=== PATIENT | female | born 1945 | race Caucasian/White ===

== ENCOUNTER → 2016-03-29 | Outpatient (CLI) | payer BC ==
[~2016-03-29] MED LIST: AMIO200T4 PO; APIX1TAB3 PO; ATOR-24 PO; CIPR-255 PO; CIPR1TAB11 PO; CLC/300 PO; FERR1TAB13 PO; FRS/40 PO; HYDR-4717 PO; ISOS60TA25 PO; LEVO-366 PO; LEVO1TAB34 PO; METO100T14 PO; MULT-506 PO; SITA25TA PO; TRAM-10 PO; VTMD1000 PO
== END | disposition home or self-care (01) ==
LOC: C.RDSM 11:25
PROVIDERS: ATTEND Physical Medicine & Rehabilitation Sports Medicine
DX: Z89.411 Acquired absence of right great toe (principal); M79.671 Pain in right foot

== ENCOUNTER → 2016-04-27 | Outpatient (CLI) | payer BC ==
[~2016-04-27] MED LIST changes: -LEVO-366 PO; -LEVO1TAB34 PO
== END | disposition home or self-care (01) ==
LOC: C.RDSM 12:15
PROVIDERS: ATTEND Physical Medicine & Rehabilitation Sports Medicine
DX: M79.671 Pain in right foot (principal); Z89.411 Acquired absence of right great toe

== ENCOUNTER 2016-10-28 10:53 | Emergency (ER) | payer BC ==
[~2016-10-28] VITALS: Ht 160 cm; Wt 86.0 kg
[~2016-10-28 10:53] MED LIST changes: -CIPR1TAB11 PO
[2016-10-28 10:57] VITALS: TEMP 36.5; Ht 160 cm; Wt 86.0 kg
[2016-10-28] MEDS ORDERED: SODIUM CHLORIDE 0.9% 1000ML 500 ML IV ONE (11:14)
[2016-10-28] MEDS ORDERED: CIPR1TAB11 PO (11:15)
--- NOTE | 2016-10-28 12:09 | EMERGENCY ROOM VISIT NOTE ---
History Report prepared by Emma: Graham Maddox Under the Supervision of: Dr. Masood Ceballos M.D. First contact with patient: 12:04 Chief Complaint: FLANK PAIN Stated Complaint: BACK PAIN History of Present Illness The patient is a 71 year old female with a history of kidney stones who presents to the Emergency Room with complaints of worsening right flank pain that started 3 days ago. She says that the pain does not radiate anywhere else. She notes that she was diagnosed with a UTI a couple weeks ago, and was put on Cipro. She had finished her round of Cipro, so she went back to her doctor's office for a follow-up a few days ago, which revealed a negative urine. The patient says that she told the doctor about her mild right flank pain, so she was started on a lower dose of Cipro, which she still has been taking. The patient adds that she has been getting nauseous the past few days in the morning. She denies any nausea currently. The patient says that the pain has been worsening the past few days, and feels like her prior kidney stones. She denies any fevers, chills, chest pain, shortness of breath, cough, congestion, diarrhea, or weakness in her legs. The patient adds that last night, she had trouble urinating. She has a pacemaker for atrial fibrillation, and is on Eliquis. She denies any recent falls or trauma. Source of History: patient Onset: 3 days ago Position: other (right flank) Quality: other (pain) Timing: worsening Associated Symptoms: + nausea, + urinary symptoms (hard time urinating last night), No fevers, No chills, No cough, No chest pain, No SOB, No diarrhea, No weakness (in legs) Note: Associated symptoms: Denies congestion. Review of Systems See HPI for pertinent positives and negatives. A total of ten systems were reviewed and were otherwise negative. 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, right Surgical Problems: (1) H/O brain surgery (2) Previous section Family History Cancer Diabetes mellitus FH: HTN (hypertension) FH: heart disease Social History Smoking Status: Former Smoker Alcohol Use: none Drug Use: none Marital Status: Housing Status: lives with family Occupation Status: retired, other Current/Historical Medications Scheduled Amiodarone Hcl (Cordarone), 200 MG PO DAILY Apixaban (Eliquis), 5 MG PO BID Atorvastatin (Lipitor), 40 MG PO QD@16 Cholecalciferol (Vitamin D3), 1,000 UNITS PO DAILY Ciprofloxacin Tab (Cipro), 250 MG PO BID Ferrous Sulfate (Kp Ferrous Sulfate), 1 TAB PO TID Furosemide (Lasix), 20 MG PO DAILY Hydralazine Hcl (Apresoline), 25 MG PO QID Isosorbide Mononitrate Ext Rel (Imdur Ext Rel), 60 MG PO QAM Metoprolol Tartrate (Lopressor) (Lopressor), 1 TAB PO BID Multivitamin (Multivitamin), 1 TAB PO DAILY Sitagliptin (Januvia), 25 MG PO DAILY Scheduled PRN Tramadol (Ultram), 50 MG PO Q8H PRN for Pain Allergies Coded Allergies: Heparin (Verified Allergy, Unknown, BLOOD DISORDER, 10/28/16) Mexiletine (Verified Allergy, Unknown, SEVERE TREMORS, 10/28/16) Sulfa Antibiotics (Verified Allergy, Unknown, UNKNOWN REACTION TO SULFA DRUGS, 10/28/16) Physical Exam Vital Signs Date Time Temp Pulse Resp B/P (MAP) Pulse Ox O2 Delivery O2 Flow Rate FiO2 10/28/16 17:04 63 193/72 98 10/28/16 15:46 86 20 153/81 100 Room Air 10/28/16 13:55 64 18 155/103 95 Room Air 10/28/16 10:57 36.5 99 20 156/81 96 Room Air Physical Exam GENERAL: Awake, alert, well-appearing, in no distress HENT: Normocephalic, atraumatic. Oropharynx unremarkable. Dry mucous membranes. EYES: Normal conjunctiva. Sclera non-icteric. NECK: Supple. No nuchal rigidity. FROM. No JVD. RESPIRATORY: Clear to auscultation. CARDIAC: Regular rate, normal rhythm. Extremities warm and well perfused. Pulses equal. ABDOMEN: Soft, non-distended. Mild right flank tenderness to palpation, otherwise mild suprapubic tenderness to palpation. No peritoneal signs. No rebound or guarding. No masses. RECTAL: Deferred. MUSCULOSKELETAL: Chest examination reveals no tenderness. The back is symmetrical on inspection without obvious abnormality. There is no CVA tenderness to palpation. No joint edema. LOWER EXTREMITIES: Calves are equal size bilaterally and non-tender. No edema. No discoloration. NEURO: Normal sensorium. No sensory or motor deficits noted. SKIN: No rash or jaundice noted. Medical Decision & Procedures ER Provider Diagnostic Interpretation: Radiology results as stated below per my review and radiologist interpretation: ABD/PELVIS NO IV OR ORAL CONT CT DOSE: 1041.83 mGy.cm HISTORY: Flank pain r/o renal stone TECHNIQUE: Multiaxial CT images of the abdomen and pelvis were performed without contrast. A dose lowering technique was utilized adhering to the principles of ALARA. COMPARISON STUDY: 07/31/2013 FINDINGS: Minimal dependent atelectasis. Mild chronic pleural reactive change at both lung bases. Liver appears uniform. Several gallstones in the region of the gallbladder neck. Kidneys demonstrate several nonobstructing renal calcifications. Kidneys also demonstrate several small cysts as well as cortical scarring bilaterally. The adrenal glands are unremarkable. The bowel pattern is nonobstructive. Bladder is midline. The appendix is normal. IMPRESSION: 1. Several nonobstructing renal calcifications. 2. Nonobstructive bowel pattern. 3. Several small gallstones in the region of the gallbladder neck. The above report was generated using voice recognition software. It may contain grammatical, syntax or spelling errors. Electronically signed by: Casimiro Delatorre M.D. 10/28/2016 1:49 PM Dictated Date/Time: 10/28/2016 1:43 PM GALLBLADDER-ABD LIMITED CLINICAL HISTORY: R flank / RUQ pain. Flank pain TECHNIQUE: Ultrasound COMPARISON STUDY: 01/17/2016 FINDINGS: Normal liver. Several small gallstones within the carotid gallbladder lumen. Normal caliber bile ducts. Common bile duct 4 mm. Right kidney measures 10 cm at maximum. 2.3 cm cyst interpolar region right kidney. No evidence for hydronephrosis. IMPRESSION: 1. Several small gallstones within the gallbladder neck region. 2. Normal caliber bile ducts. 3. Small right renal cyst. The above report was generated using voice recognition software. It may contain grammatical, syntax or spelling errors. Electronically signed by: Casimiro Delatorre M.D. 10/28/2016 3:38 PM Dictated Date/Time: 10/28/2016 3:36 PM Laboratory Results 10/28/16 11:56 10/28/16 11:56 Test 10/28/16 11:56 10/28/16 12:15 Red Blood Count 3.44 M/uL (4.2-5.4) Mean Corpuscular Volume 102.9 fL (80-100) Mean Corpuscular Hemoglobin 33.7 pg (25-34) Mean Corpuscular Hemoglobin Concent 32.8 g/dl (32-36) RDW Standard Deviation 46.4 fL (36.4-46.3) RDW Coefficient of Variation 12.4 % (11.5-14.5) Mean Platelet Volume 11.0 fL (7.4-10.4) Anion Gap 3.0 mmol/L (3-11) Est Creatinine Clear Calc Drug Dose 21.7 ml/min Estimated GFR () 22.5 Estimated GFR (Non- 19.4 BUN/Creatinine Ratio 11.9 (10-20) Calcium Level 8.7 mg/dl (8.5-10.1) Total Bilirubin 0.6 mg/dl (0.2-1) Direct Bilirubin 0.1 mg/dl (0-0.2) Aspartate Amino Transf (AST/SGOT) 21 U/L (15-37) Alanine Aminotransferase (ALT/SGPT) 25 U/L (12-78) Alkaline Phosphatase 82 U/L (45-117) Total Protein 6.8 gm/dl (6.4-8.2) Albumin 3.1 gm/dl (3.4-5.0) Lipase 356 U/L (73-393) Urine Color YELLOW Urine Appearance CLEAR (CLEAR) Urine pH 6.5 (4.5-7.5) Urine Specific [place] 1.012 (1.000-1.030) Urine Protein NEG (NEG) Urine Glucose (UA) NEG (NEG) Urine Ketones NEG (NEG) Urine Occult Blood NEG (NEG) Urine Nitrite NEG (NEG) Urine Bilirubin NEG (NEG) Urine Urobilinogen NEG (NEG) Urine Leukocyte Esterase MODERATE (NEG) Urine WBC (Auto) 1-5 /hpf (0-5) Urine RBC (Auto) 0-4 /hpf (0-4) Urine Hyaline Casts (Auto) 1-5 /lpf (0-5) Urine Epithelial Cells (Auto) 5-10 /lpf (0-5) Urine Bacteria (Auto) NEG (NEG) Laboratory results reviewed by me Medications Administered Medications (Trade) Dose Ordered Sig/Socrates Route Start Time Stop Time Status Last Admin Dose Admin Sodium Chloride 500 ml @ 999 mls/hr Q31M ONCE IV 10/28/16 11:14 10/28/16 11:44 DC 10/28/16 12:12 999 MLS/HR Sodium Chloride 1,000 ml @ 125 mls/hr Q8H STAT IV 10/28/16 12:41 10/28/16 19:28 DC 10/28/16 13:57 125 MLS/HR ED Course 1218: The patient was evaluated in room C8. A complete history and physical exam was performed. 1241: Ordered NSS 1000 ml @ 125 mls/hr IV. 1630: I reevaluated the patient and she is resting comfortably. Discussed results and discharge instructions: She verbalized understanding and agreement. The patient is ready for discharge. Medical Decision I reviewed the patient's past medical history, medications, and the nursing notes as described above. Differentials include but are not limited to: UTI, pyelonephritis, renal stone, less likely diverticulitis, biliary ideology, obstruction, pneumonia, musculoskeletal strain. Patient is a 71-year-old woman with a past medical history of CKD, renal stones , recent UTI, A. fib on Eloquis presents to the emergency department with right flank pain per history of present illness. On arrival the patient is in no acute distress, afebrile with stable vital signs. On exam the patient is clinically dry, with mild right flank tenderness to palpation. WBC within normal limits. Patient's creatinine 2.4 at recent baseline. LFTs otherwise unremarkable. CT scan showing nonobstructing renal calcifications bilaterally was small gallstones within the gallbladder. Otherwise no emergent findings to explain the patient's right flank pain. Right upper quadrant ultrasound done to further characterize the patient's gallstones which were negative for signs of cholecystitis. UA was negative infection. Considering negative findings on the patient's workup symptoms are most likely musculoskeletal. Her telemetry setting of the patient's CKD patient is unable to take ibuprofen. Moreover, considering likely muscular skeletal strain I do not believe narcotics are indicated in this setting and I discussed this with the patient. However the patient will try using a heating pad to help with muscle relaxation and follow up with her primary care doctor recommendations. The patient was agreeable with plan and was discharged per instructions. Medication Reconcilliation Current Medication List: was personally reviewed by me Blood Pressure Screening Patient's blood pressure: Elevated blood pressure Blood pressure disposition: Referred to PCP Impression Primary Impression: Right flank pain Additional Impression: Muscle ache Scribe Attestation The scribe's documentation has been prepared under my direction and personally reviewed by me in its entirety. I confirm that the note above accurately reflects all work, treatment, procedures, and medical decision making performed by me. Departure Information Dispostion Home / Self-Care Referrals Kwabena Pierson DO (PCP) Patient Instructions ED Muscle Aching, ED Strain Abdominal Muscle, My [facility] Additional Instructions Please follow up with your primary care physician in the next 1-3 days as well as with your kidney doctor. Kidney lab test was unchanged from recent. Your exam, lab results, CT scan, ultrasound of your gallbladder did not show signs of an emergent condition. Her symptoms were most likely due to muscular strain. Acetaminophen for pain as needed. Heating pad for 20 minute intervals throughout the day for additional muscle relaxation. Return to the emergency department for worsening symptoms as described in the accompanying instructions. Problem Qualifiers
[2016-10-28 12:26] LABS: HEMATOCRIT 35.4 % (37-47); MEAN CELL VOLUME 102.9 fL (80-100); MEAN CORPUSCULAR HEMOGLOBIN 33.7 pg (25-34); MEAN CORPUSCULAR HGB CONC 32.8 g/dl (32-36); PLATELET COUNT 184 K/uL (130-400); RED BLOOD COUNT 3.44 M/uL (4.2-5.4); WHITE BLOOD COUNT 7.85 K/uL (4.8-10.8)
[2016-10-28 12:39] LABS: URINE APPEARANCE CLEAR (CLEAR); URINE BILIRUBIN NEG (NEG); URINE COLOR YELLOW; URINE NITRITE NEG (NEG); URINE PH 6.5 (4.5-7.5); URINE SPECIFIC GRAVITY 1.012 (1.000-1.030); UROBILINOGEN NEG (NEG); ZZUR CULT IF INDIC CLEAN CATCH NO
[2016-10-28 12:41] LABS: MANUAL MICROSCOPIC REQUIRED? NO; REVIEW REQ? NO
[2016-10-28] MEDS ORDERED: SODIUM CHLORIDE 0.9% 1000ML 1,000 ML IV STA (12:41)
[2016-10-28 12:45] LABS: BUN/CREATININE RATIO 11.9 (10-20); CALCIUM 8.7 mg/dl (8.5-10.1); CREATININE 2.4 mg/dl (0.60-1.20); POTASSIUM 4.3 mmol/L (3.5-5.1)
--- NOTE | 2016-10-28 13:51 | DIAGNOSTIC IMAGING REPORT ---
ABD/PELVIS NO IV OR ORAL CONT CT DOSE: 1041.83 mGy.cm HISTORY: Flank pain r/o renal stone TECHNIQUE: Multiaxial CT images of the abdomen and pelvis were performed without contrast. A dose lowering technique was utilized adhering to the principles of ALARA. COMPARISON STUDY: 07/31/2013 FINDINGS: Minimal dependent atelectasis. Mild chronic pleural reactive change at both lung bases. Liver appears uniform. Several gallstones in the region of the gallbladder neck. Kidneys demonstrate several nonobstructing renal calcifications. Kidneys also demonstrate several small cysts as well as cortical scarring bilaterally. The adrenal glands are unremarkable. The bowel pattern is nonobstructive. Bladder is midline. The appendix is normal. IMPRESSION: 1. Several nonobstructing renal calcifications. 2. Nonobstructive bowel pattern. 3. Several small gallstones in the region of the gallbladder neck. The above report was generated using voice recognition software. It may contain grammatical, syntax or spelling errors. Electronically signed by: Casimiro Delatorre M.D. 10/28/2016 1:49 PM Dictated Date/Time: 10/28/2016 1:43 PM
--- NOTE | 2016-10-28 15:40 | DIAGNOSTIC IMAGING REPORT ---
GALLBLADDER-ABD LIMITED CLINICAL HISTORY: R flank / RUQ pain. Flank pain TECHNIQUE: Ultrasound COMPARISON STUDY: 01/17/2016 FINDINGS: Normal liver. Several small gallstones within the carotid gallbladder lumen. Normal caliber bile ducts. Common bile duct 4 mm. Right kidney measures 10 cm at maximum. 2.3 cm cyst interpolar region right kidney. No evidence for hydronephrosis. IMPRESSION: 1. Several small gallstones within the gallbladder neck region. 2. Normal caliber bile ducts. 3. Small right renal cyst. The above report was generated using voice recognition software. It may contain grammatical, syntax or spelling errors. Electronically signed by: Casimiro Delatorre M.D. 10/28/2016 3:38 PM Dictated Date/Time: 10/28/2016 3:36 PM
[2016-10-28 17:04] VITALS: BP 193/72; PULSE 63; O2SAT 98
== END 2016-10-28 17:15 | disposition home or self-care (01) ==
LOC: C.EDB 10:55 → C.EDC 17:15
DX: R10.30 Lower abdominal pain, unspecified (principal); M79.1 Myalgia; I12.9 Hypertensive chronic kidney disease with stage 1 through stage 4 chronic kidney disease, or unspecified chronic kidney disease; N18.9 Chronic kidney disease, unspecified; I48.91 Unspecified atrial fibrillation; E11.9 Type 2 diabetes mellitus without complications; I35.0 Nonrheumatic aortic (valve) stenosis; I50.9 Heart failure, unspecified; D64.9 Anemia, unspecified; M86.671 Other chronic osteomyelitis, right ankle and foot; Z87.442 Personal history of urinary calculi; Z95.0 Presence of cardiac pacemaker; Z98.890 Other specified postprocedural states; Z87.891 Personal history of nicotine dependence; Z79.899 Other long term (current) drug therapy; Z88.2 Allergy status to sulfonamides; Z88.8 Allergy status to other drugs, medicaments and biological substances; Z80.9 Family history of malignant neoplasm, unspecified; Z83.3 Family history of diabetes mellitus; Z82.49 Family history of ischemic heart disease and other diseases of the circulatory system

== ENCOUNTER → 2016-12-13 | Outpatient (CLI) | payer BC ==
[~2016-12-13] MED LIST changes: -CIPR-255 PO; +CIPR1TAB11 PO; -CLC/300 PO
[2016-12-13 12:15] LABS: HEMATOCRIT 39.4 % (37-47); MEAN CELL VOLUME 103.4 fL (80-100); MEAN CORPUSCULAR HEMOGLOBIN 32.8 pg (25-34); MEAN CORPUSCULAR HGB CONC 31.7 g/dl (32-36); MEAN PLATELET VOLUME 11.3 fL (7.4-10.4); PLATELET COUNT 207 K/uL (130-400); RED BLOOD COUNT 3.81 M/uL (4.2-5.4); WHITE BLOOD COUNT 8.46 K/uL (4.8-10.8)
[2016-12-13 12:40] LABS: URINE APPEARANCE CLEAR (CLEAR); URINE BILIRUBIN NEG (NEG); URINE COLOR YELLOW; URINE NITRITE NEG (NEG); URINE SPECIFIC GRAVITY 1.012 (1.000-1.030); UROBILINOGEN NEG (NEG)
[2016-12-13 12:45] LABS: MANUAL MICROSCOPIC REQUIRED? NO; REVIEW REQ? NO
[2016-12-13 12:58] LABS: URINE PROTIEN/CREAT RATIO 0.4 (0-0.2); URINE TOTAL PROTEIN 10.6 mg/dl (0-11.9)
[2016-12-13 13:02] LABS: ALT/SGPT 33 U/L (12-78); BLOOD UREA NITROGEN 33 mg/dl (7-18); BUN/CREATININE RATIO 17.4 (10-20); CALCIUM 9.4 mg/dl (8.5-10.1); CARBON DIOXIDE 31 mmol/L (21-32); CHLORIDE 106 mmol/L (98-107); GLUCOSE 106 mg/dl (70-99); POTASSIUM 4.3 mmol/L (3.5-5.1); SODIUM 143 mmol/L (136-145)
[2016-12-13 13:05] LABS: ALB/GLOB RATIO 0.9 (0.9-2); ALKALINE PHOSPHATASE 89 U/L (45-117); AST/SGOT 33 U/L (15-37)
== END | disposition home or self-care (01) ==
LOC: C.LAB1850 10:30
PROVIDERS: ATTEND Internal Medicine Nephrology
DX: I12.9 Hypertensive chronic kidney disease with stage 1 through stage 4 chronic kidney disease, or unspecified chronic kidney disease (principal); N18.3 Chronic kidney disease, stage 3 (moderate); R80.9 Proteinuria, unspecified; E55.9 Vitamin D deficiency, unspecified

== ENCOUNTER → 2017-03-14 | Outpatient (CLI) | payer BC ==
[2017-03-14 12:08] LABS: HEMATOCRIT 40.1 % (37-47); MEAN CELL VOLUME 102.8 fL (80-100); MEAN CORPUSCULAR HEMOGLOBIN 33.8 pg (25-34); MEAN CORPUSCULAR HGB CONC 32.9 g/dl (32-36); MEAN PLATELET VOLUME 11.6 fL (7.4-10.4); PLATELET COUNT 175 K/uL (130-400); WHITE BLOOD COUNT 7.68 K/uL (4.8-10.8)
[2017-03-14 12:16] LABS: URINE APPEARANCE CLEAR (CLEAR); URINE BILIRUBIN NEG (NEG); URINE COLOR YELLOW; URINE NITRITE NEG (NEG); URINE SPECIFIC GRAVITY 1.015 (1.000-1.030); UROBILINOGEN NEG (NEG)
[2017-03-14 12:21] LABS: MANUAL MICROSCOPIC REQUIRED? NO; REVIEW REQ? NO
[2017-03-14 12:21] LABS: BLOOD UREA NITROGEN 41 mg/dl (7-18); BUN/CREATININE RATIO 19.4 (10-20); CALCIUM 8.6 mg/dl (8.5-10.1); CARBON DIOXIDE 30 mmol/L (21-32); CHLORIDE 106 mmol/L (98-107); CREATININE 2.13 mg/dl (0.60-1.20); GLUCOSE 178 mg/dl (70-99); POTASSIUM 4.2 mmol/L (3.5-5.1); SODIUM 140 mmol/L (136-145)
[2017-03-14 12:22] LABS: PHOSPHORUS 3.6 mg/dl (2.5-4.9)
[2017-03-14 12:29] LABS: CREATININE, URINE 43.9 mg/dl; URINE PROTIEN/CREAT RATIO 0.2 (0-0.2); URINE TOTAL PROTEIN 8.6 mg/dl (0-11.9)
== END | disposition home or self-care (01) ==
LOC: C.LAB1850 10:17
PROVIDERS: ATTEND Internal Medicine Nephrology
DX: I10 Essential (primary) hypertension (principal); N18.3 Chronic kidney disease, stage 3 (moderate); D64.9 Anemia, unspecified; R80.9 Proteinuria, unspecified; E55.9 Vitamin D deficiency, unspecified

== ENCOUNTER 2019-01-14 08:27 | Observation (INO) ==
[2019-01-14] MEDS ORDERED: IBUPROFEN 600 MG TAB PO STA (08:42)
[2019-01-14] MEDS: HYDROmorphone INJ 0.5 MG/0.5 ML SYR IV PRN ×2 (09:07→10:27)
[2019-01-14 09:15] LABS: Basophils # (auto) 0.04 K/uL (0-0.2); Basophils % (auto) 0.5 %; Eosinophils # (auto) 0.19 K/uL (0-0.5); Eosinophils % (auto) 2.2 %; Hemoglobin 11.8 g/dL (12.0-16.0); Immature Granulocytes # (auto) 0.03 K/uL (0.00-0.02); Immature Granulocytes % (auto) 0.4 %; Lymphocytes # (auto) 1.01 K/uL (1.2-3.4); Lymphocytes % (auto) 11.8 %; Mean Corpuscular Hgb Conc 32.8 g/dL (32-36); Mean Corpuscular Volume 106.8 fL (80-100); Neutrophils # (auto) 6.68 K/uL (1.4-6.5); Neutrophils % (auto) 78.1 %; Platelet Count 214 K/uL (130-400); RDW Coefficient of Variation 14.8 % (11.5-14.5); Red Blood Count 3.37 M/uL (4.2-5.4); White Blood Count 8.55 K/uL (4.8-10.8)
--- NOTE | 2019-01-14 09:29 | CT Scan Report ---
CT lumbar spine wo con CT DOSE: 617.44 mGy.cm HISTORY: Pain. Neuropathy. radiating back pain TECHNIQUE: Multiaxial CT images of the lumbar spine were performed and reformatted in the sagittal an d coronal plane without the use of contrast. A dose lowering technique was utilized adhering to the principles of ALARA. COMPARISON: None. FINDINGS: Severe degenerative disc change throughout the entire lumbar as well as low thoracic region . Vacuum discs are identified at virtually all levels. No evidence for an acute compression deformity. Small bilateral pleural effusions. L1-L2: Mild to moderate multifactorial narrowing of the spinal canal. Broad-based posterior osteophyt e. Moderate narrowing of the neural foramina bilaterally. L2-L3 significant multifactorial narrowing of the spinal canal. Mild narrowing of the neural foramina bilaterally. L3-L4 considerable left central posterior osteophyte. Hypertrophic changes of posterior elements. Sig nificant narrowing of the left and to a lesser extent right neural foramina. Moderate multifactorial narrowing of the spinal canal. L4-L5 mild broad-based bulging disc. L5-S1 broad-based bulging disc. Mild impact anterior aspect of the thecal sac. Mild narrowing of the neural foramina bilaterally. IMPRESSION: 1. Severe degenerative disc changes throughout the entire lumbar region.. 2. No evidence for compression deformity. 3. Mild to significant multifactorial narrowing of the spinal canal at all levels 4. Findings are considered most significant at L2-L3 and L3-L4. The above report was generated using voice recognition software. It may contain grammatical, syntax or spelling errors. Electronically signed by: Casimiro Delatorre M.D. 01/14/2019 9:28 AM
[2019-01-14 09:31] LABS: Albumin Level 2.7 gm/dl (3.4-5.0); BUN Creatinine Ratio 13.6 (10-20); Calcium 8.3 mg/dl (8.5-10.1); Creatinine Clr Calc Pharmacy 27.9 ml/min; Est GFR (African American) 31.4; Est GFR (Non-African American) 27.1; Potassium 4.7 mmol/L (3.5-5.1)
[2019-01-14 09:35] LABS: Albumin Globulin Ratio 0.7 (0.9-2); Bilirubin,Total 0.6 mg/dl (0.2-1); Globulin 3.7 gm/dl (2.5-4.0); Total Protein 6.4 gm/dl (6.4-8.2)
[2019-01-14] MEDS ORDERED: LIDOCAINE 5% 1 PATCH TD STA (10:13)
[2019-01-14] MEDS ORDERED: ACETAMINOPHEN 1,000 MG/100 ML VIAL IV STA (10:13)
[2019-01-14] MEDS ORDERED: FERROUS SULFATE 15 MG/ML PO STA (11:53)
[2019-01-14] MEDS ORDERED: AMIODARONE 200 MG TAB PO ONE (11:53)
[2019-01-14] MEDS ORDERED: APIXABAN 2.5 MG TAB PO STA (11:53)
[2019-01-14] MEDS ORDERED: ATORVASTATIN 40 MG TAB PO STA (11:53)
[2019-01-14] MEDS ORDERED: SITAGLIPTIN PHOSPHATE 25 MG TAB PO STA (11:58)
[2019-01-14] MEDS ORDERED: METOPROLOL TARTRATE 100 MG TAB PO STA (11:58)
[2019-01-14] MEDS ORDERED: METOPROLOL TARTRATE 50 MG TAB ONE (12:25)
--- NOTE | 2019-01-14 13:14 | Emergency Department Note ---
Entered by Winston Townsend acting as a scribe for Lester Martin MD History of Present Illness General Chief complaint: Back Injury/Pain Stated complaint: back pain Time Seen by Provider: 01/14/19 08:30 Source: patient History of Present Illness Provider complaint: Back pain Onset (ago): hour(s) (This morning) Location: back Radiation: extremity Severity: similar to prior episodes Pain Consistency: + constant Maximum Pain Intensity: 8 Current Pain Intensity: 8 Quality: + sharp Associated symptoms: + denies other symptoms (Incontinence ); no weakness The patient is a 73 year old female who presents to the Emergency Room with comp laints of constant sharp lower back pain that started this morning upon waking up. The patient rates the pain as an 8/10 and notes it radiates to the right lower extremity. The patient has a history of lumbar spinal stenosis so she sees a chiropractor bi-weekly for adjustments. The patient adds that she normally has some pain at baseline, however today's pain is much more severe. The patient denies any weakness or incontinence. Home Medications Home Medications Medication Instructions Recorded Confirmed Type amiodarone 200 mg PO QAM 04/22/18 01/14/19 History apixaban [Eliquis] 2.5 mg PO BID 04/22/18 01/14/19 History atorvastatin 40 mg PO QAM 04/22/18 01/14/19 History cholecalciferol (vitamin D3) 1,000 units PO QAM 04/22/18 01/14/19 History [Vitamin D3] ferrous sulfate 325 mg PO TID 04/22/18 01/14/19 History fluticasone propionate 1 spray INTRANASAL DAILY PRN 04/22/18 01/14/19 History hydralazine 25 mg PO BID 04/22/18 01/14/19 History isosorbide mononitrate 60 mg PO QAM 04/22/18 01/14/19 History multivitamin 1 tab PO QAM 04/22/18 01/14/19 History sitagliptin [Januvia] 25 mg PO QAM 04/22/18 01/14/19 History vitamins A,C,A-romi-wdtahx 1 cap PO BID 04/22/18 01/14/19 History [PreserVision AREDS] metoprolol tartrate 100 mg tablet 100 mg PO BID tab 11/09/18 01/14/19 History acetaminophen 500 mg PO Q6H PRN 01/14/19 01/14/19 History docusate sodium [Colace] 100 mg PO BID #60 cap 01/14/19 Rx lidocaine [Lidoderm] 1 patch TOP DAILY #15 ea 01/14/19 Rx oxycodone 5 mg PO Q6H PRN #14 tab 01/14/19 Rx sennosides [Senokot] 8.6 mg PO HS #30 tab 01/14/19 Rx Allergies Allergy/AdvReac Type Severity Reaction Status Date / Time heparin Allergy Unknown BLOOD Verified 01/14/19 09:30 DISORDER mexiletine Allergy Unknown SEVERE Verified 01/14/19 09:30 TREMORS Sulfa (Sulfonamide Allergy Unknown UNKNOWN Verified 01/14/19 09:30 Antibiotics) REACTION TO SULFA DRUGS Past Med/Surg History Medical History Anemia (Chronic) DM (diabetes mellitus) (Chronic) Heart disease (Chronic) HTN (hypertension) (Chronic) SVT (supraventricular tachycardia) (Chronic) A-fib (Chronic) Pacemaker (Chronic) Surgical History Previous section (Resolved) H/O brain surgery (Resolved) Family History Father Myocardial infarction Stroke Other Family history non-contributory Social History Preferred Language: Macedonian Communication Ability: Effective 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 and A total of 10 systems reviewed and were otherwise negative Physical Exam Vital Signs Vital Signs - 24 hr 01/14/19 08:37 01/14/19 10:32 01/14/19 12:39 Temperature 37.1 C Temperature Source Oral Sepsis Recent Fever Within 48 Hours No Sepsis New/Unexplained Change in Mental Status No Sepsis Action Taken by Nursing No Action Required Pulse Rate 91 H Pulse Rate [Finger] 59 L 63 Pulse Rhythm Regular Pulse Rhythm [Finger] Regular Regular Pulse Strength [Finger] Normal Respiratory Rate 20 17 17 Respiratory Effort / Characteristics Non-Labored Spontaneous Non-Labored Spontaneous Non-Labored Spontaneous Respiratory Depth Normal Normal Normal Respiratory Pattern Regular Regular Blood Pressure 147/101 H Blood Pressure [Left Arm] 137/78 198/58 H Blood Pressure Mean 116 Blood Pressure Mean [Left Arm] 97 104 Pulse Oximetry 94 93 93 Oxygen Delivery Method Room Air Room Air Room Air Oxygen Flow Rate 01/14/19 13:00 Temperature Temperature Source Sepsis Recent Fever Within 48 Hours Sepsis New/Unexplained Change in Mental Status Sepsis Action Taken by Nursing Pulse Rate Pulse Rate [Finger] 73 Pulse Rhythm Pulse Rhythm [Finger] Regular Pulse Strength [Finger] Respiratory Rate 20 Respiratory Effort / Characteristics Non-Labored Spontaneous Respiratory Depth Normal Respiratory Pattern Regular Blood Pressure Blood Pressure [Left Arm] 138/72 Blood Pressure Mean Blood Pressure Mean [Left Arm] 94 Pulse Oximetry 94 Oxygen Delivery Method Nasal Cannula Oxygen Flow Rate 2 GENERAL: Awake, alert, well-appearing, in no distress HENT: Normocephalic, atraumatic. Oropharynx unremarkable. EYES: Normal conjunctiva. Sclera non-icteric. NECK: Supple. No nuchal rigidity. FROM. No masses. RESPIRATORY: Clear to auscultation. No wheezes. No rales. Normal respiratory effort. CARDIAC: Normal rate. Normal rhythm. No murmurs. No rubs. Extremities warm and well perfused. Pulses equal. No JVD. GI: Soft, non-distended. No tenderness to palpation. No rebound or guarding. No masses. RECTAL: Deferred. MUSCULOSKELETAL: Atraumatic. Chest examination reveals no tenderness. The back is symmetrical on inspection without obvious abnormality. Tender to the L5-S1 area. No saddle anesthesia. No loss of bowel or bladder control. There is no CVA tenderness to palpation. No joint edema. LOWER EXTREMITIES: Calves are equal size bilaterally and non-tender. No edema. No discoloration. NEURO: Normal sensorium. No sensory or motor deficits noted. Course 0831: Past medical records reviewed. The patient was evaluated in room B07 by the resident Dr. Watts, and a complete history and physical examination were performed. I then performed my own assessment of the patient. 1025: Case management spoke with the patient and her family to try to set up physical therapy. The patient did not like any of the facilities so case management will try to set up home physical therapy. Administered Medications Apixaban (Eliquis) 2.5 mg PO BID HARJIT Stop: 02/13/19 20:59 Last Admin: 01/14/19 20:16 Dose: 2.5 mg Documented by: [id number] Ferrous Sulfate (Feosol) 325 mg PO TID HARJIT Stop: 02/13/19 20:59 Last Admin: 01/14/19 20:17 Dose: 325 mg Documented by: [id number] Hydralazine HCl (Apresoline) 25 mg PO BID HARJIT Stop: 02/13/19 20:59 Last Admin: 01/14/19 20:17 Dose: 25 mg Documented by: [id number] Hydromorphone HCl (Dilaudid) 0.5 mg IV Q15M PRN PRN Reason: Pain Stop: 01/28/19 08:41 Last Admin: 01/15/19 06:08 Dose: 0.5 mg Documented by: [id number] Admin: 01/14/19 10:27 Dose: 0.5 mg Documented by: [id number] Admin: 01/14/19 09:07 Dose: 0.5 mg Documented by: [id number] Metoprolol Tartrate (Lopressor) 100 mg PO BID HARJIT Stop: 02/13/19 20:59 Last Admin: 01/14/19 20:16 Dose: 100 mg Documented by: [id number] Discontinued Medications Amiodarone HCl (Cordarone) 200 mg PO NOW ONE Stop: 01/14/19 11:54 Last Admin: 01/14/19 12:31 Dose: 200 mg Documented by: [id number] Apixaban (Eliquis) 2.5 mg PO NOW STA Stop: 01/14/19 11:54 Last Admin: 01/14/19 12:32 Dose: 2.5 mg Documented by: [id number] Atorvastatin Calcium (Lipitor) 40 mg PO NOW STA Stop: 01/14/19 11:54 Last Admin: 01/14/19 12:31 Dose: 40 mg Documented by: [id number] Ferrous Sulfate (Ferrous Sulfate) 325 mg PO NOW STA Stop: 01/14/19 11:54 Last Admin: 01/14/19 12:32 Dose: 325 mg Documented by: [id number] Hydralazine HCl (Apresoline) 25 mg PO NOW STA Stop: 01/14/19 11:59 Last Admin: 01/14/19 12:31 Dose: 25 mg Documented by: [id number] Acetaminophen (Ofirmev) 1,000 mg in 100 mls @ 400 mls/hr IV NOW STA Stop: 01/14/19 10:27 Last Infusion: 01/14/19 10:42 Dose: 0 mls/hr Documented by: [id number] Admin: 01/14/19 10:27 Dose: 400 mls/hr Documented by: [id number] Ibuprofen (Motrin) 600 mg PO NOW STA Stop: 01/14/19 08:43 Last Admin: 01/14/19 09:07 Dose: 600 mg Documented by: [id number] Lidocaine (Lidoderm 5%) 1 patch TD NOW STA Stop: 01/14/19 10:14 Last Admin: 01/14/19 10:27 Dose: 1 patch Documented by: [id number] Metoprolol Tartrate (Lopressor) 100 mg PO NOW STA Stop: 01/14/19 11:59 Last Admin: 01/14/19 12:31 Dose: 100 mg Documented by: [id number] Metoprolol Tartrate (Lopressor) Confirm Administered Dose 100 mg .ROUTE .STK-MED ONE Stop: 01/14/19 12:26 Last Admin: 01/14/19 12:32 Dose: Not Given Documented by: [id number] Miscellaneous (Remove Lidoderm Patch) 1 ea N/A DAILY@2100 HARJIT Stop: 01/14/19 21:01 Last Admin: 01/14/19 21:57 Dose: 1 ea Documented by: [id number] Ondansetron HCl (Zofran) 4 mg IV NOW STA Stop: 01/14/19 13:55 Last Admin: 01/14/19 13:57 Dose: 4 mg Documented by: [id number] Ondansetron HCl (Zofran) Confirm Administered Dose 4 mg .ROUTE .STK-MED ONE Stop: 01/14/19 13:56 Last Admin: 01/14/19 19:03 Dose: Not Given Documented by: [id number] Sitagliptin Phosphate (Januvia) 25 mg PO NOW STA Stop: 01/14/19 11:59 Last Admin: 01/14/19 12:32 Dose: 25 mg Documented by: [id number] Medical Decision Making Differential Diagnosis Differential: Musculoskeletal, Disc Herniation, Fracture, Cord Compression, Discitis, Infectious, Aortic Pathology, Renal Colic, UTI/Pyelonephritis, Acute Exacerbation of Chronic Pain, Sciatica, Cauda Equina, amongst other pathologies entertained. Medical Records Attestation: I reviewed the patient's medical records. Home Medications Current Medication List: was personally reviewed by me Laboratory Data Attestation: I reviewed the patient's lab results. Result diagrams: 01/14/19 09:05 01/14/19 09:05 Lab Results 01/14/19 01/14/19 01/14/19 Range/Units 09:05 09:05 10:37 WBC 8.55 (4.8-10.8) K/uL RBC 3.37 L (4.2-5.4) M/uL Hgb 11.8 L (12.0-16.0) g/dL Hct 36.0 L (37-47) % MCV 106.8 H (80-100) fL MCH 35.0 H (25-34) pg MCHC 32.8 (32-36) g/dL RDW Std Deviation 58.0 H (36.4-46.3) fL RDW Coeff of Desiree 14.8 H (11.5-14.5) % Plt Count 214 (130-400) K/uL MPV 10.0 (7.4-10.4) fL Immature Gran % (Auto) 0.4 % Neut % (Auto) 78.1 % Lymph % (Auto) 11.8 % Hardin % (Auto) 7.0 % Eos % (Auto) 2.2 % Baso % (Auto) 0.5 % Immature Gran # (Auto) 0.03 H (0.00-0.02) K/uL Neut # (Auto) 6.68 H (1.4-6.5) K/uL Lymph # (Auto) 1.01 L (1.2-3.4) K/uL Hardin # (Auto) 0.60 H (0.11-0.59) K/uL Eos # (Auto) 0.19 (0-0.5) K/uL Baso # (Auto) 0.04 (0-0.2) K/uL Sodium 141 (136-145) mmol/L Potassium 4.7 (3.5-5.1) mmol/L Chloride 107 (98-107) mmol/L Carbon Dioxide 28 (21-32) mmol/L Anion Gap 6.0 (3-11) BUN 25 H (7-18) mg/dl Creatinine 1.80 H (0.6-1.2) mg/dl Est Cr Clr Drug Dosing 27.9 ml/min Est GFR ( Amer) 31.4 Est GFR (Non-Af Amer) 27.1 BUN/Creatinine Ratio 13.6 (10-20) Glucose 104 H (70-99) mg/dl POC Glucose 88 (70-99) Calcium 8.3 L (8.5-10.1) mg/dl Total Bilirubin 0.6 (0.2-1) mg/dl AST 38 H (15-37) U/L ALT 26 (12-78) U/L Alkaline Phosphatase 98 (45-117) U/L Total Protein 6.4 (6.4-8.2) gm/dl Albumin 2.7 L (3.4-5.0) gm/dl Globulin 3.7 (2.5-4.0) gm/dl Albumin/Globulin Ratio 0.7 L (0.9-2) Imaging Data Radiologist's Impression: Radiology results as stated below per my review and the radiologist's interpretation: CT lumbar spine wo con CT DOSE: 617.44 mGy.cm HISTORY: Pain. Neuropathy. radiating back pain TECHNIQUE: Multiaxial CT images of the lumbar spine were performed and reformatt ed in the sagittal and coronal plane without the use of contrast. A dose lowering technique was utilized adhering to the principles of ALARA. COMPARISON: None. FINDINGS: Severe degenerative disc change throughout the entire lumbar as well as low thoracic region. Vacuum discs are identified at virtually all levels. No evidence for an acute compression deformity. Small bilateral pleural effusions. L1-L2: Mild to moderate multifactorial narrowing of the spinal canal. Broad- based posterior osteophyte. Moderate narrowing of the neural foramina bilaterally. L2-L3 significant multifactorial narrowing of the spinal canal. Mild narrowing of the neural foramina bilaterally. L3-L4 considerable left central posterior osteophyte. Hypertrophic changes of posterior elements. Significant narrowing of the left and to a lesser extent right neural foramina. Moderate multifactorial narrowing of the spinal canal. L4-L5 mild broad-based bulging disc. L5-S1 broad-based bulging disc. Mild impact anterior aspect of the thecal sac. Mild narrowing of the neural foramina bilaterally. IMPRESSION: 1. Severe degenerative disc changes throughout the entire lumbar region.. 2. No evidence for compression deformity. 3. Mild to significant multifactorial narrowing of the spinal canal at all levels 4. Findings are considered most significant at L2-L3 and L3-L4. The above report was generated using voice recognition software. It may contain grammatical, syntax or spelling errors. Electronically signed by: Casimiro Delatorre M.D. 01/14/2019 9:28 AM Blood Pressure Blood Pressure Findings: Elevated blood pressure Blood Pressure Disposition: Referred to patients primary care provider MDM Narrative This is a 74-year-old female who presents to the emergency department compl aining of back pain. Using shared medical decision-making with the patient patient was sent for a CAT scan of the lower spine. This is concerning for intervertebral disc slippage as well as severe stenosis. The patient is neurovascularly intact. She was given Dilaudid for repeat examination revealed improvement the patient's symptoms. Patient was also given Tylenol for her pain. Both family and myself are concerned about sending the patient home on pain medication so I strongly recommended a stay in a rehab facility. She had PT and OT eval is done here in the emergency department. We were unable to place the patient in a rehab facility therefore she was discussed with the hospitalist service who agreed to admit the patient. Patient was in agreement with the treatment plan. Impression & Plan Back pain Discharge Plan Visit Data *Final* Discharge Date/Time: 01/14/19 17:55 Chief Complaint: Back Injury/Pain Stated Complaint: back pain ED Provider: Lester Martin Discharge Problem: Back pain Patient Disposition: Home - Self-Care Condition: Good Discharge Instructions Interventions: ED Discharge Assessment Last Done: 01/14/19 17:55 Discharge Problem: Back pain Qualifiers: Back pain location: low back pain Chronicity: acute Back pain laterality: unspecified Sciatica presence: without sciatica Qualified Code(s): M54.5 - Low back pain The scribe's documentation has been prepared under my direction and personally reviewed by me in its entirety. I confirm that the note above accurately reflects all work, treatment, procedures, and medical decision making performed by me.
[2019-01-14] MEDS ORDERED: ONDANSETRON INJ 2 MG/ML 2 ML VIAL IV STA (13:54)
[2019-01-14] MEDS ORDERED: ONDANSETRON INJ 2 MG/ML 2 ML VIAL ONE (13:55)
--- NOTE | 2019-01-14 17:13 | History & Physical Report ---
Date of Service January 14, 2019 Assessment & Plan (1) Back pain: Spinal stenosis noted on CT Attempted placement from the ED as noted Unable to find SNF, too late in day for rehab insurance auth No signs of infection PT/OT (2) Chronic kidney disease: Baseline cr is 1.9-2.1 Cr on admission is 1.8 Monitor (3) DM (diabetes mellitus): continue home meds (4) HTN (hypertension): continue home meds (5) A-fib: continue home meds, eliquis (6) Pacemaker: Noted (7) DVT prophylaxis: Eliquis History of Present Illness Primary Care Provider: Kwabena Pierson 73 y/o F c/o intractable back pain. Pt states she was dx with spinal stenosis. She has been having worsening pain issues over the last few months. Her buttermaker helper recommended she be seen by Dr. Blankenship for his spinal stenosis program. She has been seeing him for the last 2 weeks at 2x/week and did feel that her pain was getting better. She has been using a walker and felt her walk ing was improving overall, however last night she had sudden gripping pain "where my legs attach to my body" and she could not ambulate. She was weak and could not use her walker. She does not generally need her walker inside her home. She stayed in bed and thought it would be better tomorrow, however it was not so her daughters brought her to the ED. ED physician was trying to move pt to a SNF, however there were some insurance issues with and [facility] does not have a bed. Pt refuses to go to [facility]. By the time this was determined, it was apparently too late to contact for [facility] placement. Pt had an episode of emesis in the ED. She lives alone and was not comfortable going home given she could not move at all yesterday or this AM. Pt denies prior GI issues. She states she has been eating less due to inability to stand to cook, but she tolerates what she does eat. Pt denies fever, SOB, chest pain, abd pain, n/c/d, LE swelling. Pt denies urinary or fecal incontine nce. Pt did try to eat in the ED "because I am diabetic and my blood sugar drops if I don't" but she did not have much appetite. She states her pain is overall better, but she is not comfortable going home. Allergies Allergy/AdvReac Type Severity Reaction Status Date / Time heparin Allergy Unknown BLOOD Verified 01/14/19 09:30 DISORDER mexiletine Allergy Unknown SEVERE Verified 01/14/19 09:30 TREMORS Sulfa (Sulfonamide Allergy Unknown UNKNOWN Verified 01/14/19 09:30 Antibiotics) REACTION TO SULFA DRUGS Home Medications Home Medications Medication Instructions Recorded Confirmed Type amiodarone 200 mg PO QAM 04/22/18 01/14/19 History apixaban [Eliquis] 2.5 mg PO BID 04/22/18 01/14/19 History atorvastatin 40 mg PO QAM 04/22/18 01/14/19 History cholecalciferol (vitamin D3) 1,000 units PO QAM 04/22/18 01/14/19 History [Vitamin D3] ferrous sulfate 325 mg PO TID 04/22/18 01/14/19 History fluticasone propionate 1 spray INTRANASAL DAILY PRN 04/22/18 01/14/19 History hydralazine 25 mg PO BID 04/22/18 01/14/19 History isosorbide mononitrate 60 mg PO QAM 04/22/18 01/14/19 History multivitamin 1 tab PO QAM 04/22/18 01/14/19 History sitagliptin [Januvia] 25 mg PO QAM 04/22/18 01/14/19 History vitamins A,C,A-gbyb-vgwfgo 1 cap PO BID 04/22/18 01/14/19 History [PreserVision AREDS] metoprolol tartrate 100 mg tablet 100 mg PO BID tab 11/09/18 01/14/19 History acetaminophen 500 mg PO Q6H PRN 01/14/19 01/14/19 History docusate sodium [Colace] 100 mg PO BID #60 cap 01/14/19 Rx lidocaine [Lidoderm] 1 patch TOP DAILY #15 ea 01/14/19 Rx oxycodone 5 mg PO Q6H PRN #14 tab 01/14/19 Rx sennosides [Senokot] 8.6 mg PO HS #30 tab 01/14/19 Rx Past Med/Surg History Medical History Anemia (Chronic) DM (diabetes mellitus) (Chronic) Heart disease (Chronic) HTN (hypertension) (Chronic) SVT (supraventricular tachycardia) (Chronic) A-fib (Chronic) Pacemaker (Chronic) Surgical History Previous section (Resolved) H/O brain surgery (Resolved) Family History Father Myocardial infarction Stroke Other Family history non-contributory Social History Feels Safe at Home: Yes Smoking Status: Never smoker Hx Substance Use: No Childhood Exposure to Second-Hand Smoke: No Review of Systems Review of Systems: Pertinent positives and negatives reviewed in HPI--all others negative Physical Exam Constitutional: WD/WN, vitals as above Eyes: normal visual isabel by confrontation and + anicteric sclerae Neck: normal visual inspection and trachea midline Respiratory: normal respiratory effort, lungs clear to auscultation Cardiovascular: Rate/Rhythm: regular rate and regular rhythm Gastrointestinal (Abdomen): Inspection/Auscultation: abdomen not distended Percussion/Palpation: abdomen soft; abdomen nontender Musculoskeletal: Head/Neck/Chest: normocephalic and head atraumatic negati ve for edema, peripheral pulses intact Skin: no rashes, warm and dry Neurologic: awake; not confused Speech / Cognition: normal speech Psychiatric: A+Ox3, euthymic affect Results & Data Vital Signs (Past 12 Hours) Vital Signs Temp Pulse Pulse Resp BP BP Pulse Ox 01/14/19 13:00 73 20 138/72 94 01/14/19 12:39 63 17 198/58 H 93 01/14/19 10:32 59 L 17 137/78 93 01/14/19 08:37 37.1 C 91 H 20 147/[address] L-spine: severe DJD with spinal stenosis along entire spine, worst at L2-3 and L3-4 Code Status & VTE Plan Code Status Full code VTE Prophylaxis Plan VTE Prophylaxis will be ordered: Yes PG Care Time/CCT Total # of Minutes Spent Total Time Spent with Patient: Total time spent is greater than 50% in coordination of care (as documented) at patient's floor/unit and/or counseling patient: (1) Back pain Back pain laterality: unspecified Back pain location: low back pain Chronicity: acute Sciatica presence: without sciatica Qualified Code(s): M54.5 - Low back pain
[2019-01-14] MEDS ORDERED: ONDANSETRON INJ 2 MG/ML 2 ML VIAL IV PRN (18:56)
[2019-01-14] MEDS ORDERED: IBUPROFEN 200 MG TAB PO PRN (18:56)
[2019-01-14] MEDS ORDERED: MAGNESIUM HYDROXIDE SUSP 30 ML UDC PO PRN (18:56)
[2019-01-14] MEDS ORDERED: FLUTICASONE PROPIONATE NA SPR 16 GM BTL PRN (18:56)
[2019-01-14] MEDS ORDERED: ACETAMINOPHEN 325 MG TAB PO PRN (18:56)
[2019-01-14] MEDS ORDERED: ACETAMINOPHEN 500 MG TAB PO PRN (18:56)
[2019-01-14] MEDS: APIXABAN 2.5 MG TAB PO SCH (20:16)
[2019-01-14] MEDS: METOPROLOL TARTRATE 100 MG TAB PO SCH (20:16)
[2019-01-14] MEDS: FERROUS SULFATE 325 MG TAB PO SCH (20:17)
[2019-01-14] MEDS ORDERED: NON-FORMULARY MEDICATION (Vitamins A,C,E-Zinc-Copper [Preservision Areds] 1 CAP) PO SCH (21:00)
[2019-01-15] MEDS: HYDROmorphone INJ 0.5 MG/0.5 ML SYR IV PRN (06:08)
[2019-01-15] MEDS: AMIODARONE 200 MG TAB PO SCH (08:30)
[2019-01-15] MEDS: FERROUS SULFATE 325 MG TAB PO SCH ×3 (08:31→20:06)
[2019-01-15] MEDS: APIXABAN 2.5 MG TAB PO SCH ×2 (08:31→20:06)
[2019-01-15] MEDS: ISOSORBIDE MONO EXTENDED REL 60 MG TABCR PO SCH (08:31)
[2019-01-15] MEDS: ATORVASTATIN 40 MG TAB PO SCH (08:32)
[2019-01-15] MEDS: CHOLECALCIFEROL 1,000 UNITS TAB PO SCH (08:33)
[2019-01-15] MEDS: METOPROLOL TARTRATE 100 MG TAB PO SCH ×2 (08:33→20:06)
[2019-01-15] MEDS: MULTIVITAMIN TAB PO SCH (08:33)
[2019-01-15] MEDS ORDERED: SITAGLIPTIN PHOSPHATE 25 MG TAB PO SCH (09:00)
[2019-01-15] MEDS: TRAMADOL HCL 50 MG TABLET PO PRN ×2 (13:18→21:27)
[2019-01-15] MEDS: FUROSEMIDE 20 MG TAB PO SCH (17:12)
--- NOTE | 2019-01-15 17:14 | Hospitalist Progress Note ---
Date of Service January 15, 2019 Assessment & Plan (1) Back pain: Spinal stenosis noted on CT. Discussed with Dr. Alonzo Contreras orthopedic, and he will evaluate patient in a.m. Unable to find SNF, too late in day for rehab insurance auth No signs of infection PT/OT (2) Chronic kidney disease: Baseline cr is 1.9-2.1 Cr on admission is 1.8 Monitor creatinine and GFR, avoid nephrotoxic agents (3) DM (diabetes mellitus): continue home meds (4) HTN (hypertension): continue home meds (5) A-fib: continue home meds, eliquis (6) Pacemaker: Noted (7) DVT prophylaxis: Eliquis Subjective Patient seen and examined at the bedside. No acute event overnight complains of right hip pain and lower back pain. Known to have mild spinal stenosis which was treated by Dr. garcia at his spinal stenosis program. On occasion patient required large amount of opioids to be able to wear her pain. Patient denies fever chills, chest pain, shortness of breath, frequency, urgency. Review of Systems Review of Systems: All systems reviewed & are unremarkable except as noted in HPI & below Physical Exam Constitutional: WD/WN, vitals as above well developed Eyes: PERRL, conjunctivae normal, anicteric sclerae ENMT: external ear and nose normal, oropharynx normal Neck: trachea midline, no thyromegaly Respiratory: normal respiratory effort, lungs clear to auscultation Cardiovascular: Rate/Rhythm: regular rate and + irregularly irregular Heart Sounds: normal S1 and normal S2 Palpation: + palpable S3 Vessels: dorsalis pedis pulses present Patient has a pacemaker Gastrointestinal (Abdomen): normal bowel sounds, soft, nontender, no hepatosplenomegaly Musculoskeletal: no cyanosis or clubbing, extremities motor strength 5/5 Limited range of motion and the right leg. Positive straight leg test. Patient is able to hold her bowel and denies incontinence for urine or stool Skin: no rashes, warm and dry Neurologic: patellar DTR's 2+ bilat, sensation intact Psychiatric: A+Ox3, euthymic affect Lymphatic: no cervical or axillary lymphadenopathy Results & Data Vital Signs (Past 12 Hours) Vital Signs Temp Pulse Resp BP BP Pulse Ox 01/15/19 15:19 36.8 C 61 16 141/63 H 95 01/15/19 07:21 36.8 C 62 16 178/71 H 94 PG Care Time/CCT Total # of Minutes Spent Total Time Spent with Patient: Total time spent is greater than 50% in coordination of care (as documented) at patient's floor/unit and/or counseling patient: (1) Back pain Back pain laterality: unspecified Back pain location: low back pain Chronicity: acute Sciatica presence: without sciatica Qualified Code(s): M54.5 - Low back pain
[2019-01-15] MEDS ORDERED: PHARMACY GLYCEMIC MGMT CONSULT PRN (17:22)
[2019-01-15] MEDS ORDERED: GLUCOSE 10 TABS/TUBE PO PRN (17:22)
[2019-01-15] MEDS ORDERED: DEXTROSE 50% 50 ML SYRINGE IV PRN (17:22)
[2019-01-15] MEDS ORDERED: CARBOHYDRATES FOR HYPOGLYCEMIA PO PRN (17:22)
[2019-01-15] MEDS ORDERED: GLUCAGON FOR INJ 1 MG VIAL SQ PRN (17:22)
[2019-01-15] MEDS ORDERED: GLUCOSE 40% GEL 15 GM TUBE PO PRN (17:22)
[2019-01-15] MEDS: INSULIN ASPART 100 UNITS/ML 3 ML PEN SC SCH (21:26)
--- NOTE | 2019-01-15 21:30 | Pharmacy Report ---
Glycemic Control Consultation - Date of Service January 15, 2019 - Scope Scope: Glycemic Pharmacist consulted by Dr Kuhn on 01/15/19 for glycemic control and to write orders per [facility] inpatient glycemic control protocol - Objective Weight: 83.9 kg Accuchecks BSG (last 24hrs): 01/15/19 01/15/19 01/15/19 08:19 17:37 20:45 POC Glucose 85 127 H 125 H - Recent Pertinent Medications Outpatient Anti-diabetic Regimen: * Sitagliptin 25 mg PO qAM * A1c ordered for 01/16/19 - Assessment & Plan Assessment & Plan: ASSESSMENT: * PM is a 74 year old female admitted to [facility] for intractable back pain * Significant stenosis noted on CT of lumbar spine (01/14/19) * Orthopedic surgery consulted and will evaluate patient tomorrow for possible intervention * Patient's PMH includes type 2 DM, CKD, hypertension, and atrial fibrillation * BSGs have been well-controlled, ranging 85-147 mg/dL * Received sitagliptin 25 mg PO this morning -> will discontinue PLAN FOR INPATIENT GLYCEMIC CONTROL: * Will hold sitagliptin due to potential surgical intervention while inpatient * Will hold off on basal insulin and utilize conservative bolus insulin with correctional insulin only for now * Bolus insulin * NovoLog per scale ACHS or Q6hrs while NPO * Goal Range: Low 110 mg/dL - High 140 mg/dL * Correction Factor: 45 mg/dL/unit * Please note that the plan above was derived based on current level of insulin resistance and hospital stress. These recommendations are appropriate for inpatient admission only. Plan of care upon discharge will need to be reassessed to avoid potential outpatient hypo/hyperglycemia. Thank you.
[2019-01-15 22:40] VITALS: PULSE 62
[2019-01-16 05:00] LABS: Basophils # (auto) 0.02 K/uL (0-0.2); Basophils % (auto) 0.3 %; Eosinophils # (auto) 0.27 K/uL (0-0.5); Eosinophils % (auto) 3.4 %; Hematocrit (blood only) 32.1 % (37-47); Hemoglobin 10.4 g/dL (12.0-16.0); Immature Granulocytes # (auto) 0.03 K/uL (0.00-0.02); Immature Granulocytes % (auto) 0.4 %; Lymphocytes # (auto) 1.35 K/uL (1.2-3.4); Lymphocytes % (auto) 17.2 %; Mean Corpuscular Hemoglobin 34.9 pg (25-34); Mean Corpuscular Hgb Conc 32.4 g/dL (32-36); Mean Corpuscular Volume 107.7 fL (80-100); Monocytes # (auto) 0.68 K/uL (0.11-0.59); Monocytes % (auto) 8.7 %; Neutrophils # (auto) 5.48 K/uL (1.4-6.5); Platelet Count 178 K/uL (130-400); RDW Coefficient of Variation 14.6 % (11.5-14.5); RDW Standard Deviation 57.3 fL (36.4-46.3); Red Blood Count 2.98 M/uL (4.2-5.4); White Blood Count 7.83 K/uL (4.8-10.8)
[2019-01-16 05:18] LABS: Albumin Level 2.3 gm/dl (3.4-5.0); BUN Creatinine Ratio 14.4 (10-20); Calcium 7.8 mg/dl (8.5-10.1); Est GFR (African American) 29.4; Est GFR (Non-African American) 25.3
[2019-01-16 05:21] LABS: Albumin Globulin Ratio 0.7 (0.9-2); Bilirubin,Total 0.5 mg/dl (0.2-1); Globulin 3.3 gm/dl (2.5-4.0); Total Protein 5.6 gm/dl (6.4-8.2)
[2019-01-16 05:36] LABS: Potassium 4.7 mmol/L (3.5-5.1)
[2019-01-16] MEDS: TRAMADOL HCL 50 MG TABLET PO PRN ×2 (06:32→14:28)
[2019-01-16 07:04] LABS: Estimated Average Glucose 126 mg/dl
--- NOTE | 2019-01-16 07:43 | Consultation Report ---
DATE OF CONSULTATION: 01/16/2019 SPINAL ORTHOPEDIC CONSULTATION CHIEF COMPLAINT: Right lower extremity difficulty. HISTORY OF PRESENT ILLNESS: Sarah is a delightful patient, met her for the first time this morning. She is 73 years of age. She was told she has spinal stenosis; that is an accurate statement, it is not profound, it is moderate but not severe. Her pain came out of nowhere. In the last few months, working on her lower extremity, particularly she saw Dr. Blankenship for her spinal stenosis program, was slightly getting better, was off to a walker but now she has worsened where her legs are really hurting her and she has difficulty with ambulation. She generally does not need a walker, now she does. She has been on bed rest until she was brought to the Emergency Room. PAST MEDICAL HISTORY: Listed. Positive for kidney disease, diabetes, obesity, hypertension, AFib, pacemaker, DVT. PAST SURGICAL HISTORY: , brain surgery. FAMILY HISTORY: Myocardial infarction, stroke. REVIEW OF SYSTEMS: No fevers, sweats, or chills. No chest pain or palpitations. Denies nausea, vomiting, bowel and bladder incontinence. OBJECTIVE: GENERAL: She is an alert, oriented, pleasant lady. VITAL SIGNS: Stable. CARDIAC: Normal S1, S2. LUNGS: Clear. ABDOMEN: Soft, nontender, obese. NEUROLOGIC: Intact, 5/5 strength, good sensation, motor ability. IMAGES: Reviewed. She has some degenerative changes and spinal stenosis at multiple levels, worse at L2-L3 and L3-L4, I concur. L4-L5, L5-S1 are not terribly involved. IMPRESSION: Moderate spinal stenosis, lumbar spine. Essentially a nonsurgical issue at least in the short run. PLAN: I would get her involved with pain management, get her involved with [facility]. Mild narcotics and injections. I would try to avoid surgical intervention. She is not a great candidate for surgery. I will continue to follow.
[2019-01-16 07:56] VITALS: TEMP 97.9; O2SAT 91
[2019-01-16] MEDS: ATORVASTATIN 40 MG TAB PO SCH (08:24)
[2019-01-16] MEDS: CHOLECALCIFEROL 1,000 UNITS TAB PO SCH (08:24)
[2019-01-16] MEDS: ISOSORBIDE MONO EXTENDED REL 60 MG TABCR PO SCH (08:24)
[2019-01-16] MEDS: MULTIVITAMIN TAB PO SCH (08:24)
[2019-01-16] MEDS: FERROUS SULFATE 325 MG TAB PO SCH ×2 (08:24→13:07)
[2019-01-16] MEDS: APIXABAN 2.5 MG TAB PO SCH (08:25)
[2019-01-16] MEDS: FUROSEMIDE 20 MG TAB PO SCH (08:25)
[2019-01-16] MEDS: METOPROLOL TARTRATE 100 MG TAB PO SCH (08:25)
[2019-01-16] MEDS: AMIODARONE 200 MG TAB PO SCH (08:25)
[2019-01-16] MEDS: INSULIN ASPART 100 UNITS/ML 3 ML PEN SC SCH ×2 (08:41→12:38)
[2019-01-16] MEDS ORDERED: SITAGLIPTIN PHOSPHATE 25 MG TAB PO SCH (09:00)
--- NOTE | 2019-01-16 11:36 | Discharge Summary ---
Date of Service January 16, 2019 Admission HPI Per Admitting Provider 73 y/o F c/o intractable back pain. Pt states she was dx with spinal stenosis. She has been having worsening pain issues over the last few months. Her public transit bus driver recommended she be seen by Dr. Blankenship for his spinal stenosis program. She has been seeing him for the last 2 weeks at 2x/week and did feel that her pain was getting better. She has been using a walker and felt her walking was improving overall, however last night she had sudden gripping pain "where my legs attach to my body" and she could not ambulate. She was weak and could not use her walker. She does not generally need her walker inside her home. She stayed in bed and thought it would be better tomorrow, however it was not so her daughters brought her to the ED. ED physician was trying to move pt to a SNF, however there were some insurance issues with and [facility] does not have a bed. Pt refuses to go to [facility]. By the time this was determined, it was apparently too late to contact for [facility] placement. Pt had an episode of emesis in the ED. She lives alone and was not comfortable going home given she could not move at all yesterday or this AM. Pt denies prior GI issues. She states she has been eating less due to inability to stand to cook, but she tolerates what she does eat. Pt denies fever, SOB, chest pain, abd pain, n/c/d, LE swelling. Pt denies urinary or fecal incontinence. Pt did try to eat in the ED "because I am diabetic and my blood sugar drops if I don't" but she did not have much appetite. She states her pain is overall better, but she is not comfortable going home. Admission Exam Per Admitting Provider Constitutional: WD/WN, vitals as above Eyes: normal visual isabel by confrontation and + anicteric sclerae Neck: normal visual inspection and trachea midline Respiratory: normal respiratory effort, lungs clear to auscultation Cardiovascular: Rate/Rhythm: regular rate and regular rhythm Gastrointestinal (Abdomen): Inspection/Auscultation: abdomen not distended Percussion/Palpation: abdomen soft; abdomen nontender Musculoskeletal: Head/Neck/Chest: normocephalic and head atraumatic negative for edema, peripheral pulses intact Skin: no rashes, warm and dry Neurologic: awake; not confused Speech / Cognition: normal speech Psychiatric: A+Ox3, euthymic affect Principal Diagnosis 1. intractable back pain, most likely due to lumbar stenosis 2. DM 3. HTN 4. rate controlled AF Discharge Exam GENERAL: Non-toxic in appearance. INTEGUMENTARY: Warm, dry, and [place]. HEAD: Normocephalic. EYES: without scleral icterus or trauma. ENT/OROPHARYNX: clear and moist. LYMPHADENOPATHY/NECK: Is supple without lymphadenopathy or meningismus. RESPIRATORY: Lungs clear and equal. CARDIOVASCULAR: Regular rate and rhythm. GI/ABDOMEN: Soft and nontender. No organomegaly or pulsatile mass. No rebound or guarding. Normal bowel sounds. EXTREMITIES: Warm and well perfused. BACK: No CVA tenderness. NEUROLOGICAL: Intact without focal deficits. PSYCHIATRIC: normal affect. MUSCULOSKELETAL: Normally developed with good muscle tone. Discharge Data Allergies Allergy/AdvReac Type Severity Reaction Status Date / Time heparin Allergy Unknown BLOOD Verified 01/14/19 09:30 DISORDER mexiletine Allergy Unknown SEVERE Verified 01/14/19 09:30 TREMORS Sulfa (Sulfonamide Allergy Unknown UNKNOWN Verified 01/14/19 09:30 Antibiotics) REACTION TO SULFA DRUGS Consultations 01/14/19 15:37 ED Decision to Admit Stat 01/14/19 18:56 Consult Case Management - Discharge Planning Routine 01/15/19 14:36 Consult Orthopedic Surgery Routine Ordered Studies 01/14/19 08:42 CT lumbar spine wo con Stat Hospital Course (1) Back pain: Patient was initially admitted secondary to back pain. Patient does have a known history of lumbar stenosis. She was admitted and given oxycodone along with Ultram and Tylenol. She was seen by spinal orthopedics and recommendations were for further rehab along with possible pain management consultation. I did see the patient on the day of discharge. She is feeling well and has no new complaints. We did discuss pain management consultation in the near future. She will be transferred to assisted facility. Total Time Total Time Spent Total Time Spent (In Minutes): total time in excess of 30 minutes Discharge Plan Discharge Items Patient Disposition: Transfer Inpatient Rehab Fac Reason For Visit: INTRACTABLE BACK PAIN Discharge Diagnosis: Severe spinal stenosis instability large herniation degenerative scoliosis Condition on Discharge: Good Activity: As commented below Activity Comment: See discharge summary Lifting: Gradually increase as tolerated Non-emergency contact: Primary Care Provider Call non-emergency contact if: you have any medication questions Follow-up/Referrals: Kwabena Pierson [Primary Care Provider] - Diet: Carb Consistent or DM2 Addtl Attending Provider Instructions: MEDICATIONS: Please take your prescriptions as instructed at your pre-op appointment. SPECIAL CARE: The following information is intended to answer some of the common questions and concerns regarding your surgery. Each patient is an individual and receives individual counselling throughout the course of treatment, from diagnosis to surgery all the way through recovery. What follows is not an exhaustive list, but should be a useful guide to some of the common questions and concerns patients have regarding their surgeries. These are not provided to keep you from calling us; rather, they give you something accurate and concrete to reference as you recover from your procedure. If you need us, we are available to you. As always, if you are not sure about something, call us at [phone]. MEDICAL EMERGENCIES: For these conditions, call 911 or go to your local hospital-based Emergency Department - not [facility] or equivalent. * Paralysis * Severe chest pain or difficulty breathing * Swelling or redness of either leg Spine procedures can be rather complex and though complications are rare, they do occur. In such cases, effective advice regarding emergency situations cannot always be addressed over the telephone. You may be referred to the emergency department for more effective management of your problem. Activity Limitations: It is important to give your body time to heal, so please limit your activities: * In general, don't do anything that moves your spine too much. You should avoid contact sports, twisting or heavy lifting while you recover. * 5-10 pounds is all you should attempt to lift. * You should not plan on driving for approximately 3 weeks and you should avoid traveling more than 30-45 minutes at a time. Longer trips should be broken down with walking breaks spaced appropriately. * Physical therapy is not usually required. * Walking and good posture practices will help you recover and regain your function. * Avoid straining or sudden changes in position. * In general, the goal is to take it easy and recover. Don't cause any new problems. Just relax. Showers: * Do not take a bath, use a Jacuzzi or hot tub or otherwise submerge your incision. * It is usually safe to take a shower 4-5 days after your surgery. * Your incision does not require any special creams or ointments. * Simply clean it with soap and water, dry and re-dress with a clean bandage afterwards. Incision: * Keep incision clean, dry and protected until your first follow-up appointment. * Some amount of drainage and redness is normal. Any drainage should be fairly clear and not have a foul odor. * If you feel anything is wrong or you have excessive drainage, please call us. * Your stitches and valarie will be removed 10-14 days after your surgery. At the time of your first post-op visit. * Neck surgeries are typically closed with a suture underneath the skin. The steri-strips over the incision should be maintained until we see you in the office. Bracing: * You may be provided with a back or neck brace to encourage good posture and prevent injury. It will remind you not to do too much as you heal and will alert others to the fact that you have had a surgery. * Back braces may be removed for showers and when you are resting at home. They must be worn when you are walking around for any period of time or for travel. * For neck surgery, you will likely be provided with two cervical collars. The soft collar ([place] or foam rubber) is worn most commonly throughout the day and while sleeping. The plastic collar (provided at the hospital) is for showering/bathing. * Except while eating, collars should remain in place. More specifically, bracing is provided for a purpose and should be worn. * Please obtain your brace or collars prior to your operation and bring them to the hospital with you on the day of surgery. * You should also bring your collars to your post-op appointment with Dr. Contreras. You should always take good care of your body and practice healthy habits, tay ecially following surgery. You should: * Follow your doctor's treatment plan * Sit and stand properly with good posture (ears over shoulders, shoulders over hips) Don't slouch * Learn to lift correctly * Exercise regularly (low-impact aerobic exercise is especially good, but check with your doctor first) * Generally, be up and walking for 5-10 minutes at a time at least 3-4 times per day from the day you get home * Increasing walking to tolerance until you can walk for 20-30 minutes at a time * Attain and maintain a healthy body weight * Eat healthy foods ( a well-balanced, low-fat diet rich in fruits and vegetables) and get enough calcium * Avoid excessive use of alcohol When to call our office - If you notice any of the following: * Increased pain not relieve by pain medicine * Fevers greater then 100 degrees F, chills or flu symptoms * Increased redness around incision * Drainage from the incision that is not clear * Any foul smelling drainage * Swelling or fluid collection beneath the skin Miscellaneous: * In the hospital, you may be given a walker or cane for support while walking. These are temporary needs and are intended to prevent injuries due to falls. You may discontinue them when you feel strong and steady enough on your feet. * Sleep in a comfortable position. We find that many patients find a lounge chair or recliner with several pillows to be beneficial in the early post-operative period. * The support stockings should be used for 7-10 days and may be discontinued when you are back to walking more and conducting usual household activities. No problem is insignificant. We are here to help you and get you well. Contact us at [phone]. Definitions: Foraminotomy: If part of the disc or a bone spur (osteophyte) is pressing on a nerve as it leaves the vertebra (through an exit called the foramen), a foraminotomy may be done. Otomy means "to make an opening." A foraminotomy is making the opening of the foramen larger, so the nerve can exit without being compressed. Laminotomy: Similar to the foraminotomy, a laminotomy makes a larger opening, this time in your bony plate protecting your spinal canal and spinal cord (the lamina). The lamina may be pressing on your nerve, so the surgeon may make more room for the nerves using a laminotomy. Laminectomy: Sometimes, a laminotomy is not sufficient. The surgeon may need to remove all or part of the lamina. This procedure is called a laminectomy. This can often be done at many levels without any harmful effects. Pending Studies at Discharge: No Stand-Alone Forms: My [facility] [place] Skilled Items Patient informed of condition?: Yes DNR: No Discharge Level of Care: Skilled Communicable Disease: No Discharge Prognosis: Improving Lines: None Urinary Catheter: No Medications and DC Order Prescriptions: New lidocaine [Lidoderm] 5 % adhesive patch,medicated 1 patch TOP DAILY Qty: 15 RF: 0 oxycodone 5 mg tablet 5 mg PO Q6H PRN (Reason: pain) Qty: 14 RF: 0 sennosides [Senokot] 8.6 mg tablet 8.6 mg PO HS Qty: 30 RF: 0 docusate sodium [Colace] 100 mg capsule 100 mg PO BID Qty: 60 RF: 0 acetaminophen [Mapap (acetaminophen)] 325 mg Tablet 650 mg PO Q4H PRN (Reason: pain) Qty: 30 RF: 0 tramadol 50 mg tablet 50 mg PO Q6H PRN (Reason: pain) 2 Days Qty: 15 RF: 0 Continued metoprolol tartrate 100 mg tablet 100 mg PO BID RF: 0 acetaminophen 500 mg Tablet 500 mg PO Q6H PRN (Reason: Pain) RF: 0 multivitamin Tablet 1 tab PO QAM RF: 0 atorvastatin 40 mg tablet 40 mg PO QAM RF: 0 amiodarone 200 mg tablet 200 mg PO QAM RF: 0 hydralazine 25 mg tablet 25 mg PO BID RF: 0 isosorbide mononitrate 60 mg tablet extended release 24 hr 60 mg PO QAM RF: 0 ferrous sulfate 325 mg (65 mg iron) Tablet 325 mg PO TID RF: 0 fluticasone propionate 50 mcg/actuation spray,suspension 1 spray Intranasal DAILY PRN (Reason: Allergy Symptoms) RF: 0 cholecalciferol (vitamin D3) [Vitamin D3] 1,000 unit Capsule 1,000 units PO QAM RF: 0 sitagliptin 25 mg tablet 25 mg PO QAM RF: 0 apixaban 2.5 mg tablet 2.5 mg PO BID RF: 0 PreserVision AREDS [id number] Capsule 1 cap PO BID RF: 0 Discharge Orders: Discharge Order (Routine); Ordered 01/16/19 Ordered By: Prieto Mitchell Admission Data Admit Date/Time: 01/14/19 17:03 Attending Provider: Prieto Mitchell Admit Provider: Latisha Nichols Primary Care Provider: Kwabena Pierson Other Providers: Latisha Nichols ; Alonzo Contreras
[2019-01-16 13:05] VITALS: BP 168/78
== END 2019-01-16 15:23 ==
LOC: ED 08:27 → 3E 08:27 → SUATTDRO 17:03 → 3E 17:55

== ENCOUNTER 2020-03-02 13:31 | Inpatient (IN) ==
--- NOTE | 2020-03-02 13:38 | Emergency Department Note ---
Impression & Plan Acute respiratory failure with hypoxemia, CHF (congestive heart failure), CKD (chronic kidney disease) stage 5, GFR less than 15 ml/min ED Provider Note NAME: CORRIE ALMANZA AGE: 75 SEX: F : 1945 ARRIVES VIA: Ambulance INFORMANT: Patient, ED PROVIDER(S): Scout Raya MD Chief Complaint: Shortness of breath and weakness HPI: Patient does present with concern for shortness of breath and weakness. The patient has had some exertional dyspnea for the last month but the patient has noticed increasing shortness of breath and orthopnea. The patient has been taking extra Bumex. The patient has noticed weight gain up to 170 and the patient is supposed to be taking her diuretic medication and if she is above 150 pounds. Patient does have a known history of CAD CHF aortic stenosis A. fib V. tach SVT and does have a pacemaker. The patient was seen in the outpatient setting by Dr. Rubio on February 27. Patient was taken off hydralazine and did have TSH AST and ALT ordered patient was encouraged to continue daily weights and her sliding scale diuretics. Patient is to have an echo during her following visit. Patient did have a VT ablation by Dr. Graham back in 2014. Reportedly since her last visit she had been stable. She had no exertional chest pain but has had exertional dyspnea related to recent weight gain. Patient is typically taping 2 mg of Bumex and an additional tablet of Bumex when needed for weight gain. Patient has had an increase of weight to 170 pounds. Patient did have a [employer] pacer interrogation on February 27 which only showed 2 brief episodes of nonsustained V. tach there were no changes made to the pacemaker. Patient is on apixaban 2.5 mg twice daily. Patient has had good urine output believes that it does not is quite as impressive as may be she had expected given the increase in her diuretic. Patient did require 2 L nasal cannula as the patient was hypoxic at 88% on room air upon arrival. ROS: See HPI for pertinent positives and negatives. A total of 10 systems were reviewed and otherwise negative. Past medical history: See below Surgical history: See below Social history: See below Physical Exam: GENERAL: Wearing a mask and nasal cannula in place. EYE EXAM: Normal conjunctiva. PERRL, no anisocoria and EOM's grossly intact w/o pain. NECK: Supple, no nuchal rigidity, no adenopathy, non-tender. No signs of meningismus. LUNGS: Clear to auscultation. Normal chest wall mechanics. HEART: NSR, no MRG. ABDOMEN: Abdomen soft, non-tender, normo-active bowel sounds, no masses, no rebound or guarding. BACK: No CVA TTP. SKIN: No rashes and no bruising. UPPER EXTREMITIES: Upper extremities are grossly normal. LOWER EXTREMITIES: Grossly normal, no edema. 3+ bilateral lower extremity edema that is symmetric without erythema. NEURO EXAM: A&O x3, cranial nerves II-XII grossly intact, normal speech, moves all 4 extremities on command w/o issue. Differential diagnoses: Reactive airway disease, pneumonia, pneumothorax, COPD, CHF, infections, cardiac ischemia, pulmonary embolism, musculoskeletal, gastrointestinal, as well as other pathologies. Course: Patient was seen and evaluated the bedside. Full history physical exam was performed. EKG: Indication: Weakness/shortness of breath Normal sinus rhythm, rate of 60, wide QRS, right bundle branch block pattern. Imaging Studies: Radiology results as stated below per my review in the radiologist's interpretation: XR chest 1V portable CLINICAL HISTORY: weakness COMPARISON STUDY: Chest radiograph May 14, 2019. FINDINGS: Dual lead left subclavian pacemaker is in place. There is cardiomegaly with extensive mitral annular calcification. Interstitial thickening suggests pulmonary edema. There are small to moderate bilateral pleural fusions with bibasilar opacities. There is no pneumothorax. IMPRESSION: 1. Small to moderate bilateral pleural effusions with associated bibasilar opacities that could reflect atelectasis or consolidation. Radiographic follow-u p is recommended. 2. Cardiomegaly with mild interstitial pulmonary edema. ACT 112: Negative or not required by law. Electronically signed by: Aftab Ramos M.D. 03/02/2020 4:40 PM Dictated: 03/02/20 1638 Transcribed: 03/02/201637 Cardiac monitoring: An order was placed for continuous cardiac monitoring. The monitor shows a rate of 63 with sinus rhythm. MDM: Patient was seen due to concern for shortness of breath. The patient was ordered additional Bumex IV, blood work, imaging. Patient denies any chest pains. EKG with chronic right bundle. The patient does have bilateral pleural effusions and associated interstitial pulmonary edema. The patient has a normal white count but with anemia 10.9. Platelet count is normal. The patient does have worsening kidney function last creatinine 3.6 today 4.1. Troponin is detectable with a BNP elevated 25,000. Believe this is related to volume overload. I did speak the on-call hospitalist the patient was admitted under Elen Edwards. The patient was tolerating 2 L nasal cannula and satting in the 90s and comfortable. Rapid Covid negative. Critical Care: I have personally spent 45 minutes of critical care time in direct management of this patient. This includes bedside care, interpretation of diagnostic studies, and testing, discussion with consultants, patient, and family members, and other require inpatient management activities. This 45 minutes is in excess of all separately billable procedures. Past Med/Surg History Medical History Anemia Chronic anticoagulation DM (diabetes mellitus) HTN (hypertension) Hyperthyroidism Lumbar radiculopathy Mitral stenosis NSAID long-term use Obesity Pacemaker PAD (peripheral artery disease) Paroxysmal atrial fibrillation RVOT ventricular tachycardia Skin cancer of arm Spinal stenosis Spinal stenosis of lumbar region Stage 3 chronic kidney disease Stenosis, cervical spine SVT (supraventricular tachycardia) Vitamin D deficiency Surgical History H/O brain surgery Previous section Family History Father Myocardial infarction Stroke Other Family history non-contributory Social History Smoking Status: Never smoker Tobacco Type: Cigarettes Second Hand Exposure: No; Hx Alcohol Use: No Hx Substance Use: No Preferred Language: Bengali Communication Ability: Effective Visual Impairment: Limited Hearing Ability: Normal 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 Beliefs That Will Affect Care: None marital status: Current Living Situation: Alone current occupational status: retired Feels Safe at Home: Yes Childhood Exposure to Second-Hand Smoke: No Assistive Devices: Walker Allergies Allergies Allergy/AdvReac Type Severity Reaction Status Date / Time heparin Allergy Unknown BLOOD Verified 03/02/20 15:50 DISORDER mexiletine Allergy Unknown SEVERE Verified 02/28/20 10:34 TREMORS Sulfa (Sulfonamide Allergy Unknown UNKNOWN Verified 03/02/20 15:50 Antibiotics) REACTION TO SULFA DRUGS Home Meds Home Medications Medication Instructions Recorded Confirmed PreserVision AREDS 1 cap PO BID 04/22/18 03/02/20 cholecalciferol (vitamin D3) 1,000 units PO QAM 04/22/18 03/02/20 [Vitamin D3] fluticasone propionate 1 spray INTRANASAL DAILY PRN 04/22/18 03/02/20 acetaminophen 500 mg PO Q6H PRN 01/14/19 03/02/20 ferrous sulfate 325 mg (65 mg 325 mg PO BID tab 11/08/19 03/02/20 iron) tablet atorvastatin 40 mg PO DAILY 03/02/20 03/02/20 bumetanide 2 mg PO .QAFTERNOON 03/02/20 03/02/20 bumetanide 2.5 mg PO QAM 03/02/20 03/02/20 metoprolol succinate 200 mg PO DAILY 03/02/20 03/02/20 gttwlkfstjxf-Is-miib-minerals 1 tab PO DAILY 03/02/20 03/02/20 [Multiple Vitamin, Womens] sitagliptin [Januvia] 25 mg PO DAILY 03/02/20 03/02/20 Previous Rx's Medication Instructions Recorded amiodarone 200 mg tablet 200 mg PO QAM #90 tab 07/12/19 isosorbide mononitrate 60 mg 60 mg PO QAM #30 tab 12/20/19 tablet,extended release 24 hr apixaban 2.5 mg tablet 2.5 mg PO BID #60 tab 12/26/19 Results & Data (ED) Vital Signs Vital Signs - 24 hr 03/02/20 13:19 03/02/20 14:00 03/02/20 14:07 Temperature 36.6 C Temperature Source Oral Pulse Rate 65 63 Pulse Rate from SpO2 Sensor 62 Respiratory Rate 22 23 Respiratory Effort / Characteristics Non-Labored Blood Pressure 132/62 140/56 L Blood Pressure Mean 85 73 Blood Pressure Position Sitting Pulse Oximetry 95 100 88 L Oxygen Delivery Method Nasal Cannula Room Air Nasal Cannula Oxygen Flow Rate 2 Sepsis Recent Fever Within 48 Hours No Sepsis New/Unexplained Change in Mental Status No Sepsis Action Taken by Nursing No Action Required Oxygen Flow Rate - Titration 2 Pulse Oximetry Post Tiitration 95 03/02/20 14:19 03/02/20 14:30 03/02/20 14:31 Temperature Temperature Source Pulse Rate 61 60 60 Pulse Rate from SpO2 Sensor 61 60 60 Respiratory Rate 24 17 20 Respiratory Effort / Characteristics Blood Pressure 134/60 Blood Pressure Mean 108 Blood Pressure Position Pulse Oximetry 100 100 100 Oxygen Delivery Method Oxygen Flow Rate Sepsis Recent Fever Within 48 Hours Sepsis New/Unexplained Change in Mental Status Sepsis Action Taken by Nursing Oxygen Flow Rate - Titration Pulse Oximetry Post Tiitration 03/02/20 14:54 03/02/20 15:00 03/02/20 15:01 Temperature Temperature Source Pulse Rate 60 61 Pulse Rate from SpO2 Sensor 60 60 Respiratory Rate 19 20 Respiratory Effort / Characteristics Blood Pressure 134/56 L Blood Pressure Mean 72 Blood Pressure Position Pulse Oximetry 99 100 100 Oxygen Delivery Method Nasal Cannula Oxygen Flow Rate 2 Sepsis Recent Fever Within 48 Hours Sepsis New/Unexplained Change in Mental Status Sepsis Action Taken by Nursing Oxygen Flow Rate - Titration Pulse Oximetry Post Tiitration 03/02/20 15:30 03/02/20 16:04 03/02/20 16:10 Temperature Temperature Source Pulse Rate 73 62 60 Pulse Rate from SpO2 Sensor 63 60 Respiratory Rate 22 20 20 Respiratory Effort / Characteristics Blood Pressure 140/52 L Blood Pressure Mean 80 Blood Pressure Position Pulse Oximetry 100 100 Oxygen Delivery Method Nasal Cannula Oxygen Flow Rate 2 Sepsis Recent Fever Within 48 Hours Sepsis New/Unexplained Change in Mental Status Sepsis Action Taken by Nursing Oxygen Flow Rate - Titration Pulse Oximetry Post Tiitration 03/02/20 16:20 03/02/20 16:30 03/02/20 16:40 Temperature Temperature Source Pulse Rate 62 50 L 62 Pulse Rate from SpO2 Sensor 62 60 62 Respiratory Rate 24 24 20 Respiratory Effort / Characteristics Blood Pressure 159/58 H Blood Pressure Mean 90 Blood Pressure Position Pulse Oximetry 100 100 100 Oxygen Delivery Method Oxygen Flow Rate Sepsis Recent Fever Within 48 Hours Sepsis New/Unexplained Change in Mental Status Sepsis Action Taken by Nursing Oxygen Flow Rate - Titration Pulse Oximetry Post Tiitration 03/02/20 16:50 03/02/20 17:00 03/02/20 17:10 Temperature Temperature Source Pulse Rate 61 66 56 L Pulse Rate from SpO2 Sensor 61 61 62 Respiratory Rate 23 20 20 Respiratory Effort / Characteristics Blood Pressure Blood Pressure Mean Blood Pressure Position Pulse Oximetry 100 99 98 Oxygen Delivery Method Oxygen Flow Rate Sepsis Recent Fever Within 48 Hours Sepsis New/Unexplained Change in Mental Status Sepsis Action Taken by Nursing Oxygen Flow Rate - Titration Pulse Oximetry Post Tiitration 03/02/20 17:20 03/02/20 17:30 03/02/20 17:40 Temperature Temperature Source Pulse Rate 62 67 63 Pulse Rate from SpO2 Sensor 61 60 57 L Respiratory Rate 21 26 H 25 H Respiratory Effort / Characteristics Blood Pressure Blood Pressure Mean Blood Pressure Position Pulse Oximetry 100 99 99 Oxygen Delivery Method Oxygen Flow Rate Sepsis Recent Fever Within 48 Hours Sepsis New/Unexplained Change in Mental Status Sepsis Action Taken by Nursing Oxygen Flow Rate - Titration Pulse Oximetry Post Tiitration 03/02/20 17:50 03/02/20 17:52 03/02/20 18:28 Temperature Temperature Source Pulse Rate 64 71 63 Pulse Rate from SpO2 Sensor 58 L 58 L Respiratory Rate 21 19 21 Respiratory Effort / Characteristics Blood Pressure 136/49 L 131/41 L Blood Pressure Mean 68 79 Blood Pressure Position Pulse Oximetry 99 99 100 Oxygen Delivery Method Nasal Cannula Oxygen Flow Rate 2 Sepsis Recent Fever Within 48 Hours Sepsis New/Unexplained Change in Mental Status Sepsis Action Taken by Nursing Oxygen Flow Rate - Titration Pulse Oximetry Post Tiitration 03/02/20 19:35 Temperature Temperature Source Pulse Rate 63 Pulse Rate from SpO2 Sensor 58 L Respiratory Rate 14 Respiratory Effort / Characteristics Blood Pressure 153/45 H Blood Pressure Mean 88 Blood Pressure Position Pulse Oximetry 100 Oxygen Delivery Method Nasal Cannula Oxygen Flow Rate 2 Sepsis Recent Fever Within 48 Hours Sepsis New/Unexplained Change in Mental Status Sepsis Action Taken by Nursing Oxygen Flow Rate - Titration Pulse Oximetry Post Tiitration Home Medications Current Medication List: was personally reviewed by me Laboratory Data Attestation: I reviewed the patient's lab results. Result diagrams: 03/02/20 15:35 03/02/20 15:35 Lab Results 03/02/20 03/02/20 03/02/20 Range/Units 15:35 15:35 15:35 WBC 8.15 (4.8-10.8) K/uL RBC 3.19 L (4.2-5.4) M/uL Hgb 10.9 L (12.0-16.0) g/dL Hct 35.1 L (37-47) % MCV 110.0 H (80-100) fL MCH 34.2 H (25-34) pg MCHC 31.1 L (32-36) g/dL RDW Std Deviation 57.6 H (36.4-46.3) fL RDW Coeff of Desiree 14.3 (11.5-14.5) % Plt Count 178 (130-400) K/uL MPV 10.4 (7.4-10.4) fL Immature Gran % (Auto) 0.4 % Neut % (Auto) 76.4 % Lymph % (Auto) 12.0 % Glenn % (Auto) 7.9 % Eos % (Auto) 2.9 % Baso % (Auto) 0.4 % Neut # (Auto) 6.23 (1.4-6.5) K/uL Lymph # (Auto) 0.98 L (1.2-3.4) K/uL Glenn # (Auto) 0.64 H (0.11-0.59) K/uL Eos # (Auto) 0.24 (0-0.5) K/uL Baso # (Auto) 0.03 (0-0.2) K/uL Immature Gran # (Auto) 0.03 H (0.00-0.02) K/uL Basophilic Stippling 1+ Macrocytosis Present PT 12.8 H (9.0-12.0) Seconds INR 1.2 H (0.9-1.1) Sodium 143 (136-145) mmol/L Potassium 5.0 (3.5-5.1) mmol/L Chloride 106 (98-107) mmol/L Carbon Dioxide 33 H (21-32) mmol/L Anion Gap 3.0 (3-11) BUN 67 H (7-18) mg/dl Creatinine 4.12 H (0.6-1.2) mg/dl Est Cr Clr Drug Dosing 11.7 ml/min Est GFR ( Amer) 11.4 Est GFR (Non-Af Amer) 9.8 BUN/Creatinine Ratio 16.2 (10-20) Glucose 113 H (70-99) mg/dl Calcium 8.4 L (8.5-10.1) mg/dl Magnesium 2.6 H (1.8-2.4) mg/dl Total Bilirubin 0.4 (0.2-1) mg/dl AST 34 (15-37) U/L ALT 26 (12-78) U/L Alkaline Phosphatase 107 (45-117) U/L Troponin I 0.057 H* (0-0.045) ng/ml NT-Pro-B Natriuret Pep 70119 H (0-1800) pg/ml Total Protein 6.3 L (6.4-8.2) gm/dl Albumin 2.5 L (3.4-5.0) gm/dl Globulin 3.8 (2.5-4.0) gm/dl Albumin/Globulin Ratio 0.7 L (0.9-2) TSH 3.710 (0.300-4.500) uIu/ml SARS-CoV-2 Ag (Rapid) (Negative) 03/02/20 Range/Units 17:48 WBC (4.8-10.8) K/uL RBC (4.2-5.4) M/uL Hgb (12.0-16.0) g/dL Hct (37-47) % MCV (80-100) fL MCH (25-34) pg MCHC (32-36) g/dL RDW Std Deviation (36.4-46.3) fL RDW Coeff of Desiree (11.5-14.5) % Plt Count (130-400) K/uL MPV (7.4-10.4) fL Immature Gran % (Auto) % Neut % (Auto) % Lymph % (Auto) % Glenn % (Auto) % Eos % (Auto) % Baso % (Auto) % Neut # (Auto) (1.4-6.5) K/uL Lymph # (Auto) (1.2-3.4) K/uL Glenn # (Auto) (0.11-0.59) K/uL Eos # (Auto) (0-0.5) K/uL Baso # (Auto) (0-0.2) K/uL Immature Gran # (Auto) (0.00-0.02) K/uL Basophilic Stippling Macrocytosis PT (9.0-12.0) Seconds INR (0.9-1.1) Sodium (136-145) mmol/L Potassium (3.5-5.1) mmol/L Chloride (98-107) mmol/L Carbon Dioxide (21-32) mmol/L Anion Gap (3-11) BUN (7-18) mg/dl Creatinine (0.6-1.2) mg/dl Est Cr Clr Drug Dosing ml/min Est GFR ( Amer) Est GFR (Non-Af Amer) BUN/Creatinine Ratio (10-20) Glucose (70-99) mg/dl Calcium (8.5-10.1) mg/dl Magnesium (1.8-2.4) mg/dl Total Bilirubin (0.2-1) mg/dl AST (15-37) U/L ALT (12-78) U/L Alkaline Phosphatase (45-117) U/L Troponin I (0-0.045) ng/ml NT-Pro-B Natriuret Pep (0-1800) pg/ml Total Protein (6.4-8.2) gm/dl Albumin (3.4-5.0) gm/dl Globulin (2.5-4.0) gm/dl Albumin/Globulin Ratio (0.9-2) TSH (0.300-4.500) uIu/ml SARS-CoV-2 Ag (Rapid) Negative (Negative) Administered Medications Discontinued Medications Bumetanide 1 mg/ Syringe 4 mls @ 4 mls/min IV NOW STA Stop: 03/02/20 14:55 Last Admin: 03/02/20 16:55 Dose: 4 mls/min Documented by: [id number] Bumetanide 0.5 mg/ Syringe 2 mls @ 4 mls/min IV ONE ONE Stop: 03/02/20 16:57 Last Admin: 03/02/20 18:08 Dose: Not Given Documented by: [id number] Discharge Plan Visit Data Chief Complaint: Shortness of Breath/Dyspnea ED Provider: Scout Raya Discharge Problem: Acute respiratory failure with hypoxemia, CHF (congestive heart failure), CKD (chronic kidney disease) stage 5, GFR less than 15 ml/min Forms Stand Alone Forms: [facility] [employer] Prescriptions Prescriptions: No Action amiodarone 200 mg tablet 200 mg PO QAM Qty: 90 RF: 3 isosorbide mononitrate 60 mg tablet extended release 24 hr 60 mg PO QAM Qty: 30 RF: 5 apixaban 2.5 mg tablet 2.5 mg PO BID Qty: 60 RF: 11 acetaminophen 500 mg Tablet 500 mg PO Q6H PRN (Reason: Pain) RF: 0 metoprolol succinate 200 mg tablet extended release 24 hr 200 mg PO DAILY RF: 0 Januvia 25 mg tablet 25 mg PO DAILY RF: 0 bumetanide 2 mg tablet 2 mg PO .QAFTERNOON RF: 0 bumetanide 2 mg tablet 2.5 mg PO QAM RF: 0 Multiple Vitamin, Womens Tablet 1 tab PO DAILY RF: 0 atorvastatin 40 mg tablet 40 mg PO DAILY RF: 0 fluticasone propionate 50 mcg/actuation spray,suspension 1 spray Intranasal DAILY PRN (Reason: Allergy Symptoms) RF: 0 cholecalciferol (vitamin D3) [Vitamin D3] 1,000 unit Capsule 1,000 units PO QAM RF: 0 PreserVision AREDS [id number] Capsule 1 cap PO BID RF: 0 ferrous sulfate 325 mg (65 mg iron) tablet 325 mg PO BID RF: 0 Discharge Problem: CHF (congestive heart failure) Qualifiers: Heart failure type: unspecified Heart failure chronicity: acute on chronic Qualified Code(s): I50.9 - Heart failure, unspecified
[2020-03-02] MEDS ORDERED: BUMETANIDE 1 MG in SYRINGE 0 ML IV STA (14:54)
[2020-03-02 15:47] LABS: Basophils # (auto) 0.03 K/uL (0-0.2); Basophils % (auto) 0.4 %; Eosinophils # (auto) 0.24 K/uL (0-0.5); Eosinophils % (auto) 2.9 %; Hematocrit (blood only) 35.1 % (37-47); Hemoglobin 10.9 g/dL (12.0-16.0); Immature Granulocytes # (auto) 0.03 K/uL (0.00-0.02); Immature Granulocytes % (auto) 0.4 %; Lymphocytes # (auto) 0.98 K/uL (1.2-3.4); Mean Corpuscular Hemoglobin 34.2 pg (25-34); Mean Corpuscular Hgb Conc 31.1 g/dL (32-36); Mean Platelet Volume 10.4 fL (7.4-10.4); Monocytes # (auto) 0.64 K/uL (0.11-0.59); Monocytes % (auto) 7.9 %; Neutrophils # (auto) 6.23 K/uL (1.4-6.5); Neutrophils % (auto) 76.4 %; Platelet Count 178 K/uL (130-400); RDW Coefficient of Variation 14.3 % (11.5-14.5); RDW Standard Deviation 57.6 fL (36.4-46.3); Red Blood Count 3.19 M/uL (4.2-5.4); White Blood Count 8.15 K/uL (4.8-10.8)
[2020-03-02 15:56] LABS: INR 1.2 (0.9-1.1); Prothrombin Time 12.8 Seconds (9.0-12.0)
[2020-03-02 16:02] LABS: Basophilic Stippling 1+; Macrocytosis Present
--- NOTE | 2020-03-02 16:03 | Electrocardiogram Report ---
Test Reason : Blood Pressure : / mmHG Vent. Rate : 060 BPM Atrial Rate : 060 BPM P-R Int : 200 ms QRS Dur : 144 ms QT Int : 508 ms P-R-T Axes : 000 264 051 degrees QTc Int : 508 ms Poor data quality, interpretation may be adversely affected Normal sinus rhythm Right bundle branch block Abnormal ECG When compared with ECG of 14-MAY-2019 11:32, Nonspecific T wave abnormality has replaced inverted T waves in Inferior leads Confirmed by Tashi Rubio [id number]) on 03/02/2020 4:03:32 PM Referred By: REFERRED SELF Confirmed By:Tashi Rubio
[2020-03-02 16:04] LABS: Albumin Level 2.5 gm/dl (3.4-5.0); BUN Creatinine Ratio 16.2 (10-20); Calcium 8.4 mg/dl (8.5-10.1); Creatinine Clr Calc Pharmacy 11.7 ml/min; Est GFR (African American) 11.4; Est GFR (Non-African American) 9.8; Magnesium 2.6 mg/dl (1.8-2.4)
[2020-03-02 16:20] LABS: Albumin Globulin Ratio 0.7 (0.9-2); Bilirubin,Total 0.4 mg/dl (0.2-1); Globulin 3.8 gm/dl (2.5-4.0); Thyroid Stimulating Hormone 3.71 uIu/ml (0.300-4.500); Total Protein 6.3 gm/dl (6.4-8.2); Troponin I 0.057 ng/ml (0-0.045)
--- NOTE | 2020-03-02 16:41 | XRay Report ---
XR chest 1V portable CLINICAL HISTORY: weakness COMPARISON STUDY: Chest radiograph May 14, 2019. FINDINGS: Dual lead left subclavian pacemaker is in place. There is cardiomegaly with extensive annabella l annular calcification. Interstitial thickening suggests pulmonary edema. There are small to moderat e bilateral pleural fusions with bibasilar opacities. There is no pneumothorax. IMPRESSION: 1. Small to moderate bilateral pleural effusions with associated bibasilar opacities that could refle ct atelectasis or consolidation. Radiographic follow-up is recommended. 2. Cardiomegaly with mild interstitial pulmonary edema. ACT 112: Negative or not required by law. Electronically signed by: Aftab Ramos M.D. 03/02/2020 4:40 PM
[2020-03-02] MEDS ORDERED: BUMETANIDE 0.5 MG in SYRINGE 0 ML IV ONE (16:56)
--- NOTE | 2020-03-02 18:45 | History & Physical Report ---
Date of Service March 02, 2020 Assessment & Plan (1) Acute on chronic heart failure with preserved ejection fraction: Suspect mainly her aortic stenosis and subsequently poor cardiac output to her kidney causing her LATRICE and hypervolemic state. Strict I&Os Daily weights Repeat TTE Bumex additional 2mg IV now then 2mg IV BID and monitor renal function. Consult cardiology (2) Aortic stenosis, severe: Repeat TTE. Consult cardiology as above. (3) Hypoxia: Secondary to above. Aim O2 sats > 94%. (4) Acute kidney injury: ?cardiorenal syndrome. Unclear acuity. Suspect due to poor cardiac output as above. Will repeat renal US and consult nephrology to rule out alternative causes. (5) Macrocytic anemia: B12, folate, SPEP, retic count in AM. (6) DM (diabetes mellitus): HbA1C 5.5 on labs in August. Hold sitagliptin - unclear if she needs this going forward. Will use Novolog for correction factor only. (7) Paroxysmal atrial fibrillation: Rhythm control with amiodarone 200mg PO QAM Anticoagulation with apixaban (8) DVT prophylaxis: Continue apixaban 2.5mg PO BID Admission and Anticipated Discharge Date Admission Date: 03/02/2020 History of Present Illness Chief Complaint: Shortness of breath Primary Care Provider: Kwabena Pierson Sarah Wyatt is a 75 year old female with severe aortic stenosis and CKD who presents to the ER with worsening shortness of breath, weight gain and leg swelling. She reports this has been slowly progressive for the last few months with associated leg swelling. She was recently seen by her chief ophthalmic technician Dr Rubio on February 27 and bumex was increased although she has not noticed any improvement with this. She denies any chest pain, palpitations, claudication. Shortness of breath is mainly on exertion however she also notes orthopnea. She denies any fevers, chills, cough, loss of taste or smell, diarrhea, abdominal pain, COVID-19 exposure. In the ER chest x-ray, history, BNP and exam was concerning for hypervolemic state since she was given a total of 1.5 mg Bumex IV. She was referred to medicine for CHF, CKD/LATRICE, hypoxia for admission and ongoing management. Allergies Allergy/AdvReac Type Severity Reaction Status Date / Time heparin Allergy Unknown BLOOD Verified 03/02/20 15:50 DISORDER mexiletine Allergy Unknown SEVERE Verified 02/28/20 10:34 TREMORS Sulfa (Sulfonamide Allergy Unknown UNKNOWN Verified 03/02/20 15:50 Antibiotics) REACTION TO SULFA DRUGS Home Medications Medication Instructions Recorded Confirmed Type PreserVision AREDS 1 cap PO BID 04/22/18 03/02/20 History cholecalciferol (vitamin D3) 1,000 units PO QAM 04/22/18 03/02/20 History [Vitamin D3] fluticasone propionate 1 spray INTRANASAL DAILY PRN 04/22/18 03/02/20 History acetaminophen 500 mg PO Q6H PRN 01/14/19 03/02/20 History amiodarone 200 mg tablet 200 mg PO QAM #90 tab 07/12/19 03/02/20 Rx ferrous sulfate 325 mg (65 mg 325 mg PO BID tab 11/08/19 03/02/20 History iron) tablet isosorbide mononitrate 60 mg 60 mg PO QAM #30 tab 12/20/19 03/02/20 Rx tablet,extended release 24 hr apixaban 2.5 mg tablet 2.5 mg PO BID #60 tab 12/26/19 03/02/20 Rx atorvastatin 40 mg PO DAILY 03/02/20 03/02/20 History bumetanide 2 mg PO .QAFTERNOON 03/02/20 03/02/20 History bumetanide 2.5 mg PO QAM 03/02/20 03/02/20 History metoprolol succinate 200 mg PO DAILY 03/02/20 03/02/20 History qdcreemvydxw-Cm-elsk-minerals 1 tab PO DAILY 03/02/20 03/02/20 History [Multiple Vitamin, Womens] sitagliptin [Januvia] 25 mg PO DAILY 03/02/20 03/02/20 History Past Med/Surg History Medical History Anemia Chronic anticoagulation DM (diabetes mellitus) HTN (hypertension) Hyperthyroidism Lumbar radiculopathy Mitral stenosis NSAID long-term use Obesity Pacemaker PAD (peripheral artery disease) Paroxysmal atrial fibrillation RVOT ventricular tachycardia Skin cancer of arm Spinal stenosis Spinal stenosis of lumbar region Stenosis, cervical spine SVT (supraventricular tachycardia) Vitamin D deficiency Surgical History H/O brain surgery Previous section Family History Father Myocardial infarction Stroke Other Family history non-contributory Social History Smoking Status: Former smoker Tobacco Type: Cigarettes Second Hand Exposure: No; Do You Dip or Chew Tobacco: No; Tobacco Cessation Education Requested by Patient: No Hx Alcohol Use: No Hx Substance Use: No Preferred Language: Iraqi Communication Ability: Effective Visual Impairment: Limited Hearing Ability: Normal 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 Beliefs That Will Affect Care: None marital status: Current Living Situation: Alone current occupational status: retired How many Children do You have: 2 Other Information That Helps Us Care for You: No Feels Safe at Home: Yes Safety Concerns: Feels Safe At This Time Childhood Exposure to Second-Hand Smoke: No Assistive Devices: BiPap Review of Systems Review of Systems: All systems reviewed & are unremarkable except as noted in HPI & below Physical Exam Constitutional: well developed; + not well nourished and no acute distress Eyes: + anicteric sclerae; normal pupil size ENMT: external ear and nose normal, oropharynx normal Mouth: oral mucous membranes not dry Neck: trachea midline Respiratory: normal respiratory effort and able to speak in complete sentences; no labored breathing, no retractions and does not use accessory muscles Auscultation: + diminished lung sounds (Bibasal); no crackles and no wheezes Cardiovascular: Rate/Rhythm: regular rate and regular rhythm Heart Sounds: normal S1, normal S2 and + murmur (Systolic) Vessels: + JVD Extremities: normal capillary refill, + calf tenderness (Bilateral) and + pedal edema (3+ taut skin up to abdomen bilaterally equal) Gastrointestinal (Abdomen): Inspection/Auscultation: normal bowel sounds Percussion/Palpation: abdomen soft; abdomen nontender, no guarding and abdomen not rigid Musculoskeletal: no cyanosis or clubbing, extremities motor strength 5/5 Skin: no rashes, warm and dry (Towards on bilateral lower extremities) Neurologic: moves all extremities and awake; no focal motor deficits and not confused Psychiatric: A+Ox3, euthymic affect Genitourinary: no CVA tenderness Results & Data Results & Data ([facility]) Vital Signs (Past 12 Hours) Vital Signs Temp Pulse Resp BP Pulse Ox 03/02/20 17:52 71 19 136/49 L 99 03/02/20 17:50 64 21 99 03/02/20 17:40 63 25 H 99 03/02/20 17:30 67 26 H 99 03/02/20 17:20 62 21 100 03/02/20 17:10 56 L 20 98 03/02/20 17:00 66 20 99 03/02/20 16:50 61 23 100 03/02/20 16:40 62 20 100 03/02/20 16:30 50 L 24 159/58 H 100 03/02/20 16:20 62 24 100 03/02/20 16:10 60 20 100 03/02/20 16:04 62 20 140/52 L 100 03/02/20 15:30 73 22 03/02/20 15:01 61 20 134/56 L 100 03/02/20 15:00 60 19 100 03/02/20 14:54 99 03/02/20 14:31 60 20 134/60 100 03/02/20 14:30 60 17 100 03/02/20 14:19 61 24 100 03/02/20 14:07 88 L 03/02/20 14:00 63 23 140/56 L 100 03/02/20 13:19 36.6 C 65 22 132/62 95 Diagnostic Findings XR chest 1V portable IMPRESSION: 1. Small to moderate bilateral pleural effusions with associated bibasilar opacities that could reflect atelectasis or consolidation. Radiographic follow- up is recommended. 2. Cardiomegaly with mild interstitial pulmonary edema. Medications Administered ER medications given: Bumex 1 mg IV Bumex 0.5 mg IV ECG Indication: SOB/dyspnea Rate (beats per minute): 60 Rhythm: normal sinus Findings: + RBBB; no acute ischemic change Comparison ECG Date: from (May 14, 2019) Change: no significant change Code Status & VTE Plan Code Status Full VTE Prophylaxis Plan VTE Prophylaxis will be ordered: Yes PG Care Time/CCT Total # of Minutes Spent Total Time Spent with Patient: Total time spent is greater than 50% in coordination of care (as documented) at patient's floor/unit and/or counseling patient: Coding Level of Care Code 10779 Initial Inpt Care Lvl 3 Diagnoses Acute on chronic heart failure with preserved ejection fraction I50.33 Aortic stenosis, severe I35.0 Hypoxia R09.02 Acute kidney injury N17.9 Macrocytic anemia D53.9 DM (diabetes mellitus) E11.9 Paroxysmal atrial fibrillation I48.0 DVT prophylaxis Z29.9
[2020-03-02] MEDS ORDERED: BUMETANIDE 2 MG in SYRINGE 0 ML IV ONE (18:58)
[2020-03-02] MEDS ORDERED: BUMETANIDE 1 MG in SYRINGE 0 ML IV SCH (19:00)
--- NOTE | 2020-03-02 20:36 | Ultrasound Report ---
RENAL ULTRASOUND HISTORY: Acute kidney injury. COMPARISON: Renal ultrasound 10/21/2019. FINDINGS: Right kidney: 9.3 cm. There are 2 cysts with the largest measuring 2.8 cm. There is a punctate stone within the lower pole. No hydronephrosis. Moderate cortical thinning is again noted. Left kidney: 9.8 cm. Suboptimally assessed due to overlying bowel. No hydronephrosis. Moderate cortic al thinning is again noted. Probable small stone within the lower pole. Bladder: No bladder wall thickening. The ureteral jets are not identified at this time. IMPRESSION: 1. No hydronephrosis. 2. Moderate bilateral cortical renal thinning/scarring, unchanged. 3. Bilateral nephrolithiasis. 4. Normal bladder. ACT 112: Negative or not required by law. Electronically signed by: Adams Burnham M.D. 03/02/2020 8:34 PM
[2020-03-02] MEDS ORDERED: GLUCOSE 10 TABS/TUBE PO PRN (21:19)
[2020-03-02] MEDS ORDERED: GLUCAGON FOR INJ 1 MG VIAL SQ PRN (21:19)
[2020-03-02] MEDS ORDERED: FLUTICASONE PROPIONATE NA SPR 16 GM BTL NAE PRN (21:19)
[2020-03-02] MEDS ORDERED: GLUCOSE 40% GEL 15 GM TUBE PO PRN (21:19)
[2020-03-02] MEDS: INSULIN ASPART 100 UNITS/ML 3 ML PEN SC SCH (21:57)
[2020-03-02] MEDS: APIXABAN 2.5 MG TAB PO SCH (21:59)
[2020-03-03 07:27] LABS: Basophils # (auto) 0.03 K/uL (0-0.2); Basophils % (auto) 0.3 %; Eosinophils # (auto) 0.12 K/uL (0-0.5); Eosinophils % (auto) 1.1 %; Hematocrit (blood only) 36.9 % (37-47); Hemoglobin 11.1 g/dL (12.0-16.0); Immature Granulocytes # (auto) 0.04 K/uL (0.00-0.02); Immature Granulocytes % (auto) 0.4 %; Lymphocytes # (auto) 1.09 K/uL (1.2-3.4); Lymphocytes % (auto) 10.1 %; Mean Corpuscular Hemoglobin 33.9 pg (25-34); Mean Corpuscular Hgb Conc 30.1 g/dL (32-36); Mean Corpuscular Volume 112.8 fL (80-100); Mean Platelet Volume 10.6 fL (7.4-10.4); Monocytes % (auto) 6.5 %; Neutrophils # (auto) 8.79 K/uL (1.4-6.5); Neutrophils % (auto) 81.6 %; Platelet Count 192 K/uL (130-400); RDW Coefficient of Variation 14.3 % (11.5-14.5); RDW Standard Deviation 58.8 fL (36.4-46.3); Red Blood Count 3.27 M/uL (4.2-5.4); Reticulocyte % 1.6 % (0.5-2.0); Reticulocytes # 0.05 10^6/uL (0.02-0.10); White Blood Count 10.77 K/uL (4.8-10.8)
[2020-03-03 07:31] LABS: Estimated Average Glucose 131 mg/dl; Hemoglobin A1C 6.2 % (4.5-5.6)
[2020-03-03] MEDS: INSULIN ASPART 100 UNITS/ML 3 ML PEN SC SCH ×4 (07:48→21:00)
[2020-03-03 07:49] LABS: Macrocytosis Present
[2020-03-03 07:55] LABS: BUN Creatinine Ratio 15.9 (10-20); Calcium 8.5 mg/dl (8.5-10.1); Creatinine Clr Calc Pharmacy 11.1 ml/min; Est GFR (African American) 11.1; Est GFR (Non-African American) 9.6; Potassium 4.9 mmol/L (3.5-5.1)
[2020-03-03 08:13] LABS: Folate (Folic Acid) > 20.00 ng/ml (>5.38); Vitamin B12 604 pg/ml (193-986)
--- NOTE | 2020-03-03 08:59 | XCELERA ---
[id number]
[2020-03-03] MEDS: AMIODARONE 200 MG TAB PO SCH (09:46)
[2020-03-03] MEDS: CEROVITE ADV FORMULA TAB PO SCH (09:46)
[2020-03-03] MEDS: METOPROLOL SUCC 50MG EXT REL TAB PO SCH (09:46)
[2020-03-03] MEDS: ISOSORBIDE MONO EXTENDED REL 60 MG TABCR PO SCH (09:46)
[2020-03-03] MEDS: APIXABAN 2.5 MG TAB PO SCH (09:46)
[2020-03-03] MEDS: ATORVASTATIN 40 MG TAB PO SCH (09:46)
[2020-03-03] MEDS: FERROUS SULFATE 325 MG TAB PO SCH ×2 (09:46→21:05)
[2020-03-03] MEDS: CHOLECALCIFEROL 1,000 UNITS 25 MCG TAB PO SCH (09:47)
--- NOTE | 2020-03-03 09:58 | Cardiology Consultation ---
Date of Consultation March 03, 2020 Assessment & Plan (1) Acute on chronic heart failure with preserved ejection fraction: -progressive decline clinically over the last several weeks. -oral diuretics have been unsuccessful as of late. -several doses of IV Bumex given, but no urine output. -she may need hemodialysis to handle her volume. -prognosis seems poor. (2) Aortic stenosis: -moderate to severe on current echocardiogram. -likely a factor in her recent decompensation. -uncertain if she needs valve replacement currently. -she demonstrates severe LVH. (3) CAD (coronary artery disease): -nonobstructive disease by cath, August 2013. -continue metoprolol succinate and ptosis or bite mononitrate. (4) Ventricular tachycardia: -bradycardia dependent, permanent pacemaker March 2014. -normal pacemaker interrogation on February 28, 2020. -successful VT ablation, April 2014. -continue amiodarone. (5) Paroxysmal atrial fibrillation: -continue amiodarone, metoprolol succinate, and apixaban. -no atrial fibrillation identified on pacer interrogation last week. (6) CKD (chronic kidney disease) stage 5, GFR less than 15 ml/min: -anuric renal failure at present. 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 -management per Nephrology. History of Present Illness Attending Physician: Rahul Cullen DO History of Present Illness Mrs. Wyatt is a 75-year-old female admitted yesterday in decompensated diastolic CHF. This consultation was ordered to assist in her cardiac management. Of note, the patient is well known to me from the outpatient setting. The patient was in her usual state of health until approximately 3-4 weeks prior to presentation. The patient noticed progressive exertional dyspnea, lower extremity edema, and weight gain which she complained of during our office visit on February 27. She was instructed to increase her diuretic for 3 days, however, she noted no improvement in any of her symptoms. She presented to the emergency room yesterday for further care. The patient has a longstanding history of chronic diastolic CHF. She does follow a salt and fluid restricted diet. She also performs daily weights and sliding-scale diuretics. Her typical dry weight is 155 lb. She also carries a history of refractory ventricular tachycardia. She presented in that rhythm back in August 2013 and was transferred to [facility]. Cardiac catheterization revealed nonobstructive coronary disease at that time. Numerous attempts were made at a VT ablation neck [facility]. Attempts were also made at our institution by Dr. Bass and also in [place]. In March 2014, a dual-chamber pacemaker was placed as it was felt her ventricular tachycardia was bradycardia dependent. She did have successful VT ablation performed in April [address] Bass. The patient also carries a history of moderate to severe aortic stenosis. Mild mitral stenosis has also been identified on her recent echocardiogram performed in August 2019. Currently, patient is resting comfortably in bed. She complains of jumpy legs and arms. Past medical and surgical history 1. Nonobstructive coronary artery disease-September 2013 2. Refractory ventricular ectopic beats and ventricular tachycardia-s/p ablation, April 2014 3. Bradycardia dependent ventricular tachycardia 4. Dual-chamber pacemaker-March 2014 5. Severe aortic stenosis-0.9 cm2, August 2019 6. Severe LVH 7. Chronic diastolic CHF-March 2014 8. Mild mitral stenosis 9. Paroxysmal atrial fibrillation 10. Hypertension 11. Hypercholesterolemia 12. Diabetes mellitus 13. Asthma 14. Peripheral vascular disease-occluded right proximal tibial artery-September 2015 15. Chronic renal failure 16. Nephrolithiasis 17. Cervical spinal stenosis 18. Status post cerebral artery aneurysm repair 19. Obesity 20. Right great toe partial amputation-November 2015 Social history , lives with her daughter No tobacco or alcohol Family history Noncontributory Review of systems A 10 point review systems was undertaken and negative except that described above. Allergies Allergy/AdvReac Type Severity Reaction Status Date / Time heparin Allergy Unknown BLOOD Verified 03/02/20 15:50 DISORDER mexiletine Allergy Unknown SEVERE Verified 02/28/20 10:34 TREMORS Sulfa (Sulfonamide Allergy Unknown UNKNOWN Verified 03/02/20 15:50 Antibiotics) REACTION TO SULFA DRUGS Home Medications Medication Instructions Recorded Confirmed Type PreserVision AREDS 1 cap PO BID 04/22/18 03/02/20 History cholecalciferol (vitamin D3) 1,000 units PO QAM 04/22/18 03/02/20 History [Vitamin D3] fluticasone propionate 1 spray INTRANASAL DAILY PRN 04/22/18 03/02/20 History acetaminophen 500 mg PO Q6H PRN 01/14/19 03/02/20 History amiodarone 200 mg tablet 200 mg PO QAM #90 tab 07/12/19 03/02/20 Rx ferrous sulfate 325 mg (65 mg 325 mg PO BID tab 11/08/19 03/02/20 History iron) tablet isosorbide mononitrate 60 mg 60 mg PO QAM #30 tab 12/20/19 03/02/20 Rx tablet,extended release 24 hr apixaban 2.5 mg tablet 2.5 mg PO BID #60 tab 12/26/19 03/02/20 Rx atorvastatin 40 mg PO DAILY 03/02/20 03/02/20 History bumetanide 2 mg PO .QAFTERNOON 03/02/20 03/02/20 History bumetanide 2.5 mg PO QAM 03/02/20 03/02/20 History metoprolol succinate 200 mg PO DAILY 03/02/20 03/02/20 History njzvadrmjtqw-Gv-xzbt-minerals 1 tab PO DAILY 03/02/20 03/02/20 History [Multiple Vitamin, Womens] sitagliptin [Januvia] 25 mg PO DAILY 03/02/20 03/02/20 History Patient History Medical History Anemia Chronic anticoagulation DM (diabetes mellitus) HTN (hypertension) Hyperthyroidism Lumbar radiculopathy Mitral stenosis NSAID long-term use Obesity Pacemaker PAD (peripheral artery disease) Paroxysmal atrial fibrillation RVOT ventricular tachycardia Skin cancer of arm Spinal stenosis Spinal stenosis of lumbar region Stage 3 chronic kidney disease Stenosis, cervical spine SVT (supraventricular tachycardia) Vitamin D deficiency Surgical History H/O brain surgery Previous section Family History Father Myocardial infarction Stroke Other Family history non-contributory Social History Smoking Status: Former smoker Tobacco Type: Cigarettes Second Hand Exposure: No; Do You Dip or Chew Tobacco: No; Tobacco Cessation Education Requested by Patient: No Hx Alcohol Use: No Hx Substance Use: No Preferred Language: Albanian Communication Ability: Effective Visual Impairment: Limited Hearing Ability: Normal 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 HEENT exam is negative. Neck is supple with delayed and prolonged carotid upstrokes bilaterally. A transmitted murmur is noted. Jugular venous pressure is difficult to assess. There is no thyromegaly. Cardiovascular exam reveals a regular rhythm with a 2/6 crescendo decrescendo systolic murmur heard loudest at the base. S2 is audible at the apex. No diastolic murmurs. Lungs note decreased breath sounds at the bases. Abdomen is benign without bruits. Extremities reveal intact radial artery pulses bilaterally. Results & Data ([facility]) Vital Signs (Past 12 Hours) Vital Signs Temp Pulse Pulse Resp BP Pulse Ox 03/03/20 07:57 37 C 60 20 125/70 99 03/03/20 02:53 36.7 C 60 18 146/56 H 100 03/03/20 01:34 61 03/02/20 23:31 36.8 C 63 18 127/54 L 94 Laboratory Results CBC notes hemoglobin 11.1, hematocrit 36.9, white count 10.7, platelet count [id number]. Electrolytes note a sodium of 143, potassium 4.9, chloride 107, bicarb 32, BUN 67, and creatinine 4.21. Troponin I level is mildly elevated 0.057. BNP is elevated 25,196. Diagnostic Findings Echocardiogram notes normal left ventricular systolic function with ejection fraction of 60-65%. There are no wall motion abnormalities. There is severe LVH and moderate to severe aortic stenosis with a valve area calculated 1.0 cm2. There is mild mitral stenosis and regurgitation. shelter monitor is benign. PG Care Time/CCT Total # of Minutes Spent Total Time Spent with Patient: Total time spent is greater than 50% in coordination of care (as documented) at patient's floor/unit and/or counseling patient: Coding Level of Care Code 35744 Initial Inpt Care Lvl 3 Diagnoses Acute on chronic heart failure with preserved ejection fraction I50.33 Aortic stenosis I35.0 CAD (coronary artery disease) I25.10 Ventricular tachycardia I47.2 Paroxysmal atrial fibrillation I48.0 CKD (chronic kidney disease) stage 5, GFR less than 15 ml/min N18.5
--- NOTE | 2020-03-03 11:10 | Medical Student Progress Note ---
Date of Service March 03, 2020 Assessment & Plan (1) Acute on chronic heart failure with preserved ejection fraction: Bumex increased up from 0.5 to 2mg on 03/02 and was then discontinued due to no urination and high creatinine. Has recently been eating canned chicken noodle soup for dinner frequently. 3+ pitting edema bilaterally but no crackles heard on lung exam. Patient is very SOB objectively with accessory muscle use in breathing. Cardiology was consulted and recommended hemodialysis if volume is not able to be diuresed by Bumex IV. No other changes to cardiac management needed. TTE performed 03/03: Left ventricular systolic function normal with severe concentric hypertrophy. EF 60-65%. Moderate to severe aortic stenosis as compared to 08/07/15. Mild mitral stenosis and regurgitation and mild to moderate tricuspid regurgitation. (2) CKD (chronic kidney disease), stage IV: Cr 2.3 this summer -> 3.6 on 02/27, 4.12 on 03/03 and 4.2 on 03/03. Nephrology consulted. Patient has no urine output until this afternoon after a madrigal, and then was oliguric. I/O strictly monitored. Nephrology recommends hemodialysis if urine output does not improve in next 24 hours and gave a one time 2mg IV dose of bumex to encourage urination. (3) Hypercapnia: In the morning, ABG pH 7.25, ABG pCO2 70, pO2 50, ABG O2 sat 84.4. Patient was placed on BiPAP with some symptomatic improvement. Consider possible d iagnosis of COPD due to past smoking history and hypercapnia. Follow-up with spirometry and LFTs to diagnose COPD. - Will repeat ABG this afternoon. Possible TIA Patient's daughter noted slurred speech over the phone. On exam around 10:45am there was slight droop on the left side of the face and disuse of left arm as well as difference in sensation in lower extremities with left leg feeling "heavy". CT head without contrast did not show a hemophagic bleed or any acute issues. Patient should be started on aspirin 81mg for antiplatelet due to pmh of diabetes and hypertension. -Will start PO when she is off BiPAP. -Will consult neurology. Admission and Anticipated Discharge Date Admission Date: March 02, 2020 Supervising Attestation I personally examined the patient and verified all brown points of history and exam, discussed case, and agree with decision making with Selvin Valiente MS2. very little meaningful HPI or ROS obtainable - pt on bipap when i see her - both MS2 and Dr Powell R1 note patient looks much better when we see her together than when they both saw her earlier. pt herself doesn't know where she is. denies complaints but is disoriented. vitals noted fatigued appearing but breathing fairly comfortably on bipap. heent nc at mmm. cardio reg no r/m/g somewhat distant. lungs difficult exam due to effort, positioning, weakness - but no r/r, dimished throughout - some anterior lung field wheeze noted. no accessory muscles no tachypnea. abd soft nd nt. neuro difficult exam due to fatigue/weakness - but cn 2-12 grossly intact and gross motor probably 4+/5 definitely equal globally and no noted focal deficits. skin no rashes no pallor or icterus acute respiratory failure - mixed both hypoxic and hypercapnic -hypoxic likely pulmonary edema/acute on chronic HFpEF mediated (although not entirely clear if vs CKD bigger culprit - most likely elements of both) -hypercapnic more troubling since she does not appear to carry a dx taht would cause hypercapnea. ?occult COPD vs [place]/weakness mediated (see below for management) acute on chronic HFpEF - and CKD mediated. attempting to diurese - w progression of CKD, not affecting much negative fluid balance - see nephro notes - may need HD -continue med manageemnt as possible, conitnue supportive care hypercapnea - as above noted, dx driving this not overtly clear -bipap, follow abg -nebs/pulmonary toilet -possibly just driven by overall weakness and decline (and delirium) maybe all lessening respiratory drive and causing worsening respiratory muscle weakness vs related to true but occult lung disease -depending on how she progresses, may need PFTs as outpt CKD - appearing to probably have progressed to ESRD - current GFR around 9. possibly some of her mentation is uremic. agree w nephro and cardiology that at this point HD is pretty reasonable - especially since there's not an overtly terrible CHF exacerbation acutely so as to explain all of renal worsening as acute from poor forward flow - more concerning that it's a progressive worsening of baseline disease metabolic encephalopathy - definitely related to respiratory acidosis/hypercapnea, possibly related to uremia, hospital environment DVT proph - on eliquis Subjective Ms. Wyatt presented with SOB and weakness that has worsened over the last few days. 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 She has felt weak and shaky the last few days and is confused this morning. She thought her daughter was in the room talking with her earlier in the morning but she has not had any visitors. She denies having trouble finding words or slurring speech. Overall she says she is not SOB today, with no orthopnea. No chest pain, cough, palpitations, calf pain. She does have some neck and back pain. Review of Systems Constitutional: + fatigue and + weakness Respiratory: no cough and no dyspnea Cardiovascular: + edema; no chest pain, no orthopnea, no palpitations and no calf pain Gastrointestinal: no abdominal pain, no nausea and no vomiting Genitourinary: no dysuria Musculoskeletal: + back pain, + neck pain and + muscle weakness Neurologic: + tremor(s) and + confusion Physical Exam Respiratory: + labored breathing, + retractions and + uses accessory muscles Difficult to auscultate from the back. Lung sounds from the anterior chest sound labored with some wheezing. Cardiovascular: Rate/Rhythm: regular rate and regular rhythm Extremities: + edema (3+ edema bilaterally up to the knees) Neurologic: Speech / Cognition: + abnormal speech Motor/Sensory: + tremor Cranial Nerves: normal hearing Cable Layer strength equal bilaterally. Psychiatric: Orientation: oriented to person Insight: + impaired insight Results & Data ([facility]) Vital Signs (Past 12 Hours) Vital Signs Temp Pulse Pulse Resp BP Pulse Ox 03/03/20 07:57 37 C 60 20 125/70 99 03/03/20 02:53 36.7 C 60 18 146/56 H 100 03/03/20 01:34 61 03/02/20 23:31 36.8 C 63 18 127/54 L 94 Laboratory Results Laboratory Results - last 24 hr 03/02/20 03/02/20 03/02/20 15:35 15:35 15:35 WBC 8.15 RBC 3.19 L Hgb 10.9 L Hct 35.1 L MCV 110.0 H MCH 34.2 H MCHC 31.1 L RDW Std Deviation 57.6 H RDW Coeff of Desiree 14.3 Plt Count 178 MPV 10.4 Immature Gran % (Auto) 0.4 Neut % (Auto) 76.4 Lymph % (Auto) 12.0 Valley % (Auto) 7.9 Eos % (Auto) 2.9 Baso % (Auto) 0.4 Reticulocyte % (Auto) Neut # (Auto) 6.23 Lymph # (Auto) 0.98 L Valley # (Auto) 0.64 H Eos # (Auto) 0.24 Baso # (Auto) 0.03 Reticulocyte # Immature Gran # (Auto) 0.03 H Basophilic Stippling 1+ Macrocytosis Present PT 12.8 H INR 1.2 H ABG pH ABG pCO2 ABG pO2 ABG HCO3 ABG O2 Saturation ABG Base Excess Stephen Test Barometric Pressure Oxygen Given Sodium 143 Potassium 5.0 Chloride 106 Carbon Dioxide 33 H Anion Gap 3.0 BUN 67 H Creatinine 4.12 H Est Cr Clr Drug Dosing 11.7 Est GFR ( Amer) 11.4 Est GFR (Non-Af Amer) 9.8 BUN/Creatinine Ratio 16.2 Glucose 113 H POC Glucose Estimat Average Glucose Hemoglobin A1c Calcium 8.4 L Magnesium 2.6 H Total Bilirubin 0.4 AST 34 ALT 26 Alkaline Phosphatase 107 Troponin I 0.057 H* NT-Pro-B Natriuret Pep 44893 H Total Protein 6.3 L Total Protein (PEP) Albumin 2.5 L Albumin (PEP) Globulin 3.8 Albumin/Globulin Ratio 0.7 L Gcdht-9-Fvyockjet Hqxlu-7-Drfhtwsms Lsuu-5-Nhqvhvez Vrhe-3-Tiwfbxmn Gamma Globulins Monoclonal Peak 3 Ser Monoclonl Protein Ser Monoclonal Prot 2 PEP Interpretation Vitamin B12 Folate TSH 3.710 SARS-CoV-2 Ag (Rapid) 03/02/20 03/02/20 03/03/20 17:48 21:06 07:11 WBC RBC Hgb Hct MCV MCH MCHC RDW Std Deviation RDW Coeff of Desriee Plt Count MPV Immature Gran % (Auto) Neut % (Auto) Lymph % (Auto) Valley % (Auto) Eos % (Auto) Baso % (Auto) Reticulocyte % (Auto) Neut # (Auto) Lymph # (Auto) Valley # (Auto) Eos # (Auto) Baso # (Auto) Reticulocyte # Immature Gran # (Auto) Basophilic Stippling Macrocytosis PT INR ABG pH ABG pCO2 ABG pO2 ABG HCO3 ABG O2 Saturation ABG Base Excess Stephen Test Barometric Pressure Oxygen Given Sodium Potassium Chloride Carbon Dioxide Anion Gap BUN Creatinine Est Cr Clr Drug Dosing Est GFR ( Amer) Est GFR (Non-Af Amer) BUN/Creatinine Ratio Glucose POC Glucose 113 H Estimat Average Glucose Hemoglobin A1c Calcium Magnesium Total Bilirubin AST ALT Alkaline Phosphatase Troponin I NT-Pro-B Natriuret Pep Total Protein Total Protein (PEP) Pending Albumin Albumin (PEP) Pending Globulin Albumin/Globulin Ratio Kyzfv-8-Kwgdmshrc Pending Gglou-8-Yslyptosb Pending Wdzj-8-Oojxhzsz Pending Mtrh-2-Blekpnwd Pending Gamma Globulins Pending Monoclonal Peak 3 Pending Ser Monoclonl Protein Pending Ser Monoclonal Prot 2 Pending PEP Interpretation Pending Vitamin B12 Folate TSH SARS-CoV-2 Ag (Rapid) Negative 03/03/20 03/03/20 03/03/20 07:11 07:11 07:11 WBC 10.77 RBC 3.27 L Hgb 11.1 L Hct 36.9 L MCV 112.8 H MCH 33.9 MCHC 30.1 L RDW Std Deviation 58.8 H RDW Coeff of Desiree 14.3 Plt Count 192 MPV 10.6 H Immature Gran % (Auto) 0.4 Neut % (Auto) 81.6 Lymph % (Auto) 10.1 Valley % (Auto) 6.5 Eos % (Auto) 1.1 Baso % (Auto) 0.3 Reticulocyte % (Auto) 1.6 Neut # (Auto) 8.79 H Lymph # (Auto) 1.09 L Valley # (Auto) 0.70 H Eos # (Auto) 0.12 Baso # (Auto) 0.03 Reticulocyte # 0.05 Immature Gran # (Auto) 0.04 H Basophilic Stippling Macrocytosis Present PT INR ABG pH ABG pCO2 ABG pO2 ABG HCO3 ABG O2 Saturation ABG Base Excess Setphen Test Barometric Pressure Oxygen Given Sodium 143 Potassium 4.9 Chloride 107 Carbon Dioxide 32 Anion Gap 4.0 BUN 67 H Creatinine 4.21 H Est Cr Clr Drug Dosing 11.1 Est GFR ( Amer) 11.1 Est GFR (Non-Af Amer) 9.6 BUN/Creatinine Ratio 15.9 Glucose 99 POC Glucose Estimat Average Glucose 131 Hemoglobin A1c 6.2 H Calcium 8.5 Magnesium Total Bilirubin AST ALT Alkaline Phosphatase Troponin I NT-Pro-B Natriuret Pep Total Protein Total Protein (PEP) Albumin Albumin (PEP) Globulin Albumin/Globulin Ratio Pfcmt-4-Qoqoxzyjj Skght-0-Yoobmiwht Cmvf-5-Qoqdnfrb Dkct-2-Yrvzoxbp Gamma Globulins Monoclonal Peak 3 Ser Monoclonl Protein Ser Monoclonal Prot 2 PEP Interpretation Vitamin B12 Folate TSH SARS-CoV-2 Ag (Rapid) 03/03/20 03/03/20 03/03/20 07:11 07:43 11:23 WBC RBC Hgb Hct MCV MCH MCHC RDW Std Deviation RDW Coeff of Desiree Plt Count MPV Immature Gran % (Auto) Neut % (Auto) Lymph % (Auto) Valley % (Auto) Eos % (Auto) Baso % (Auto) Reticulocyte % (Auto) Neut # (Auto) Lymph # (Auto) Valley # (Auto) Eos # (Auto) Baso # (Auto) Reticulocyte # Immature Gran # (Auto) Basophilic Stippling Macrocytosis PT INR ABG pH 7.25 L ABG pCO2 70 H ABG pO2 50 L ABG HCO3 30 H ABG O2 Saturation 84.4 L ABG Base Excess 1.8 Stephen Test Pos Barometric Pressure 731.4 Oxygen Given 2L Sodium Potassium Chloride Carbon Dioxide Anion Gap BUN Creatinine Est Cr Clr Drug Dosing Est GFR ( Amer) Est GFR (Non-Af Amer) BUN/Creatinine Ratio Glucose POC Glucose 97 Estimat Average Glucose Hemoglobin A1c Calcium Magnesium Total Bilirubin AST ALT Alkaline Phosphatase Troponin I NT-Pro-B Natriuret Pep Total Protein Total Protein (PEP) Albumin Albumin (PEP) Globulin Albumin/Globulin Ratio Tqmvb-2-Nmvdslqax Qcxgv-6-Mqiajoddy Kgab-4-Nzwnejxx Flce-8-Yowpppik Gamma Globulins Monoclonal Peak 3 Ser Monoclonl Protein Ser Monoclonal Prot 2 PEP Interpretation Vitamin B12 604 Folate > 20.00 TSH SARS-CoV-2 Ag (Rapid) 03/03/20 11:49 WBC RBC Hgb Hct MCV MCH MCHC RDW Std Deviation RDW Coeff of Desiree Plt Count MPV Immature Gran % (Auto) Neut % (Auto) Lymph % (Auto) Valley % (Auto) Eos % (Auto) Baso % (Auto) Reticulocyte % (Auto) Neut # (Auto) Lymph # (Auto) Valley # (Auto) Eos # (Auto) Baso # (Auto) Reticulocyte # Immature Gran # (Auto) Basophilic Stippling Macrocytosis PT INR ABG pH ABG pCO2 ABG pO2 ABG HCO3 ABG O2 Saturation ABG Base Excess Stephen Test Barometric Pressure Oxygen Given Sodium Potassium Chloride Carbon Dioxide Anion Gap BUN Creatinine Est Cr Clr Drug Dosing Est GFR ( Amer) Est GFR (Non-Af Amer) BUN/Creatinine Ratio Glucose POC Glucose 129 H Estimat Average Glucose Hemoglobin A1c Calcium Magnesium Total Bilirubin AST ALT Alkaline Phosphatase Troponin I NT-Pro-B Natriuret Pep Total Protein Total Protein (PEP) Albumin Albumin (PEP) Globulin Albumin/Globulin Ratio Vevaf-6-Mitoctpsi Bfods-7-Ciswebjdi Jguf-4-Vbelljrm Zobf-9-Ztmrvvkt Gamma Globulins Monoclonal Peak 3 Ser Monoclonl Protein Ser Monoclonal Prot 2 PEP Interpretation Vitamin B12 Folate TSH SARS-CoV-2 Ag (Rapid)
[2020-03-03 12:02] LABS: Base Excess ABG 1.8 mEq/L (-9-1.8); HCO3 ABG 30 mmol/L (19-24); Oxygen Saturation ABG 84.4 % (90-95); PCO2 ABG 70 mmHg (35-46); PO2 ABG 50 mmHg (80-95); pH ABG 7.25 (7.35-7.45)
[2020-03-03 12:08] LABS: Allen Test Pos (Pos)
--- NOTE | 2020-03-03 12:38 | CT Scan Report ---
CT OF THE HEAD WITHOUT CONTRAST CLINICAL HISTORY: focal weakness COMPARISON STUDY: Head CT January 23, 2016. CT DOSE: 1228.53 mGy.cm TECHNIQUE: Helical axial images of the head were obtained without IV contrast. Automated exposure con trol was utilized for the study. A dose lowering technique was utilized adhering to the principles o f ALARA. FINDINGS: No acute intracranial hemorrhage, midline shift or mass effect is present. Ventricular syst em is stable. Basilar cisterns are patent. There are no extra-axial collections. White matter hypoden sities are unchanged. These suggest small vessel disease. There are no findings to suggest acute dura l sinus thrombosis or acute territorial infarct. Note is again made of postoperative findings consist ent with left frontotemporal craniotomy with aneurysm clipping. IMPRESSION: No acute intracranial findings. No change in appearance of the brain. ACT 112: Negative or not required by law. Electronically signed by: Aftab Ramos M.D. 03/03/2020 12:37 PM
[2020-03-03] MEDS: ALBUT/IPRATROP 3MG/0.5MG NEB 3 ML VIAL NEB SCH ×3 (14:06→23:24)
--- NOTE | 2020-03-03 15:01 | Nephrology Consultation ---
Date of Consultation March 03, 2020 Assessment & Plan (1) Acute kidney injury: Oliguric. Dinero placed for accurate I/O's. Electrolytes acceptable. Evidence of decompensated CHF and severe on exam. The acuity of current renal dysfunction is unclear. Creatinine 3.6 mg/dL on 02/27-->4/2 mg/dL yesterday. No urgent need for CONVOLUTE TUBE WINDER at this time but HD may be required if there is no improvement in urine output in next 24 hours. Sarah and her daughter expressed understanding and were receptive to starting HD if needed. I also spoke to Dr. Chanel who said that he would be available for catheter placement tomorrow if needed. NPO p MN ordered tentatively placed. It is unclear if LATRICE is secondary to CRS or if cardiac decompensation is secondary to kidney dysfunction. No clear trigger for LATRICE otherwise. Renal US does not demonstrate evidence of obstruction. UA/microscopy has been requested. I/O's will be strictly monitored. I have requested a repeat metabolic profile now and tomorrow AM. Diuretics PRN to encourage UOP. Medications are currently appropriately dosed for kidney function. (2) CKD (chronic kidney disease), stage IV: Baseline creatinine ~2.4 mg/dL. CKD attributed to microvascular disease and a history of ATN. Kidneys normal appearing with small non obstructing stones. Urine bland and acellular at baseline. (3) Acute on chronic heart failure with preserved ejection fraction: Continue Bumex to encourage urine output. Additional 2 mg IV provided following Dinero placement. (4) Aortic stenosis: TTE reviewed. Plan of care discussed with Dr. Rubio. No intervention planned at this time. (5) Hypercapnia: BIPAP started with symptomatic improvement. History of Present Illness Reason for Consultation: LATRICE/CKD Requesting Physician: Rahul Cullen DO Attending Physician: Rahul Cullen DO History of Present Illness Sarah Wyatt is a 75-year-old female with CKD IV who presented to the [facility] ER yesterday with progressive weakness, edema, and shortness of breath. She was admitted with acute on chronic heart failure with preserved LVEF. Sarah has acute hypercapnic respiratory failure and mild hypoxia. She reports mild symptomatic improvement since admission. Unfortunately, despite IV diuretics, she remained essentially anuric overnight. 250 ml of urine drained when Dinero catheter was placed following my evaluation. Renal US did not shahriar any hydronephrosis or evidence of obstruction. Sarah follows in the outpatient nephrology clinic with Dr. Chapa. CKD has been attributed to microvascular disease and a history of LATRICE/ATN. Baseline creatinine has been ~2.3 mg/dL. Sarah knows very little about dialysis. I reviewed details regarding CONVOLUTE TUBE WINDER with Sarah and her daughter (Lorenza) today. Sarah follows in the cardiology clinic with Dr. Rubio. I discussed her condition and the plan of care with Dr. Rubio today. Sarah has required high doses of diuretics to maintain euvolemia. She was taking Bumex 2.5 mg QAM and 2 mg QPM. Diuretic dose was recently increased following evaluation in the cardiology clinic last week. Unfortunately weight continued to increase. At this time, Sarah is >10 lbs above her dry weight. She has noted increasing tense lower extremity edema. This has been increasing for several weeks. Dyspnea has been increasing progressively for the past several weeks. Harvey denies fevers or chills. Medical history is notable for severe aortic stenosis, severe LVH, diabetes mellitus, non obstructive coronary artery disease (cath 2013 [facility]), a history of refractory ventricular tachycardia and VT ablation. In March 2014, a dual-chamber pacemaker was placed as it was felt her ventricular tachycardia was bradycardia dependent. She is maintained on amiodarone. Creatinine on admission was elevated 4.2 mg/dL. Electrolytes otherwise within normal limits. Allergies Allergy/AdvReac Type Severity Reaction Status Date / Time heparin Allergy Unknown BLOOD Verified 03/02/20 15:50 DISORDER mexiletine Allergy Unknown SEVERE Verified 02/28/20 10:34 TREMORS Sulfa (Sulfonamide Allergy Unknown UNKNOWN Verified 03/02/20 15:50 Antibiotics) REACTION TO SULFA DRUGS Home Medications Medication Instructions Recorded Confirmed Type PreserVision AREDS 1 cap PO BID 04/22/18 03/02/20 History cholecalciferol (vitamin D3) 1,000 units PO QAM 04/22/18 03/02/20 History [Vitamin D3] fluticasone propionate 1 spray INTRANASAL DAILY PRN 04/22/18 03/02/20 History acetaminophen 500 mg PO Q6H PRN 01/14/19 03/02/20 History amiodarone 200 mg tablet 200 mg PO QAM #90 tab 07/12/19 03/02/20 Rx ferrous sulfate 325 mg (65 mg 325 mg PO BID tab 11/08/19 03/02/20 History iron) tablet isosorbide mononitrate 60 mg 60 mg PO QAM #30 tab 12/20/19 03/02/20 Rx tablet,extended release 24 hr apixaban 2.5 mg tablet 2.5 mg PO BID #60 tab 12/26/19 03/02/20 Rx atorvastatin 40 mg PO DAILY 03/02/20 03/02/20 History bumetanide 2 mg PO .QAFTERNOON 03/02/20 03/02/20 History bumetanide 2.5 mg PO QAM 03/02/20 03/02/20 History metoprolol succinate 200 mg PO DAILY 03/02/20 03/02/20 History gnspgdzqjykb-Xd-ujjz-minerals 1 tab PO DAILY 03/02/20 03/02/20 History [Multiple Vitamin, Womens] sitagliptin [Januvia] 25 mg PO DAILY 03/02/20 03/02/20 History Patient History Medical History Anemia Chronic anticoagulation DM (diabetes mellitus) HTN (hypertension) Hyperthyroidism Lumbar radiculopathy Mitral stenosis NSAID long-term use Obesity Pacemaker PAD (peripheral artery disease) Paroxysmal atrial fibrillation RVOT ventricular tachycardia Skin cancer of arm Spinal stenosis Spinal stenosis of lumbar region Stenosis, cervical spine SVT (supraventricular tachycardia) Vitamin D deficiency Surgical History H/O brain surgery Previous section Family History Father Myocardial infarction Stroke Other Family history non-contributory Social History Smoking Status: Former smoker Tobacco Type: Cigarettes Second Hand Exposure: No; Do You Dip or Chew Tobacco: No; Tobacco Cessation Education Requested by Patient: No Hx Alcohol Use: No Hx Substance Use: No Preferred Language: Pashto Communication Ability: Effective Visual Impairment: Limited Hearing Ability: Normal Quartz Cutter Required: No Beliefs That Will Affect Care: None marital status: Current Living Situation: Alone current occupational status: retired How many Children do You have: 2 Other Information That Helps Us Care for You: No Feels Safe at Home: Yes Safety Concerns: Feels Safe At This Time Childhood Exposure to Second-Hand Smoke: No Assistive Devices: Glasses and Oxygen - Continuous Review of Systems Review of Systems: All systems reviewed & are unremarkable except as noted in HPI & below Constitutional: + fatigue, + weakness and + weight gain; no fever and no chills Respiratory: + dyspnea; no cough Cardiovascular: + orthopnea and + edema; no chest pain and no palpitations Physical Exam Constitutional: well developed, + thin and + frail appearing; no acute distress Eyes: no scleral abnormality and no corneal abnormality ENMT: Mouth: + dry oral mucous membranes; no oral mucosal abnormality Neck: normal visual inspection and trachea midline Respiratory: normal respiratory effort, + labored breathing and + tachypneic Auscultation: lungs clear to auscultation bilaterally and + diminished lung sounds Cardiovascular: Rate/Rhythm: regular rate and + bradycardic Heart Sounds: normal S1, normal S2 and + murmur Extremities: + edema Gastrointestinal (Abdomen): Percussion/Palpation: abdomen soft; abdomen nontender Musculoskeletal: Extremities: no cyanosis and no clubbing Skin: normal turgor; no lesions Neurologic: Motor/Sensory: no tremor and no asterixis Psychiatric: Orientation: alert and oriented x 3 Results & Data ([facility]) Vital Signs (Past 12 Hours) Vital Signs Temp Pulse Pulse Resp BP BP Pulse Ox 03/03/20 14:10 60 23 99 03/03/20 14:08 60 23 99 03/03/20 11:17 36.8 C 60 22 130/79 96 03/03/20 07:57 37 C 60 20 125/70 99 Laboratory Results Laboratory Results - last 24 hr 03/02/20 03/02/20 03/02/20 15:35 15:35 15:35 WBC 8.15 RBC 3.19 L Hgb 10.9 L Hct 35.1 L MCV 110.0 H MCH 34.2 H MCHC 31.1 L RDW Std Deviation 57.6 H RDW Coeff of Desiree 14.3 Plt Count 178 MPV 10.4 Immature Gran % (Auto) 0.4 Neut % (Auto) 76.4 Lymph % (Auto) 12.0 [place] % (Auto) 7.9 Eos % (Auto) 2.9 Baso % (Auto) 0.4 Reticulocyte % (Auto) Neut # (Auto) 6.23 Lymph # (Auto) 0.98 L [place] # (Auto) 0.64 H Eos # (Auto) 0.24 Baso # (Auto) 0.03 Reticulocyte # Immature Gran # (Auto) 0.03 H Basophilic Stippling 1+ Macrocytosis Present PT 12.8 H INR 1.2 H ABG pH ABG pCO2 ABG pO2 ABG HCO3 ABG O2 Saturation ABG Base Excess Stephen Test Barometric Pressure Oxygen Given Sodium 143 Potassium 5.0 Chloride 106 Carbon Dioxide 33 H Anion Gap 3.0 BUN 67 H Creatinine 4.12 H Est Cr Clr Drug Dosing 11.7 Est GFR ( Amer) 11.4 Est GFR (Non-Af Amer) 9.8 BUN/Creatinine Ratio 16.2 Glucose 113 H POC Glucose Estimat Average Glucose Hemoglobin A1c Calcium 8.4 L Magnesium 2.6 H Total Bilirubin 0.4 AST 34 ALT 26 Alkaline Phosphatase 107 Troponin I 0.057 H* NT-Pro-B Natriuret Pep 78349 H Total Protein 6.3 L Total Protein (PEP) Albumin 2.5 L Albumin (PEP) Globulin 3.8 Albumin/Globulin Ratio 0.7 L Fmhvl-1-Fpcuzjfon Yuvys-7-Bubuslmgw Avbo-3-Isfvwksy Qzft-7-Ujxkqlxj Gamma Globulins Monoclonal Peak 3 Ser Monoclonl Protein Ser Monoclonal Prot 2 PEP Interpretation Vitamin B12 Folate TSH 3.710 SARS-CoV-2 Ag (Rapid) 03/02/20 03/02/20 03/03/20 17:48 21:06 07:11 WBC RBC Hgb Hct MCV MCH MCHC RDW Std Deviation RDW Coeff of Desiree Plt Count MPV Immature Gran % (Auto) Neut % (Auto) Lymph % (Auto) [place] % (Auto) Eos % (Auto) Baso % (Auto) Reticulocyte % (Auto) Neut # (Auto) Lymph # (Auto) [place] # (Auto) Eos # (Auto) Baso # (Auto) Reticulocyte # Immature Gran # (Auto) Basophilic Stippling Macrocytosis PT INR ABG pH ABG pCO2 ABG pO2 ABG HCO3 ABG O2 Saturation ABG Base Excess Stephen Test Barometric Pressure Oxygen Given Sodium Potassium Chloride Carbon Dioxide Anion Gap BUN Creatinine Est Cr Clr Drug Dosing Est GFR ( Amer) Est GFR (Non-Af Amer) BUN/Creatinine Ratio Glucose POC Glucose 113 H Estimat Average Glucose Hemoglobin A1c Calcium Magnesium Total Bilirubin AST ALT Alkaline Phosphatase Troponin I NT-Pro-B Natriuret Pep Total Protein Total Protein (PEP) Pending Albumin Albumin (PEP) Pending Globulin Albumin/Globulin Ratio Ljzdb-8-Akwdwjtod Pending Ewumj-7-Smhalvjpd Pending Qwqt-8-Cnshpjha Pending Jgtk-6-Aarddjms Pending Gamma Globulins Pending Monoclonal Peak 3 Pending Ser Monoclonl Protein Pending Ser Monoclonal Prot 2 Pending PEP Interpretation Pending Vitamin B12 Folate TSH SARS-CoV-2 Ag (Rapid) Negative 03/03/20 03/03/20 03/03/20 07:11 07:11 07:11 WBC 10.77 RBC 3.27 L Hgb 11.1 L Hct 36.9 L MCV 112.8 H MCH 33.9 MCHC 30.1 L RDW Std Deviation 58.8 H RDW Coeff of Desiree 14.3 Plt Count 192 MPV 10.6 H Immature Gran % (Auto) 0.4 Neut % (Auto) 81.6 Lymph % (Auto) 10.1 [place] % (Auto) 6.5 Eos % (Auto) 1.1 Baso % (Auto) 0.3 Reticulocyte % (Auto) 1.6 Neut # (Auto) 8.79 H Lymph # (Auto) 1.09 L [place] # (Auto) 0.70 H Eos # (Auto) 0.12 Baso # (Auto) 0.03 Reticulocyte # 0.05 Immature Gran # (Auto) 0.04 H Basophilic Stippling Macrocytosis Present PT INR ABG pH ABG pCO2 ABG pO2 ABG HCO3 ABG O2 Saturation ABG Base Excess Stephen Test Barometric Pressure Oxygen Given Sodium 143 Potassium 4.9 Chloride 107 Carbon Dioxide 32 Anion Gap 4.0 BUN 67 H Creatinine 4.21 H Est Cr Clr Drug Dosing 11.1 Est GFR ( Amer) 11.1 Est GFR (Non-Af Amer) 9.6 BUN/Creatinine Ratio 15.9 Glucose 99 POC Glucose Estimat Average Glucose 131 Hemoglobin A1c 6.2 H Calcium 8.5 Magnesium Total Bilirubin AST ALT Alkaline Phosphatase Troponin I NT-Pro-B Natriuret Pep Total Protein Total Protein (PEP) Albumin Albumin (PEP) Globulin Albumin/Globulin Ratio Hjlor-6-Hgishiizg Hkkkj-5-Bdtkoxatz Vbtu-8-Reaudlpa Pyct-9-Rdinpadl Gamma Globulins Monoclonal Peak 3 Ser Monoclonl Protein Ser Monoclonal Prot 2 PEP Interpretation Vitamin B12 Folate TSH SARS-CoV-2 Ag (Rapid) 03/03/20 03/03/20 03/03/20 07:11 07:43 11:23 WBC RBC Hgb Hct MCV MCH MCHC RDW Std Deviation RDW Coeff of Desiree Plt Count MPV Immature Gran % (Auto) Neut % (Auto) Lymph % (Auto) [place] % (Auto) Eos % (Auto) Baso % (Auto) Reticulocyte % (Auto) Neut # (Auto) Lymph # (Auto) [place] # (Auto) Eos # (Auto) Baso # (Auto) Reticulocyte # Immature Gran # (Auto) Basophilic Stippling Macrocytosis PT INR ABG pH 7.25 L ABG pCO2 70 H ABG pO2 50 L ABG HCO3 30 H ABG O2 Saturation 84.4 L ABG Base Excess 1.8 Stephen Test Pos Barometric Pressure 731.4 Oxygen Given 2L Sodium Potassium Chloride Carbon Dioxide Anion Gap BUN Creatinine Est Cr Clr Drug Dosing Est GFR ( Amer) Est GFR (Non-Af Amer) BUN/Creatinine Ratio Glucose POC Glucose 97 Estimat Average Glucose Hemoglobin A1c Calcium Magnesium Total Bilirubin AST ALT Alkaline Phosphatase Troponin I NT-Pro-B Natriuret Pep Total Protein Total Protein (PEP) Albumin Albumin (PEP) Globulin Albumin/Globulin Ratio Jtzmf-3-Zxlbkbnww Cgxwd-6-Tmcrpudju Euwd-0-Scwvuoni Vcbt-3-Hvhdjnrt Gamma Globulins Monoclonal Peak 3 Ser Monoclonl Protein Ser Monoclonal Prot 2 PEP Interpretation Vitamin B12 604 Folate > 20.00 TSH SARS-CoV-2 Ag (Rapid) 03/03/20 11:49 WBC RBC Hgb Hct MCV MCH MCHC RDW Std Deviation RDW Coeff of Desiree Plt Count MPV Immature Gran % (Auto) Neut % (Auto) Lymph % (Auto) [place] % (Auto) Eos % (Auto) Baso % (Auto) Reticulocyte % (Auto) Neut # (Auto) Lymph # (Auto) [place] # (Auto) Eos # (Auto) Baso # (Auto) Reticulocyte # Immature Gran # (Auto) Basophilic Stippling Macrocytosis PT INR ABG pH ABG pCO2 ABG pO2 ABG HCO3 ABG O2 Saturation ABG Base Excess Stephen Test Barometric Pressure Oxygen Given Sodium Potassium Chloride Carbon Dioxide Anion Gap BUN Creatinine Est Cr Clr Drug Dosing Est GFR ( Amer) Est GFR (Non-Af Amer) BUN/Creatinine Ratio Glucose POC Glucose 129 H Estimat Average Glucose Hemoglobin A1c Calcium Magnesium Total Bilirubin AST ALT Alkaline Phosphatase Troponin I NT-Pro-B Natriuret Pep Total Protein Total Protein (PEP) Albumin Albumin (PEP) Globulin Albumin/Globulin Ratio Tafdk-4-Tnxdccovy Qltoo-7-Gjcptevzu Axfp-2-Kqlxdwiw Wwsq-4-Wafdxbvr Gamma Globulins Monoclonal Peak 3 Ser Monoclonl Protein Ser Monoclonal Prot 2 PEP Interpretation Vitamin B12 Folate TSH SARS-CoV-2 Ag (Rapid) PG Care Time/CCT Total # of Minutes Spent Total Time Spent with Patient: Total time spent is greater than 50% in coordination of care (as documented) at patient's floor/unit and/or counseling patient: Coding Level of Care Code 05134 Inpt Consult Level 5 Diagnoses Acute kidney injury N17.9 CKD (chronic kidney disease), stage IV N18.4 Acute on chronic heart failure with preserved ejection fraction I50.33 Aortic stenosis I35.0 Hypercapnia R06.89
[2020-03-03] MEDS ORDERED: BUMETANIDE 2 MG in SYRINGE 0 ML IV ONE (15:45)
[2020-03-03] MEDS ORDERED: ACETAMINOPHEN 1000 MG/100 ML IV IV PRN (16:54)
[2020-03-03 16:55] LABS: BUN Creatinine Ratio 15.3 (10-20); Calcium 8.5 mg/dl (8.5-10.1); Est GFR (African American) 10.9; Est GFR (Non-African American) 9.4; Potassium 5.2 mmol/L (3.5-5.1)
--- NOTE | 2020-03-03 17:53 | Billing Data ---
Date of Service March 03, 2020 Coding Level of Care Code 82363 Subseq Hosp Care Lvl 3
[2020-03-03] MEDS ORDERED: HALOPERIDOL LACTATE 5 MG/ML 1 ML VIAL IM PRN (18:53)
[2020-03-03] MEDS ORDERED: MELATONIN 3 MG TAB PO PRN ×2 (19:22→21:51)
[2020-03-03 20:28] LABS: Base Excess ABG 1.6 mEq/L (-9-1.8); HCO3 ABG 29 mmol/L (19-24); Oxygen Saturation ABG 98.3 % (90-95); PCO2 ABG 63 mmHg (35-46); PO2 ABG 127 mmHg (80-95); pH ABG 7.28 (7.35-7.45)
[2020-03-03 20:29] LABS: Allen Test Pos (Pos)
[2020-03-03] MEDS ORDERED: MELATONIN 3 MG TAB PO ONE (20:59)
[2020-03-03] MEDS: LIDOCAINE 5% 1 PATCH TD SCH (21:00)
[2020-03-03] MEDS: DICLOFENAC SOD 1% GEL 100 GM TUBE EXT SCH (21:03)
[2020-03-03] MEDS ORDERED: Nursing to Pharmacy Communication SCH (22:00)
[2020-03-04] MEDS ORDERED: Nursing to Pharmacy Communication SCH (00:15)
--- NOTE | 2020-03-04 00:25 | Communication Note ---
Date of Service: March 04, 2020 S:I have been paged this patient's room several times this evening out of complaints related to her BiPAP. The patient is endorsing pain, and discomfort while wearing the BiPAP. It is to the point where she is staying she cannot tolerate the BiPAP anymore. Initially we attempted relaxation techniques, and a one-to-one. Initially these worked however as the evening progressed she continued to have increasing discomfort and pain with use of her BiPAP. O: Generally the patient is in no acute distress, however appears significantly uncomfortable, she is wiggling in the bed from time to time, and clutching her BiPAP. Tachycardic otherwise regular rhythm, I did not appreciate any rubs or gallops, normal S1, normal S1, 1+ bilateral pedal edema, negative calf tenderness, bilateral congestion, with rales, difficult to appreciate breath sounds with BiPAP. Patient calm and cooperative with the exam. A/P #Pain and discomfort associated with BiPAP I discussed options with my attending including watchful waiting, Haldol, Ativan, or morphine to assist with the patient's pain and discomfort. Patient previously had a bad reaction Ativan, and the decision was made to provide 1 mg of morphine every 4 hours as needed as needed for pain or discomfort associated with use of the BiPAP. -1 mg of morphine every 4 hours as needed for pain or discomfort associate with the BiPAP, may have a second dose of ineffective after 30 minutes. -Hold for BP less than 110 systolic Chadwick White MD PGY 3, FCM This chart was completed utilizing [employer] voice recognition software. Grammatical errors, random word insertions, pronoun errors, and in complete sentences are an occasional consequence of the system. Any questions or concerns about the content, text, or information contained within the body of this dictation should be addressed directly to the physician for clarification. Resident Activity Tracking Resident Involvement: Resident Care Provided Care Provided: Adult Hospital Medicine
[2020-03-04] MEDS: MoRPHine SULFATE 2 MG/ML CARP IV PRN (00:52)
[2020-03-04 01:18] LABS: Appearance Urine Clear (Clear); Bilirubin Urine Negative (Negative); Blood Urine 3+ (Negative); Color Urine Yellow; Glucose Urine UA Negative (Negative); Ketones Urine Trace (Negative); Leukocyte Esterase Urine Trace (Negative); Nitrite Urine Negative (Negative); Protein Urine Negative (Negative); Urobilinogen Urine Negative (Negative)
[2020-03-04 01:37] LABS: Protein Creatinine Ratio Urine 0.2 (0-0.2); Total Protein Urine Random 25.4 mg/dl (0-11.9)
[2020-03-04 01:42] LABS: Epithelial Cell Urine 0-5 /lpf (0-5); RBC Urine >30 /hpf (0-4); WBC Urine 0-5 /hpf (0-5)
[2020-03-04 01:43] LABS: Bacteria Urine 1+ (Negative)
[2020-03-04] MEDS: ALBUT/IPRATROP 3MG/0.5MG NEB 3 ML VIAL NEB SCH ×6 (02:19→22:48)
[2020-03-04] MEDS: INSULIN ASPART 100 UNITS/ML 3 ML PEN SC SCH ×4 (06:01→20:41)
[2020-03-04 06:35] LABS: Basophils # (auto) 0.02 K/uL (0-0.2); Basophils % (auto) 0.2 %; Eosinophils # (auto) 0.13 K/uL (0-0.5); Eosinophils % (auto) 1.4 %; Hematocrit (blood only) 36.6 % (37-47); Hemoglobin 11.2 g/dL (12.0-16.0); Immature Granulocytes # (auto) 0.03 K/uL (0.00-0.02); Immature Granulocytes % (auto) 0.3 %; Lymphocytes # (auto) 0.95 K/uL (1.2-3.4); Mean Corpuscular Hemoglobin 34.1 pg (25-34); Mean Corpuscular Hgb Conc 30.6 g/dL (32-36); Mean Corpuscular Volume 111.6 fL (80-100); Mean Platelet Volume 10.8 fL (7.4-10.4); Monocytes # (auto) 0.68 K/uL (0.11-0.59); Monocytes % (auto) 7.2 %; Neutrophils # (auto) 7.66 K/uL (1.4-6.5); Neutrophils % (auto) 80.9 %; Platelet Count 159 K/uL (130-400); RDW Standard Deviation 56.9 fL (36.4-46.3); Red Blood Count 3.28 M/uL (4.2-5.4); White Blood Count 9.47 K/uL (4.8-10.8)
[2020-03-04 07:04] LABS: Albumin Level 2.3 gm/dl (3.4-5.0); BUN Creatinine Ratio 16.7 (10-20); Calcium 8.6 mg/dl (8.5-10.1); Creatinine Clr Calc Pharmacy 10.7 ml/min; Est GFR (African American) 10.5; Est GFR (Non-African American) 9.1; Macrocytosis Present; Phosphorus 5.4 mg/dl (2.5-4.9); Potassium 5.4 mmol/L (3.5-5.1)
[2020-03-04 07:12] LABS: Base Excess ABG 2.1 mEq/L (-9-1.8); HCO3 ABG 30 mmol/L (19-24); PCO2 ABG 63 mmHg (35-46); PO2 ABG 84 mmHg (80-95); pH ABG 7.29 (7.35-7.45)
[2020-03-04 07:24] LABS: Allen Test Pos (Pos)
[2020-03-04] MEDS: FERROUS SULFATE 325 MG TAB PO SCH ×2 (08:41→20:07)
[2020-03-04] MEDS: CEROVITE ADV FORMULA TAB PO SCH (08:41)
[2020-03-04] MEDS: AMIODARONE 200 MG TAB PO SCH ×2 (08:42→11:19)
[2020-03-04] MEDS: ISOSORBIDE MONO EXTENDED REL 60 MG TABCR PO SCH ×2 (08:42→11:19)
[2020-03-04] MEDS: LIDOCAINE 5% 1 PATCH TD SCH ×2 (08:42→20:21)
[2020-03-04] MEDS: ATORVASTATIN 40 MG TAB PO SCH (08:42)
[2020-03-04] MEDS: METOPROLOL SUCC 50MG EXT REL TAB PO SCH ×2 (08:43→11:18)
[2020-03-04] MEDS: DICLOFENAC SOD 1% GEL 100 GM TUBE EXT SCH ×3 (08:44→20:22)
[2020-03-04] MEDS: CHOLECALCIFEROL 1,000 UNITS 25 MCG TAB PO SCH (08:44)
--- NOTE | 2020-03-04 09:24 | Medical Student Progress Note ---
Date of Service March 04, 2020 Assessment & Plan (1) Acute on chronic heart failure with preserved ejection fraction: Bumex increased up from 0.5 to 2mg on 03/02 and was then discontinued due to no urination and high creatinine. Has recently been eating canned chicken noodle soup for dinner frequently. 3+ pitting edema bilaterally but no crackles heard on lung exam. Patient is very SOB objectively with accessory muscle use in breathing. Cardiology was consulted and recommended hemodialysis if volume is not able to be diuresed by Bumex IV. No other changes to cardiac management needed. TTE performed 03/03: Left ventricular systolic function normal with severe concentric hypertrophy. EF 60-65%. Moderate to severe aortic stenosis as compared to 08/07/15. Mild mitral stenosis and regurgitation and mild to moderate tricuspid regurgitation. At this point, CHF does not seem to be leading cause of her confusion and hypercapnia due to good O2 saturation. Diuretics are not effective at volume depletion at this time due to CKD. (2) CKD (chronic kidney disease), stage IV: Cr 2.3 this summer -> 3.6 on 02/27, 4.12 on 03/03 and 4.2 on 03/03. Nephrology consulted. Patient has no urine output until this afternoon after a madrigal, and then was oliguric. I/O strictly monitored. Nephrology recommended hemodialysis if urine output does not improve in next 24 hours and gave a one time 2mg IV dose of bumex yesterday to encourage urination. Input 120 output 670 mL in last 24 hours. Hemodialysis is recommended due to increasing creatinine, low urine output given the amount of diuretic given, and increasing potassium at 5.4 this morning. This is concerning for cardiac effects if potassium continues to increase. Patient is not wanting dialysis and does not understand the need for it. Will consult palliative care to consider dialysis vs other options although dialysis is the best option given her CKD and electrolyte imbalances. (3) Hypercapnia: This morning ABG pH was 7.29, pCO2 63 which is stable from yesterday, and pO2 84. Patient was able to keep BiPAP on for most of the night with some symptomatic improvement. Consider possible diagnosis of COPD due to past smoking history and hypercapnia. Follow-up with spirometry and LFTs to diagnose COPD. CT lung on 03/04: 1) Moderate bilateral pleural effusions. This is similar to the prior study. Consolidation within the lung bases as described above is also nonspecific change and therefore favors compressive atelectasis from the pleural effusions. A superimposed pneumonia cannot be excluded. 2. Patchy airspace opacity within the right upper lobe anteriorly which favors a pneumonia. Not treating the possible pneumonia at this time due to no cough, fever, or increased white blood count. Consulting pulmonology for hypercapnia with unclear etiology. Possible TIA Patient's daughter noted slurred speech over the phone. On exam around 10:45am there was slight droop on the left side of the face and disuse of left arm as well as difference in sensation in lower extremities with left leg feeling "heavy". CT head without contrast did not show a hemophagic bleed or any acute issues. Patient should be started on aspirin 81mg for antiplatelet due to pmh of diabetes and hypertension. -Will start PO when she is off BiPAP. -Consulted neurology. Admission and Anticipated Discharge Date Admission Date: March 02, 2020 Supervising Attestation Supervising Attestation I personally examined the patient and verified all brown points of history and exam, discussed case, and agree with decision making with O Kendrauncuate MS2. very little meaningful HPI or ROS obtainable -later more alert. vitals noted fatigued appearing but breathing fairly comfortably on bipap. heent nc at mmm. cardio reg no r/m/g somewhat distant. skin no rashes no pallor or icterus acute respiratory failure - mixed both hypoxic and hypercapnic -hypoxic likely pulmonary edema/acute on chronic HFpEF mediated (although not entirely clear if vs CKD bigger culprit - most likely elements of both) -hypercapnic more troubling since she does not appear to carry a dx taht would cause hypercapnea. ?occult COPD vs FRANKLYN/weakness mediated (see below for management) - pulm consult to assist in dx and management acute on chronic HFpEF - and CKD mediated. attempting to diurese - w progression of CKD, not affecting much negative fluid balance - see nephro notes - may need HD -continue med manageemnt as possible, conitnue supportive care hypercapnea - as above noted, dx driving this not overtly clear -pulmonary consult -bipap, follow abg -nebs/pulmonary toilet -possibly just driven by overall weakness and decline (and delirium) maybe all lessening respiratory drive and causing worsening respiratory muscle weakness vs related to true but occult lung disease -depending on how she progresses, may need PFTs as outpt CKD - appearing to probably have progressed to ESRD although still determining- current GFR around 9. possibly some of her mentation is uremic. agree w nephro and cardiology that at this point HD is pretty reasonable - especially since there's not an overtly terrible CHF exacerbation acutely so as to explain all of renal worsening as acute from poor forward flow - more concerning that it's a progressive worsening of baseline disease metabolic encephalopathy - definitely related to respiratory acidosis/hypercapnea, possibly related to uremia, hospital environment DVT proph - on eliquis TIA - appreciate neuro input otherwise as above Subjective Overnight, the patient was struggling with the BiPAP and was very agitated. This morning the patient is more awake and able to answer questions. When talking about possible dialysis, the patient does not understand the need for this saying that she feels fine. She mentioned that she has not been urinating very much for about a week before admission which is why she went to the [facility] last Monday for more diuretics. She is still feeling weak with some pain around her BiPAP mask and her hip. No subjective SOB, chest pain, cough, or GI distress. Review of Systems Ear, Nose, Mouth, Throat: Pain around BiPAP mask Respiratory: no cough and no dyspnea Cardiovascular: + edema; no chest pain and no palpitations Gastrointestinal: + constipation; no abdominal pain Genitourinary: no dysuria Musculoskeletal: hip pain Neurologic: + generalized weakness; no headache(s) Psychiatric: no visual hallucinations Physical Exam Constitutional: no acute distress Respiratory: normal respiratory effort Auscultation: + diminished lung sounds difficult to auscultate due to BiPAP Cardiovascular: Rate/Rhythm: regular rate and regular rhythm Heart Sounds: + murmur (systolic) Extremities: + edema (2+ edema in LE bilaterally up to knees) Psychiatric: A+Ox3, euthymic affect Results & Data ([facility]) Vital Signs (Past 12 Hours) Vital Signs Temp Pulse Pulse Resp BP BP Pulse Ox 03/04/20 07:25 61 20 138/56 L 96 03/04/20 07:10 67 18 96 03/04/20 07:07 67 18 96 03/04/20 07:06 60 03/04/20 03:27 20 03/04/20 02:20 58 L 20 97 03/04/20 02:19 58 L 20 97 03/03/20 23:26 66 28 H 100 03/03/20 23:25 66 28 H 100 03/03/20 23:12 36.6 C 77 20 116/57 L 89 L 03/03/20 22:51 60 Laboratory Results Laboratory Results - last 24 hr 03/03/20 03/03/20 03/03/20 11:23 11:49 16:23 WBC RBC Hgb Hct MCV MCH MCHC RDW Std Deviation RDW Coeff of Desiree Plt Count MPV Immature Gran % (Auto) Neut % (Auto) Lymph % (Auto) [place] % (Auto) Eos % (Auto) Baso % (Auto) Neut # (Auto) Lymph # (Auto) [place] # (Auto) Eos # (Auto) Baso # (Auto) Immature Gran # (Auto) Macrocytosis ABG pH 7.25 L ABG pCO2 70 H ABG pO2 50 L ABG HCO3 30 H ABG O2 Saturation 84.4 L ABG Base Excess 1.8 Stephen Test Pos Barometric Pressure 731.4 Oxygen Given 2L Sodium 143 Potassium 5.2 H Chloride 107 Carbon Dioxide 31 Anion Gap 5.0 BUN 65 H Creatinine 4.26 H Est Cr Clr Drug Dosing 11.0 Est GFR ( Amer) 10.9 Est GFR (Non-Af Amer) 9.4 BUN/Creatinine Ratio 15.3 Glucose 85 POC Glucose 129 H Calcium 8.5 Phosphorus Albumin Urine Color Urine Appearance Urine pH Ur Specific [place] Urine Protein Urine Glucose (UA) Urine Ketones Urine Blood Urine Nitrite Urine Bilirubin Urine Urobilinogen Ur Leukocyte Esterase Urine RBC Urine WBC Ur Epithelial Cells Urine Bacteria Ur Random Creatinine U Random Total Protein Protein/Creatinin Ratio Free [place] LC, Quant Free Lambda LC, Quant Free [place]/Lambda Ratio 03/03/20 03/03/20 03/03/20 16:23 17:05 20:13 WBC RBC Hgb Hct MCV MCH MCHC RDW Std Deviation RDW Coeff of Desiree Plt Count MPV Immature Gran % (Auto) Neut % (Auto) Lymph % (Auto) [place] % (Auto) Eos % (Auto) Baso % (Auto) Neut # (Auto) Lymph # (Auto) [place] # (Auto) Eos # (Auto) Baso # (Auto) Immature Gran # (Auto) Macrocytosis ABG pH Cancelled 7.28 L ABG pCO2 Cancelled 63 H ABG pO2 Cancelled 127 H ABG HCO3 Cancelled 29 H ABG O2 Saturation Cancelled 98.3 H ABG Base Excess Cancelled 1.6 Stephen Test Cancelled Pos Barometric Pressure Cancelled 732.6 Oxygen Given Cancelled 35 PERCENT FIO2 Sodium Potassium Chloride Carbon Dioxide Anion Gap BUN Creatinine Est Cr Clr Drug Dosing Est GFR ( Amer) Est GFR (Non-Af Amer) BUN/Creatinine Ratio Glucose POC Glucose 94 Calcium Phosphorus Albumin Urine Color Urine Appearance Urine pH Ur Specific [place] Urine Protein Urine Glucose (UA) Urine Ketones Urine Blood Urine Nitrite Urine Bilirubin Urine Urobilinogen Ur Leukocyte Esterase Urine RBC Urine WBC Ur Epithelial Cells Urine Bacteria Ur Random Creatinine U Random Total Protein Protein/Creatinin Ratio Free [place] LC, Quant Free Lambda LC, Quant Free [place]/Lambda Ratio 03/03/20 03/04/20 03/04/20 20:52 01:00 01:00 WBC RBC Hgb Hct MCV MCH MCHC RDW Std Deviation RDW Coeff of Desiree Plt Count MPV Immature Gran % (Auto) Neut % (Auto) Lymph % (Auto) [place] % (Auto) Eos % (Auto) Baso % (Auto) Neut # (Auto) Lymph # (Auto) [place] # (Auto) Eos # (Auto) Baso # (Auto) Immature Gran # (Auto) Macrocytosis ABG pH ABG pCO2 ABG pO2 ABG HCO3 ABG O2 Saturation ABG Base Excess Stephen Test Barometric Pressure Oxygen Given Sodium Potassium Chloride Carbon Dioxide Anion Gap BUN Creatinine Est Cr Clr Drug Dosing Est GFR ( Amer) Est GFR (Non-Af Amer) BUN/Creatinine Ratio Glucose POC Glucose 75 Calcium Phosphorus Albumin Urine Color Yellow Urine Appearance Clear Urine pH 5.0 Ur Specific [place] 1.020 Urine Protein Negative Urine Glucose (UA) Negative Urine Ketones Trace H Urine Blood 3+ H Urine Nitrite Negative Urine Bilirubin Negative Urine Urobilinogen Negative Ur Leukocyte Esterase Trace H Urine RBC >30 H Urine WBC 0-5 Ur Epithelial Cells 0-5 Urine Bacteria 1+ H Ur Random Creatinine 120.0 U Random Total Protein 25.4 H Protein/Creatinin Ratio 0.2 Free [place] LC, Quant Free Lambda LC, Quant Free [place]/Lambda Ratio 03/04/20 03/04/20 03/04/20 05:51 06:09 06:09 WBC 9.47 RBC 3.28 L Hgb 11.2 L Hct 36.6 L MCV 111.6 H MCH 34.1 H MCHC 30.6 L RDW Std Deviation 56.9 H RDW Coeff of Desiree 14.0 Plt Count 159 MPV 10.8 H Immature Gran % (Auto) 0.3 Neut % (Auto) 80.9 Lymph % (Auto) 10.0 [place] % (Auto) 7.2 Eos % (Auto) 1.4 Baso % (Auto) 0.2 Neut # (Auto) 7.66 H Lymph # (Auto) 0.95 L [place] # (Auto) 0.68 H Eos # (Auto) 0.13 Baso # (Auto) 0.02 Immature Gran # (Auto) 0.03 H Macrocytosis Present ABG pH ABG pCO2 ABG pO2 ABG HCO3 ABG O2 Saturation ABG Base Excess Stephen Test Barometric Pressure Oxygen Given Sodium 141 Potassium 5.4 H Chloride 108 H Carbon Dioxide 28 Anion Gap 5.0 BUN 73 H Creatinine 4.40 H Est Cr Clr Drug Dosing 10.7 Est GFR ( Amer) 10.5 Est GFR (Non-Af Amer) 9.1 BUN/Creatinine Ratio 16.7 Glucose 68 L POC Glucose 74 Calcium 8.6 Phosphorus 5.4 H Albumin 2.3 L Urine Color Urine Appearance Urine pH Ur Specific [place] Urine Protein Urine Glucose (UA) Urine Ketones Urine Blood Urine Nitrite Urine Bilirubin Urine Urobilinogen Ur Leukocyte Esterase Urine RBC Urine WBC Ur Epithelial Cells Urine Bacteria Ur Random Creatinine U Random Total Protein Protein/Creatinin Ratio Free [place] LC, Quant Free Lambda LC, Quant Free [place]/Lambda Ratio 03/04/20 03/04/20 06:09 06:52 WBC RBC Hgb Hct MCV MCH MCHC RDW Std Deviation RDW Coeff of Desiree Plt Count MPV Immature Gran % (Auto) Neut % (Auto) Lymph % (Auto) [place] % (Auto) Eos % (Auto) Baso % (Auto) Neut # (Auto) Lymph # (Auto) [place] # (Auto) Eos # (Auto) Baso # (Auto) Immature Gran # (Auto) Macrocytosis ABG pH 7.29 L ABG pCO2 63 H ABG pO2 84 ABG HCO3 30 H ABG O2 Saturation 96.0 H ABG Base Excess 2.1 H Stpehen Test Pos Barometric Pressure 727.6 Oxygen Given BiPap 35% Sodium Potassium Chloride Carbon Dioxide Anion Gap BUN Creatinine Est Cr Clr Drug Dosing Est GFR ( Amer) Est GFR (Non-Af Amer) BUN/Creatinine Ratio Glucose POC Glucose Calcium Phosphorus Albumin Urine Color Urine Appearance Urine pH Ur Specific [place] Urine Protein Urine Glucose (UA) Urine Ketones Urine Blood Urine Nitrite Urine Bilirubin Urine Urobilinogen Ur Leukocyte Esterase Urine RBC Urine WBC Ur Epithelial Cells Urine Bacteria Ur Random Creatinine U Random Total Protein Protein/Creatinin Ratio Free [place] LC, Quant Pending Free Lambda LC, Quant Pending Free [place]/Lambda Ratio Pending
--- NOTE | 2020-03-04 10:40 | CT Scan Report ---
CT chest wo con CT DOSE: 833.06 mGy.cm HISTORY: respiratory acidosis, hypercapnia, shortness of breath. TECHNIQUE: Multiaxial CT images of the chest were performed without contrast. A dose lowering techni que was utilized adhering to the principles of ALARA. COMPARISON: Chest CT 04/22/2014. FINDINGS: The central airways are patent. No pneumothorax. Mild respiratory motion artifact. There is mild interlobular septal thickening suggestive of mild pulmonary edema. Patchy nodular groundglass d ensities within the right upper lobe anteriorly. This favors a focal pneumonitis likely due to infect ious change. There is also an indeterminate 5 mm nodule within the right upper lobe anteriorly on benito ge 144. There are moderate bilateral pleural effusions which are similar to the prior study. There is consolidation within the majority of the right lower lobe, lingula, and left lower lobe. This is als o similar to the prior study and favors atelectasis from the pleural effusions. A superimposed pneumo addy cannot be excluded. No suspicious lytic or blastic osseous lesions. There is left-sided pacemaker . Mild body wall edema. Limited views of the upper abdomen demonstrate a normal liver and spleen. Mil d thickening of the adrenal glands, unchanged. There is a stable 7 mm fat-containing lesion within th e left adrenal gland consistent with a benign myelolipoma. Cholelithiasis. There is a 4 mm stone with in the left kidney. Right renal cyst is partially visualized. Mildly enlarged gastrohepatic lymph nod e measuring 11 mm in short axis diameter. This remains unchanged. The heart remains mildly enlarged. Small pericardial effusion is noted. Moderate calcified plaque within the normal caliber thoracic aor ta. Dense mitral annulus calcifications are noted. Subcentimeter mediastinal lymph nodes do not meet CT criteria for pathologic involvement. IMPRESSION: 1. Moderate bilateral pleural effusions. This is similar to the prior study. Consolidation within the lung bases as described above is also nonspecific change and therefore favors compressive atelectasi s from the pleural effusions. A superimposed pneumonia cannot be excluded. 2. Patchy airspace opacity within the right upper lobe anteriorly which favors a pneumonia. 3. An indeterminate 5 mm pulmonary nodule within the right upper lobe. One year chest CT follow-up re commended to ensure stability. 4. Mild interlobular septal thickening suggestive of mild pulmonary edema. The heart remains enlarged . 5. Small pericardial effusion. 6. Cholelithiasis. 7. Left-sided nephrolithiasis. 8. Additional findings as described above. ACT 112: Negative or not required by law. Electronically signed by: Adams Burnham M.D. 03/04/2020 10:38 AM
[2020-03-04] MEDS: SODIUM CHLORIDE 0.9% 500 ML IV SCH ×3 (11:12→20:07)
[2020-03-04] MEDS: PATIROMER CALCIUM SORBITEX 8.4 GM PACK PO ONE ×2 (11:13→14:10)
--- NOTE | 2020-03-04 11:51 | Cardiology Progress Note ---
Date of Service March 04, 2020 Assessment & Plan (1) Acute on chronic heart failure with preserved ejection fraction: -progressive decompensation over the last several weeks. -not currently receiving diuretics. -minimal urine output. -she may need hemodialysis to handle her volume. -prognosis is poor. (2) Aortic stenosis: -moderate to severe on current echocardiogram. -likely a factor in her recent decompensation. -uncertain if she needs valve replacement currently. -she demonstrates severe LVH. (3) CAD (coronary artery disease): -nonobstructive disease by cath, August 2013. -continue metoprolol succinate and isosorbide mononitrate. (4) Ventricular tachycardia: -bradycardia dependent, permanent pacemaker March 2014. -normal pacemaker interrogation on February 28, 2020. -successful VT ablation, April 2014. -continue amiodarone. (5) Paroxysmal atrial fibrillation: -continue amiodarone, metoprolol succinate, and apixaban. -no atrial fibrillation recently. (6) CKD (chronic kidney disease) stage 5, GFR less than 15 ml/min: -oliguric renal failure at present. -management per Nephrology. -diuretic therapy per Nephrology. Admission and Anticipated Discharge Date Admission Date: March 02, 2020 Subjective The patient is resting comfortably in bed, but currently on a BiPAP mask. Physical Exam Physical Exam: In general this is an obese white female in no acute distress. HEENT exam is negative. Neck is supple with delayed and prolonged carotid upstrokes bilaterally. A transmitted murmur is noted. Jugular venous pressure is difficult to assess. There is no thyromegaly. Cardiovascular exam reveals a regular rhythm with a 2/6 crescendo decrescendo systolic murmur heard loudest at the base. S2 is audible at the apex. No diastolic murmurs. Lungs note decreased breath sounds at the bases. Abdomen is benign without bruits. Extremities reveal intact radial artery pulses bilaterally. Results & Data ([facility]) Vital Signs (Past 12 Hours) Vital Signs Pulse Pulse Resp BP BP Pulse Ox 03/04/20 11:19 57 L 19 99 03/04/20 11:16 57 L 19 99 03/04/20 11:11 63 20 113/43 L 99 03/04/20 07:25 61 20 138/56 L 96 03/04/20 07:10 67 18 96 03/04/20 07:07 67 18 96 03/04/20 07:06 60 03/04/20 03:27 20 03/04/20 02:20 58 L 20 97 03/04/20 02:19 58 L 20 97 Diagnostic Findings site monitor notes sinus rhythm with an occasional paced complex. PG Care Time/CCT Total # of Minutes Spent Total Time Spent with Patient: Total time spent is greater than 50% in coordination of care (as documented) at patient's floor/unit and/or counseling patient: Coding Level of Care Code 24332 Subseq Hosp Care Lvl 3 Diagnoses Acute on chronic heart failure with preserved ejection fraction I50.33 Aortic stenosis I35.0 CAD (coronary artery disease) I25.10 Ventricular tachycardia I47.2 Paroxysmal atrial fibrillation I48.0 CKD (chronic kidney disease) stage 5, GFR less than 15 ml/min N18.5
[2020-03-04 11:59] LABS: Base Excess ABG 1.4 mEq/L (-9-1.8); HCO3 ABG 29 mmol/L (19-24); PCO2 ABG 59 mmHg (35-46); PO2 ABG 87 mmHg (80-95)
[2020-03-04 12:02] LABS: Allen Test Pos (Pos)
--- NOTE | 2020-03-04 12:30 | Nephrology Progress Note ---
Date of Service March 04, 2020 Assessment & Plan (1) Acute kidney injury: 75 y o F with stage 3B CKD with variable b/l cr from 1.5-2. Recently renal function has been worsening over last 2-3 months with creatinine 2.5 to 3.6 on 02/27 as an outpatient and during hospital admission creatinine now up to 4.5. Has hyperkalemia. Admitted to hospital with progressive SOB and LE edema. Received total 3 mg IV Bumex with significant improvement in SOB and LE edema but remained oliguric but urine output slightly improved over last 24 hours. Has [id number] with severe left ventricular hypertrophy, recently diuretics was increased as an outpatient because of progressive shortness of breath and lower extremity edema. LATRICE most likely secondary to CRS as no clear trigger for LATRICE otherwise. Renal US does not demonstrate evidence of obstruction. UA/microscopy with no proteinuria but hematuria most likely related to catheter trauma. --give Veltassa 1 dose now, renal diet --give NS 500 ml IV @125/h, monitor UO, hold diuretics --No urgent need for CHILD CARE DIRECTOR at this time but HD may be required if there is no improvement in renal function, electrolytes and urine output in next [address]. [address] Chanel for possible catheter placement tomorrow if needed. NPO p MN. --strictly monitor I/O's will be strictly monitored. --repeat metabolic profile tomorrow AM. --left arm nephrology precaution --dose medication for GFR <10. Will follow (2) CKD (chronic kidney disease), stage IV: Baseline creatinine ~2.4 mg/dL. CKD attributed to microvascular disease and a history of ATN. Kidneys normal appearing with small non obstructing stones. Urine bland and acellular at baseline. (3) Acute on chronic heart failure with preserved ejection fraction: Continue Bumex to encourage urine output. Additional 2 mg IV provided following Dinero placement. (4) Aortic stenosis: TTE reviewed. Plan of care discussed with Dr. Rubio. No intervention planned at this time. (5) Hypercapnia: BIPAP started with symptomatic improvement. Admission and Anticipated Discharge Date Admission Date: March 02, 2020 Subjective Sarah was seen and examined this morning. She reports much improvement in her breathing. LE edema improved as well. UO remained low around 650 in last 24 h. Renal function continues to worsen with hyperkalemia. Review of Systems Review of Systems: All systems reviewed & are unremarkable except as noted in Subjective Physical Exam Constitutional: WD/WN, vitals as above no acute distress Respiratory: normal respiratory effort, lungs clear to auscultation Cardiovascular: Rate/Rhythm: regular rate and regular rhythm Heart Sounds: normal S1, normal S2 and + murmur Extremities: + edema (trace b/l LE edema) Skin: no rashes, warm and dry Neurologic: awake; no focal motor deficits and not confused Psychiatric: A+Ox3, euthymic affect [facility] & [facility] ([facility]) Vital Signs (Past 12 Hours) Vital Signs Pulse Pulse Resp BP BP Pulse Ox 03/04/20 11:19 57 L 19 99 03/04/20 11:16 57 L 19 99 03/04/20 11:11 63 20 113/43 L 99 03/04/20 07:25 61 20 138/56 L 96 03/04/20 07:10 67 18 96 03/04/20 07:07 67 18 96 03/04/20 07:06 60 03/04/20 03:27 20 03/04/20 02:20 58 L 20 97 03/04/20 02:19 58 L 20 97 PG Care Time/CCT Total # of Minutes Spent Total Time Spent with Patient: Total time spent is greater than 50% in c oordination of care (as documented) at patient's floor/unit and/or counseling patient: Coding Level of Care Code 31266 Subseq Hosp Care Lvl 3 Diagnoses Acute kidney injury N17.9 CKD (chronic kidney disease), stage IV N18.4 Acute on chronic heart failure with preserved ejection fraction I50.33 Aortic stenosis I35.0 Hypercapnia R06.89
--- NOTE | 2020-03-04 14:31 | Neurology Consultation ---
Date of Consultation March 04, 2020 Assessment & Plan (1) CKD (chronic kidney disease), stage IV: (2) Aortic stenosis: (3) Acute respiratory failure with hypoxemia: (4) CHF (congestive heart failure): (5) Macrocytic anemia: (6) Chronic anticoagulation: (7) TIA (transient ischemic attack): Sarah Sampson is a 75 yo woman w/ PMH of anemia, DM, HTN, hyperthyroidism, lumbar spinal stenosis pAfib/ventricular tachycardia s/p pacemaker, PAD, CHF, CKD, h/o cerebral aneurysm s/p clipping, aortic stenosis and chronic AC who p/t [facility] with SOB and generalized weakness, found to be in CHF exacerbation with 3+ pitting edema, cardiomegaly with mild interstitial pulmonary edema and bibasilar opacities and acute renal failure (possible cardiorenal syndrome). Neurology consulted after a transient episode of dysarthria, left facial droop and left sided weakness/numbness on 03/04/20. 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 Symptom localization: right MCA territory Stroke mechanism: cardioembolic vs toxic/metabolic from underlying hypercapnea/uremia/pneumonia Stroke WorkUp: - CT head: no hemorrhage or hypodensity, +SVID, and prior left frontotemporal craniotomy with apparent left MCA aneurysm clip in place - CTA head/neck: unable to obtain due to CKD - MRI brain: unable to obtain at this time given other medical co-morbidities; defer until more stable - TTE: EF 60-65%, severe LVH, moderate to severe , mild MS/MR and mild to moderate TR - Telemetry: pending - A1c: 6.2 - FLP: pending - Troponin, TSH: negative, WNL Stroke Management: - Acute treatment: n/a, on AC - Continuous cardiac monitoring - Vitals, Neurochecks, NIHSS per unit routine - BP parameters: SBP CAP 220, hold home anti-hypertensives for permissive HTN, ok to continue diuresis as planned - Obtain MRI brain to evaluate stroke burden when more stable from respiratory standpoint. Carotid dopplers to evaluate blood vessels - Complete ischemic stroke workup with fasting lipid panel - Consult speech, PT, OT for supportive management - Will group therapy counselor concerning stroke education, smoking cessation, healthy diet, physical activity, weight loss - Follow up with PCP for assistance with outpatient goals (BP <130/80, LDL <70, A1c <7) - Follow up in neurology clinic in 2-3 months with ELBA Terrazas Secondary Stroke Prevention: - Antiplatelet: Not indicated at this time - Anticoagulation: continue home apixaban 2.5mg bid - Statin: Atorvastatin 40mg daily HTN: - BP parameters, as above FEN/GI: - Diet: Beside dysphagia to clear patient for PO meds/Cardiac HH diet - Monitor lytes and replete PRN Glucose Control: - Sliding scale insulin and accuchecks per primary team to avoid hyperglycemia Thank you for this interesting consult. Plan of care was discussed with primary team. Please call with any questions. History of Present Illness Attending Physician: Rahul Cullen DO History of Present Illness Sarah Sampson is a 75 yo woman w/ PMH of anemia, DM, HTN, hyperthyroidism, lumbar spinal stenosis pAfib/ventricular tachycardia s/p pacemaker, PAD, CHF, CKD, h/o cerebral aneurysm s/p clipping, aortic stenosis and chronic AC who p/t [facility] with SOB and generalized weakness, found to be in CHF exacerbation with 3+ pitting edema, cardiomegaly with mild interstitial pulmonary edema and bibasilar opacities and acute renal failure (possible cardiorenal syndrome). Neurology consulted after a transient episode of dysarthria, left facial droop and left sided weakness/numbness on 03/04/20. 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 She has been seen by renal who is following I/Os to determine if she needs to start HD. Tentative plan to have TDC placed this admission if needed. Cardiology also following, TTE showed EF 60-65%, severe LVH, moderate to severe , mild MS/MR and mild to moderate TR. Sarah has also been receiving BiPAP due to hypercapnia (pH 7.25, pCO2 70, pO2 50, O2 sat 84.4). Labs this morning showed WBC 9.47, hemoglobin 11.2 with MCV 111.6, platelets 159, ABG shows persistent hypercapnia with PCO2 of 59 but improvement in O2 saturation of 96%, sodium 141, potassium 5.4, chloride 108, BUN 73, creatinine 4.4, glucose noted to be low at 68 this morning, A1c 6.2, calcium 8.6, phosphorus elevated 5.4, albumin low at 2.3, B12 604, folate greater than 20, TSH within normal, UA shows trace ketones and leukoesterase with 3+ blood, 1+ bacteria (suggestive of infection). Imaging independently reviewed. CTH shows no hemorrhage or hypodensity, +SVID, and prior left frontotemporal craniotomy with apparent left MCA aneurysm clip in place. CT chest shows patchy ground-glass opacity within the RUL suggesting pneumonia (with possible RLL and LLL pneumonia vs atelectasis from pleural effusions). On examination, she denies having any weakness or speech problems this morning that she can recall. Nursing staff reports that she was slightly confused this morning but has gotten more confused this afternoon as the day has gone on. She was on the phone talking to daughter on arrival. Feels like her breathing is a little bit more comfortable with the BiPAP. Denied any current neurological symptoms. Allergies Allergy/AdvReac Type Severity Reaction Status Date / Time heparin Allergy Unknown BLOOD Verified 03/02/20 15:50 DISORDER mexiletine Allergy Unknown SEVERE Verified 02/28/20 10:34 TREMORS Sulfa (Sulfonamide Allergy Unknown UNKNOWN Verified 03/02/20 15:50 Antibiotics) REACTION TO SULFA DRUGS Home Medications Medication Instructions Recorded Confirmed Type PreserVision AREDS 1 cap PO BID 04/22/18 03/02/20 History cholecalciferol (vitamin D3) 1,000 units PO QAM 04/22/18 03/02/20 History [Vitamin D3] fluticasone propionate 1 spray INTRANASAL DAILY PRN 04/22/18 03/02/20 History acetaminophen 500 mg PO Q6H PRN 01/14/19 03/02/20 History amiodarone 200 mg tablet 200 mg PO QAM #90 tab 07/12/19 03/02/20 Rx ferrous sulfate 325 mg (65 mg 325 mg PO BID tab 11/08/19 03/02/20 History iron) tablet isosorbide mononitrate 60 mg 60 mg PO QAM #30 tab 12/20/19 03/02/20 Rx tablet,extended release 24 hr apixaban 2.5 mg tablet 2.5 mg PO BID #60 tab 12/26/19 03/02/20 Rx atorvastatin 40 mg PO DAILY 03/02/20 03/02/20 History bumetanide 2 mg PO .QAFTERNOON 03/02/20 03/02/20 History bumetanide 2.5 mg PO QAM 03/02/20 03/02/20 History metoprolol succinate 200 mg PO DAILY 03/02/20 03/02/20 History estuzmfxchta-Aj-eqtr-minerals 1 tab PO DAILY 03/02/20 03/02/20 History [Multiple Vitamin, Womens] sitagliptin [Januvia] 25 mg PO DAILY 03/02/20 03/02/20 History Patient History Medical History Anemia Chronic anticoagulation DM (diabetes mellitus) HTN (hypertension) Hyperthyroidism Lumbar radiculopathy Mitral stenosis NSAID long-term use Obesity Pacemaker PAD (peripheral artery disease) Paroxysmal atrial fibrillation RVOT ventricular tachycardia Skin cancer of arm Spinal stenosis Spinal stenosis of lumbar region Stenosis, cervical spine SVT (supraventricular tachycardia) Vitamin D deficiency Surgical History H/O brain surgery Previous section Family History Father Myocardial infarction Stroke Other Family history non-contributory Social History Smoking Status: Former smoker Tobacco Type: Cigarettes Second Hand Exposure: No; Do You Dip or Chew Tobacco: No; Tobacco Cessation Education Requested by Patient: No Hx Alcohol Use: No Hx Substance Use: No Preferred Language: Khmer Communication Ability: Effective Visual Impairment: Limited Hearing Ability: Normal Contract Writer Required: No Beliefs That Will Affect Care: None marital status: Current Living Situation: Alone current occupational status: retired How many Children do You have: 2 Other Information That Helps Us Care for You: No Feels Safe at Home: Yes Safety Concerns: Feels Safe At This Time Childhood Exposure to Second-Hand Smoke: No Assistive Devices: BiPap Review of Systems Review of Systems: 10 point review of systems completed and negative except as in HPI. Exam (Neuro) Physical Exam: General Exam: GEN: NAD, lying down in examination bed. HEENT: No conjunctival injection, no rhinorrhea. CV: RRR on monitor, 2-3+ pitting edema. PULM: Nonlabored respirations on BiPAP. Neuro Exam: MS: Awake and Alert. Oriented to person, place, and date. Speech fluent and appropriate without dysarthria or paraphasic errors. Language intact including naming, comprehension, repetition. Cognition and memory mildly impaired. Attention intact. No neglect. CN: Right eye legally blind, left eye normal visual rod. Unable to visualize fundi on fundoscopic exam. PERRLA OU. EOMI without nystagmus. Facial sensation intact to LT. Facial muscles full and symmetric. Hearing intact to conversation. Shoulder shrug normal. Tongue midline. MOTOR: Normal bulk and tone. No pronator drift. All extremities antigravity without drift. REFLEXES: 1+ at biceps, triceps, brachioradialis, absent patella, and absent Achilles bilaterally. Flexor plantar responses bilaterally. SENSORY: Intact to LT throughout, no extinction to double simultaneous stimuli. COORDINATION: No dysmetria or ataxia on ulwakd-mr-fujo bilaterally. Normal Lyndon bilaterally. GAIT: Deferred due to physical status. NIH STROKE SCALE 1A. Level of Consciousness (0-3) = 0 1B. LOC Questions (0-2) = 0 1C. LOC Commands (0-2) = 0 2. Best Horizontal Gaze (0-2) = 0 3. Visual Rod (0-3) = 0 4. Facial Palsy (0-3) = 0 5. Motor Arm Right (0-4) = 0 Left (0-4) = 0 6. Motor Leg Right (0-4) = 0 Left (0-4) = 0 7. Limb Ataxia (0-2) = 0 8. Sensory (0-2) = 0 9. Best Language (0-3) = 0 10. Dysarthria (0-2) = 0 11. Extinction and Inattention (0-2) = 0 NIHSS TOTAL = 0 Results & Data ([facility]) Vital Signs (Past 12 Hours) Vital Signs Pulse Pulse Resp BP BP Pulse Ox 03/04/20 11:19 57 L 19 99 03/04/20 11:16 57 L 19 99 03/04/20 11:11 63 20 113/43 L 99 03/04/20 07:25 61 20 138/56 L 96 03/04/20 07:10 67 18 96 03/04/20 07:07 67 18 96 03/04/20 07:06 60 03/04/20 03:27 20 03/04/20 02:20 58 L 20 97 03/04/20 02:19 58 L 20 97 PG Care Time/CCT Total # of Minutes Spent Total Time Spent with Patient: Total time spent is greater than 50% in coordination of care (as documented) at patient's floor/unit and/or counseling patient: Coding Level of Care Code 12549 Initial Inpt Care Lvl 3 Diagnoses CKD (chronic kidney disease), stage IV N18.4 Aortic stenosis I35.0 Acute respiratory failure with hypoxemia J96.01 CHF (congestive heart failure) I50.9 Heart failure chronicity: acute on chronic Heart failure type: unspecified Macrocytic anemia D53.9 Chronic anticoagulation Z79.01 TIA (transient ischemic attack) G45.9 (1) CHF (congestive heart failure) Heart failure chronicity: acute on chronic Heart failure type: unspecified Qualified Code(s): I50.9 - Heart failure, unspecified
--- NOTE | 2020-03-04 14:47 | Pulmonary Consultation ---
Date of Consultation March 04, 2020 Assessment & Plan (1) Hypercapnic respiratory failure: Impression: 75-year-old female with hypercarbic respiratory failure. She does not appear to have significant airflow obstruction on exam without wheezing and has a minimal prior history of tobacco exposure. There is no history of asthma. It is possible that she has undiagnosed sleep disordered br eathing/obesity hypoventilation syndrome given her body mass index of 31. Other etiologies including neuromuscular weakness would be in the differential. The patient currently is suffering from fluid overload with large bilateral pleural effusions and interstitial pulmonary edema which if she is we can decompensated, may lead to hypercarbic respiratory failure. Recommendations: 1. Hypercarbic respiratory failure: The patient appears to be tolerating BiPAP reasonably well currently. Would continue attempts to use BiPAP especially when sleeping but she can be tapered off during the day as tolerated. The only alternative to BiPAP at this point time would be intubation mechanical ventilati on which would like to avoid in this patient. Agree with plans for diuresis and if she fails, consideration for renal replacement therapy to assist with volume management. I think if the effusions can decrease in size, her work of breathing and her hypercarbia may significantly improve. If she survives this and stabilizes, consideration for outpatient polysomnography and pulmonary function testing including assessment of respiratory muscle strength may be appropriate. 2. Bilateral pleural effusions: We will see how she does with diuresis or dialysis. Could consider thoracentesis however the patient is chronically anticoagulated on apixaban and this would have to be off for at least 24 hours prior to consideration for tap. 3. Hypoxemic respiratory failure: Secondary to fluid overload. Continue supplemental oxygen. Wean as tolerated. 4. It is unclear how much her valve is contributing to her current symptom complex. Cardiology is following. Unclear if she is a candidate for TAVR but with her significant medical issues, this may not be an option. Would not use narcotics or benzodiazepines in an effort to facilitate compliance with BiPAP as these will likely worsen her hypercarbic respiratory failure. If she is not tolerating the current mask, could have respiratory therapy evaluate to see whether she would be a candidate for a larger over the face mask that may be more comfortable for her to try. Her overall prognosis is guarded at this point time. (2) Acute respiratory failure with hypoxemia: (3) Pleural effusion: History of Present Illness Attending Physician: Rahul R Alyse, DO History of Present Illness Asked by hospitalist to assist in evaluation management this patient with hypercarbic respiratory failure and significant valvular heart disease admitted with systolic heart failure. History is obtained from discussion with the patient as well as review the electronic medical record. Patient is a 75-year-old female with severe and chronic kidney disease. She has a remote history of tobacco abuse but quit smoking when she was a teenager. She was seen in the emergency room with shortness of breath weight gain and leg swelling which has been progressive over several months. Bumex was increased by her director industrial relations but she did not notice any significant improvement. During the course of her evaluation, a blood gas was obtained which demonstrated hypercarbic respiratory failure. Due to her hypercarbic respiratory failure, a trial of BiPAP was attempted which was poorly tolerated by the patient last night and eventually they had to add narcotics in an effort to try and improve her tolerance with BiPAP. The patient is currently on BiPAP. She does not particularly like the machine but is tolerating it somewhat better. There are plans to potentially initiate renal replacement therapy if her kidney function continues to decline. She also had issues with facial droop prompting a neurology consultation. Allergies Allergy/AdvReac Type Severity Reaction Status Date / Time heparin Allergy Unknown BLOOD Verified 03/02/20 15:50 DISORDER mexiletine Allergy Unknown SEVERE Verified 02/28/20 10:34 TREMORS Sulfa (Sulfonamide Allergy Unknown UNKNOWN Verified 03/02/20 15:50 Antibiotics) REACTION TO SULFA DRUGS Home Medications Medication Instructions Recorded Confirmed Type PreserVision AREDS 1 cap PO BID 04/22/18 03/02/20 History cholecalciferol (vitamin D3) 1,000 units PO QAM 04/22/18 03/02/20 History [Vitamin D3] fluticasone propionate 1 spray INTRANASAL DAILY PRN 04/22/18 03/02/20 History acetaminophen 500 mg PO Q6H PRN 01/14/19 03/02/20 History amiodarone 200 mg tablet 200 mg PO QAM #90 tab 07/12/19 03/02/20 Rx ferrous sulfate 325 mg (65 mg 325 mg PO BID tab 11/08/19 03/02/20 History iron) tablet isosorbide mononitrate 60 mg 60 mg PO QAM #30 tab 09/25/20 12/07/20 Rx tablet,extended release 24 hr apixaban 2.5 mg tablet 2.5 mg PO BID #60 tab 12/26/19 03/02/20 Rx atorvastatin 40 mg PO DAILY 03/02/20 03/02/20 History bumetanide 2 mg PO .QAFTERNOON 03/02/20 03/02/20 History bumetanide 2.5 mg PO QAM 03/02/20 03/02/20 History metoprolol succinate 200 mg PO DAILY 03/02/20 03/02/20 History nxprnrmmogna-Ez-ermz-minerals 1 tab PO DAILY 03/02/20 03/02/20 History [Multiple Vitamin, Womens] sitagliptin [Januvia] 25 mg PO DAILY 03/02/20 03/02/20 History Patient History Medical History Anemia Chronic anticoagulation DM (diabetes mellitus) HTN (hypertension) Hyperthyroidism Lumbar radiculopathy Mitral stenosis NSAID long-term use Obesity Pacemaker PAD (peripheral artery disease) Paroxysmal atrial fibrillation RVOT ventricular tachycardia Skin cancer of arm Spinal stenosis Spinal stenosis of lumbar region Stenosis, cervical spine SVT (supraventricular tachycardia) Vitamin D deficiency Surgical History H/O brain surgery Previous section Family History Father Myocardial infarction Stroke Other Family history non-contributory Social History Smoking Status: Former smoker Tobacco Type: Cigarettes Second Hand Exposure: No; Do You Dip or Chew Tobacco: No; Tobacco Cessation Education Requested by Patient: No Hx Alcohol Use: No Hx Substance Use: No Preferred Language: Greenlandic Communication Ability: Effective Visual Impairment: Limited Hearing Ability: Normal Central Supply Nurse Required: No Beliefs That Will Affect Care: None marital status: Current Living Situation: Alone current occupational status: retired How many Children do You have: 2 Other Information That Helps Us Care for You: No Feels Safe at Home: Yes Safety Concerns: Feels Safe At This Time Childhood Exposure to Second-Hand Smoke: No Assistive Devices: BiPap Review of Systems Review of Systems: Complete review of systems is limited due to the patient being on full face BiPAP. Please refer to admission H&P for details Physical Exam Constitutional: WD/WN, vitals as above no acute distress Respiratory: normal respiratory effort, lungs clear to auscultation Cardiovascular: Rate/Rhythm: regular rate and regular rhythm Heart Sounds: normal S1, normal S2 and + murmur Extremities: + edema (trace b/l LE edema) Skin: no rashes, warm and dry Neurologic: awake; no focal motor deficits and not confused Psychiatric: A+Ox3, euthymic affect Results & Data Results & Data ([facility]) Vital Signs (Past 12 Hours) Vital Signs Pulse Pulse Resp BP BP Pulse Ox 03/04/20 11:19 57 L 19 99 03/04/20 11:16 57 L 19 99 03/04/20 11:11 63 20 113/43 L 99 03/04/20 07:25 61 20 138/56 L 96 03/04/20 07:10 67 18 96 03/04/20 07:07 67 18 96 03/04/20 07:06 60 03/04/20 03:27 20 Laboratory Results 03/04/20 06:09 03/04/20 06:[address] of the chest from today was independently reviewed. There are moderate bilateral pleural effusions with some patchy groundglass opacities concerning for interstitial edema. Cardiomegaly is again noted. Severe atherosclerotic calcifications are noted throughout the great vessels and aorta. There is compressive atelectasis at the lung bases. PG Care Time/CCT Total # of Minutes Spent Total Time Spent with Patient: Total time spent is greater than 50% in coordination of care (as documented) at patient's floor/unit and/or counseling patient: Coding Level of Care Code 87251 Initial Inpt Care Lvl 3 Diagnoses Hypercapnic respiratory failure J96.92 Acute respiratory failure with hypoxemia J96.01 Pleural effusion J90 Time Spent (min) 45
--- NOTE | 2020-03-04 16:35 | Palliative Care Consultation ---
Date of Consultation March 04, 2020 Assessment & Plan (1) Palliative care encounter: I talked with Sarah at bedside. Her perception is that she is much improved and she anticipates being able to return to living independently at her apartment. I did discuss that she may not be able to do that at discharge and may need some rehab. We discussed her goals of care. She has not really thought about what type of care she would want. When asked if there was anything regarding her care that she would consider burdensome on unacceptable, she replied that she didn't think so. She tells me that she would be agreeable to dialysis if indicated. She did indicate that if she were unable to make decisions for herself, her daughters would do that jointly. I subsequently spoke to her daughters on the phone. They are both supportive of their mother and seem to be working together in her best interest. I updated them on her current status. They support her decisions. They did say that they would consider caring for her at home, rather than SNF placement if she is unable to return to her apartment independently. We will continue to follow and discuss. Thank you for allowing us to participate in her care. (2) Acute respiratory failure with hypoxemia: (3) Acute on chronic heart failure with preserved ejection fraction: (4) CKD (chronic kidney disease), stage IV: History of Present Illness Reason for Consultation: goals of care Requesting Physician: Dr. Powell Attending Physician: Rahul Cullen DO History of Present Illness 75 yo lady with history of diastolic heart failure and severe aortic stenosis who has had progressive shortness of breath over the last few weeks. She was admitted with acute hypoxic, hypercapnic respiratory failure despite optimal medical management as an outpatient. She has also been found to have acute on chronic renal failure with Stage V CKD and GFR of less than 10. She has comorbid diabetes, afib, and chronic pain with spinal stenosis. She is currently on Bipap but is awake and alert. She is aware of her problems with heart failure and renal failure but feels that she is improving and is less short of breath. She is hungry and asking to eat. She denies any worries or concerns and talks about returning to her apartment where she lives independently. We have been asked to assist with goals of care discussion. Allergies Allergy/AdvReac Type Severity Reaction Status Date / Time heparin Allergy Unknown BLOOD Verified 03/02/20 15:50 DISORDER mexiletine Allergy Unknown SEVERE Verified 02/28/20 10:34 TREMORS Sulfa (Sulfonamide Allergy Unknown UNKNOWN Verified 03/02/20 15:50 Antibiotics) REACTION TO SULFA DRUGS Home Medications Medication Instructions Recorded Confirmed Type PreserVision AREDS 1 cap PO BID 04/22/18 03/02/20 History cholecalciferol (vitamin D3) 1,000 units PO QAM 04/22/18 03/02/20 History [Vitamin D3] fluticasone propionate 1 spray INTRANASAL DAILY PRN 04/22/18 03/02/20 History acetaminophen 500 mg PO Q6H PRN 01/14/19 03/02/20 History amiodarone 200 mg tablet 200 mg PO QAM #90 tab 07/12/19 03/02/20 Rx ferrous sulfate 325 mg (65 mg 325 mg PO BID tab 11/08/19 03/02/20 History iron) tablet isosorbide mononitrate 60 mg 60 mg PO QAM #30 tab 12/20/19 03/02/20 Rx tablet,extended release 24 hr apixaban 2.5 mg tablet 2.5 mg PO BID #60 tab 12/26/19 03/02/20 Rx atorvastatin 40 mg PO DAILY 03/02/20 03/02/20 History bumetanide 2 mg PO .QAFTERNOON 03/02/20 03/02/20 History bumetanide 2.5 mg PO QAM 03/02/20 03/02/20 History metoprolol succinate 200 mg PO DAILY 03/02/20 03/02/20 History rgjqtxagaeep-Gz-uvwo-minerals 1 tab PO DAILY 03/02/20 03/02/20 History [Multiple Vitamin, Womens] sitagliptin [Januvia] 25 mg PO DAILY 03/02/20 03/02/20 History Patient History Medical History Anemia Chronic anticoagulation DM (diabetes mellitus) HTN (hypertension) Hyperthyroidism Lumbar radiculopathy Mitral stenosis NSAID long-term use Obesity Pacemaker PAD (peripheral artery disease) Paroxysmal atrial fibrillation RVOT ventricular tachycardia Skin cancer of arm Spinal stenosis Spinal stenosis of lumbar region Stenosis, cervical spine SVT (supraventricular tachycardia) Vitamin D deficiency Surgical History H/O brain surgery Previous section Family History Father Myocardial infarction Stroke Other Family history non-contributory Social History Smoking Status: Former smoker Tobacco Type: Cigarettes Second Hand Exposure: No; Do You Dip or Chew Tobacco: No; Tobacco Cessation Education Requested by Patient: No Hx Alcohol Use: No Hx Substance Use: No Preferred Language: Cook Islander Communication Ability: Effective Visual Impairment: Limited Hearing Ability: Normal 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 Required: No Beliefs That Will Affect Care: None marital status: Current Living Situation: Alone current occupational status: retired How many Children do You have: 2 Other Information That Helps Us Care for You: No Feels Safe at Home: Yes Safety Concerns: Feels Safe At This Time Childhood Exposure to Second-Hand Smoke: No Assistive Devices: BiPap and Oxygen - Continuous Review of Systems Review of Systems: [employer] Assessment Scale Pain 0/3 Dyspnea 1/3 Anorexia 0/3 Anxiety 0/3 Fatigue 1/3 Depression 0/3 Palliative Performance Score 40% Physical Exam Constitutional: + ill appearing and + edematous Respiratory: + uses accessory muscles (with conversation) Skin: warm and dry Psychiatric: Orientation: alert and oriented x 3 Results & Data ([facility]) Vital Signs (Past 12 Hours) Vital Signs Pulse Pulse Resp BP BP Pulse Ox 03/04/20 15:29 77 78 23 94 03/04/20 15:22 64 20 110/42 L 96 03/04/20 11:19 57 L 19 99 03/04/20 11:16 57 L 19 99 03/04/20 11:11 63 20 113/43 L 99 03/04/20 07:25 61 20 138/56 L 96 03/04/20 07:10 67 18 96 03/04/20 07:07 67 18 96 03/04/20 07:06 60 PG Care Time/CCT Total # of Minutes Spent Total Time Spent with Patient: Total time spent is greater than 50% in coordination of care (as documented) at patient's floor/unit and/or counseling patient:Total time spent 60 minutes with more than 50%of time spent on goals of care, family support. Coding Level of Care Code 04659 Inpt Consult Level 3 Diagnoses Palliative care encounter Z51.5 Acute respiratory failure with hypoxemia J96.01 Acute on chronic heart failure with preserved ejection fraction I50.33 CKD (chronic kidney disease), stage IV N18.4
[2020-03-04] MEDS: CARBOHYDRATES FOR HYPOGLYCEMIA PO PRN ×2 (16:45→17:18)
--- NOTE | 2020-03-04 19:11 | Billing Data ---
Date of Service March 04, 2020 Coding Level of Care Code 77144 Initial Inpt Care Lvl 3
[2020-03-04] MEDS: APIXABAN 2.5 MG TAB PO SCH (20:07)
[2020-03-04] MEDS: MELATONIN 3 MG TAB PO PRN (21:03)
[2020-03-05] MEDS ORDERED: MICONAZOLE NITRATE POWDER 43 GM EXT PRN (00:24)
[2020-03-05] MEDS: SODIUM CHLORIDE 0.9% 500 ML IV SCH ×3 (00:38→09:00)
[2020-03-05] MEDS: ALBUT/IPRATROP 3MG/0.5MG NEB 3 ML VIAL NEB SCH ×6 (02:23→23:26)
[2020-03-05 06:01] LABS: Basophils # (auto) 0.01 K/uL (0-0.2); Basophils % (auto) 0.1 %; Eosinophils # (auto) 0.14 K/uL (0-0.5); Eosinophils % (auto) 1.3 %; Hematocrit (blood only) 33.5 % (37-47); Hemoglobin 10.3 g/dL (12.0-16.0); Immature Granulocytes # (auto) 0.02 K/uL (0.00-0.02); Immature Granulocytes % (auto) 0.2 %; Lymphocytes # (auto) 0.71 K/uL (1.2-3.4); Lymphocytes % (auto) 6.7 %; Mean Corpuscular Hemoglobin 33.9 pg (25-34); Mean Corpuscular Hgb Conc 30.7 g/dL (32-36); Mean Corpuscular Volume 110.2 fL (80-100); Mean Platelet Volume 10.8 fL (7.4-10.4); Monocytes # (auto) 0.78 K/uL (0.11-0.59); Monocytes % (auto) 7.3 %; Neutrophils # (auto) 9.01 K/uL (1.4-6.5); Neutrophils % (auto) 84.4 %; Platelet Count 153 K/uL (130-400); RDW Coefficient of Variation 14.2 % (11.5-14.5); RDW Standard Deviation 56.4 fL (36.4-46.3); Red Blood Count 3.04 M/uL (4.2-5.4); White Blood Count 10.67 K/uL (4.8-10.8)
[2020-03-05] MEDS: INSULIN ASPART 100 UNITS/ML 3 ML PEN SC SCH ×3 (06:03→18:00)
[2020-03-05 06:35] LABS: Albumin Level 2.2 gm/dl (3.4-5.0); Creatinine Clr Calc Pharmacy 10.8 ml/min; Est GFR (African American) 10.5; Est GFR (Non-African American) 9.1; Phosphorus 4.9 mg/dl (2.5-4.9); Potassium 5.1 mmol/L (3.5-5.1)
[2020-03-05 06:54] LABS: Macrocytosis Present
[2020-03-05 07:15] LABS: Base Excess ABG 0.2 mEq/L (-9-1.8); HCO3 ABG 27 mmol/L (19-24); Oxygen Saturation ABG 96.6 % (90-95); PCO2 ABG 53 mmHg (35-46); PO2 ABG 92 mmHg (80-95); pH ABG 7.32 (7.35-7.45)
[2020-03-05 07:17] LABS: Allen Test POS (Pos)
--- NOTE | 2020-03-05 08:35 | Pulmonology Progress Note ---
Date of Service March 05, 2020 Assessment & Plan (1) Hypercapnic respiratory failure: Impression: 75-year-old female with hypercarbic respiratory failure. She does not appear to have significant airflow obstruction on exam without wheezing and has a minimal prior history of tobacco exposure. There is no history of asthma. It is possible that she has undiagnosed sleep disordered breat patty/obesity hypoventilation syndrome given her body mass index of 31. Other etiologies including neuromuscular weakness would be in the differential. The patient currently is suffering from fluid overload with large bilateral pleural effusions and interstitial pulmonary edema which if she is we can decompensated, may lead to hypercarbic respiratory failure. Recommendations: 1. Hypercarbic respiratory failure: The patient appears to be tolerating BiPAP reasonably well currently. Would continue BiPAP nightly and as needed during the day (encephalopathy, increased work of breathing). Agree with plans for diuresis and if she fails, consideration for renal replacement therapy to assist with volume management. I think if the effusions can decrease in size, her work of breathing and her hypercarbia may significantly improve. If she survives this and stabilizes, consideration for outpatient polysomnography and pulmonary function testing including assessment of respiratory muscle strength may be appropriate. 2. Bilateral pleural effusions: We will see how she does with diuresis or dialysis. Could consider thoracentesis however the patient is chronically anticoagulated on apixaban and this would have to be off for at least 24 hours prior to consideration for tap. CXr in AM. 3. Hypoxemic respiratory failure: Secondary to fluid overload. Continue supplemental oxygen. Wean as tolerated. 4. It is unclear how much her valve is contributing to her current symptom complex. Cardiology is following. Unclear if she is a candidate for TAVR but with her significant medical issues, this may not be an option. Agree with plans for palliative care input. (2) Acute respiratory failure with hypoxemia: (3) Pleural effusion: Admission and Anticipated Discharge Date Admission Date: March 02, 2020 Review of Systems Review of Systems: unchanged from prior Physical Exam Constitutional: WD/WN, vitals as above no acute distress Respiratory: normal respiratory effort, lungs clear to auscultation Cardiovascular: Rate/Rhythm: regular rate and regular rhythm Heart Sounds: normal S1, normal S2 and + murmur Extremities: + edema (trace b/l LE edema) Skin: no rashes, warm and dry Neurologic: awake; no focal motor deficits and not confused Psychiatric: A+Ox3, euthymic affect Results & Data Results & Data ([facility]) Vital Signs (Past 12 Hours) Vital Signs Temp Pulse Pulse Resp BP Pulse Ox 03/05/20 08:13 60 03/05/20 07:24 36.8 C 60 20 131/77 99 03/05/20 07:11 59 L 59 L 17 99 03/05/20 03:49 36.5 C 62 20 135/62 98 03/05/20 02:23 61 58 L 20 94 03/04/20 23:30 36.8 C 62 20 138/95 96 03/04/20 22:51 60 22 88 L 03/04/20 22:50 60 22 88 L 03/04/20 21:08 60 22 95 Laboratory Results 03/05/20 05:48 03/05/20 05:48 ABG 7.32/53/92/27 Diagnostic Findings No new imaging. PG Care Time/CCT Total # of Minutes Spent Total Time Spent with Patient: Total time spent is greater than 50% in coordination of care (as documented) at patient's floor/unit and/or counseling patient: Coding Level of Care Code 81541 Subseq Hosp Care Lvl 3 Diagnoses Hypercapnic respiratory failure J96.92 Acute respiratory failure with hypoxemia J96.01 Pleural effusion J90
[2020-03-05] MEDS: DICLOFENAC SOD 1% GEL 100 GM TUBE EXT SCH ×3 (09:02→21:48)
--- NOTE | 2020-03-05 09:13 | Medical Student Progress Note ---
Date of Service March 05, 2020 Assessment & Plan (1) Acute on chronic heart failure with preserved ejection fraction: Patient is a 75 year old female with a pmh of CKD stage 4, aortic stenosis, CHF, DM, HTN with delirium, respiratory acidosis and hypercapnea. Bumex increased up from 0.5 to 2mg on 03/02 and was then discontinued due to no urination and high creatinine. Has recently been eating canned chicken noodle soup for dinner frequently. 2+ pitting edema bilaterally but no crackles heard on lung exam. TTE performed 03/03: Left ventricular systolic function normal with severe concentric hypertrophy. EF 60-65%. Moderate to severe aortic stenosis as compared to 08/07/15. Mild mitral stenosis and regurgitation and mild to moderate tricuspid regurgitation. At this point, CHF does not seem to be leading cause of her confusion and hypercapnia due to good O2 saturation. Diuretics are not effective at volume depletion at this time due to CKD. Cardiology agrees that dialysis is the next best step. (2) CKD (chronic kidney disease), stage IV: Cr 2.3 this summer -> 3.6 on 02/27, 4.12 on 03/03 and 4.2 on 03/03. Nephrology consulted. Patient has no urine output until this afternoon after a madrigal, and then was oliguric. I/O strictly monitored. Nephrology recommended hemodialysis if urine output does not improve in next 24 hours and gave a one time 2mg IV dose of bumex yesterday to encourage urination. Hemodialysis is recommended due to increasing creatinine, low urine output given the amount of diuretic given, and increasing potassium at 5.4 this yesterday. This is concerning for cardiac effects if potassium continues to increase. Nephrology gave Veltassa 8.4mg once to decrease potassium. Potassium this morning is 5.1. Patient is confused about dialysis and goes between wanting and not wanting dialysis depending on her level of delirium at the time. Palliative care was consulted to discuss dialysis vs other options although dialysis is the best option given her CKD and electrolyte imbalances. Per nephrology, patient is having a tunneled dialysis catheter inserted this afternoon and 1st dialysis treatment for 2 hours, renal diet. Patient is agreeable to this plan and family is aware. IV fluids were given as well as Bumex 2 milligram IV x1 dose. Input in last 24 hrs was 2762.917 mL, total output 250 mL of dark urine. (3) Hypercapnia: Patient was able to keep BiPAP on for most of the night with some symptomatic improvement. Consider possible diagnosis of COPD due to past smoking history and hypercapnia. Follow-up with spirometry and LFTs to diagnose COPD. CT lung on 03/04: 1) Moderate bilateral pleural effusions. This is similar to the prior study. Consolidation within the lung bases as described above is also nonspecific change and therefore favors compressive atelectasis from the pleural effusions. A superimposed pneumonia cannot be excluded. 2. Patchy airspace opacity within the right upper lobe anteriorly which favors a pneumonia. Not treating the possible pneumonia at this time due to no cough, fever, or increased white blood count. Consulting pulmonology for hypercapnia with unclear etiology. Pulmonology does not see evidence of obstructive airway disease or asthma. Possible etiologies include undiagnosed sleep disordered breathing/obesity hypoventilation syndrome given her body mass index of 31 or neuromuscular weakness. ABG this morning pH was 7.32, pCO2 53, pO2 92. Yesterday ABG was pH 7.3, pCO2 59, pO2 87. Possible TIA Patient's daughter noted slurred speech over the phone. On exam around 10:45am there was slight droop on the left side of the face and disuse of left arm as well as difference in sensation in lower extremities with left leg feeling "heavy". CT head without contrast did not show a hemophagic bleed or any acute issues. -Neurology consulted - Per neurology, does not need antiplatelet therapy at this time due to this event. However, due to pmh of HTN and DM2, aspirin 81mg is still indicated. Admission and Anticipated Discharge Date Admission Date: March 02, 2020 Supervising Attestation Supervising Attestation I personally examined the patient and verified all brown points of history and exam, discussed case, and agree with decision making with Selvin Valiente MS2. feeling better than before breathing better vitals noted fatigued appearing but breathing fairly comfortably on bipap. heent nc at mmm. breathing unlabored no accessory muscles good effort. no f ocal neuro deficits. no pallor or icterus acute respiratory failure - mixed both hypoxic and hypercapnic -hypoxic likely pulmonary edema/acute on chronic HFpEF mediated (although not entirely clear if vs CKD bigger culprit - most likely elements of both) -hypercapnic more troubling since she does not appear to carry a dx taht would cause hypercapnea. ?occult COPD vs FRANKLYN/weakness mediated (see below for management) - appreciate pulm input acute on chronic HFpEF - and CKD mediated. failed attempts at med management - starting HD hypercapnea - as above noted, dx driving this not overtly clear -pulmonary consult -bipap, follow abg - bipap helping -nebs/pulmonary toilet -possibly just driven by overall weakness and decline (and delirium) maybe all lessening respiratory drive and causing worsening respiratory muscle weakness vs related to true but occult lung disease -depending on how she progresses, may need PFTs as outpt CKD - appearing to probably have progressed to ESRD - starting HD metabolic encephalopathy - definitely related to respiratory acidosis/hypercapnea, possibly related to uremia, hospital environment, showing waxing and waning DVT proph - on eliquis TIA - appreciate neuro input otherwise as above Subjective This morning the patient is feeling better with no SOB, cough, chest pain. She is less confused today and is asking questions about her medical conditions and plan. Answered all her questions and educated about the reasons for doing dialysis and her current medical condition. She verbalized understanding. Review of Systems Constitutional: + weakness Ear, Nose, Mouth, Throat: + dry mouth pain around BiPAP mask Respiratory: no cough and no dyspnea Cardiovascular: + edema; no chest pain, no palpitations and no calf pain Gastrointestinal: no problem reported Musculoskeletal: no joint pain Neurologic: no headache(s) Psychiatric: + confusion; no visual hallucinations Physical Exam Constitutional: no acute distress Respiratory: normal respiratory effort; no cough Auscultation: + diminished lung sounds difficult to auscultate due to BiPAP Cardiovascular: Rate/Rhythm: regular rate and regular rhythm Heart Sounds: + murmur (systolic) Extremities: + edema (2+ edema in LE bilaterally to knees); no calf tenderness Psychiatric: Orientation: alert and oriented to person Insight: + impaired insight Results & Data ([facility]) Vital Signs (Past 12 Hours) Vital Signs Temp Pulse Pulse Resp BP Pulse Ox 03/05/20 08:13 60 03/05/20 07:24 36.8 C 60 20 131/77 99 03/05/20 07:11 59 L 59 L 17 99 03/05/20 03:49 36.5 C 62 20 135/62 98 03/05/20 02:23 61 58 L 20 94 03/04/20 23:30 36.8 C 62 20 138/95 96 03/04/20 22:51 60 22 88 L 03/04/20 22:50 60 22 88 L 03/04/20 21:08 60 22 95
[2020-03-05] MEDS: APIXABAN 2.5 MG TAB PO SCH ×2 (09:18→21:47)
[2020-03-05] MEDS: ISOSORBIDE MONO EXTENDED REL 60 MG TABCR PO SCH (09:19)
[2020-03-05] MEDS: AMIODARONE 200 MG TAB PO SCH (09:19)
[2020-03-05] MEDS: METOPROLOL SUCC 50MG EXT REL TAB PO SCH (09:20)
[2020-03-05] MEDS: ATORVASTATIN 40 MG TAB PO SCH (09:20)
[2020-03-05] MEDS: CHOLECALCIFEROL 1,000 UNITS 25 MCG TAB PO SCH (09:20)
[2020-03-05] MEDS: FERROUS SULFATE 325 MG TAB PO SCH ×2 (09:20→21:47)
[2020-03-05] MEDS: CEROVITE ADV FORMULA TAB PO SCH (09:20)
[2020-03-05 09:36] LABS: Albumin 2.7 g/dL (3.8-4.8); Alpha 1 Globulin 0.4 g/dL (0.2-0.3); Alpha 2 Globulin 0.9 g/dL (0.5-0.9); Beta-1-Globulin 0.3 g/dL (0.4-0.6); Beta-2-Globulin 0.5 g/dL (0.2-0.5); Gamma Globulin 0.9 g/dL (0.8-1.7); Monoclonal Protein Band 1 DNR g/dL (NONE DETECTED); Monoclonal Protein Band 2 DNR g/dL (NONE DETECTED); Monoclonal Protein Band 3 DNR g/dL (NONE DETECTED); Total Protein 5.8 g/dL (6.1-8.1)
[2020-03-05] MEDS ORDERED: SODIUM CHLORIDE 0.9% 1000ML 1,000 ML IV PRN (09:37)
--- NOTE | 2020-03-05 09:44 | Nephrology Progress Note ---
Date of Service March 05, 2020 Assessment & Plan (1) Acute kidney injury: 75 y o F with stage 3B CKD with variable b/l cr from 1.5-2. Recently renal function has been worsening over last 2-3 months with creatinine 2.5 to 3.6 on 02/27 as an outpatient and during hospital admission creatinine now up to 4.5. Has hyperkalemia. Admitted to hospital with progressive SOB and LE edema. Received total 3 mg IV Bumex with significant improvement in SOB and LE edema but remained oliguric but urine output slightly improved over last 24 hours. Has [id number] with severe left ventricular hypertrophy, recently diuretics was increased as an outpatient because of progressive shortness of breath and lower extremity edema. LATRICE most likely secondary to CRS as no clear trigger for LATRICE otherwise. Renal US does not demonstrate evidence of obstruction. UA/microscopy with no proteinuria but hematuria most likely related to catheter trauma. No improvement in renal function or urine output despite holding diuretics and giving IV fluid. -- plan for tunneled dialysis catheter this afternoon and 1st dialysis treatment for 2 hours, renal diet -- Bumex 2 milligram IV x1 dose --strictly monitor I/O's will be strictly monitored. --left arm nephrology precaution --dose medication for GFR <10. --TETE for Hb <10 Will follow (2) CKD (chronic kidney disease), stage IV: (3) Acute on chronic heart failure with preserved ejection fraction: (4) Aortic stenosis: (5) Hypercapnia: Admission and Anticipated Discharge Date Admission Date: March 02, 2020 Subjective Sarah was seen and examined this morning. She is wearing BiPAP, denies any significant shortness of breath. Remained oliguric, no improvement in renal function however electrolyte acceptable. BP stable. Review of Systems Review of Systems: All systems reviewed & are unremarkable except as noted in Subjective Physical Exam Constitutional: WD/WN, vitals as above no acute distress Respiratory: normal respiratory effort; no respiratory distress Auscultation: + diminished lung sounds Cardiovascular: Rate/Rhythm: regular rate and regular rhythm Heart Sounds: normal S1, normal S2 and + murmur Extremities: + edema (trace b/l LE edema) Skin: no rashes, warm and dry Neurologic: awake; no focal motor deficits and not confused Psychiatric: A+Ox3, euthymic affect Results & Data ([facility]) Vital Signs (Past 12 Hours) Vital Signs Temp Pulse Pulse Resp BP Pulse Ox 03/05/20 08:13 60 03/05/20 07:24 36.8 C 60 20 131/77 99 03/05/20 07:11 59 L 59 L 17 99 03/05/20 03:49 36.5 C 62 20 135/62 98 03/05/20 02:23 61 58 L 20 94 03/04/20 23:30 36.8 C 62 20 138/95 96 03/04/20 22:51 60 22 88 L 03/04/20 22:50 60 22 88 L PG Care Time/CCT Total # of Minutes Spent Total Time Spent with Patient: Total time spent is greater than 50% in coordination of care (as documented) at patient's floor/unit and/or counseling patient: Coding Level of Care Code 43094 Subseq Hosp Care Lvl 3 Diagnoses Acute kidney injury N17.9 CKD (chronic kidney disease), stage IV N18.4 Acute on chronic heart failure with preserved ejection fraction I50.33 Aortic stenosis I35.0 Hypercapnia R06.89
[2020-03-05] MEDS ORDERED: BUMETANIDE 2 MG in SYRINGE 0 ML IV ONE (10:00)
[2020-03-05 10:47] LABS: Free Kappa 111.4 mg/L (3.3-19.4); Free Kappa/Lambda Ratio 1.49 (0.26-1.65); Free Lambda 74.6 mg/L (5.7-26.3)
[2020-03-05 11:14] LABS: Hepatitis B Surface Ab Quant < 3.10 mIU/mL (>or=10mIU/mL Immune); Hepatitis B Surface Antibody Non-Immune
[2020-03-05] MEDS ORDERED: OXYMETAZOLINE 0.05% 30 ML BTL ONE (11:20)
[2020-03-05] MEDS ORDERED: OXYMETAZOLINE 0.05% 30 ML BTL PRN (11:20)
[2020-03-05 11:25] LABS: Hepatitis B Surface Antigen Neg (Neg)
--- NOTE | 2020-03-05 12:41 | Anesthesiology Consultation ---
Date of Service March 05, 2020 Assessment & Plan (1) Encounter for pre-operative examination: Chart Review Chart Review: Acceptable Risk for Surgery History Surgery Operation Date: 03/05/20 08:20 Proposed Procedures p Insertion Perm Catheter on Bi.Pap - Hector Chanel MD Height/Weight Height: 5 ft 3 in Weight: 81.3 kg Allergies Allergy/AdvReac Type Severity Reaction Status Date / Time heparin Allergy Unknown BLOOD Verified 03/02/20 15:50 DISORDER mexiletine Allergy Unknown SEVERE Verified 02/28/20 10:34 TREMORS Sulfa (Sulfonamide Allergy Unknown UNKNOWN Verified 03/02/20 15:50 Antibiotics) REACTION TO SULFA DRUGS Medications Home Medications Medication Instructions Recorded Confirmed Last Taken PreserVision AREDS 1 cap PO BID 04/22/18 03/02/20 01/13/19 cholecalciferol (vitamin D3) 1,000 units PO QAM 04/22/18 03/02/20 01/13/19 [Vitamin D3] fluticasone propionate 1 spray INTRANASAL DAILY PRN 04/22/18 03/02/20 12/31/18 acetaminophen 500 mg PO Q6H PRN 01/14/19 03/02/20 01/14/19 07:30 1000 mg amiodarone 200 mg tablet 200 mg PO QAM #90 tab 07/12/19 03/02/20 Unknown ferrous sulfate 325 mg (65 mg 325 mg PO BID tab 11/08/19 03/02/20 Unknown iron) tablet isosorbide mononitrate 60 mg 60 mg PO QAM #30 tab 12/20/19 03/02/20 Unknown tablet,extended release 24 hr apixaban 2.5 mg tablet 2.5 mg PO BID #60 tab 12/26/19 03/02/20 Unknown atorvastatin 40 mg PO DAILY 03/02/20 03/02/20 Unknown bumetanide 2 mg PO .QAFTERNOON 03/02/20 03/02/20 Unknown bumetanide 2.5 mg PO QAM 03/02/20 03/02/20 Unknown metoprolol succinate 200 mg PO DAILY 03/02/20 03/02/20 Unknown ifauhknxkcyo-Jd-tjiy-minerals 1 tab PO DAILY 03/02/20 03/02/20 Unknown [Multiple Vitamin, Womens] sitagliptin [Januvia] 25 mg PO DAILY 03/02/20 03/02/20 Unknown Active Medications Generic Name Dose Route Start Last Admin Trade Name Freq PRN Reason Stop Dose Admin Albuterol 3 ml 03/03/20 15:00 03/05/20 11:21 Albut/Ipratrop 3mg/0.5mg Neb 3 Ml Vial NEB 04/02/20 14:59 3 ml Q4R HARJIT Administration Amiodarone HCl 200 mg 03/03/20 09:00 03/05/20 09:19 Amiodarone 200 Mg Tab PO 04/02/20 08:59 200 mg QAM HARJIT Administration Apixaban 2.5 mg 03/02/20 21:30 03/05/20 09:18 Apixaban 2.5 Mg Tab PO 04/01/20 21:29 Not Given BID HARJIT Atorvastatin Calcium 40 mg 03/03/20 09:00 03/05/20 09:20 Atorvastatin 40 Mg Tab PO 04/02/20 08:59 40 mg DAILY HARJIT Administration Diclofenac Sodium 4 gm 03/03/20 21:00 03/05/20 09:02 Diclofenac Sod 1% Gel 100 Gm Tube EXT 04/02/20 20:59 4 gm TID HARJIT Administration Ferrous Sulfate 325 mg 03/03/20 09:00 03/05/20 09:20 Ferrous Sulfate 325 Mg Tab PO 04/02/20 08:59 325 mg BID HARJIT Administration Glucose 4 - 8 tabs 03/02/20 21:19 03/04/20 17:25 Glucose 10 Tabs/Tube PO 04/01/20 21:18 4 tabs UD PRN Administration Hypoglycemia Protocol Protocol Insulin Aspart 0 units 03/04/20 06:00 03/05/20 12:14 Insulin Aspart 100 Units/Ml 3 Ml Pen SC 04/03/20 05:59 Not Given Q6 HARJIT Isosorbide Mononitrate 60 mg 03/03/20 09:00 03/05/20 09:19 Isosorbide [place] Extended Rel 60 Mg Tabcr PO 04/02/20 08:59 60 mg QAM HARJIT Administration Lidocaine 1 patch 03/04/20 21:00 03/04/20 20:21 Lidocaine 5% 1 Patch TD 04/03/20 20:59 Not Given HS HARJIT Melatonin 3 mg 03/04/20 20:28 03/04/20 21:03 Melatonin 3 Mg Tab PO 04/03/20 20:27 3 mg HS PRN Administration Sleep Metoprolol Succinate 200 mg 03/03/20 09:00 03/05/20 09:20 Metoprolol Succ 50mg Ext Rel Tab PO 04/02/20 08:59 200 mg DAILY HARJIT Administration Miscellaneous 15 - 30 gm 03/02/20 21:19 03/04/20 17:18 Carbohydrates For Hypoglycemia PO 04/01/20 21:18 30 gm UD PRN Administration Hypoglycemia Protocol Miscellaneous 1 ea 03/04/20 09:00 03/05/20 09:03 Remove Lidoderm Patch N/A 04/03/20 08:59 1 ea QAM HARJIT Administration Morphine Sulfate 1 mg 03/04/20 00:17 03/04/20 00:52 Morphine Sulfate 2 Mg/Ml Carp IV 03/18/20 00:16 1 mg Q4H PRN Administration Pain Multivitamins/Minerals 1 tab 03/03/20 09:00 03/05/20 09:20 Cerovite Adv Formula Tab PO 04/02/20 08:59 1 tab DAILY HARJIT Administration Vitamin D 1,000 units 03/03/20 09:00 03/05/20 09:20 Cholecalciferol 1,000 Units 25 Mcg Tab PO 04/02/20 08:59 1,000 units QAM HARJIT Administration NPO Date Last Intake of Fluids: 03/05/20 Time Last Intake of Fluids: 09:45 Date Last Intake of Solids: 03/02/20 Time Last Intake of Solids: 18:00 Past Medical History Medical History Anemia Chronic anticoagulation DM (diabetes mellitus) HTN (hypertension) Hyperthyroidism Lumbar radiculopathy Mitral stenosis NSAID long-term use Obesity Pacemaker PAD (peripheral artery disease) Paroxysmal atrial fibrillation RVOT ventricular tachycardia Skin cancer of arm Spinal stenosis Spinal stenosis of lumbar region Stenosis, cervical spine SVT (supraventricular tachycardia) Vitamin D deficiency Past Family History Family History Father Myocardial infarction Stroke Other Family history non-contributory Past Surgical History Surgical History H/O brain surgery Previous section Social History Smoking Status: Former smoker Do You Dip or Chew Tobacco: No Hx Alcohol Use: No Hx Substance Use: No substance use type: does not use Physical Exam Vital Signs Last Vital Signs Temp 36.4 C L 03/05/20 11:21 Pulse 59 L 03/05/20 11:22 Resp 20 03/05/20 11:22 BP 99/45 L 03/05/20 11:21 Pulse Ox 95 03/05/20 11:22 Testing Laboratory Results 03/05/20 05:48 03/05/20 05:48 PT 12.8 Seconds (9.0-12.0) H 03/02/20 15:35 INR 1.2 (0.9-1.1) H 03/02/20 15:35 Hemoglobin A1c 6.2 % (4.5-5.6) H 03/03/20 07:11 Urine Color Yellow 03/04/20 01:00 Urine Appearance Clear (Clear) 03/04/20 01:00 Urine pH 5.0 (4.5-7.5) 03/04/20 01:00 Ur Specific [place] 1.020 (1.000-1.030) 03/04/20 01:00 Urine Protein Negative (Negative) 03/04/20 01:00 Urine Glucose (UA) Negative (Negative) 03/04/20 01:00 Urine Ketones Trace (Negative) H 03/04/20 01:00 Urine Nitrite Negative (Negative) 03/04/20 01:00 Ur Leukocyte Esterase Trace (Negative) H 03/04/20 01:00 Urine RBC >30 /hpf (0-4) H 03/04/20 01:00 Urine WBC 0-5 /hpf (0-5) 03/04/20 01:00 Ur Epithelial Cells 0-5 /lpf (0-5) 03/04/20 01:00 03/05/20 03/05/20 11:34 06:01 POC Glucose 77 88
--- NOTE | 2020-03-05 12:58 | Consultation ---
Date of Consultation March 05, 2020 Assessment & Plan (1) CKD (chronic kidney disease), stage IV: Recommend permcath insertion for dialysis access. I have discussed the risks options and benefits of the procedure with the patient. The patient understands the risks options and benefits and agrees to the procedure. This will be done today. History of Present Illness Reason for Consultation: End stage renal disease Attending Physician: Rahul Cullen DO History of Present Illness 75 yo female with history of diastolic heart failure and severe aortic stenosis who has had progressive shortness of breath over the last few weeks. She was admitted with acute hypoxic, hypercapnic respiratory failure despite optimal medical management as an outpatient. She is now in need of dialysis to help eliminate fluid her kidneys can't handle. Allergies Allergy/AdvReac Type Severity Reaction Status Date / Time heparin Allergy Unknown BLOOD Verified 03/02/20 15:50 DISORDER mexiletine Allergy Unknown SEVERE Verified 02/28/20 10:34 TREMORS Sulfa (Sulfonamide Allergy Unknown UNKNOWN Verified 03/02/20 15:50 Antibiotics) REACTION TO SULFA DRUGS Home Medications Medication Instructions Recorded Confirmed Type PreserVision AREDS 1 cap PO BID 04/22/18 03/02/20 History cholecalciferol (vitamin D3) 1,000 units PO QAM 04/22/18 03/02/20 History [Vitamin D3] fluticasone propionate 1 spray INTRANASAL DAILY PRN 04/22/18 03/02/20 History acetaminophen 500 mg PO Q6H PRN 01/14/19 03/02/20 History amiodarone 200 mg tablet 200 mg PO QAM #90 tab 07/12/19 03/02/20 Rx ferrous sulfate 325 mg (65 mg 325 mg PO BID tab 11/08/19 03/02/20 History iron) tablet isosorbide mononitrate 60 mg 60 mg PO QAM #30 tab 12/20/19 03/02/20 Rx tablet,extended release 24 hr apixaban 2.5 mg tablet 2.5 mg PO BID #60 tab 12/26/19 03/02/20 Rx atorvastatin 40 mg PO DAILY 03/02/20 03/02/20 History bumetanide 2 mg PO .QAFTERNOON 03/02/20 03/02/20 History bumetanide 2.5 mg PO QAM 03/02/20 03/02/20 History metoprolol succinate 200 mg PO DAILY 03/02/20 03/02/20 History bqfeguhfjxiv-Ib-wcwe-minerals 1 tab PO DAILY 03/02/20 03/02/20 History [Multiple Vitamin, Womens] sitagliptin [Januvia] 25 mg PO DAILY 03/02/20 03/02/20 History Patient History Medical History Anemia Chronic anticoagulation DM (diabetes mellitus) HTN (hypertension) Hyperthyroidism Lumbar radiculopathy Mitral stenosis NSAID long-term use Obesity Pacemaker PAD (peripheral artery disease) Paroxysmal atrial fibrillation RVOT ventricular tachycardia Skin cancer of arm Spinal stenosis Spinal stenosis of lumbar region Stenosis, cervical spine SVT (supraventricular tachycardia) Vitamin D deficiency Surgical History H/O brain surgery Previous section Family History Father Myocardial infarction Stroke Other Family history non-contributory Social History Smoking Status: Former smoker Tobacco Type: Cigarettes Second Hand Exposure: No; Do You Dip or Chew Tobacco: No; Tobacco Cessation Education Requested by Patient: No Hx Alcohol Use: No Hx Substance Use: No Preferred Language: Telugu Communication Ability: Effective Visual Impairment: Limited Hearing Ability: Normal Embedded Systems Designer Required: No Beliefs That Will Affect Care: None marital status: Current Living Situation: Alone current occupational status: retired How many Children do You have: 2 Other Information That Helps Us Care for You: No Feels Safe at Home: Yes Safety Concerns: Feels Safe At This Time Childhood Exposure to Second-Hand Smoke: No Assistive Devices: BiPap Review of Systems Review of Systems: All systems reviewed & are unremarkable except as noted in HPI & below Physical Exam Constitutional: WD/WN, vitals as above Respiratory: + labored breathing (Slightly) Auscultation: lungs clear to auscultation bilaterally Cardiovascular: Rate/Rhythm: regular rate and regular rhythm Extremities: normal capillary refill Gastrointestinal (Abdomen): Inspection/Auscultation: abdomen normal to inspection Percussion/Palpation: abdomen soft; abdomen nontender Neurologic: normal touch/pain/proprioception and moves all extremities Psychiatric: Orientation: alert and oriented x 3 Results & Data ([facility]) Vital Signs (Past 12 Hours) Vital Signs Temp Pulse Pulse Resp BP BP Pulse Ox 03/05/20 11:22 59 L 59 L 20 95 03/05/20 11:21 36.4 C L 61 20 99/45 L 98 03/05/20 08:13 60 03/05/20 07:24 36.8 C 60 20 131/77 99 03/05/20 07:11 59 L 59 L 17 99 03/05/20 03:49 36.5 C 62 20 135/62 98 03/05/20 02:23 61 58 L 20 94
[2020-03-05] MEDS ORDERED: LIDOCAINE HCL 1% 20 ML VIAL ONE (13:25)
[2020-03-05] MEDS ORDERED: ceFAZolin 2000MG 2,000 MG/15 ML SYR IV SCH (13:30)
[2020-03-05] MEDS ORDERED: ceFAZolin 1000MG 1,000 MG/7.5 ML SYR IV ONE (13:30)
[2020-03-05] MEDS ORDERED: ONDANSETRON INJ 2 MG/ML 2 ML VIAL ONE ×2 (13:39→14:37)
[2020-03-05] MEDS ORDERED: MIDAZOLAM HCL 1 MG/ML 2ML VIAL ONE (13:39)
[2020-03-05] MEDS ORDERED: fentaNYL citrate 100 MCG/2 ML VIAL ONE (13:39)
[2020-03-05] MEDS ORDERED: ATROPINE SULFATE 0.1 MG/ML 10ML SYR IV PRN (13:58)
--- NOTE | 2020-03-05 14:40 | Operative Report ---
Post Operative Report Pre & Post Diagnosis Operation Date: 03/05/20 08:20 Pre-Op Diagnosis: End stage renal disease Post-Op Diagnosis: End stage renal disease I identified the patient and participated in the time-out.: Yes Procedure Operation Date: 03/05/20 08:20 Actual Procedures p Insertion of Perm Cath, Right Jugular Approach, Ultrasound Localization of Right Jugular Vein, Fluoscopy for positioning - Hector Chanel MD Surgeon Hector Chanel MD Business Continuity Analyst None Estimated Blood Loss 5 Findings Consistent with Post-Op Diagnosis Specimens None Anesthesia Type MAC Complications none Disposition Accompanied Patient To Recovery: No Disposition: Recovery Room Indications This is a 75-year-old female with renal insufficiency. She has severe aortic stenosis hypertension. She came to the hospital with respiratory insufficiency. This was from fluid overload. Due to her inability to clear fluids dialysis was recommended. Recommended a PermCath for access. I have discussed the risks options and benefits of the procedure with the patient. The patient understands the risks options and benefits and agrees to the procedure. Description of Procedure Patient was taken to the angio suite and placed in the supine position. The right side of the neck and chest wall were prepped and draped in a sterile manner. The patient was identified and a timeout performed. Local anesthesia was then administered to the appropriate areas of the neck and chest wall. Ultrasound was then used to locate the [] internal jugular vein. The vein compressed easily, had no filing defects, and was patent. The vein was then punctured under direct ultrasound imaging. A guidewire was then passed centrally under fluoroscopic imaging. A stab wound was then made in the anterior chest wall and a 19 cm permcath was passed from the stab wound on the chest wall to the puncture site on the neck. The puncture site was then dilated till the 14Fr peel away sheath was inserted. The permcath was then inserted through the sheath to a central position in the distal superior vena cava. The peel away sheath was then removed. The catheter was then sutured in place using nylon sutures. The puncture was then closed using a 4-0 Vicryl subcuticular suture. Dermabond was used for a dressing on the puncture site. Both ports aspirated and flushed easily and were then packed with heparin. A sterile dressing was applied to the catheter. The patient left the operation room in satisfactory condition and tolerated the procedure well. All needle and sponge counts were correct at the end of the procedure. I attest to the content of the Intraoperative Record and any orders documented therein. Any exceptions are noted below.
--- NOTE | 2020-03-05 15:08 | Anesthesiology Progress Note ---
Date of Service March 05, 2020 Anesthesia Post Procedure Vital Signs Vital Signs: Temp Pulse Pulse Resp BP BP Pulse Ox 03/05/20 15:00 66 19 122/45 L 91 03/05/20 14:50 36.5 C 68 17 118/45 L 91 03/05/20 13:44 36.8 C 63 18 146/47 H 98 03/05/20 11:22 59 L 59 L 20 95 03/05/20 11:21 36.4 C L 61 20 99/45 L 98 03/05/20 08:13 60 03/05/20 07:24 36.8 C 60 20 131/77 99 03/05/20 07:11 59 L 59 L 17 99 03/05/20 03:49 36.5 C 62 20 135/62 98 03/05/20 02:23 61 58 L 20 94 03/04/20 23:30 36.8 C 62 20 138/95 96 03/04/20 22:51 60 22 88 L 03/04/20 22:50 60 22 88 L 03/04/20 21:08 60 22 95 03/04/20 19:31 36.6 C 64 18 103/47 L 95 03/04/20 19:15 59 L 16 98 03/04/20 15:29 77 78 23 94 03/04/20 15:22 64 20 110/42 L 96 Transfer of Care Handoff Completed per policy Notes Mental Status: alert / awake / arousable Patient Amnestic to Procedure: Yes Nausea / Vomiting: adequately controlled Pain: adequately controlled Airway Patency, RR, SpO2: stable & adequate BP & HR: stable & adequate Hydration State: stable & adequate Anesthetic Complications: no major complications apparent
--- NOTE | 2020-03-05 18:59 | Billing Data ---
Date of Service March 05, 2020 Coding Level of Care Code 85317 Subseq Hosp Care Lvl 3
[2020-03-05] MEDS: LIDOCAINE 5% 1 PATCH TD SCH (21:47)
[2020-03-05] MEDS ORDERED: Nursing to Pharmacy Communication SCH (23:45)
[2020-03-06] MEDS: ALBUT/IPRATROP 3MG/0.5MG NEB 3 ML VIAL NEB SCH ×6 (02:17→23:15)
[2020-03-06 06:42] LABS: Basophils # (auto) 0.01 K/uL (0-0.2); Basophils % (auto) 0.1 %; Eosinophils # (auto) 0.02 K/uL (0-0.5); Eosinophils % (auto) 0.2 %; Hematocrit (blood only) 33.7 % (37-47); Hemoglobin 10.5 g/dL (12.0-16.0); Immature Granulocytes # (auto) 0.02 K/uL (0.00-0.02); Immature Granulocytes % (auto) 0.2 %; Lymphocytes # (auto) 0.54 K/uL (1.2-3.4); Lymphocytes % (auto) 4.6 %; Mean Corpuscular Hemoglobin 34.2 pg (25-34); Mean Corpuscular Hgb Conc 31.2 g/dL (32-36); Mean Corpuscular Volume 109.8 fL (80-100); Mean Platelet Volume 10.7 fL (7.4-10.4); Monocytes % (auto) 7.7 %; Neutrophils # (auto) 10.19 K/uL (1.4-6.5); Neutrophils % (auto) 87.2 %; Platelet Count 150 K/uL (130-400); RDW Coefficient of Variation 14.1 % (11.5-14.5); RDW Standard Deviation 56.3 fL (36.4-46.3); Red Blood Count 3.07 M/uL (4.2-5.4); White Blood Count 11.68 K/uL (4.8-10.8)
[2020-03-06 06:53] LABS: Allen Test Pos (Pos); Base Excess ABG -0.7 mEq/L (-9-1.8); HCO3 ABG 27 mmol/L (19-24); Oxygen Saturation ABG 93.5 % (90-95); PCO2 ABG 56 mmHg (35-46); PO2 ABG 70 mmHg (80-95); pH ABG 7.29 (7.35-7.45)
[2020-03-06 07:00] LABS: Albumin Level 2.1 gm/dl (3.4-5.0); BUN Creatinine Ratio 15.8 (10-20); Calcium 7.8 mg/dl (8.5-10.1); Creatinine Clr Calc Pharmacy 11.5 ml/min; Est GFR (African American) 11.3; Est GFR (Non-African American) 9.8; Phosphorus 5.6 mg/dl (2.5-4.9); Potassium 5.2 mmol/L (3.5-5.1)
[2020-03-06] MEDS: AMIODARONE 200 MG TAB PO SCH (08:09)
[2020-03-06] MEDS: APIXABAN 2.5 MG TAB PO SCH ×2 (08:09→21:24)
[2020-03-06] MEDS: ATORVASTATIN 40 MG TAB PO SCH (08:10)
[2020-03-06] MEDS: ISOSORBIDE MONO EXTENDED REL 60 MG TABCR PO SCH (08:10)
[2020-03-06] MEDS: FERROUS SULFATE 325 MG TAB PO SCH ×2 (08:10→21:24)
[2020-03-06] MEDS: METOPROLOL SUCC 50MG EXT REL TAB PO SCH (08:10)
[2020-03-06] MEDS: CHOLECALCIFEROL 1,000 UNITS 25 MCG TAB PO SCH (08:10)
[2020-03-06] MEDS: CEROVITE ADV FORMULA TAB PO SCH (08:10)
[2020-03-06] MEDS: DICLOFENAC SOD 1% GEL 100 GM TUBE EXT SCH ×3 (08:11→21:26)
--- NOTE | 2020-03-06 08:30 | Medical Student Progress Note ---
Date of Service March 06, 2020 Assessment & Plan (1) Acute on chronic heart failure with preserved ejection fraction: Patient is a 75 year old female with a pmh of CKD stage 4, aortic stenosis, CHF, DM, HTN with delirium, respiratory acidosis and hypercapnea. Bumex increased up from 0.5 to 2mg on 03/02 and was then discontinued due to no urination and high creatinine. Has recently been eating canned chicken noodle soup for dinner frequently. 2+ pitting edema bilaterally but no crackles heard on lung exam. TTE performed 03/03: Left ventricular systolic function normal with severe concentric hypertrophy. EF 60-65%. Moderate to severe aortic stenosis as compared to 08/07/15. Mild mitral stenosis and regurgitation and mild to moderate tricuspid regurgitation. At this point, CHF does not seem to be leading cause of her confusion and hypercapnia due to good O2 saturation. Diuretics are not effective at volume depletion at this time due to CKD. Cardiology agrees that dialysis is the next best step. 1L fluid was removed by dialysis on 03/05. BP dropped to 84/43 this morning, ida moon due to hypovolemia/dehydration. She was given 250mL IV fluids. (2) CKD (chronic kidney disease), stage IV: Cr 2.3 this summer -> 3.6 on 02/27, 4.12 on 03/03 and 4.2 on 03/03. Nephrology consulted due to oliguria with madrigal. I/O strictly monitored. Nephrology recommended hemodialysis due to increasing creatinine, low urine output given the amount of diuretic given, and increasing potassium at 5.4 on 03/04. This is concerning for cardiac effects if potassium continues to increase. Nephrology gave Veltassa 8.4mg once to decrease potassium on 03/05 which decreased potassium to 5.1. Tunneled dialysis catheter was inserted successfully yesterday afternoon and 1st dialysis treatment for 2 hours took off 1L fluid. She is on a renal diet. 3 hour dialysis treatment scheduled for today. This morning, potassium is 5.2 up from 5.1 yesterday. (3) Hypercapnia: CT lung on 03/04: 1) Moderate bilateral pleural effusions. This is similar to the prior study. Consolidation within the lung bases as described above is also nonspecific change and therefore favors compressive atelectasis from the pleural effusions. A superimposed pneumonia cannot be excluded. 2. Patchy airspace opacity within the right upper lobe anteriorly which favors a pneumonia. Not treating the possible pneumonia at this time due to no cough, fever, or increased white blood count. Consulting pulmonology for hypercapnia with unclear etiology. Pulmonology does not see evidence of obstructive airway disease or asthma. Possible etiologies i nclude undiagnosed sleep disordered breathing/obesity hypoventilation syndrome given her body mass index of 31 or neuromuscular weakness. Patient was not able to keep BiPAP on for the whole night and nursing staff removed it this morning due to dry mouth and crusting to allow for cleaning of the mouth and for the patient to eat breakfast. Will encourage to keep BiPAP on for rest of the day due to worsening pCO2 this morning. ABG this morning pH was 7.29, pCO2 56, pO2 27. Yesterday ABG was pH 7.32, pCO2 53, pO2 92. Cr today was 4.13. Possible TIA Patient's daughter noted slurred speech over the phone. On exam around 10:45am there was slight droop on the left side of the face and disuse of left arm as well as difference in sensation in lower extremities with left leg feeling "heavy". CT head without contrast did not show a hemophagic bleed or any acute issues. -Neurology consulted - Per neurology, does not need antiplatelet therapy at this time due to this e vent. However, due to pmh of HTN and DM2, aspirin 81mg is still indicated. Admission and Anticipated Discharge Date Admission Date: March 02, 2020 Supervising Attestation Supervising Attestation I personally examined the patient and verified all brown points of history and e xam, discussed case, and agree with decision making with Selvin Valiente MS2. feeling better than before breathing better, but actually appears a little more sleepy than when MS2 and resident saw this AM vitals noted fatigued appearing but breathing fairly comfortably on bipap. heent nc at mmm. cardio reg no r/m/g lungs cta no r/r/w breathing unlabored no accessory muscles good effort. abd soft nd nt. no focal neuro deficits. no pallor or icterus acute respiratory failure - mixed both hypoxic and hypercapnic -hypoxic likely pulmonary edema/acute on chronic HFpEF mediated (although not entirely clear if vs CKD bigger culprit - most likely elements of both). -hypercapnic more troubling since she does not appear to carry a dx taht would cause hypercapnea. ?occult COPD vs FRANKLYN/weakness mediated (see below for management) - appreciate pulm input -ongoing fluid management and bipap acute on chronic HFpEF - and CKD mediated. failed attempts at med management - going through initi al run of HD hypercapnea - as above noted, dx driving this not overtly clear -pulmonary consult -bipap, follow abg - bipap helping -nebs/pulmonary toilet -possibly just driven by overall weakness and decline (and delirium) maybe all lessening respiratory drive and causing worsening respiratory muscle weakness vs related to true but occult lung disease -depending on how she progresses, may need PFTs as outpt -continues to need bipap more or less nonstop CKD - appearing to probably have progressed to ESRD - starting inital run of HD this admission metabolic encephalopathy - definitely related to respiratory acidosis/hypercapnea, possibly related to uremia, hospital environment, showing waxing and waning DVT proph - on eliquis TIA - appreciate neuro input otherwise as above Subjective This morning, Ms. Wyatt is feeling good, and is happy to be able to eat and drink. She has some issues with a very dry crusty mouth overnight so the nursing staff removed the BiPAP for breakfast time to clean her mouth and allow her to eat. She was not able to keep the BiPAP on for the whole night. She does not remember getting dialysis last night and is worried about her dialysis catheter bleeding. She denies any SOB, cough, chest pain, palpitations, GI distress, or pain in her joints and calves. Review of Systems Ear, Nose, Mouth, Throat: some pain around where BiPAP sat Respiratory: no cough and no dyspnea Cardiovascular: + edema; no chest pain, no palpitations and no calf pain Gastrointestinal: no abdominal pain and no diarrhea/loose stools Musculoskeletal: no joint pain Neurologic: no headache(s) Psychiatric: no visual hallucinations Physical Exam Constitutional: no acute distress Respiratory: normal respiratory effort Auscultation: + diminished lung sounds Cardiovascular: Rate/Rhythm: regular rate and regular rhythm Heart Sounds: + murmur (systolic) Extremities: + edema (2+ in LE bilaterally up to knees); no calf tenderness Chest (Breasts): Chest: + vascular access device or port (bleeding at access site) Gastrointestinal (Abdomen): Percussion/Palpation: abdomen soft; abdomen nontender and no guarding Neurologic: awake Psychiatric: A+Ox3, euthymic affect Results & Data ([facility]) Vital Signs (Past 12 Hours) Vital Signs Temp Pulse Pulse Pulse Resp BP BP 03/06/20 07:35 60 03/06/20 07:25 66 22 03/06/20 04:32 60 03/06/20 04:00 36.5 C 63 20 94/41 L 03/06/20 02:18 64 64 17 03/05/20 23:26 60 60 16 03/05/20 23:00 36.3 C L 60 20 101/51 L 03/05/20 21:12 61 24 03/05/20 20:35 36.7 C 62 18 136/59 L Pulse Ox 03/06/20 07:35 03/06/20 07:25 95 03/06/20 04:32 03/06/20 04:00 97 03/06/20 02:18 98 03/05/20 23:26 94 03/05/20 23:00 95 03/05/20 21:12 98 03/05/20 20:35 100
[2020-03-06] MEDS: INSULIN ASPART 100 UNITS/ML 3 ML PEN SC SCH ×4 (09:28→21:25)
[2020-03-06] MEDS ORDERED: SODIUM CHLORIDE 0.9% 1000ML 250 ML IV ONE (11:21)
--- NOTE | 2020-03-06 11:34 | Cardiology Progress Note ---
Date of Service March 06, 2020 Assessment & Plan (1) Acute on chronic heart failure with preserved ejection fraction: -improved with hemodialysis. -continues to be oliguric. (2) Aortic stenosis: -moderate to severe on echocardiogram. -likely a factor in her recent decompensation. -uncertain if she needs valve replacement currently. -demonstrates severe LVH. (3) CAD (coronary artery disease): -nonobstructive disease by cardiac cath, August 2013. -continue metoprolol succinate and isosorbide mononitrate. (4) Ventricular tachycardia: -bradycardia dependent, permanent pacemaker March 2014. -normal pacemaker interrogation on February 28, 2020. -successful VT ablation, April 2014. -continue amiodarone. (5) Paroxysmal atrial fibrillation: -continue amiodarone, metoprolol succinate, and renally adjusted apixaban. -no atrial fibrillation recently. Admission and Anticipated Discharge Date Admission Date: March 02, 2020 Subjective The patient is resting comfortably in bed without complaints of chest pain or dyspnea. She is happy to be off the CPAP mask. Physical Exam Physical Exam: In general this is an obese white female in no acute distress. HEENT exam is negative. Neck is supple with delayed and prolonged carotid upst rokes bilaterally. A transmitted murmur is noted. Jugular venous pressure is difficult to assess. There is no thyromegaly. Cardiovascular exam reveals a regular rhythm with a 2/6 crescendo decrescendo systolic murmur heard loudest at the base. S2 is audible at the apex. No diastolic murmurs. Lungs note decreased breath sounds at the bases. Abdomen is benign without bruits. Extremities reveal intact radial artery pulses bilaterally. Results & Data ([facility]) Vital Signs (Past 12 Hours) Vital Signs Temp Pulse Pulse Pulse Resp BP Pulse Ox 03/06/20 10:38 95 03/06/20 09:02 36.5 C 84 19 105/74 98 03/06/20 07:35 60 03/06/20 07:25 66 22 95 03/06/20 04:32 60 03/06/20 04:00 36.5 C 63 20 94/41 L 97 03/06/20 02:18 64 64 17 98 Diagnostic Findings ekg monitor notes sinus rhythm with an occasional PVC. PG Care Time/CCT Total # of Minutes Spent Total Time Spent with Patient: Total time spent is greater than 50% in coordination of care (as documented) at patient's floor/unit and/or counseling patient: Coding Level of Care Code 66465 Subseq Hosp Care Lvl 3 Diagnoses Acute on chronic heart failure with preserved ejection fraction I50.33 Aortic stenosis I35.0 CAD (coronary artery disease) I25.10 Ventricular tachycardia I47.2 Paroxysmal atrial fibrillation I48.0
--- NOTE | 2020-03-06 11:56 | Pulmonology Progress Note ---
Date of Service March 06, 2020 Assessment & Plan (1) Hypercapnic respiratory failure: Impression: 75-year-old female with hypercarbic respiratory failure. She does not appear to have significant airflow obstruction on exam without wheezing and has a minimal prior history of tobacco exposure. There is no history of asthma. It is possible that she has undiagnosed sleep disordered breat patty/obesity hypoventilation syndrome given her body mass index of 31. Other etiologies including neuromuscular weakness would be in the differential. The patient currently is suffering from fluid overload with large bilateral pleural effusions and interstitial pulmonary edema which if she is we can decompensated, may lead to hypercarbic respiratory failure. Recommendations: 1. Hypercarbic respiratory failure: Continue nightly BiPAP. Depending on the patient's clinical course, could consider outpatient pulmonary function tests and/or sleep study although I suspect it is likely she will need to go to some form of acute rehab or intermediate facility and continued nocturnal BiPAP at settings of 12/8 would be reasonable as long as the patient tolerates it. 2. Bilateral pleural effusions: Continued fluid removal per nephrology. Given the bilateral nature of the pleural effusions, I am not suspicious of a sinister etiology and at this point time would recommend following the patient clinically. If the effusions fail to resolve or increase in size or become increasingly symptomatic, could consider thoracentesis at that time. 3. Hypoxemic respiratory failure: Secondary to fluid overload. Continue supplemental oxygen. Wean as tolerated. 4. She appears to be somewhat better for now. Will require aggressive PT and OT. Pulmonary is available to assist if needed but will sign off for now. Please call if we can be of additional assistance (2) Acute respiratory failure with hypoxemia: (3) Pleural effusion: Admission and Anticipated Discharge Date Admission Date: March 02, 2020 Subjective Patient seen and examined. Her mental status is better. She is on oxygen. She reports using BiPAP overnight. She is not coughing or wheezing. She reports her shortness of breath is reasonably stable. Patient underwent placement of a permacath yesterday and had her initial dialysis.. Review of Systems Review of Systems: unchanged from prior Physical Exam Constitutional: no acute distress Respiratory: normal respiratory effort Auscultation: + diminished lung sounds Cardiovascular: Rate/Rhythm: regular rate and regular rhythm Heart Sounds: + murmur (systolic) Extremities: + edema (2+ in LE bilaterally up to knees); no calf tenderness Chest (Breasts): Chest: + vascular access device or port (bleeding at access site) Gastrointestinal (Abdomen): Percussion/Palpation: abdomen soft; abdomen nontender and no guarding Neurologic: awake Psychiatric: A+Ox3, euthymic affect Results & Data Results & Data ([facility]) Vital Signs (Past 12 Hours) Vital Signs Temp Pulse Pulse Pulse Resp BP BP 03/06/20 11:40 60 60 18 03/06/20 11:35 36.6 C 62 18 84/43 L 88/51 L 03/06/20 10:38 03/06/20 09:02 36.5 C 84 19 105/74 03/06/20 07:35 60 03/06/20 07:25 66 22 03/06/20 04:32 60 03/06/20 04:00 36.5 C 63 20 94/41 L 03/06/20 02:18 64 64 17 Pulse Ox 03/06/20 11:40 97 03/06/20 11:35 96 03/06/20 10:38 95 03/06/20 09:02 98 03/06/20 07:35 03/06/20 07:25 95 03/06/20 04:32 03/06/20 04:00 97 03/06/20 02:18 98 Laboratory Results 03/06/20 06:30 03/06/20 06:30 PG Care Time/CCT Total # of Minutes Spent Total Time Spent with Patient: Total time spent is greater than 50% in coordination of care (as documented) at patient's floor/unit and/or counseling patient: Coding Level of Care Code 62847 Subseq Hosp Care Lvl 2 Diagnoses Hypercapnic respiratory failure J96.92 Acute respiratory failure with hypoxemia J96.01 Pleural effusion J90
--- NOTE | 2020-03-06 11:59 | Nephrology Progress Note ---
Date of Service March 06, 2020 Assessment & Plan (1) Acute kidney injury: 75 y o F with stage 3B CKD with variable b/l cr from 1.5-2. Recently renal function has been worsening over last 2-3 months with creatinine 2.5 to 3.6 on 02/27 as an outpatient and during hospital admission creatinine now up to 4.5. Has hyperkalemia. Admitted to hospital with progressive SOB and LE edema. Received total 3 mg IV Bumex with significant improvement in SOB and LE edema but remained oliguric but urine output slightly improved over last 24 hours. Has [id number] with severe left ventricular hypertrophy, recently diuretics was increased as an outpatient because of progressive shortness of breath and lower extremity edema. LATRICE most likely secondary to CRS as no clear trigger for LATRICE otherwise. Renal US does not demonstrate evidence of obstruction. UA/microscopy with no proteinuria but hematuria most likely related to catheter trauma. had tunneled dialysis catheter and 1st dialysis treatment for 2 hours on 03/05/2020. No improvement in renal function or urine output. --hemodialysis to 3 hours, 2 K bath, plan for UF 1 liter, then 4 h tomorrow. --consult case management to set up outpatient dialysis at [facility]. --start on Renvela 800 mg t.i.d. with meal, nephro caps once a day. --strictly monitor I/O's will be strictly monitored. --left arm nephrology precaution --dose medication for GFR <10. --TETE for Hb <10 Will follow (2) CKD (chronic kidney disease), stage IV: Baseline creatinine ~2.4 mg/dL. CKD attributed to microvascular disease and a history of ATN. Kidneys normal appearing with small non obstructing stones. Urine bland and acellular at baseline. (3) Acute on chronic heart failure with preserved ejection fraction: Continue Bumex to encourage urine output. Additional 2 mg IV provided following Dinero placement. (4) Aortic stenosis: TTE reviewed. Plan of care discussed with Dr. Rubio. No intervention planned at this time. (5) Hypercapnia: Admission and Anticipated Discharge Date Admission Date: March 02, 2020 Subjective Sarah was seen and examined this morning. She Tolerated 2 hours hemodialysis yesterday, had 1 liter UF. no clear sign of renal recovery yet, continues to be oliguric and having electrolyte abnormality and renal function without any significant improvement. complain of dry mouth. Review of Systems Review of Systems: All systems reviewed & are unremarkable except as noted in Subjective Physical Exam Constitutional: WD/WN, vitals as above no acute distress Respiratory: normal respiratory effort, lungs clear to auscultation normal respiratory effort; no respiratory distress Auscultation: + diminished lung sounds Cardiovascular: Rate/Rhythm: regular rate and regular rhythm Heart Sounds: normal S1, normal S2 and + murmur Extremities: + edema (trace b/l LE edema) Skin: no rashes, warm and dry Neurologic: awake; no focal motor deficits and not confused Psychiatric: A+Ox3, euthymic affect Results & Data ([facility]) Vital Signs (Past 12 Hours) Vital Signs Temp Pulse Pulse Pulse Resp BP BP 03/06/20 11:40 60 60 18 03/06/20 11:35 36.6 C 62 18 84/43 L 88/51 L 03/06/20 10:38 03/06/20 09:02 36.5 C 84 19 105/74 03/06/20 07:35 60 03/06/20 07:25 66 22 03/06/20 04:32 60 03/06/20 04:00 36.5 C 63 20 94/41 L 03/06/20 02:18 64 64 17 Pulse Ox 03/06/20 11:40 97 03/06/20 11:35 96 03/06/20 10:38 95 03/06/20 09:02 98 03/06/20 07:35 03/06/20 07:25 95 03/06/20 04:32 03/06/20 04:00 97 03/06/20 02:18 98 PG Care Time/CCT Total # of Minutes Spent Total Time Spent with Patient: Total time spent is greater than 50% in coordination of care (as documented) at patient's floor/unit and/or counseling patient: Coding Level of Care Code 35218 Subseq Hosp Care Lvl 3 Diagnoses Acute kidney injury N17.9 CKD (chronic kidney disease), stage IV N18.4 Acute on chronic heart failure with preserved ejection fraction I50.33 Aortic stenosis I35.0 Hypercapnia R06.89
--- NOTE | 2020-03-06 12:07 | Palliative Care Progress Note ---
Date of Service March 06, 2020 Assessment & Plan (1) Palliative care encounter: More alert and able to talk off bipap but still a bit confused. I don't think that she understands the severity of her illness. She seems focused on the fact that being on bipap means that she's doing well. 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 I spoke with Libertad on the phone and updated her. Libertad is encouraging her to continue dialysis and try to get better. She would support any interventions necessary at this time. I did talk about monitoring her functional status and ability to enjoy her life as markers that are helpful moving forward to determine if ongoing treatment is working in her best interest. We will continue to follow. Libertad does also say again that they would want Sarah to come home and live with her and the two daughters would work together to care for her. (2) Hypercapnic respiratory failure: (3) CKD (chronic kidney disease), stage IV: (4) Aortic stenosis: (5) CHF (congestive heart failure): Admission and Anticipated Discharge Date Admission Date: March 02, 2020 Subjective Off bipap. Denies feeling short of breath. Somewhat confused. Review of Systems Review of Systems: [place] Symptom Assessment Scale Pain 0/3 Dyspnea 0/3 Nausea 0/3 Anxiety 0/3 Drowsiness 0/3 Palliative Performance score 40% Physical Exam Constitutional: + ill appearing Respiratory: no labored breathing Cardiovascular: Extremities: + edema Neurologic: awake; no focal motor deficits Genitourinary: Dinero catheter Results & Data ([facility]) Vital Signs (Past 12 Hours) Vital Signs Temp Pulse Pulse Pulse Resp BP BP 03/06/20 11:40 60 60 18 03/06/20 11:35 97.9 F 62 18 84/43 L 88/51 L 03/06/20 10:38 03/06/20 09:02 97.7 F 84 19 105/74 03/06/20 07:35 60 03/06/20 07:25 66 22 03/06/20 04:32 60 03/06/20 04:00 97.7 F 63 20 94/41 L 03/06/20 02:18 64 64 17 Pulse Ox 03/06/20 11:40 97 12/11/20 11:35 96 03/06/20 10:38 95 03/06/20 09:02 98 03/06/20 07:35 03/06/20 07:25 95 03/06/20 04:32 03/06/20 04:00 97 03/06/20 02:18 98 PG Care Time/CCT Total # of Minutes Spent Total Time Spent with Patient: Total time spent is greater than 50% in coordination of care (as documented) at patient's floor/unit and/or counseling patient: Total time spent is 28 minutes with more than 50% of time spent on discussing goals of care and family support. Coding Level of Care Code 53223 Subseq Hosp Care Lvl 2 Diagnoses Palliative care encounter Z51.5 Hypercapnic respiratory failure J96.92 CKD (chronic kidney disease), stage IV N18.4 Aortic stenosis I35.0 CHF (congestive heart failure) I50.9 Heart failure chronicity: acute on chronic Heart failure type: unspecified (1) CHF (congestive heart failure) Heart failure chronicity: acute on chronic Heart failure type: unspecified Qualified Code(s): I50.9 - Heart failure, unspecified
[2020-03-06] MEDS: SEVELAMER HCL 800 MG TABLET PO SCH ×2 (13:15→21:24)
[2020-03-06] MEDS: NEPHROCAPS PO SCH (13:15)
--- NOTE | 2020-03-06 18:24 | Billing Data ---
Date of Service March 06, 2020 Coding Level of Care Code 96698 Subseq Hosp Care Lvl 3
[2020-03-06] MEDS: LIDOCAINE 5% 1 PATCH TD SCH (21:25)
[2020-03-07] MEDS: ALBUT/IPRATROP 3MG/0.5MG NEB 3 ML VIAL NEB SCH ×6 (02:57→23:07)
[2020-03-07 06:52] LABS: Basophils # (auto) 0.02 K/uL (0-0.2); Basophils % (auto) 0.2 %; Eosinophils # (auto) 0.12 K/uL (0-0.5); Eosinophils % (auto) 1.1 %; Hematocrit (blood only) 31.3 % (37-47); Hemoglobin 9.8 g/dL (12.0-16.0); Immature Granulocytes # (auto) 0.02 K/uL (0.00-0.02); Immature Granulocytes % (auto) 0.2 %; Lymphocytes # (auto) 0.67 K/uL (1.2-3.4); Lymphocytes % (auto) 6.3 %; Mean Corpuscular Hemoglobin 34.1 pg (25-34); Mean Corpuscular Hgb Conc 31.3 g/dL (32-36); Mean Corpuscular Volume 109.1 fL (80-100); Mean Platelet Volume 10.8 fL (7.4-10.4); Monocytes # (auto) 0.85 K/uL (0.11-0.59); Neutrophils # (auto) 8.96 K/uL (1.4-6.5); Neutrophils % (auto) 84.2 %; Platelet Count 153 K/uL (130-400); RDW Coefficient of Variation 14.1 % (11.5-14.5); RDW Standard Deviation 55.9 fL (36.4-46.3); Red Blood Count 2.87 M/uL (4.2-5.4); White Blood Count 10.64 K/uL (4.8-10.8)
[2020-03-07 07:27] LABS: BUN Creatinine Ratio 12.6 (10-20); Calcium 7.7 mg/dl (8.5-10.1); Creatinine Clr Calc Pharmacy 14.2 ml/min; Est GFR (African American) 14.5; Est GFR (Non-African American) 12.5; Phosphorus 3.8 mg/dl (2.5-4.9); Potassium 4.4 mmol/L (3.5-5.1)
[2020-03-07 07:31] LABS: Base Excess ABG 0.5 mEq/L (-9-1.8); HCO3 ABG 27 mmol/L (19-24); Oxygen Saturation ABG 95.4 % (90-95); PCO2 ABG 57 mmHg (35-46); PO2 ABG 82 mmHg (80-95)
[2020-03-07 07:32] LABS: Allen Test Pos (Pos)
[2020-03-07] MEDS: APIXABAN 2.5 MG TAB PO SCH ×2 (07:51→20:04)
[2020-03-07] MEDS: SEVELAMER HCL 800 MG TABLET PO SCH ×3 (07:51→16:44)
[2020-03-07] MEDS: FERROUS SULFATE 325 MG TAB PO SCH ×2 (07:52→20:03)
[2020-03-07] MEDS: CEROVITE ADV FORMULA TAB PO SCH (07:53)
[2020-03-07] MEDS: ISOSORBIDE MONO EXTENDED REL 60 MG TABCR PO SCH (07:53)
[2020-03-07] MEDS: ATORVASTATIN 40 MG TAB PO SCH (07:55)
[2020-03-07] MEDS: CHOLECALCIFEROL 1,000 UNITS 25 MCG TAB PO SCH (07:55)
[2020-03-07] MEDS: AMIODARONE 200 MG TAB PO SCH (07:55)
[2020-03-07] MEDS: NEPHROCAPS PO SCH (07:55)
[2020-03-07] MEDS: METOPROLOL SUCC 50MG EXT REL TAB PO SCH (07:55)
[2020-03-07] MEDS: DICLOFENAC SOD 1% GEL 100 GM TUBE EXT SCH ×3 (07:56→20:04)
[2020-03-07] MEDS: INSULIN ASPART 100 UNITS/ML 3 ML PEN SC SCH ×4 (09:13→21:41)
--- NOTE | 2020-03-07 09:47 | Hospitalist Progress Note ---
Date of Service March 07, 2020 Assessment & Plan (1) Hypercapnic respiratory failure: Sarah Wyatt is a 75 y/o female with severe aortic stenosis and CKD who presents to the ER with worsening SOB, weight gain and leg swelling. EKG in ED: NSR 60 bpm, RBBB CXR 03/02: Small to moderate b/l pleural effusions with associated bibasilar opacities that could reflect atelectasis or consolidation. Radiographic f/u is recommended. Cardiomegaly with mild interstitial pulmonary edema. Acute respiratory failure - mixed both hypoxic and hypercapnic - Patient does not carry a diagnosis that would cause hypercapnea. ? occult COPD vs FRANKLYN/weakness mediated. - Hypoxic component likely pulmonary edema/acute on chronic HFpEF mediated - Continuing pulmonary toilet/nebs - Continue BiPAP qhs and prn - Intermittently refusing bipap. Ongoing discussions regarding necessity of bipap. Multiple discussion re: goals of care with patient attempted as well as family members. Based on conversation with daughter, Libertad, today, will have further conversations about goals of care tomorrow after she is able to speak with her sister. Currently needing to discuss goals for quality of life and prolonged intervention measures (e.g. BiPAP and dialysis). - Follow ABGs - Depending on how she progresses, may need PFTs or polysomnography as outpatient - Pulmonology consulted; appreciate their recommendations (as noted below) - Does not appear to have significant airflow obstruction on exam; no hx of asthma - ? undiagnosed sleep disordered breathing/obesity hypoventilation syndrome; other etiologies including neuromuscular weakness would be in the differential - Currently suffering from fluid overload with large b/l pleural effusions and interstitial pulmonary edema - Tolerating BiPAP reasonably well; continue when sleeping; could taper off during the day as tolerated; only alternative to BiPAP would be intubation which would like to avoid in this patient - If survives and stabilizes consider outpatient polysomnography and PFTs - B/l pleural effusions will see how diuresis goes; could consider thoracentesis but patient would have to be off apixaban x24h prior to tap - Hypoxemic respiratory failure: 2/2 fluid overload; continue sup O2; wean as tolerated - No narcotics or benzos in an effort to facilitate compliance w/ BiPAP as will likely worsen her hypercarbic respiratory failure; if not tolerating mask, contact RT for other options Acute on Chronic HFpEF - GINA 03/03/20: Left ventricular systolic function is normal. No regional wall motion abnormalities noted. There is severe concentric left ventricular hypertrophy. LVEF 60-65%. Moderate to severe valvular aortic stenosis. There is mild mitral stenosis. There is mild mitral regurgitation. There is mild to moderate tricuspid regurgitation. Compared with study of 08/07/2015, aortic stenosis has progressed. - and CKD mediated - Attempting to diurese - w progression of CKD, not affecting much negative fluid balance - see nephro notes - may need dialysis - Continue med management as possible - Continue supportive care - Strict I&Os and daily weights - Cardiology consulted; appreciate their recommendations (as noted below) - Acute on chronic HFpEF: progressive decompensation over the last several weeks, not currently receiving diuretics, minimal urine output, she may need HD to handle her volume, prognosis is poor - Aortic stenosis: moderate to severe on current echo; likely a factor in her recent decompensation; ? if need valve replacement currently; demonstrates severe LVH - CAD: continue metoprolol succinate and isosorbide mononitrate - V-tach: bradycardia dependent, permanent placemaker Mar 2014; normal pacemaker interrogation 02/28/20; continue amiodarone - Paroxysmal atrial fibrillation: continue amiodarone, metoprolol succinate, and apixaban - CKD stage 5, GFR < 15 ml/min: oliguric renal failure at present, management per nephro CKD - appearing to probably have progressed to ESRD - Current GFR around 9. Trending BMP - Renal US 03/02: no hydronephrosis, moderate b/l cortical renal thinning/scarring, unchanged. B/l nephrolithiasis. Normal bladder - Possibly some of her mentation is uremic. Agree w nephro and cardiology that at this point HD is pretty reasonable. - Failed med management. - Patient had permacath placement 03/05/20 w/ first dialysis session x3 hours on 03/05 - Dialysis continued on 03/06 - Nephrology has been consulted; appreciate their recommendations (as noted below) - LATRICE: Stage 3B CKD; hyperkalemia now; renal US does not demonstrate evidence of obstruction - Veltassa 1 dose yesterday, NS 500 cc at 125 cc/hr - Strictly I/Os; repeat metabolic profile in AM - Dose medication for GFR < 10 Metabolic Encephalopathy on admission - Definitely related to respiratory acidosis/hypercapnea, possibly related to uremia Macrocytic anemia - Continue B12, folate - SPEP, retic count in AM. DM (diabetes mellitus) - HbA1C 5.5 on labs in August 2019 - Hold sitagliptin - unclear if needs this going forward - Will use Novolog for correction factor only Paroxysmal atrial fibrillation - Rhythm control with amiodarone 200mg PO QAM - Anticoagulation with apixaban Hyperlipidemia Continue home atorvastatin 40mg po daily Hypertension Continue home metoprolol 200mg po daily, Imdur 60mg qAM TIA Sxs resolved yesterday after having episode of focal weakness, slurred speech, etc. - Will consult neurology: per neuro recommendations, TIA: ischemic stroke workup with MRI and FLP when medically stable; Consult ST/OT/PT DVT prophylaxis Continue home apixaban 2.5mg PO BID (2) CKD (chronic kidney disease), stage IV: (3) Aortic stenosis: (4) CHF (congestive heart failure): Admission and Anticipated Discharge Date Admission Date: March 02, 2020 Supervising Physician Co-Signing Physician Notes I personally examined the patient and verified all brown points of history and exam, discussed case, and agree with decision making with Dr Sylvester. asleep - awakens easily and denies complaints -but also somewhat disoriented - initially thinks she's at home, then tries to explain why she mistook this room for her home- but then goes on to say about being brought from the hospital back home and not really knowing what is going on. vitals noted fatigued and somewhat confused. no physical distress. heent nc at mmm. lungs quiet but cta b/l no r/r/w moderate effort no accessory muscles. no focal neuro deficits. skin no rashes no pallor or icterus. acute respiratory failure - mixed both hypoxic and hypercapnic -hypoxic likely pulmonary edema/acute on chronic HFpEF mediated (although not entirely clear if vs CKD bigger culprit - most likely elements of both). -hypercapnic more troubling since she does not appear to carry a dx that would cause hypercapnea. ?occult COPD vs FRANKLYN/weakness mediated (see below for managem ent) - appreciate pulm input -ongoing fluid management and bipap acute on chronic HFpEF - and CKD mediated. failed attempts at med management - HD again today hypercapnea - as above noted, dx driving this not overtly clear but appearing either to be weakness overall, or an FRANKLYN/OHS pattern (or both) -this afternoon appearing somewhat delirious as she has when she is more hypercapnic - concerning since she's not been off bipap too long- repeat ABG to assess how quickly/how severely she becomes hypercapnic -nebs/pulmonary toilet -possibly just driven by overall weakness and decline (and delirium) maybe all lessening respiratory drive and causing worsening respiratory muscle weakness vs related to true but occult lung disease -depending on how she progresses, may need PFTs as outpt -continues to need bipap more or less nonstop but doesn't like the mask and refuses at times. d/w nursing pending ABG to at least have her as upright as possible to try to help some w FRANKLYN/OHS physiology if she refuses to allow bipap -ongoing discussions w pt (when lucid) and family by dr sylvester and dr thrasher. given how much the patient does not like bipap, yet how dependant on it she appears at this time, i suspect she may opt for a more palliative route of care as her situation unfolds CKD - appearing to probably have progressed to ESRD - HD again today metabolic encephalopathy - definitely related to respiratory acidosis/hypercapnea, possibly related to uremia, hospital environment, showing waxing and waning DVT proph - on eliquis TIA - appreciate neuro input otherwise as above Subjective Sarah Wyatt is a 75 yo female She states that she is feeling better today. Patient denies SOB or cough. Patient does report some low back pain and hip pain. Patient has been receiving BiPAP for hypercapnic respirator failure. Review of Systems Constitutional: + fatigue; no fever Respiratory: no cough and no dyspnea Cardiovascular: no chest pain Musculoskeletal: + pain to lower back and hips Physical Exam Physical Exam: GENERAL: Vital signs reviewed as above. Patient appears fatigued but is awake and alert. EYES: EOMI. Anicteric sclerae. HENT: Dry mucous membranes. RESPIRATORY: Decreased breath sounds throughout lung isabel. No wheezing, rales, or rhonchi. CARDIOVASCULAR: Irregularly irregular rhythm. Normal rate. 3/6 YANET. EXTREMITIES: Trace b/l lower extremity edema. NEUROLOGIC: A/O x3. Intermittently confused. PSYCHIATRIC: Cooperative. Appropriate mood and affect. Results & Data Results & Data ([facility]) Vital Signs (Past 12 Hours) Vital Signs Temp Pulse Pulse Pulse Resp BP BP 12/12/20 09:02 36.6 C 61 03/07/20 07:53 36.7 C 66 18 132/54 L 03/07/20 07:31 69 03/07/20 07:17 64 18 03/07/20 03:52 36.6 C 60 18 95/56 L 03/07/20 02:59 60 26 H 03/07/20 02:57 60 26 H 03/07/20 02:48 60 03/06/20 23:31 36.7 C 61 20 126/74 03/06/20 23:17 63 14 03/06/20 23:16 63 14 Pulse Ox 03/07/20 09:02 03/07/20 07:53 98 03/07/20 07:31 03/07/20 07:17 98 03/07/20 03:52 92 03/07/20 02:59 95 03/07/20 02:57 95 03/07/20 02:48 03/06/20 23:31 97 03/06/20 23:17 94 03/06/20 23:16 94 Resident Activity Tracking Resident Involvement: Resident Care Provided Care Provided: Adult Hospital Medicine (1) CHF (congestive heart failure) Heart failure chronicity: acute on chronic Heart failure type: unspecified Qualified Code(s): I50.9 - Heart failure, unspecified
--- NOTE | 2020-03-07 11:50 | Nephrology Progress Note ---
Date of Service March 07, 2020 Assessment & Plan (1) Acute kidney injury: Renal function has been worsening over last 2-3 months. LATRICE most likely secondary to CRS -- no clear trigger for LATRICE otherwise. Renal US does not demonstrate evidence of obstruction. UA/microscopy with no proteinuria but hematuria most likely related to catheter trauma. Tunneled dialysis catheter and 1st dialysis treatment on 03/05/2020. No improvement in renal function or urine output. --Hemodialysis today 3.5 hours, 3 K bath, plan for UF 2 liter. --Consult case management to set up outpatient dialysis at [facility]. --Renvela 800 mg t.i.d. with meal, nephro caps once a day. --Strictly monitor I/O's will be strictly monitored. --Left arm nephrology precaution. --Medications are currently appropriately dosed for kidney function (2) CKD (chronic kidney disease), stage IV: Baseline creatinine ~2.4 mg/dL. CKD attributed to microvascular disease and a history of ATN. Kidneys normal appearing with small non obstructing stones. Urine bland and acellular. (3) Acute on chronic heart failure with preserved ejection fraction: Appreciate cardiology consultation. Remains in a negative fluid balance. UF goal 2 L today. (4) Aortic stenosis: TTE reviewed. Plan of care discussed with Dr. Rubio. No intervention planned at this time. (5) Hypercapnia: Admission and Anticipated Discharge Date Admission Date: March 02, 2020 Subjective No acute events overnight. Sarah was seen and evaluated during hemodialysis this AM. She was tolerating HD well. Mental status appears to be waxing and waning but she did answer questions appropriately for me. She expressed frustration and confusion as to not fully understanding her condition. She notes that her breathing has improved. There have been no fevers. Urine output remains oliguric with bloody urine in the Dinero bag. Oozing of blood noted from around the TDC exit site as well. Qb acceptable. Review of Systems Review of Systems: All systems reviewed & are unremarkable except as noted in HPI & below Physical Exam Constitutional: well developed; no acute distress Eyes: no scleral abnormality and no corneal abnormality ENMT: Mouth: + dry oral mucous membranes; no oral mucosal abnormality Neck: normal visual inspection and trachea midline Respiratory: normal respiratory effort; no labored breathing Auscultation: lungs clear to auscultation bilaterally Cardiovascular: Rate/Rhythm: regular rate and + bradycardic Heart Sounds: normal S1, normal S2 and + murmur Extremities: + edema (significantly improved since my evaluation earlier in the week) Gastrointestinal (Abdomen): Percussion/Palpation: abdomen soft; abdomen nontender Musculoskeletal: Extremities: no cyanosis and no clubbing Skin: normal turgor; no lesions Neurologic: Motor/Sensory: no tremor and no asterixis Psychiatric: Orientation: alert and oriented x 3 Results & Data ([facility]) Vital Signs (Past 12 Hours) Vital Signs Temp Pulse Pulse Pulse Resp BP BP 03/07/20 11:20 60 132/51 L 03/07/20 11:00 60 118/40 L 03/07/20 10:40 51 L 107/61 03/07/20 10:20 60 109/42 L 03/07/20 10:00 60 111/47 L 03/07/20 09:40 60 117/58 L 03/07/20 09:20 60 126/49 L 03/07/20 09:02 36.6 C 61 03/07/20 07:53 36.7 C 66 18 132/54 L 03/07/20 07:31 69 03/07/20 07:17 64 18 03/07/20 03:52 36.6 C 60 18 95/56 L 03/07/20 02:59 60 26 H 03/07/20 02:57 60 26 H 03/07/20 02:48 60 Pulse Ox 03/07/20 11:20 03/07/20 11:00 03/07/20 10:40 03/07/20 10:20 03/07/20 10:00 03/07/20 09:40 03/07/20 09:20 03/07/20 09:02 03/07/20 07:53 98 03/07/20 07:31 03/07/20 07:17 98 03/07/20 03:52 92 03/07/20 02:59 95 03/07/20 02:57 95 03/07/20 02:48 Laboratory Results Laboratory Results - last 24 hr 03/06/20 03/06/20 03/07/20 17:01 20:48 06:05 WBC RBC Hgb Hct MCV MCH MCHC RDW Std Deviation RDW Coeff of Desiree Plt Count MPV Immature Gran % (Auto) Neut % (Auto) Lymph % (Auto) [place] % (Auto) Eos % (Auto) Baso % (Auto) Neut # (Auto) Lymph # (Auto) [place] # (Auto) Eos # (Auto) Baso # (Auto) Immature Gran # (Auto) ABG pH ABG pCO2 ABG pO2 ABG HCO3 ABG O2 Saturation ABG Base Excess Stephen Test Barometric Pressure Oxygen Given Sodium 138 Potassium 4.4 D Chloride 103 Carbon Dioxide 33 H Anion Gap 2.0 L BUN 43 H Creatinine 3.37 H D Est Cr Clr Drug Dosing 14.2 Est GFR ( Amer) 14.5 Est GFR (Non-Af Amer) 12.5 BUN/Creatinine Ratio 12.6 Glucose 75 POC Glucose 110 H 146 H Calcium 7.7 L Phosphorus 3.8 D Albumin 2.0 L 03/07/20 03/07/20 03/07/20 06:33 07:13 07:29 WBC 10.64 RBC 2.87 L Hgb 9.8 L Hct 31.3 L MCV 109.1 H MCH 34.1 H MCHC 31.3 L RDW Std Deviation 55.9 H RDW Coeff of Desiree 14.1 Plt Count 153 MPV 10.8 H Immature Gran % (Auto) 0.2 Neut % (Auto) 84.2 Lymph % (Auto) 6.3 [place] % (Auto) 8.0 Eos % (Auto) 1.1 Baso % (Auto) 0.2 Neut # (Auto) 8.96 H Lymph # (Auto) 0.67 L [place] # (Auto) 0.85 H Eos # (Auto) 0.12 Baso # (Auto) 0.02 Immature Gran # (Auto) 0.02 ABG pH 7.30 L ABG pCO2 57 H ABG pO2 82 ABG HCO3 27 H ABG O2 Saturation 95.4 H ABG Base Excess 0.5 Stephen Test Pos Barometric Pressure 735.0 Oxygen Given 2L Sodium Potassium Chloride Carbon Dioxide Anion Gap BUN Creatinine Est Cr Clr Drug Dosing Est GFR ( Amer) Est GFR (Non-Af Amer) BUN/Creatinine Ratio Glucose POC Glucose 74 Calcium Phosphorus Albumin PG Care Time/CCT Total # of Minutes Spent Total Time Spent with Patient: Total time spent is greater than 50% in coordination of care (as documented) at patient's floor/unit and/or counseling patient: Coding Level of Care Code 72216 Subseq Hosp Care Lvl 3 Diagnoses Acute kidney injury N17.9 CKD (chronic kidney disease), stage IV N18.4 Acute on chronic heart failure with preserved ejection fraction I50.33 Aortic stenosis I35.0 Hypercapnia R06.89
--- NOTE | 2020-03-07 17:08 | Billing Data ---
Date of Service March 07, 2020 Coding Level of Care Code 87707 Subseq Hosp Care Lvl 3
[2020-03-07] MEDS: LIDOCAINE 5% 1 PATCH TD SCH (20:03)
[2020-03-08] MEDS: ALBUT/IPRATROP 3MG/0.5MG NEB 3 ML VIAL NEB SCH ×6 (02:12→23:11)
[2020-03-08 07:28] LABS: Basophils # (auto) 0.01 K/uL (0-0.2); Basophils % (auto) 0.1 %; Eosinophils # (auto) 0.09 K/uL (0-0.5); Hematocrit (blood only) 30.3 % (37-47); Hemoglobin 9.5 g/dL (12.0-16.0); Immature Granulocytes # (auto) 0.01 K/uL (0.00-0.02); Immature Granulocytes % (auto) 0.1 %; Lymphocytes # (auto) 0.65 K/uL (1.2-3.4); Lymphocytes % (auto) 6.9 %; Mean Corpuscular Hemoglobin 33.7 pg (25-34); Mean Corpuscular Hgb Conc 31.4 g/dL (32-36); Mean Corpuscular Volume 107.4 fL (80-100); Mean Platelet Volume 10.2 fL (7.4-10.4); Monocytes # (auto) 0.93 K/uL (0.11-0.59); Monocytes % (auto) 9.9 %; Platelet Count 138 K/uL (130-400); RDW Coefficient of Variation 13.9 % (11.5-14.5); RDW Standard Deviation 55.3 fL (36.4-46.3); Red Blood Count 2.82 M/uL (4.2-5.4); White Blood Count 9.39 K/uL (4.8-10.8)
[2020-03-08 07:50] LABS: Base Excess ABG 2.4 mEq/L (-9-1.8); HCO3 ABG 29 mmol/L (19-24); Oxygen Saturation ABG 93.7 % (90-95); PCO2 ABG 60 mmHg (35-46); PO2 ABG 71 mmHg (80-95); pH ABG 7.31 (7.35-7.45)
[2020-03-08 07:50] LABS: BUN Creatinine Ratio 9.3 (10-20); Calcium 7.7 mg/dl (8.5-10.1); Est GFR (African American) 15.8; Est GFR (Non-African American) 13.7; Potassium 4.2 mmol/L (3.5-5.1)
[2020-03-08] MEDS: POLYETHYLENE (MIRALAX) 17 GM PACK PO SCH ×2 (08:49→21:09)
[2020-03-08] MEDS: APIXABAN 2.5 MG TAB PO SCH ×2 (08:49→21:09)
[2020-03-08] MEDS: ISOSORBIDE MONO EXTENDED REL 60 MG TABCR PO SCH (08:50)
[2020-03-08] MEDS: AMIODARONE 200 MG TAB PO SCH (08:50)
[2020-03-08] MEDS: SEVELAMER HCL 800 MG TABLET PO SCH ×3 (08:50→17:07)
[2020-03-08] MEDS: CHOLECALCIFEROL 1,000 UNITS 25 MCG TAB PO SCH (08:50)
[2020-03-08] MEDS: METOPROLOL SUCC 50MG EXT REL TAB PO SCH (08:50)
[2020-03-08] MEDS: ATORVASTATIN 40 MG TAB PO SCH (08:50)
[2020-03-08] MEDS: FERROUS SULFATE 325 MG TAB PO SCH ×2 (08:50→21:09)
[2020-03-08] MEDS: NEPHROCAPS PO SCH (08:50)
[2020-03-08] MEDS: DICLOFENAC SOD 1% GEL 100 GM TUBE EXT SCH ×3 (08:51→21:12)
[2020-03-08] MEDS: CEROVITE ADV FORMULA TAB PO SCH (08:51)
[2020-03-08 09:29] LABS: Allen Test Pos (Pos)
[2020-03-08] MEDS: INSULIN ASPART 100 UNITS/ML 3 ML PEN SC SCH ×4 (09:30→21:54)
--- NOTE | 2020-03-08 11:26 | Nephrology Progress Note ---
Date of Service March 08, 2020 Assessment & Plan (1) Acute kidney injury: Renal function has been worsening over last 2-3 months. LATRICE most likely secondary to CRS -- no clear trigger for LATRICE otherwise. Renal US does not demonstrate evidence of obstruction. UA/microscopy with no proteinuria but hematuria most likely related to catheter trauma. Tunneled dialysis catheter placement as well as 1st dialysis treatment completed on 03/05/2020. No improvement in renal function or urine output. -- 3rd HD treatment completed yesterday with excellent clearance. -- BP, volume status, and electrolytes are currently acceptable. -- No HD today. -- Monitor for evidence of renal recovery. -- Sarah is receiving HD for LATRICE. -- Renvela 800 mg t.i.d. with meal, nephro caps once a day. -- Medications are currently appropriately dosed for kidney function. -- Repeat metabolic profile tomorrow AM. (2) CKD (chronic kidney disease), stage IV: Baseline creatinine ~2.4 mg/dL. CKD attributed to microvascular disease and a history of ATN. Kidneys normal appearing with small non obstructing stones. Urine bland and acellular. (3) Acute on chronic heart failure with preserved ejection fraction: Appreciate cardiology consultation. Remains in a negative fluid balance. (4) Aortic stenosis: (5) Hypercapnia: Evaluation ongoing. Remains on BIPAP PRN, as tolerated. Debility contributing but etiology not entirely clear. However, component of volume overload reasonably treated. Admission and Anticipated Discharge Date Admission Date: March 02, 2020 Subjective No acute events overnight. Tolerated HD yesterday without complications. Net UF 2 L. Volume status acceptable today. Sarah was out of bed to chair. She notes significant weakness but improved breathing. No fevers or chills. Review of Systems Review of Systems: All systems reviewed & are unremarkable except as noted in HPI & below Physical Exam Constitutional: well developed; no acute distress Eyes: no scleral abnormality and no corneal abnormality ENMT: Mouth: no oral mucosal abnormality and oral mucous membranes not dry Neck: normal visual inspection and trachea midline Respiratory: normal respiratory effort; no labored breathing Auscultation: lungs clear to auscultation bilaterally Cardiovascular: Rate/Rhythm: regular rate and + bradycardic Heart Sounds: normal S1, normal S2 and + murmur Extremities: + edema Gastrointestinal (Abdomen): Percussion/Palpation: abdomen soft; abdomen nontender Musculoskeletal: Extremities: no cyanosis and no clubbing Skin: normal turgor; no lesions Neurologic: Motor/Sensory: no tremor and no asterixis Psychiatric: Orientation: alert and oriented x 3 Results & Data ([facility]) Vital Signs (Past 12 Hours) Vital Signs Temp Pulse Pulse Resp BP Pulse Ox 03/08/20 11:10 66 20 98 03/08/20 08:05 36.9 C 69 19 109/71 94 03/08/20 07:25 82 16 98 03/08/20 07:10 63 03/08/20 03:38 36.8 C 78 16 100/62 97 03/08/20 03:28 36.7 C 66 17 99 03/08/20 02:14 66 16 98 03/07/20 23:40 37.6 C H 63 20 123/73 97 Laboratory Results Laboratory Results - last 24 hr 03/07/20 03/07/20 03/07/20 12:41 16:39 20:55 WBC RBC Hgb Hct MCV MCH MCHC RDW Std Deviation RDW Coeff of Desiree Plt Count MPV Immature Gran % (Auto) Neut % (Auto) Lymph % (Auto) [place] % (Auto) Eos % (Auto) Baso % (Auto) Neut # (Auto) Lymph # (Auto) [place] # (Auto) Eos # (Auto) Baso # (Auto) Immature Gran # (Auto) ABG pH ABG pCO2 ABG pO2 ABG HCO3 ABG O2 Saturation ABG Base Excess Stephen Test Barometric Pressure Oxygen Given Sodium Potassium Chloride Carbon Dioxide Anion Gap BUN Creatinine Est Cr Clr Drug Dosing Est GFR ( Amer) Est GFR (Non-Af Amer) BUN/Creatinine Ratio Glucose POC Glucose 92 111 H 93 Calcium Phosphorus Albumin 03/08/20 03/08/20 03/08/20 07:09 07:09 07:15 WBC 9.39 RBC 2.82 L Hgb 9.5 L Hct 30.3 L MCV 107.4 H MCH 33.7 MCHC 31.4 L RDW Std Deviation 55.3 H RDW Coeff of Desiree 13.9 Plt Count 138 MPV 10.2 Immature Gran % (Auto) 0.1 Neut % (Auto) 82.0 Lymph % (Auto) 6.9 Terry % (Auto) 9.9 Eos % (Auto) 1.0 Baso % (Auto) 0.1 Neut # (Auto) 7.70 H Lymph # (Auto) 0.65 L Terry # (Auto) 0.93 H Eos # (Auto) 0.09 Baso # (Auto) 0.01 Immature Gran # (Auto) 0.01 ABG pH 7.31 L ABG pCO2 60 H ABG pO2 71 L ABG HCO3 29 H ABG O2 Saturation 93.7 ABG Base Excess 2.4 H Stephen Test Pos Barometric Pressure 734.1 Oxygen Given 2L Sodium 139 Potassium 4.2 Chloride 104 Carbon Dioxide 31 Anion Gap 5.0 BUN 29 H Creatinine 3.13 H Est Cr Clr Drug Dosing 15.0 Est GFR ( Amer) 15.8 Est GFR (Non-Af Amer) 13.7 BUN/Creatinine Ratio 9.3 L Glucose 81 POC Glucose Calcium 7.7 L Phosphorus 3.0 Albumin 2.0 L 03/08/20 07:37 WBC RBC Hgb Hct MCV MCH MCHC RDW Std Deviation RDW Coeff of Desiree Plt Count MPV Immature Gran % (Auto) Neut % (Auto) Lymph % (Auto) [place] % (Auto) Eos % (Auto) Baso % (Auto) Neut # (Auto) Lymph # (Auto) [place] # (Auto) Eos # (Auto) Baso # (Auto) Immature Gran # (Auto) ABG pH ABG pCO2 ABG pO2 ABG HCO3 ABG O2 Saturation ABG Base Excess Stephen Test Barometric Pressure Oxygen Given Sodium Potassium Chloride Carbon Dioxide Anion Gap BUN Creatinine Est Cr Clr Drug Dosing Est GFR ( Amer) Est GFR (Non-Af Amer) BUN/Creatinine Ratio Glucose POC Glucose 79 Calcium Phosphorus Albumin PG Care Time/CCT Total # of Minutes Spent Total Time Spent with Patient: Total time spent is greater than 50% in coordination of care (as documented) at patient's floor/unit and/or counseling patient: Coding Level of Care Code 06948 Subseq Hosp Care Lvl 3 Diagnoses Acute kidney injury N17.9 CKD (chronic kidney disease), stage IV N18.4 Acute on chronic heart failure with preserved ejection fraction I50.33 Aortic stenosis I35.0 Hypercapnia R06.89
--- NOTE | 2020-03-08 18:06 | Hospitalist Progress Note ---
Date of Service March 08, 2020 Assessment & Plan (1) Hypercapnic respiratory failure: Sarah Wyatt is a 75 y/o female with severe aortic stenosis and CKD who presents to the ER with worsening SOB, weight gain and leg swelling. EKG in ED: NSR 60 bpm, RBBB CXR 03/02: Small to moderate b/l pleural effusions with associated bibasilar opacities that could reflect atelectasis or consolidation. Radiographic f/u is recommended. Cardiomegaly with mild interstitial pulmonary edema. Acute respiratory failure - mixed both hypoxic and hypercapnic - Patient does not carry a diagnosis that would cause hypercapnea. ? occult COPD vs FRANKLYN/weakness mediated. - Hypoxic component likely pulmonary edema/acute on chronic HFpEF mediated - Continuing pulmonary toilet/nebs - Continue BiPAP qhs and prn - Intermittently refusing bipap. Ongoing discussions regarding necessity of bipap. Multiple discussion re: goals of care with patient attempted as well as family members. Based on conversation with daughterLibertad, on 03/07, will have further conversations about goals of care tomorrow after she is able to speak with her sister. Currently needing to discuss goals for quality of life and prolonged intervention measures (e.g. BiPAP and dialysis). - Patient very lucid today; long discussion regarding goals of care. Patient states that she "is not ready to yet." She would like to pursue dialysis for management of the CKD and BiPap qhs for chronic hypercapnea (? FRANKLYN vs COPD vs weakness mediated) - Long discussion also with daughter, Libertad, over the phone on 03/08 --> updated on my conversation with patient today; she is in full agreement with patient's current goals of care. Is aware that patient will likely not be able to return home (or to daughter's home) and that a rehab/SNF will likely be needed for transitional care. Plan to work with case management and therapy tomorrow for further evaluation and goal-planning. - Have been following ABGs daily; will hold tomorrow morning; if patient is confused, use BiPAP prn --> if confusion does not improve with BiPAP would then repeat ABG - Depending on how she progresses, may need PFTs or polysomnography as outpatient - Pulmonology consulted; appreciate their recommendations Acute on Chronic HFpEF - GINA 03/03/20: Left ventricular systolic function is normal. No regional wall motion abnormalities noted. There is severe concentric left ventricular hypertrophy. LVEF 60-65%. Moderate to severe valvular aortic stenosis. There is mild mitral stenosis. There is mild mitral regurgitation. There is mild to moderate tricuspid regurgitation. Compared with study of 08/07/2015, aortic stenosis has progressed. - and CKD mediated - Attempting to diurese - w progression of CKD, not affecting much negative fluid balance - see nephro notes - may need dialysis - Continue med management as possible - Continue supportive care - Strict I&Os and daily weights - Cardiology consulted; appreciate their recommendations CKD - appearing to probably have progressed to ESRD - Current GFR around 9. Trending BMP - Renal US 03/02: no hydronephrosis, moderate b/l cortical renal thinning/scarring, unchanged. B/l nephrolithiasis. Normal bladder - Possibly some of her mentation is uremic. Agree w nephro and cardiology that at this point HD is pretty reasonable. - Failed med management. - Patient had permacath placement 03/05/20 w/ first dialysis session x3 hours on 03/05 - Dialysis continued on 03/06 - Nephrology has been consulted; appreciate their recommendations - Continue dialysis as indicated and recommended per nephro - Dose medication for GFR < 10 Metabolic Encephalopathy on admission - Definitely related to respiratory acidosis/hypercapnea, possibly related to uremia Macrocytic anemia - Continue B12, folate - SPEP, retic count in AM. DM (diabetes mellitus) - HbA1C 5.5 on labs in August 2019 - Hold sitagliptin - unclear if needs this going forward - Will use Novolog for correction factor only Paroxysmal atrial fibrillation - Rhythm control with amiodarone 200mg PO QAM - Anticoagulation with apixaban Hyperlipidemia Continue home atorvastatin 40mg po daily Hypertension Continue home metoprolol 200mg po daily, Imdur 60mg qAM TIA Sxs resolved yesterday after having episode of focal weakness, slurred speech, etc. - Will consult neurology: per neuro recommendations, TIA: ischemic stroke workup with MRI and FLP when medically stable; Consult ST/OT/PT DVT prophylaxis Continue home apixaban 2.5mg PO BID (2) CKD (chronic kidney disease), stage IV: (3) Aortic stenosis: (4) CHF (congestive heart failure): Admission and Anticipated Discharge Date Admission Date: March 02, 2020 Supervising Physician Co-Signing Physician Notes I personally examined the patient and verified all brown points of history and exam, discussed case, and agree with decision making with Dr Powell. awake and alert just fatigued. really doesn't like bipap mask - but when discussing goals of care and that with how compromised her breathing is, stopping bipap is essentially a "hospice type decision" she notes that she's not ready to move in that direction yet. see below as wel. acute respiratory failure - mixed both hypoxic and hypercapnic -hypoxic likely pulmonary edema/acute on chronic HFpEF mediated (although not entirely clear if vs CKD bigger culprit - most likely elements of both). -hypercapnic more troubling since she does not appear to carry a dx that would cause hypercapnea. ?occult COPD vs FRANKLYN/weakness mediated (see below for management) - appreciate pulm input -ongoing fluid management and bipap / highly likely to need bipap for home acute on chronic HFpEF - and CKD mediated. failed attempts at med management - HD ongoing hypercapnea - as above noted, dx driving this not overtly clear but appearing either to be weakness overall, or an FRANKLYN/OHS pattern (or both) -this afternoon appearing somewhat delirious as she has when she is more hypercapnic - concerning since she's not been off bipap too long- repeat ABG to assess how quickly/how severely she becomes hypercapnic -nebs/pulmonary toilet -possibly just driven by overall weakness and decline (and delirium) maybe all lessening respiratory drive and causing worsening respiratory muscle weakness vs related to true but occult lung disease -depending on how she progresses, may need PFTs as outpt -continues to need bipap more or less nonstop - see below under goals of care - so highly likely to need bipap once she is set up for discharge CKD - appearing to probably have progressed to ESRD - HD ongoing metabolic encephalopathy - definitely related to respiratory acidosis/hypercapnea, possibly related to uremia, hospital environment, showing waxing and waning DVT proph - on eliquis TIA - appreciate neuro input goals of care / disposition - she was more lucid today and was able to discuss situation. frankly addressed the cardiac/pulmonary/renal problems leading to her acute on what is clearly chronic illness burden that she now faces. discussed what we're currently doing for management. discussed her dislike of bipap and the fact that it would be totally OK to decline it - but that in doing so would essentially be an end-of-life decision (defined it as a "hospice kind of decision" and in so describing she expressed understanding) and that i would not want her to make such a decision "by accident" but if she does so deliberately and willfully, then it would be ok. after considering this, she expressed that she is aware that she is quite ill (and far more than she thought she was) but that she is not yet ready to stop aggressive medical treatment. discussed in that respect that once she is out of the hospital, different bipap masks can be attempted and hopefully one will be found that is more comfortable. -as far as disposition - it will largely depend on the ongoing focus of her goals of care. she does want to get home with her family, but her needs are so high that should she continue to want fully aggressive care, she likely will need to go to a facility. at the same time, her goals of care may well end up that she wants care as aggressive as can be done at home, even if it's not optimal for her medical conditions. mostly her ongoing stay in the hospital will be driven by the duration of this initial run of HD treatments, and then ensuring that she has bipap wherever she goes after she is leaving the hospital (so if home - would need overnight pulse ox and AM ABG within about 24hrs of discharge) otherwise as above Subjective Patient seen and evaluated in room this morning. Patient is very lucid during examination this morning and states "I didn't know I was this sick." She reports fatigue but states that she is overall feeling better. Patient with no complaints of SOB, cough, or CP. Eating well without nausea or vomiting. Review of Systems Constitutional: + fatigue; no fever and no chills Respiratory: no cough and no dyspnea Cardiovascular: no chest pain Gastrointestinal: no abdominal pain, no nausea and no vomiting Physical Exam Physical Exam: GENERAL: Vital signs reviewed as above. Patient appears fatigued but is awake and alert. She is sitting upright in a chair at bedside this morning. EYES: EOMI. Anicteric sclerae. HENT: Dry mucous membranes. RESPIRATORY: Decreased breath sounds throughout lung isabel. No wheezing, rales, or rhonchi noted on exam today. CARDIOVASCULAR: Irregularly irregular rhythm. Normal rate. 3/6 YANET. NEUROLOGIC: A/O x3. Intermittently confused. PSYCHIATRIC: Cooperative. Appropriate mood and affect. Results & Data Results & Data ([facility]) Vital Signs (Past 12 Hours) Vital Signs Temp Pulse Pulse Resp BP Pulse Ox 03/08/20 15:37 63 18 99 03/08/20 15:07 37 C 87 18 103/67 90 03/08/20 14:48 65 03/08/20 11:10 66 20 98 03/08/20 08:05 36.9 C 69 19 109/71 94 03/08/20 07:25 82 16 98 03/08/20 07:10 63 Resident Activity Tracking Resident Involvement: Resident Care Provided Care Provided: Adult Hospital Medicine (1) CHF (congestive heart failure) Heart failure chronicity: acute on chronic Heart failure type: unspecified Qualified Code(s): I50.9 - Heart failure, unspecified
--- NOTE | 2020-03-08 18:35 | Billing Data ---
Date of Service March 08, 2020 Coding Level of Care Code 00006 Subseq Hosp Care Lvl 3
[2020-03-08] MEDS: LIDOCAINE 5% 1 PATCH TD SCH (21:10)
[2020-03-09] MEDS: ALBUT/IPRATROP 3MG/0.5MG NEB 3 ML VIAL NEB SCH ×6 (02:19→23:10)
[2020-03-09 06:29] LABS: Albumin Level 2.1 gm/dl (3.4-5.0); BUN Creatinine Ratio 9.4 (10-20); Calcium 7.8 mg/dl (8.5-10.1); Creatinine Clr Calc Pharmacy 12.6 ml/min; Est GFR (African American) 12.8; Phosphorus 3.5 mg/dl (2.5-4.9); Potassium 4.5 mmol/L (3.5-5.1)
--- NOTE | 2020-03-09 07:11 | Hospitalist Progress Note ---
Date of Service March 09, 2020 Assessment & Plan (1) Hypercapnic respiratory failure: Sarah Wyatt is a 75-year-old female with severe and CKD who presented to ED with worsening dyspnea, weight gain, and leg swelling, subsequently found to have mixed acute hypoxic and hypercapnic respiratory failure, nnysb-[id number] HFpEF, and CKD IV + LATRICE requiring dialysis. She is hemodynamically stable. Acute respiratory failure - mixed both hypoxic and hypercapnic - Clinically, patient continues to demonstrate an adequate baseline respiratory status: reports no subjective shortness of breath this AM, and SpO2s trending between 94-100% on 1-2L NC. - Likely 2/2 [id number] HFpEF exacerbation for the hypoxic component - Hypercapnic contribution discovered on ABGs is without clear etiology: ?FRANKLYN, ?obesity hyperventilation syndrome, ?underlying COPD, ? generalized weakness - Continue BiPAP HS/PRN -- if patient is confused, utilize BiPAP, repeat ABG (scheduled ABG's discontinued) - Pulmonology consulted 03/05: BiPAP PRN, fluid management Crzhd-ba-Tkvhsbo HFpEF - Likely 2/2 severe aortic stenosis and CKD --> ESRD - Clinically showing adequate respiratory compensation right now -- see above - GINA demonstrated progression of (from 07/28/15), severe concentric LVH, LVEF 60-65% - Fluid balance today +540 with little output -- likely d/t progression of CKD - Now requiring dialysis with CKD + LATRICE, aiding with fluid management - Continue strict I&Os, daily weights - Cardiology following ESRD -- now requiring HD - Baseline creatinine usually around ~2.4 mg/dL -- CKD likely attributable to microvascular disease and h/o ATN - Progressive worsening in renal function likely attributable to cardiorenal syndrome, per nephrology -- failed medication-attempted management at this point - S/P permacath placement on 03/05 - Nephrology following, appreciate recs: - HD due today -- anticipate outpatient HD upon d/c - Will require renally-dosed medications (for GFR < 10) - Continue to discuss goals of care moving forward - [facility] Goals of Care - Should continue to discuss goals of care for moving forward: patient has made stepwise decrease in functioning and overall health status prior to admission, and will likely require outpatient HD and possibly more intensive medical management (including O2 therapy) - Based on discussions with previous care team, daughter - Libertad - and patient are aware she will likely not be able to return home immediately, and will more likely need rehab/SNF alongside transitional care - Continue to work with family, case management in determining most appropriate steps for moving forward - Consider palliative consult moving forward pending family and patient goals Macrocytic anemia - Continue B12, folate as scheduled - Likely has component from CKD IV, possibly now fitting more of an ESRD-like picture - Await SPEP results DM (diabetes mellitus) - HbA1C 5.5 on labs in August 2019 - Hold sitagliptin - unclear if needs this going forward - Will use Novolog for correction factor only Paroxysmal atrial fibrillation - Rhythm control with amiodarone 200mg PO QAM - Anticoagulation with apixaban Hyperlipidemia Continue home atorvastatin 40mg po daily Hypertension Continue home metoprolol 200mg po daily, Imdur 60mg qAM TIA - Neurology consulted 03/04 after episode of focal weakness, slurred speech - CT did not demonstrate any acute intracranial findings - Continue vascular therapy -- HTN, HLD treatments as above - Recommended TIA work-up when stable: MRI, FLP -- consider PT/OT/ST Metabolic Encephalopathy (resolved) - Noted on admission - Likely d/t respiratory acidosis/hypercapnia, likely related to uremia due to CKD with LATRICE Dispo: Med-surg with tele -- see goals of care above for dispo planning purposes PPX: Eliquis 2.5mg PO b.i.d. F/E/N: Heart healthy, DM2, low sodium, dialysis Code: FULL CODE (2) CKD (chronic kidney disease), stage IV: (3) Aortic stenosis: (4) CHF (congestive heart failure): Admission and Anticipated Discharge Date Admission Date: March 02, 2020 Supervising Physician Co-Signing Physician Notes Resident Physician Supervision Note: I independently interviewed and examined the patient and verified the brown history and physical, reviewed labs and image studies, discussed the case with the resident Dr. Rod and agree with the findings and care plan. Subjective NAEO. Reports feeling well overall this morning. Still does endorse fatigue, but denies any pain, chest discomfort, pressure, or shortness of breath. Reports having a good appetite. Due for HD today. No other questions/concerns. Review of Systems Review of Systems: as per HPI Physical Exam Constitutional: Tired-appearing 75 year old female who is freely conversive, but slow to respond to questions. Alert and oriented throughout our conve rsation. NAD. Respiratory: Normal respiratory effort with symmetric expansion of the chest. Lungs demonstrate mild crackles in LLL region, but not elsewhere. Cardiovascular: Normal rate, regular rhythm. S1 and S2 present. Significant grade 3/6 systolic ejection murmur best heard at RUSB. Otherewise, no other m/r/g. Gastrointestinal (Abdomen): normal bowel sounds, soft, nontender, no hepatosplenomegaly Results & Data Results & Data ([facility]) Vital Signs (Past 12 Hours) Vital Signs Temp Pulse Pulse Resp BP Pulse Ox 03/09/20 04:00 36.6 C 63 22 104/58 L 94 03/09/20 02:23 65 20 95 03/09/20 01:17 64 03/08/20 23:13 63 63 24 99 03/08/20 22:18 36.6 C 64 18 114/52 L 95 03/08/20 19:13 62 16 92 Resident Activity Tracking Resident Involvement: Resident Care Provided Care Provided: Adult Hospital Medicine (1) CHF (congestive heart failure) Heart failure chronicity: acute on chronic Heart failure type: unspecified Qualified Code(s): I50.9 - Heart failure, unspecified
[2020-03-09] MEDS: APIXABAN 2.5 MG TAB PO SCH ×2 (08:26→20:34)
[2020-03-09] MEDS: POLYETHYLENE (MIRALAX) 17 GM PACK PO SCH ×2 (08:26→20:33)
[2020-03-09] MEDS: ATORVASTATIN 40 MG TAB PO SCH (08:26)
[2020-03-09] MEDS: CEROVITE ADV FORMULA TAB PO SCH (08:26)
[2020-03-09] MEDS: METOPROLOL SUCC 50MG EXT REL TAB PO SCH (08:26)
[2020-03-09] MEDS: CHOLECALCIFEROL 1,000 UNITS 25 MCG TAB PO SCH (08:26)
[2020-03-09] MEDS: NEPHROCAPS PO SCH (08:26)
[2020-03-09] MEDS: SEVELAMER HCL 800 MG TABLET PO SCH ×3 (08:27→17:00)
[2020-03-09] MEDS: FERROUS SULFATE 325 MG TAB PO SCH ×2 (08:27→20:36)
[2020-03-09] MEDS: AMIODARONE 200 MG TAB PO SCH (08:27)
[2020-03-09] MEDS: ISOSORBIDE MONO EXTENDED REL 60 MG TABCR PO SCH (08:27)
[2020-03-09] MEDS: DICLOFENAC SOD 1% GEL 100 GM TUBE EXT SCH ×3 (08:28→20:33)
[2020-03-09] MEDS: INSULIN ASPART 100 UNITS/ML 3 ML PEN SC SCH ×4 (09:12→20:31)
--- NOTE | 2020-03-09 10:13 | Nephrology Progress Note ---
Date of Service March 09, 2020 Assessment & Plan (1) Acute kidney injury: Renal function has been worsening over last 2-3 months. LATRICE most likely secondary to CRS -- no clear trigger for LATRICE otherwise. Renal US does not demonstrate evidence of obstruction. UA/microscopy with no proteinuria but hematuria most likely related to catheter trauma. Tunneled dialysis catheter placement as well as 1st dialysis treatment completed on 03/05/2020. No improvement in renal function or urine output. -- Orders for HD today entered into EMR and reviewed with HD nurse. -- UF goal 1.2-2 L as tolerated. -- BP, volume status, and electrolytes are currently acceptable. -- Sarah is receiving HD for LATRICE. Please coordinate appropriately for outpatient HD at discharge. -- Renvela 800 mg t.i.d. with meal, nephro caps once a day. -- Medications are currently appropriately dosed for kidney function. -- Repeat metabolic profile tomorrow AM. (2) CKD (chronic kidney disease), stage IV: Baseline creatinine ~2.4 mg/dL. CKD attributed to microvascular disease and a history of ATN. Kidneys normal appearing with small non obstructing stones. Urine bland and acellular. (3) Acute on chronic heart failure with preserved ejection fraction: I reviewed the plan of care with Dr. Rubio this AM. (4) Aortic stenosis: (5) Hypercapnia: Per primary team. Admission and Anticipated Discharge Date Admission Date: March 02, 2020 Subjective No acute events overnight. Weakness persists but Sarah otherwise feels well. Denies significant dyspnea at rest. No chest pain or palpitations. Review of Systems Review of Systems: All systems reviewed & are unremarkable except as noted in HPI & below Physical Exam Constitutional: well developed; no acute distress Eyes: no scleral abnormality and no corneal abnormality ENMT: Mouth: no oral mucosal abnormality and oral mucous membranes not dry Neck: normal visual inspection and trachea midline Respiratory: normal respiratory effort; no labored breathing Auscultation: lungs clear to auscultation bilaterally Cardiovascular: Rate/Rhythm: regular rate and + bradycardic Heart Sounds: normal S1, normal S2 and + murmur Extremities: + edema Gastrointestinal (Abdomen): Percussion/Palpation: abdomen soft; abdomen nontender Musculoskeletal: Extremities: no cyanosis and no clubbing Skin: normal turgor; no lesions Neurologic: Motor/Sensory: no tremor and no asterixis Psychiatric: Orientation: alert and oriented x 3 Results & Data ([facility]) Vital Signs (Past 12 Hours) Vital Signs Temp Pulse Pulse Resp BP Pulse Ox 03/09/20 07:53 36.8 C 66 16 100/53 L 91 03/09/20 07:50 77 20 98 03/09/20 07:15 74 03/09/20 04:00 36.6 C 63 22 104/58 L 94 03/09/20 02:23 65 20 95 03/09/20 01:17 64 03/08/20 23:13 63 63 24 99 03/08/20 22:18 36.6 C 64 18 114/52 L 95 Laboratory Results Laboratory Results - last 24 hr 03/08/20 03/08/20 03/08/20 11:39 16:46 20:34 Sodium Potassium Chloride Carbon Dioxide Anion Gap BUN Creatinine Est Cr Clr Drug Dosing Est GFR ( Amer) Est GFR (Non-Af Amer) BUN/Creatinine Ratio Glucose POC Glucose 103 H 131 H 114 H Calcium Phosphorus Albumin 03/09/20 03/09/20 05:40 07:40 Sodium 137 Potassium 4.5 Chloride 101 Carbon Dioxide 32 Anion Gap 4.0 BUN 35 H Creatinine 3.74 H D Est Cr Clr Drug Dosing 12.6 Est GFR ( Amer) 12.8 Est GFR (Non-Af Amer) 11.0 BUN/Creatinine Ratio 9.4 L Glucose 91 POC Glucose 108 H Calcium 7.8 L Phosphorus 3.5 Albumin 2.1 L PG Care Time/CCT Total # of Minutes Spent Total Time Spent with Patient: Total time spent is greater than 50% in coordination of care (as documented) at patient's floor/unit and/or counseling patient: Coding Level of Care Code 77232 Subseq Hosp Care Lvl 3 Diagnoses Acute kidney injury N17.9 CKD (chronic kidney disease), stage IV N18.4 Acute on chronic heart failure with preserved ejection fraction I50.33 Aortic stenosis I35.0 Hypercapnia R06.89
[2020-03-09] MEDS: LIDOCAINE 5% 1 PATCH TD SCH (20:35)
[2020-03-09] MEDS: MELATONIN 3 MG TAB PO PRN (20:49)
[2020-03-10] MEDS: MoRPHine SULFATE 2 MG/ML CARP IV PRN ×3 (01:09→22:58)
[2020-03-10] MEDS: ALBUT/IPRATROP 3MG/0.5MG NEB 3 ML VIAL NEB SCH ×3 (02:22→11:12)
[2020-03-10 07:08] LABS: Basophils # (auto) 0.02 K/uL (0-0.2); Basophils % (auto) 0.2 %; Eosinophils # (auto) 0.17 K/uL (0-0.5); Hematocrit (blood only) 32.6 % (37-47); Hemoglobin 10.3 g/dL (12.0-16.0); Immature Granulocytes # (auto) 0.02 K/uL (0.00-0.02); Immature Granulocytes % (auto) 0.2 %; Lymphocytes # (auto) 0.51 K/uL (1.2-3.4); Lymphocytes % (auto) 6.1 %; Mean Corpuscular Hemoglobin 33.9 pg (25-34); Mean Corpuscular Hgb Conc 31.6 g/dL (32-36); Mean Corpuscular Volume 107.2 fL (80-100); Mean Platelet Volume 10.2 fL (7.4-10.4); Monocytes # (auto) 0.78 K/uL (0.11-0.59); Monocytes % (auto) 9.3 %; Neutrophils # (auto) 6.89 K/uL (1.4-6.5); Neutrophils % (auto) 82.2 %; Platelet Count 145 K/uL (130-400); RDW Coefficient of Variation 13.6 % (11.5-14.5); RDW Standard Deviation 53.6 fL (36.4-46.3); Red Blood Count 3.04 M/uL (4.2-5.4); White Blood Count 8.39 K/uL (4.8-10.8)
[2020-03-10 07:27] LABS: Albumin Level 2.1 gm/dl (3.4-5.0); BUN Creatinine Ratio 7.8 (10-20); Creatinine Clr Calc Pharmacy 13.8 ml/min; Est GFR (African American) 14.4; Est GFR (Non-African American) 12.5; Phosphorus 3.1 mg/dl (2.5-4.9); Potassium 4.2 mmol/L (3.5-5.1)
[2020-03-10] MEDS: ISOSORBIDE MONO EXTENDED REL 60 MG TABCR PO SCH (08:06)
[2020-03-10] MEDS: CEROVITE ADV FORMULA TAB PO SCH (08:06)
[2020-03-10] MEDS: SEVELAMER HCL 800 MG TABLET PO SCH ×3 (08:06→17:18)
[2020-03-10] MEDS: ATORVASTATIN 40 MG TAB PO SCH (08:06)
[2020-03-10] MEDS: APIXABAN 2.5 MG TAB PO SCH ×2 (08:06→21:11)
[2020-03-10] MEDS: FERROUS SULFATE 325 MG TAB PO SCH ×2 (08:06→21:11)
[2020-03-10] MEDS: AMIODARONE 200 MG TAB PO SCH (08:06)
[2020-03-10] MEDS: CHOLECALCIFEROL 1,000 UNITS 25 MCG TAB PO SCH (08:07)
[2020-03-10] MEDS: DICLOFENAC SOD 1% GEL 100 GM TUBE EXT SCH ×3 (08:07→21:13)
[2020-03-10] MEDS: METOPROLOL SUCC 50MG EXT REL TAB PO SCH (08:07)
[2020-03-10] MEDS: POLYETHYLENE (MIRALAX) 17 GM PACK PO SCH ×2 (08:07→21:11)
[2020-03-10] MEDS: NEPHROCAPS PO SCH (08:07)
[2020-03-10] MEDS: INSULIN ASPART 100 UNITS/ML 3 ML PEN SC SCH ×4 (08:08→21:48)
--- NOTE | 2020-03-10 09:51 | Nephrology Progress Note ---
Date of Service March 10, 2020 Assessment & Plan (1) Acute kidney injury: Renal function has been worsening over last 2-3 months. LATRICE most likely secondary to CRS. Renal US does not demonstrate evidence of obstruction. UA/microscopy with no proteinuria but gross hematuria most likely related to catheter trauma. Tunneled dialysis catheter placement as well as 1st dialysis treatment completed on 03/05/2020. No signs of renal recovery. Plan to continue 3 x weekly HD with close monitorin g. BP and volume status are currently acceptable. Electrolytes normal. Hold HD today and plan next treatment tomorrow. Sarah is receiving HD for LATRICE. Please coordinate appropriately for outpatient HD at discharge. Renvela 800 mg t.i.d. with meal. Nephro caps once a day. Medications are currently appropriately dosed for kidney function. Monitor metabolic profile daily while inpatient. (2) CKD (chronic kidney disease), stage IV: Baseline creatinine ~2.4 mg/dL. CKD attributed to microvascular disease and a history of ATN. Kidneys normal appearing with small non obstructing stones. Urine bland and acellular. (3) Acute on chronic heart failure with preserved ejection fraction: Volume status controlled with [employer]. (4) Aortic stenosis: (5) Hypercapnia: Admission and Anticipated Discharge Date Admission Date: March 02, 2020 Subjective No acute events overnight. Taken off HD prior to end of treatment at her request yesterday. Completed >2/3 of scheduled treatment. Net UF 1.1 L. Sarah describes feeling like she couldn't catch her breath. Symptoms improved after treatment was stopped. Clearance was acceptable. Unfortunately, she remains oligoanuric. Review of Systems Review of Systems: All systems reviewed & are unremarkable except as noted in HPI & below Physical Exam Constitutional: well developed; no acute distress Eyes: no scleral abnormality and no corneal abnormality ENMT: Mouth: no oral mucosal abnormality and oral mucous membranes not dry Neck: normal visual inspection and trachea midline Respiratory: normal respiratory effort; no labored breathing Auscultation: lungs clear to auscultation bilaterally Cardiovascular: Rate/Rhythm: regular rate and + bradycardic Heart Sounds: normal S1, normal S2 and + murmur Extremities: + edema Gastrointestinal (Abdomen): Percussion/Palpation: abdomen soft; abdomen nontender Musculoskeletal: Extremities: no cyanosis and no clubbing Skin: normal turgor; no lesions Neurologic: Motor/Sensory: no tremor and no asterixis Psychiatric: Orientation: alert and oriented x 3 Results & Data ([facility]) Vital Signs (Past 12 Hours) Vital Signs Temp Pulse Pulse Pulse Resp BP Pulse Ox 03/10/20 08:31 36.3 C L 59 L 20 114/49 L 100 03/10/20 07:36 62 03/10/20 07:07 63 18 91 03/10/20 03:58 36.4 C L 66 20 100/37 L 91 03/10/20 03:21 66 03/10/20 02:23 66 18 96 03/09/20 23:12 67 19 96 03/09/20 23:10 62 20 97 03/09/20 22:52 36.4 C L 66 23 142/72 H 93 Laboratory Results Laboratory Results - last 24 hr 03/09/20 03/09/20 03/09/20 12:51 16:48 20:29 WBC RBC Hgb Hct MCV MCH MCHC RDW Std Deviation RDW Coeff of Desiree Plt Count MPV Immature Gran % (Auto) Neut % (Auto) Lymph % (Auto) Barbour % (Auto) Eos % (Auto) Baso % (Auto) Neut # (Auto) Lymph # (Auto) Barbour # (Auto) Eos # (Auto) Baso # (Auto) Immature Gran # (Auto) Sodium Potassium Chloride Carbon Dioxide Anion Gap BUN Creatinine Est Cr Clr Drug Dosing Est GFR ( Amer) Est GFR (Non-Af Amer) BUN/Creatinine Ratio Glucose POC Glucose 171 H 114 H 169 H Calcium Phosphorus Albumin 03/10/20 03/10/20 03/10/20 06:48 06:48 07:35 WBC 8.39 RBC 3.04 L Hgb 10.3 L Hct 32.6 L MCV 107.2 H MCH 33.9 MCHC 31.6 L RDW Std Deviation 53.6 H RDW Coeff of Desiree 13.6 Plt Count 145 MPV 10.2 Immature Gran % (Auto) 0.2 Neut % (Auto) 82.2 Lymph % (Auto) 6.1 Barbour % (Auto) 9.3 Eos % (Auto) 2.0 Baso % (Auto) 0.2 Neut # (Auto) 6.89 H Lymph # (Auto) 0.51 L Barbour # (Auto) 0.78 H Eos # (Auto) 0.17 Baso # (Auto) 0.02 Immature Gran # (Auto) 0.02 Sodium 137 Potassium 4.2 Chloride 102 Carbon Dioxide 33 H Anion Gap 2.0 L BUN 26 H Creatinine 3.38 H D Est Cr Clr Drug Dosing 13.8 Est GFR ( Amer) 14.4 Est GFR (Non-Af Amer) 12.5 BUN/Creatinine Ratio 7.8 L Glucose 97 POC Glucose 100 H Calcium 8.0 L Phosphorus 3.1 Albumin 2.1 L PG Care Time/CCT Total # of Minutes Spent Total Time Spent with Patient: Total time spent is greater than 50% in regional coordinator rdination of care (as documented) at patient's floor/unit and/or counseling patient: Coding Level of Care Code 10850 Subseq Hosp Care Lvl 3 Diagnoses Acute kidney injury N17.9 CKD (chronic kidney disease), stage IV N18.4 Acute on chronic heart failure with preserved ejection fraction I50.33 Aortic stenosis I35.0 Hypercapnia R06.89
--- NOTE | 2020-03-10 18:04 | Hospitalist Progress Note ---
Date of Service March 10, 2020 Assessment & Plan (1) Hypercapnic respiratory failure: Sarah Wyatt is a 75-year-old female with severe and CKD who presented to ED with worsening dyspnea, weight gain, and leg swelling, subsequently found to have mixed acute hypoxic and hypercapnic respiratory failure, [id number] HFpEF, and CKD IV + LATRICE requiring dialysis. She is hemodynamically stable. Acute respiratory failure - mixed both hypoxic and hypercapnic - Clinically, patient continues to demonstrate an adequate baseline respiratory status: reports no subjective shortness of breath this AM, and SpO2s trending between 94-100% on 1-2L NC. - Likely 2/2 oqyxp-fc-zzsicoz HFpEF exacerbation for the hypoxic component - Hypercapnic contribution discovered on ABGs is without clear etiology: ?FRANKLYN, ?obesity hyperventilation syndrome, ?underlying COPD, ? generalized weakness - Nocturnal pulse oximetry and ABG ordered for tomorrow morning for further evaluation and dispo planning - Continue BiPAP HS/PRN -- if patient is confused, utilize BiPAP, repeat ABG (scheduled ABG's discontinued) - Did not require BiPAP last night / throughout today - Patient says she doesn't like using BiPAP because of discomfort -- can consider adding nasal pillows if needed and in outpatient setting - Pulmonology consulted 03/05: BiPAP PRN, fluid management Oddhu-dd-Fwfmbhm HFpEF - Likely 2/2 severe aortic stenosis and CKD --> ESRD - GINA demonstrated progression of (from 07/28/15), severe concentric LVH, LVEF 60-65% - Fluid balance today +110 with little output -- likely d/t progression of CKD - Now requiring dialysis with CKD + LATRICE, aiding with fluid management - Continue strict I&Os, daily weights - Cardiology following ESRD -- now requiring HD - Baseline creatinine usually around ~2.4 mg/dL -- CKD likely attributable to microvascular disease and h/o ATN - Progressive worsening in renal function likely attributable to cardiorenal syndrome, per nephrology -- failed medication-attempted management at this point - S/P permacath placement on 03/05 - Nephrology following, appreciate recs: - HD performed yesterday -- will require haemg-dovo-ardymr HD sessions in outpatient setting to aid - Will require renally-dosed medications (for GFR < 10) - Continue to discuss goals of care moving forward - [facility] q[facility] Goals of Care - Should continue to discuss goals of care for moving forward: patient has made stepwise decrease in functioning and overall health status prior to admission, and will likely require outpatient HD and possibly more intensive medical management (including O2 therapy, possibly BiPAP) - Based on discussions with previous care team, daughter Mansi Maurer - and patient are aware she will likely not be able to return home immediately, and will more likely need rehab/SNF alongside transitional care - Continue to work with family, case management in determining most appropriate steps for moving forward - Today, patient reports she would like to continue with outpatient HD and understands she will likely need a transitional facility before fully returning home. Macrocytic anemia - Continue B12, folate as scheduled - Likely has component from CKD IV, possibly now fitting more of an ESRD-like picture - Await SPEP results DM (diabetes mellitus) - HbA1C 5.5 on labs in August 2019 - Hold sitagliptin - unclear if needs this going forward - Will use Novolog for correction factor only Paroxysmal atrial fibrillation - Rhythm control with amiodarone 200mg PO QAM - Anticoagulation with apixaban Hyperlipidemia Continue home atorvastatin 40mg po daily Hypertension Continue home metoprolol 200mg po daily, Imdur 60mg qAM TIA - Neurology consulted 03/04 after episode of focal weakness, slurred speech - CT did not demonstrate any acute intracranial findings - Continue vascular therapy -- HTN, HLD treatments as above - Recommended TIA work-up when stable: MRI, FLP -- consider PT/OT/ST Metabolic Encephalopathy (resolved) - Noted on admission - Likely d/t respiratory acidosis/hypercapnia, likely related to uremia due to CKD with LATRICE Dispo: Med-surg with tele -- see goals of care above for dispo planning purposes PPX: Eliquis 2.5mg PO b.i.d. F/E/N: Heart healthy, DM2, low sodium, dialysis Code: FULL CODE (2) CKD (chronic kidney disease), stage IV: (3) Aortic stenosis: (4) CHF (congestive heart failure): Admission and Anticipated Discharge Date Admission Date: March 02, 2020 Supervising Physician Co-Signing Physician Notes Resident Physician Supervision Note: I independently interviewed and examined the patient and verified the brown history and physical, reviewed labs and image studies, discussed the case with the resident Dr. Rod and agree with the findings and care plan. Results & Data Results & Data ([facility]) Vital Signs (Past 12 Hours) Vital Signs Temp Pulse Pulse Pulse Resp BP Pulse Ox 03/10/20 15:27 36.7 C 62 18 95/49 L 99 03/10/20 12:44 123/70 03/10/20 11:52 36.6 C 59 L 59 L 18 191/79 H 96 03/10/20 08:31 36.3 C L 59 L 20 114/49 L 100 03/10/20 07:36 62 03/10/20 07:07 63 18 91 Resident Activity Tracking Resident Involvement: Resident Care Provided Care Provided: Adult Hospital Medicine (1) CHF (congestive heart failure) Heart failure chronicity: acute on chronic Heart failure type: unspecified Qualified Code(s): I50.9 - Heart failure, unspecified
[2020-03-10] MEDS: LIDOCAINE 5% 1 PATCH TD SCH (21:11)
[2020-03-10] MEDS ORDERED: LORazepam 1 MG/2 ML VIAL IV STA (23:14)
[2020-03-11 06:13] LABS: Allen Test Pos (Pos); Base Excess ABG -0.4 mEq/L (-9-1.8); HCO3 ABG 28 mmol/L (19-24); Oxygen Saturation ABG 97.4 % (90-95); PCO2 ABG 68 mmHg (35-46); PO2 ABG 111 mmHg (80-95); pH ABG 7.23 (7.35-7.45)
[2020-03-11 06:36] LABS: Albumin Level 2.1 gm/dl (3.4-5.0); BUN Creatinine Ratio 8.4 (10-20); Calcium 8.1 mg/dl (8.5-10.1); Creatinine Clr Calc Pharmacy 11.3 ml/min; Est GFR (African American) 11.4; Est GFR (Non-African American) 9.8; Phosphorus 3.6 mg/dl (2.5-4.9); Potassium 4.8 mmol/L (3.5-5.1)
[2020-03-11] MEDS: ISOSORBIDE MONO EXTENDED REL 60 MG TABCR PO SCH (10:48)
[2020-03-11] MEDS: APIXABAN 2.5 MG TAB PO SCH ×2 (10:48→21:19)
[2020-03-11] MEDS: FERROUS SULFATE 325 MG TAB PO SCH ×2 (10:48→21:19)
[2020-03-11] MEDS: AMIODARONE 200 MG TAB PO SCH (10:48)
[2020-03-11] MEDS: INSULIN ASPART 100 UNITS/ML 3 ML PEN SC SCH ×4 (10:48→21:40)
[2020-03-11] MEDS: SEVELAMER HCL 800 MG TABLET PO SCH ×3 (10:48→18:36)
[2020-03-11] MEDS: POLYETHYLENE (MIRALAX) 17 GM PACK PO SCH ×2 (10:49→21:19)
[2020-03-11] MEDS: CEROVITE ADV FORMULA TAB PO SCH (10:49)
[2020-03-11] MEDS: ATORVASTATIN 40 MG TAB PO SCH (10:49)
[2020-03-11] MEDS: CHOLECALCIFEROL 1,000 UNITS 25 MCG TAB PO SCH (10:49)
[2020-03-11] MEDS: NEPHROCAPS PO SCH (10:49)
[2020-03-11] MEDS: METOPROLOL SUCC 50MG EXT REL TAB PO SCH (10:49)
[2020-03-11] MEDS: DICLOFENAC SOD 1% GEL 100 GM TUBE EXT SCH ×3 (12:13→21:33)
--- NOTE | 2020-03-11 12:35 | Nephrology Progress Note ---
Date of Service March 11, 2020 Assessment & Plan (1) Acute kidney injury: Renal function has been worsening over last 2-3 months. LATRICE most likely secondary to CRS. Tunneled dialysis catheter placement as well as 1st dialysis treatment completed on 03/05/2020. No signs of renal recovery and Sarah remains essentially oligoanuric. Plan to continue 3 x weekly HD with close monitoring. Orders for HD today per continued MWF schedule entered into EMR and reviewed with dialysis nurse. Renvela 800 mg t.i.d. with meal. Nephro caps once a day. Medications are currently appropriately dosed for kidney function. Monitor metabolic profile daily while inpatient. (2) CKD (chronic kidney disease), stage IV: Baseline creatinine ~2.4 mg/dL. CKD attributed to microvascular disease and a history of ATN. Kidneys normal appearing with small non obstructing stones. Urine bland and acellular. 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 (4) Aortic stenosis: (5) Hypercapnia: Persistent. Refusing BIPAP this AM. Ativan contributory but overall etiology unclear. Admission and Anticipated Discharge Date Admission Date: March 02, 2020 Subjective Sarah was very somnolent this morning. She denies pain. No fevers or chills. She was refusing BIPAP. Ativan given overnight for agitation and sleep. Review of Systems Review of Systems: All systems reviewed & are unremarkable except as noted in HPI & below (very limited responses due to somnolence and overall mental status) Physical Exam Constitutional: well developed, + frail appearing and + lethargic; no acute distress Eyes: no scleral abnormality and no corneal abnormality ENMT: Mouth: no oral mucosal abnormality and oral mucous membranes not dry Neck: normal visual inspection and trachea midline Respiratory: normal respiratory effort; no labored breathing Auscultation: lungs clear to auscultation bilaterally Cardiovascular: Rate/Rhythm: regular rate and + bradycardic Heart Sounds: normal S1, normal S2 and + murmur Extremities: + edema Gastrointestinal (Abdomen): Percussion/Palpation: abdomen soft; abdomen nontender Musculoskeletal: Extremities: no cyanosis and no clubbing Skin: normal turgor; no lesions Neurologic: Motor/Sensory: no tremor and no asterixis Psychiatric: Orientation: alert and oriented x 3 Results & Data ([facility]) Vital Signs (Past 12 Hours) Vital Signs Temp Pulse Pulse Pulse Pulse Resp BP 03/11/20 12:06 36.2 C L 67 18 03/11/20 09:09 63 22 03/11/20 08:57 60 03/11/20 08:33 36.7 C 60 20 94/45 L 03/11/20 07:41 35.8 C L 60 18 03/11/20 05:00 61 20 99/41 L 03/11/20 04:00 36.7 C 68 69 22 93/50 L 03/11/20 01:24 61 BP Pulse Ox Pulse Ox 03/11/20 12:06 93/56 L 98 03/11/20 09:09 95 03/11/20 08:57 03/11/20 08:33 96 03/11/20 07:41 102/64 96 03/11/20 05:00 97 03/11/20 04:00 95 96 03/11/20 01:24 Laboratory Results Laboratory Results - last 24 hr 03/10/20 03/10/20 03/11/20 16:30 20:19 05:57 ABG pH ABG pCO2 ABG pO2 ABG HCO3 ABG O2 Saturation ABG Base Excess Stephen Test Barometric Pressure Oxygen Given Sodium 136 Potassium 4.8 Chloride 103 Carbon Dioxide 30 Anion Gap 3.0 BUN 35 H Creatinine 4.12 H D Est Cr Clr Drug Dosing 11.3 Est GFR ( Amer) 11.4 Est GFR (Non-Af Amer) 9.8 BUN/Creatinine Ratio 8.4 L Glucose 119 H POC Glucose 109 H 120 H Calcium 8.1 L Phosphorus 3.6 Albumin 2.1 L 03/11/20 03/11/20 03/11/20 05:58 07:30 11:52 ABG pH 7.23 L ABG pCO2 68 H ABG pO2 111 H ABG HCO3 28 H ABG O2 Saturation 97.4 H ABG Base Excess -0.4 Stephen Test Pos Barometric Pressure 741.4 Oxygen Given 2L Sodium Potassium Chloride Carbon Dioxide Anion Gap BUN Creatinine Est Cr Clr Drug Dosing Est GFR ( Amer) Est GFR (Non-Af Amer) BUN/Creatinine Ratio Glucose POC Glucose 130 H 110 H Calcium Phosphorus Albumin PG Care Time/CCT Total # of Minutes Spent Total Time Spent with Patient: Total time spent is greater than 50% in coordination of care (as documented) at patient's floor/unit and/or counseling patient: Coding Level of Care Code 10403 Subseq Hosp Care Lvl 3 Diagnoses Acute kidney injury N17.9 CKD (chronic kidney disease), stage IV N18.4 Acute on chronic heart failure with preserved ejection fraction I50.33 Aortic stenosis I35.0 Hypercapnia R06.89
--- NOTE | 2020-03-11 17:24 | Hospitalist Progress Note ---
Date of Service March 11, 2020 Assessment & Plan (1) Hypercapnic respiratory failure: Sarah Wyatt is a 75-year-old female with severe and CKD who presented to ED with worsening dyspnea, weight gain, and leg swelling, subsequently found to have mixed acute hypoxic and hypercapnic respiratory failure, [id number] HFpEF, and CKD IV + LATRICE requiring dialysis. She is hemodynamically stable. Acute respiratory failure - mixed both hypoxic and hypercapnic - Likely 2/2 [id number] HFpEF exacerbation for the hypoxic component - Hypercapnic contribution is without clear etiology, but likely multifactorial: likely part FRANKLYN, and possibly: ?obesity hyperventilation syndrome, ?underlying COPD, ?generalized weakness - Continue working with patient/family in addressing needs for discharge, including CPAP - Continue BiPAP HS/PRN - Patient says she doesn't like using BiPAP because of discomfort -- consider adding nasal pillows in outpatient setting - Pulmonology consulted 03/05: BiPAP PRN, fluid management - Nocturnal pulse oximetry (03/11) demonstrated ~30min total of desaturation events (between 70-80s on NC) - ABG 03/11 resp acidosis- patient received dose of lorazepam at night - likely contributed to poor respiratory drive. improved with bipap use. [id number] HFpEF - Likely 2/2 severe aortic stenosis and CKD --> ESRD - GINA demonstrated progression of (from 07/28/15), severe concentric LVH, LVEF 60-65% - Fluid balance continues to be mildly net positive day-by-day -- likely d/t progression of CKD - Requiring dialysis with CKD + LATRICE, aiding with fluid management - Continue strict I&Os, daily weights ESRD -- now requiring HD - Baseline creatinine usually around ~2.4 mg/dL -- CKD likely attributable to microvascular disease and h/o ATN - Progressive worsening in renal function likely attributable to cardiorenal syndrome, per nephrology -- failed medication-attempted management at this point - S/P permacath placement on 03/05 - Nephrology following, appreciate recs: - Continue HD every 3 days - Will require renally-dosed medications (for GFR < 10) Goals of Care - 03/11: Spent significant time discussing patient's overall status and goals of care moving forward with daughter, Libertad: - Optimally, would like to see her Mom (patient) to be able to basic independent functions at home, like use the restroom, get into the shower, and move around house - even if it requires ambulatory assistance. - Understanding that goals depend on strength and general functional needs determined from patient's goals/desires, a medical perspective, a PT perspective, and an OT perspective - Limitations complicated by patient's poor vision - Continue following with PT and OT to evaluate needs moving forward - Patient understanding of HD requirements in outpatient setting -- will require coordination with case management - Regular discussions with case management and patient's family for updates, needs planning, and goals of care * Avoid Ativan at the request of the family - patient reacts poorly and becomes very somnolent * Utilize melatonin PRN to aid with sleep - she responds well to this and is preferred per family Metabolic Encephalopathy - First noted on admission and intermittently throughout hospital course - Patient also experienced significant drowsiness and somnolence in 03/11 AM - Likely d/t respiratory acidosis/hypercapnia, possibly due to uremic component from CKD with LATRICE - Was found to have non-anion gap respiratory acidosis on ABGs with notable hypercarbia - BiPAP was attempted, but patient did not tolerate well - SpO2 remained WNL throughout the day on 2L NC Macrocytic anemia - Continue B12, folate as scheduled - Likely has component from CKD IV, possibly now fitting more of an ESRD-like picture - Await SPEP results DM (diabetes mellitus) - HbA1C 5.5 on labs in August 2019 - Hold sitagliptin - unclear if needs this going forward - Will use Novolog for correction factor only Paroxysmal atrial fibrillation - Rhythm control with amiodarone 200mg PO QAM - Anticoagulation with apixaban Hyperlipidemia Continue home atorvastatin 40mg po daily Hypertension Continue home metoprolol 200mg po daily, Imdur 60mg qAM TIA - Neurology consulted 03/04 after episode of focal weakness, slurred speech - CT did not demonstrate any acute intracranial findings - Continue vascular therapy -- HTN, HLD treatments as above - Recommended TIA work-up when stable: MRI, FLP -- consider PT/OT/ST Dispo: Med-surg with tele -- see goals of care above for dispo planning purposes PPX: Eliquis 2.5mg PO b.i.d. F/E/N: Heart healthy, DM2, low sodium, dialysis Code: FULL CODE (2) CKD (chronic kidney disease), stage IV: (3) Aortic stenosis: (4) CHF (congestive heart failure): Admission and Anticipated Discharge Date Admission Date: March 02, 2020 Supervising Physician Co-Signing Physician Notes Resident Physician Supervision Note: I independently interviewed and examined the patient and verified the brown history and physical, reviewed labs and image studies, discussed the case with the resident Dr. Rod and agree with the findings and care plan. Subjective Patient barely arousable this morning. She does open to eyes upon hearing her name or when requested to do something, but unable to comply with commands. She did receive Ativan 1mg IV x 1 last night around time of her sleep study. She was unable to tell me if she was experiencing any pain or dyspnea. Attempted BiPAP x 1 following this initial visit this AM, and patient became agitated, prompting removal. Review of Systems Review of Systems: Unobtainable due to reduced consciousness Physical Exam Constitutional: Somnolent 75 year old female who is barely arousable to verbal commands; does open her eyes when she hears her name and intermittently mumbles. NAD. Respiratory: Normal respiratory effort with symemtric expansion of chest. Lungs CTAB w/o crackles or wheezes. Cardiovascular: Normal rate, regular rhythm. S1 and S2 present. Significant grade 3/6 systolic ejection murmur best heard at RUSB. Otherwise, no other m/r/g. Gastrointestinal (Abdomen): NABS. Abdomen is soft and nontender to palpation. Results & Data Results & Data ([facility]) Vital Signs (Past 12 Hours) Vital Signs Temp Pulse Pulse Pulse Resp BP BP 03/11/20 16:20 60 109/30 L 03/11/20 16:00 60 121/38 L 03/11/20 15:40 60 110/34 L 03/11/20 15:20 58 L 139/89 03/11/20 15:00 60 120/37 L 03/11/20 14:52 36.9 C 63 03/11/20 12:06 36.2 C L 67 18 03/11/20 09:09 63 22 03/11/20 08:57 60 03/11/20 08:33 36.7 C 60 20 94/45 L 03/11/20 07:41 35.8 C L 60 18 BP Pulse Ox 03/11/20 16:20 03/11/20 16:00 03/11/20 15:40 03/11/20 15:20 03/11/20 15:00 03/11/20 14:52 03/11/20 12:06 93/56 L 98 03/11/20 09:09 95 03/11/20 08:57 03/11/20 08:33 96 03/11/20 07:41 102/64 96 Resident Activity Tracking Resident Involvement: Resident Care Provided Care Provided: Adult Hospital Medicine (1) CHF (congestive heart failure) Heart failure chronicity: acute on chronic Heart failure type: unspecified Qualified Code(s): I50.9 - Heart failure, unspecified
[2020-03-11] MEDS: LIDOCAINE 5% 1 PATCH TD SCH (21:32)
[2020-03-11 23:10] LABS: Base Excess ABG 0.8 mEq/L (-9-1.8); HCO3 ABG 28 mmol/L (19-24); Oxygen Saturation ABG 95.4 % (90-95); PCO2 ABG 62 mmHg (35-46); PO2 ABG 83 mmHg (80-95); pH ABG 7.28 (7.35-7.45)
[2020-03-11 23:11] LABS: Allen Test POS (Pos)
[2020-03-12] MEDS: DEXTROSE 50% 50 ML SYRINGE IV PRN (04:16)
[2020-03-12] MEDS: SEVELAMER HCL 800 MG TABLET PO SCH ×3 (07:54→17:25)
[2020-03-12] MEDS: POLYETHYLENE (MIRALAX) 17 GM PACK PO SCH ×2 (07:54→20:41)
[2020-03-12 08:50] LABS: Basophils # (auto) 0.01 K/uL (0-0.2); Basophils % (auto) 0.1 %; Eosinophils # (auto) 0.07 K/uL (0-0.5); Eosinophils % (auto) 0.8 %; Hematocrit (blood only) 32.5 % (37-47); Hemoglobin 10.1 g/dL (12.0-16.0); Immature Granulocytes # (auto) 0.04 K/uL (0.00-0.02); Immature Granulocytes % (auto) 0.4 %; Lymphocytes # (auto) 0.67 K/uL (1.2-3.4); Lymphocytes % (auto) 7.5 %; Mean Corpuscular Hemoglobin 33.6 pg (25-34); Mean Corpuscular Hgb Conc 31.1 g/dL (32-36); Mean Platelet Volume 10.6 fL (7.4-10.4); Monocytes # (auto) 0.63 K/uL (0.11-0.59); Neutrophils # (auto) 7.56 K/uL (1.4-6.5); Neutrophils % (auto) 84.2 %; Platelet Count 170 K/uL (130-400); RDW Coefficient of Variation 13.7 % (11.5-14.5); RDW Standard Deviation 54.1 fL (36.4-46.3); Red Blood Count 3.01 M/uL (4.2-5.4); White Blood Count 8.98 K/uL (4.8-10.8)
[2020-03-12] MEDS: METOPROLOL SUCC 50MG EXT REL TAB PO SCH (08:58)
[2020-03-12] MEDS: ATORVASTATIN 40 MG TAB PO SCH (09:01)
[2020-03-12] MEDS: NEPHROCAPS PO SCH (09:01)
[2020-03-12] MEDS: FERROUS SULFATE 325 MG TAB PO SCH ×2 (09:01→20:42)
[2020-03-12] MEDS: APIXABAN 2.5 MG TAB PO SCH ×2 (09:01→20:42)
[2020-03-12] MEDS: CEROVITE ADV FORMULA TAB PO SCH (09:01)
[2020-03-12] MEDS: DICLOFENAC SOD 1% GEL 100 GM TUBE EXT SCH ×3 (09:03→20:44)
[2020-03-12 09:28] LABS: Calcium 8.2 mg/dl (8.5-10.1); Creatinine Clr Calc Pharmacy 14.5 ml/min; Est GFR (African American) 15.2; Est GFR (Non-African American) 13.2; Potassium 4.1 mmol/L (3.5-5.1)
[2020-03-12] MEDS: CHOLECALCIFEROL 1,000 UNITS 25 MCG TAB PO SCH (10:44)
[2020-03-12] MEDS: AMIODARONE 200 MG TAB PO SCH ×2 (10:44→14:41)
[2020-03-12] MEDS: ISOSORBIDE MONO EXTENDED REL 60 MG TABCR PO SCH (10:45)
[2020-03-12] MEDS: INSULIN ASPART 100 UNITS/ML 3 ML PEN SC SCH ×4 (11:07→22:12)
--- NOTE | 2020-03-12 12:30 | Communication Note ---
Date of Service: March 12, 2020 Spent approx. 45 minutes yesterday evening and approx. 40 minutes today speaking directly with daughter, Libertad, regarding Mom's care, status, and plans. She reports being upset with the communication regarding her Mother's care. She cites disappointment in her receipt of Ativan two nights ago and with a lack of communication regarding her medications, general wellbeing, and mental status. Engaged in reflective listening and expressed understanding of her concerns. We did discuss the unfortunate, but realistic additive stressor of the pandemic and the policy of no visitors being allowed at present, which has been making things much more difficult for the patient and their family. We also spent significant time discussing her mother's complex medical condition - including her heart condition, kidney condition, and occasional need for CPAP/BIPAP. We discussed what has been done, changes that have been made with medications to aid her condition, etc. After our discussion today, she is in understanding that her mother - if to proceed with comprehensive medical treatment as the primary goal - will almost certainly require an intermediate care facility to aid with these issues, alongside in helping her with general functionality. Libertad has expressed that her ideal outcome is to have her mother return directly back home and receive treatments PRN; her goals for her mother is just to maintain some level of independence, including going to the bathroom, and showering with assistance and someone else present. After discussing today, she does seem to understand that going home will not offer the essential medical services that Sarah needs at present (like BiPAP, dialysis, etc.), including medical monitoring. A direct discharge to home would more objectively - at present - shift the focus from intensive medical management to a greater focus on quality of life and maximizing life outside of the realm of health. Given this discussion, she would like to continue to work with case management and look into intermediate care facilities. At the daughters' wishes, I attempted to initiate a transfer of Ms. Wyatt to [facility] and/or [facility] today, but unfortunately - given COVID - they are unable to accept at this time. Significant time was spent providing insight into patient's condition, answering daughter's questions, and providing empathy amidst this incredibly difficult time for herself, the patient, and their family (especially with visitor limitations). Resident Activity Tracking Resident Involvement: Resident Care Provided Care Provided: Adult [facility] Medicine
--- NOTE | 2020-03-12 16:04 | Nephrology Progress Note ---
Date of Service March 12, 2020 Assessment & Plan (1) Acute kidney injury: Renal function has been worsening over last 2-3 months. LATRICE most likely secondary to CRS. Tunneled dialysis catheter placement as well as 1st dialysis treatment completed on 03/05/2020. No signs of renal recovery. Plan to continue 3 x weekly HD with close monitoring. Remains on MWF schedule. BP and volume status appear acceptable today. Electrolytes have been controlled. Renvela 800 mg t.i.d. with meal. Nephro caps once a day. Medications are currently appropriately dosed for kidney function. Monitor metabolic profile daily while inpatient. (2) CKD (chronic kidney disease), stage IV: Baseline creatinine ~2.4 mg/dL. CKD attributed to microvascular disease and a history of ATN. Kidneys normal appearing with small non obstructing stones. Urine bland and acellular. (3) Acute on chronic heart failure with preserved ejection fraction: (4) Aortic stenosis: (5) Hypercapnia: Admission and Anticipated Discharge Date Admission Date: March 02, 2020 Subjective Sarah was seen and evaluated this AM. She was very agitated at the time of my assessment and decline exam. She denies dyspnea. No fevers or chills. No chest pain. Tolerated HD yesterday without complications. She was somnolent and slept through her treatment. BP stable. Net UF 1 L. Review of Systems Review of Systems: All systems reviewed & are unremarkable except as noted in HPI & below Physical Exam Constitutional: well developed and + frail appearing; no acute distress Eyes: no scleral abnormality and no corneal abnormality ENMT: Mouth: no oral mucosal abnormality and oral mucous membranes not dry Neck: normal visual inspection and trachea midline R IJ TDC Respiratory: normal respiratory effort Psychiatric: Orientation: alert and oriented x 3 Results & Data ([facility]) Vital Signs (Past 12 Hours) Vital Signs Temp Pulse Pulse Resp BP BP Pulse Ox 03/12/20 15:44 36.6 C 73 18 129/72 97 03/12/20 14:39 36.9 C 72 18 142/73 H 99 03/12/20 11:30 36.5 C 68 20 144/56 H 98 03/12/20 07:29 36.6 C 65 20 92/40 L 97 03/12/20 07:15 64 Laboratory Results Laboratory Results - last 24 hr 03/11/20 03/11/20 03/11/20 18:26 20:19 22:54 WBC RBC Hgb Hct MCV MCH MCHC RDW Std Deviation RDW Coeff of Desiree Plt Count MPV Immature Gran % (Auto) Neut % (Auto) Lymph % (Auto) Atlantic % (Auto) Eos % (Auto) Baso % (Auto) Neut # (Auto) Lymph # (Auto) [place] # (Auto) Eos # (Auto) Baso # (Auto) Immature Gran # (Auto) ABG pH 7.28 L ABG pCO2 62 H ABG pO2 83 ABG HCO3 28 H ABG O2 Saturation 95.4 H ABG Base Excess 0.8 Stephen Test POS Barometric Pressure 731.8 Oxygen Given FiO2 30% Sodium Potassium Chloride Carbon Dioxide Anion Gap BUN Creatinine Est Cr Clr Drug Dosing Est GFR ( Amer) Est GFR (Non-Af Amer) BUN/Creatinine Ratio Glucose POC Glucose 76 76 Calcium 03/12/20 03/12/20 03/12/20 00:06 04:08 04:34 WBC RBC Hgb Hct MCV MCH MCHC RDW Std Deviation RDW Coeff of Desiree Plt Count MPV Immature Gran % (Auto) Neut % (Auto) Lymph % (Auto) [place] % (Auto) Eos % (Auto) Baso % (Auto) Neut # (Auto) Lymph # (Auto) [place] # (Auto) Eos # (Auto) Baso # (Auto) Immature Gran # (Auto) ABG pH ABG pCO2 ABG pO2 ABG HCO3 ABG O2 Saturation ABG Base Excess Stephen Test Barometric Pressure Oxygen Given Sodium Potassium Chloride Carbon Dioxide Anion Gap BUN Creatinine Est Cr Clr Drug Dosing Est GFR ( Amer) Est GFR (Non-Af Amer) BUN/Creatinine Ratio Glucose POC Glucose 73 66 L* 107 H Calcium 03/12/20 03/12/20 03/12/20 07:20 08:12 08:12 WBC 8.98 RBC 3.01 L Hgb 10.1 L Hct 32.5 L MCV 108.0 H MCH 33.6 MCHC 31.1 L RDW Std Deviation 54.1 H RDW Coeff of Desiree 13.7 Plt Count 170 MPV 10.6 H Immature Gran % (Auto) 0.4 Neut % (Auto) 84.2 Lymph % (Auto) 7.5 Atlantic % (Auto) 7.0 Eos % (Auto) 0.8 Baso % (Auto) 0.1 Neut # (Auto) 7.56 H Lymph # (Auto) 0.67 L Atlantic # (Auto) 0.63 H Eos # (Auto) 0.07 Baso # (Auto) 0.01 Immature Gran # (Auto) 0.04 H ABG pH ABG pCO2 ABG pO2 ABG HCO3 ABG O2 Saturation ABG Base Excess Stephen Test Barometric Pressure Oxygen Given Sodium 138 Potassium 4.1 Chloride 104 Carbon Dioxide 29 Anion Gap 5.0 BUN 23 H Creatinine 3.23 H D Est Cr Clr Drug Dosing 14.5 Est GFR ( Amer) 15.2 Est GFR (Non-Af Amer) 13.2 BUN/Creatinine Ratio 7.0 L Glucose 77 POC Glucose 73 Calcium 8.2 L 03/12/20 11:23 WBC RBC Hgb Hct MCV MCH MCHC RDW Std Deviation RDW Coeff of Desiree Plt Count MPV Immature Gran % (Auto) Neut % (Auto) Lymph % (Auto) [place] % (Auto) Eos % (Auto) Baso % (Auto) Neut # (Auto) Lymph # (Auto) [place] # (Auto) Eos # (Auto) Baso # (Auto) Immature Gran # (Auto) ABG pH ABG pCO2 ABG pO2 ABG HCO3 ABG O2 Saturation ABG Base Excess Stephen Test Barometric Pressure Oxygen Given Sodium Potassium Chloride Carbon Dioxide Anion Gap BUN Creatinine Est Cr Clr Drug Dosing Est GFR ( Amer) Est GFR (Non-Af Amer) BUN/Creatinine Ratio Glucose POC Glucose 85 Calcium PG Care Time/CCT Total # of Minutes Spent Total Time Spent with Patient: Total time spent is greater than 50% in coordination of care (as documented) at patient's floor/unit and/or counseling patient: Coding Level of Care Code 56983 Subseq Hosp Care Lvl 3 Diagnoses Acute kidney injury N17.9 CKD (chronic kidney disease), stage IV N18.4 Acute on chronic heart failure with preserved ejection fraction I50.33 Aortic stenosis I35.0 Hypercapnia R06.89
--- NOTE | 2020-03-12 17:22 | Hospitalist Progress Note ---
Date of Service March 12, 2020 Assessment & Plan (1) Hypercapnic respiratory failure: Sarah Wyatt is a 75-year-old female with severe and gchir-mz-bpljosc CKD who presented to ED with worsening dyspnea, weight gain, and leg swelling, subsequently found to have mixed acute hypoxic and hypercapnic respiratory failure, gxtql-ly-rmgpsys HFpEF, and CKD IV + LATRICE requiring dialysis. She is hemodynamically stable. Acute respiratory failure - mixed both hypoxic and hypercapnic - Likely 2/2 qnqbr-us-ksseyeq HFpEF exacerbation for the hypoxic component - Hypercapnic contribution is without clear etiology, but likely multifactorial: likely part FRANKLYN, and possibly: ?obesity hyperventilation syndrome, ?underlying COPD, ?generalized weakness - Continue working with patient/family in addressing needs for discharge, including CPAP - Nocturnal pulse oximetry (03/11) demonstrated ~30min total of desaturation events (between 70-80s on NC) - ABG 03/12: improvement of respiratory acidosis on BiPaP compared to previous night, but still present - Continue BiPAP HS/PRN - Patient says she doesn't like using BiPAP because of discomfort -- consider adding nasal pillows in outpatient setting if needed - 03/12: Tolerated BiPAP well last night with significant improvement in mental/functional status thereafter - Pulmonology consulted 03/05: BiPAP PRN, fluid management Efmsg-dt-Eblicsv HFpEF - Likely 2/2 severe aortic stenosis and CKD --> ESRD - GINA demonstrated progression of (from 07/28/15), severe concentric LVH, LVEF 60-65% - Fluid balance continues to be mildly net positive day-by-day -- likely d/t progression of CKD - Requiring dialysis with CKD + LATRICE, aiding with fluid management - Continue strict I&Os, daily weights ESRD -- now requiring HD - Baseline creatinine usually around ~2.4 mg/dL -- CKD likely attributable to microvascular disease and h/o ATN - Progressive worsening in renal function likely attributable to cardiorenal syndrome, per nephrology -- failed medication-attempted management at this point - S/P permacath placement on 03/05 - Nephrology following, appreciate recs: - Continue HD schedule: M//F - Will require renally-dosed medications (for GFR < 10) Goals of Care - 03/11: Spent significant time discussing patient's overall status and goals of care moving forward with daughterLibertad: - Optimally, would like to see her Mom (patient) to be able to basic independent functions at home, like use the restroom, get into the shower, and move around house - even if it requires ambulatory assistance. - Understanding that goals depend on strength and general functional needs determined from patient's goals/desires, a medical perspective, a PT perspective, and an OT perspective - Limitations complicated by patient's poor vision - 03/12: Patient's family requested transfer to tertiary care facility -- [facility] [place] [facility] [place] Discussed patient's case with transfer providers at both locations and neither are able to accept at this time. - Spoke with patient and daughterLibertad, to review medical needs and open discussion about dispo planning. Please see communication note for further details regarding this discussion. - Continue following with PT and OT to evaluate needs moving forward - Patient understanding of HD requirements in outpatient setting -- will require coordination with case management - Regular discussions with case management and patient's family for updates, needs planning, and goals of care * Avoid Ativan at the request of the family - patient reacts poorly and becomes very somnolent * Utilize melatonin PRN to aid with sleep - she responds well to this and is preferred per family Metabolic Encephalopathy - First noted on admission and intermittently throughout hospital course - Patient also experienced significant drowsiness and somnolence throughout 03/11 -- thankfully resolved s/p BiPAP throughout 03/12 - Likely d/t respiratory acidosis/hypercapnia, possibly due to uremic component from CKD with LATRICE - Was found to have non-anion gap respiratory acidosis on ABGs with notable hypercarbia - SpO2 remained WNL throughout the day on 2L NC Macrocytic anemia - Continue B12, folate as scheduled - Likely has component from CKD IV, possibly now fitting more of an ESRD-like picture - Await SPEP results DM (diabetes mellitus) - HbA1C 5.5 on labs in August 2019 - Hold sitagliptin - unclear if needs this going forward - Will use Novolog for correction factor only Paroxysmal atrial fibrillation - Rhythm control with amiodarone 200mg PO QAM - Anticoagulation with apixaban Hyperlipidemia Continue home atorvastatin 40mg po daily Hypertension Continue home metoprolol 200mg po daily, Imdur 60mg qAM TIA - Neurology consulted 03/04 after episode of focal weakness, slurred speech - CT did not demonstrate any acute intracranial findings - Continue vascular therapy -- HTN, HLD treatments as above - Recommended TIA work-up when stable: MRI, FLP -- consider PT/OT/ST Dispo: Med-surg with tele -- ongoing placement vs. [id number] discussions, working closely with case management PPX: Eliquis 2.5mg PO b.i.d. F/E/N: Heart healthy, DM2, low sodium, dialysis Code: FULL CODE (2) CKD (chronic kidney disease), stage IV: (3) Aortic stenosis: (4) CHF (congestive heart failure): Admission and Anticipated Discharge Date Admission Date: March 02, 2020 Supervising Physician Co-Signing Physician Notes Resident Physician Supervision Note: I independently interviewed and examined the patient and verified the brown history and physical, reviewed labs and image studies, discussed the case with the resident Dr. Rod and agree with the findings and care plan. Subjective Patient tolerated BiPAP well overnight and, upon visiting this AM, was much more awake and responsive to questioning. She also experienced hypotension with pressures ~90/30-40, with one measurement to 80s/30s. Fully fine throughout today. She was eager to have her breakfast. Denied any pain or shortness of breath. No chest pain. Otherwise, no complaints. Went back to visit patient in the afternoon. She was fully engaged and interactive in our conversation. She wanted to discuss her general health status and how her kidneys were working. Discussed her goals moving forward, as well as her medical needs (e.g., dialysis) -- she reports wanting to go home and see her daughters. Inquires whether or not she might be able to see her daughters at a transitional care facility. She asked to join in prayer prior to my leaving. Review of Systems Review of Systems: as per HPI Physical Exam Constitutional: Tired appearing 75 year old female who is interactive and engaged in our interaction. She is easily arousable and freely responsive to questioning. Mood: "pretty good." NAD. Respiratory: Normal respiratory effort with symmetric expansion of the chest. Lungs CTAB without crackles or wheezes. Cardiovascular: Normal rate, regular rhythm. S1 and S2 present with grade 3/6 systolic ejection murmur best heard at the RUSB, otherwise no m/r/g. Gastrointestinal (Abdomen): NABS. Abdomen is soft and nondistended. Results & Data Results & Data ([facility]) Vital Signs (Past 12 Hours) Vital Signs Temp Pulse Pulse Resp BP BP Pulse Ox 03/12/20 16:00 70 03/12/20 15:44 36.6 C 73 18 129/72 97 03/12/20 14:39 36.9 C 72 18 142/73 H 99 03/12/20 11:30 36.5 C 68 20 144/56 H 98 03/12/20 07:29 36.6 C 65 20 92/40 L 97 03/12/20 07:15 64 Resident Activity Tracking Resident Involvement: Resident Care Provided Care Provided: Adult Hospital Medicine (1) CHF (congestive heart failure) Heart failure chronicity: acute on chronic Heart failure type: unspecified Qualified Code(s): I50.9 - Heart failure, unspecified
[2020-03-12] MEDS: LIDOCAINE 5% 1 PATCH TD SCH (20:41)
[2020-03-13 07:29] LABS: Basophils # (auto) 0.01 K/uL (0-0.2); Basophils % (auto) 0.1 %; Eosinophils # (auto) 0.11 K/uL (0-0.5); Eosinophils % (auto) 1.3 %; Hematocrit (blood only) 32.5 % (37-47); Hemoglobin 10.3 g/dL (12.0-16.0); Immature Granulocytes # (auto) 0.03 K/uL (0.00-0.02); Immature Granulocytes % (auto) 0.4 %; Lymphocytes # (auto) 0.59 K/uL (1.2-3.4); Lymphocytes % (auto) 6.9 %; Mean Corpuscular Hemoglobin 34.1 pg (25-34); Mean Corpuscular Hgb Conc 31.7 g/dL (32-36); Mean Corpuscular Volume 107.6 fL (80-100); Mean Platelet Volume 10.5 fL (7.4-10.4); Monocytes # (auto) 0.95 K/uL (0.11-0.59); Monocytes % (auto) 11.1 %; Neutrophils # (auto) 6.84 K/uL (1.4-6.5); Neutrophils % (auto) 80.2 %; Platelet Count 170 K/uL (130-400); RDW Coefficient of Variation 13.8 % (11.5-14.5); RDW Standard Deviation 54.2 fL (36.4-46.3); Red Blood Count 3.02 M/uL (4.2-5.4); White Blood Count 8.53 K/uL (4.8-10.8)
[2020-03-13] MEDS: POLYETHYLENE (MIRALAX) 17 GM PACK PO SCH ×2 (07:50→20:26)
[2020-03-13] MEDS: DICLOFENAC SOD 1% GEL 100 GM TUBE EXT SCH ×3 (07:54→20:26)
[2020-03-13] MEDS: ATORVASTATIN 40 MG TAB PO SCH (07:55)
[2020-03-13] MEDS: APIXABAN 2.5 MG TAB PO SCH ×2 (07:55→20:25)
[2020-03-13] MEDS: INSULIN ASPART 100 UNITS/ML 3 ML PEN SC SCH ×4 (07:55→20:27)
[2020-03-13] MEDS: FERROUS SULFATE 325 MG TAB PO SCH ×2 (07:55→20:25)
[2020-03-13] MEDS: SEVELAMER HCL 800 MG TABLET PO SCH ×3 (07:55→16:05)
[2020-03-13] MEDS: CHOLECALCIFEROL 1,000 UNITS 25 MCG TAB PO SCH (07:56)
[2020-03-13] MEDS: NEPHROCAPS PO SCH (07:56)
[2020-03-13] MEDS: CEROVITE ADV FORMULA TAB PO SCH (07:56)
[2020-03-13 07:58] LABS: BUN Creatinine Ratio 7.2 (10-20); Calcium 8.3 mg/dl (8.5-10.1); Creatinine Clr Calc Pharmacy 11.9 ml/min; Est GFR (African American) 12.1; Est GFR (Non-African American) 10.4; Potassium 4.4 mmol/L (3.5-5.1)
[2020-03-13] MEDS: AMIODARONE 200 MG TAB PO SCH (08:06)
--- NOTE | 2020-03-13 12:44 | Nephrology Progress Note ---
Date of Service March 13, 2020 Assessment & Plan (1) Acute kidney injury: Renal function has been worsening over last 2-3 months. LATRICE most likely secondary to CRS. Tunneled dialysis catheter placement as well as 1st dialysis treatment completed on 03/05/2020. No signs of renal recovery. Plan to continue 3 x weekly HD with close monitoring. Remains on MWF schedule. Plan to continue HD at [facility] post discharge vs discharge to LTACH. Orders for HD today entered into EMR and reviewed with the dialysis nurse. BP and volume status appear acceptable today. Electrolytes have been controlled. Renvela 800 mg t.i.d. with meal. Nephro caps once a day. Medications are currently appropriately dosed for kidney function. Monitor metabolic profile daily while inpatient. (2) CKD (chronic kidney disease), stage IV: Baseline creatinine ~2.4 mg/dL. CKD attributed to microvascular disease and a history of ATN. Kidneys normal appearing with small non obstructing stones. Urine bland and acellular. (3) Acute on chronic heart failure with preserved ejection fraction: Volume status controlled with [employer]. (4) Aortic stenosis: TTE reviewed. Plan of care discussed with Dr. Rubio. No intervention planned at this time. (5) Hypercapnia: Admission and Anticipated Discharge Date Admission Date: March 02, 2020 Subjective No acute events overnight. Sarah was feeling much better this AM compared to yesterday. She did tolerate BiPAP yesterday. She is breathing relatively comfortably today. She remains oligoanuric. Agreeable to HD today. Review of Systems Review of Systems: All systems reviewed & are unremarkable except as noted in HPI & below Physical Exam Constitutional: well developed and + frail appearing; no acute distress Eyes: no scleral abnormality and no corneal abnormality ENMT: Mouth: no oral mucosal abnormality and oral mucous membranes not dry Neck: normal visual inspection and trachea midline Respiratory: normal respiratory effort Auscultation: lungs clear to auscultation bilaterally Cardiovascular: Rate/Rhythm: regular rate and + bradycardic Heart Sounds: normal S1, normal S2 and + murmur Extremities: + edema Gastrointestinal (Abdomen): Percussion/Palpation: abdomen soft; abdomen nontender Musculoskeletal: Extremities: no cyanosis and no clubbing Skin: normal turgor; no lesions Neurologic: Motor/Sensory: no tremor and no asterixis Psychiatric: Orientation: alert and oriented x 3 Results & Data ([place]) Vital Signs (Past 12 Hours) Vital Signs Temp Pulse Pulse Resp BP BP Pulse Ox 03/13/20 11:41 36.4 C L 73 18 131/50 L 98 03/13/20 08:00 73 03/13/20 07:00 36.4 C L 71 20 133/70 99 03/13/20 03:00 36.7 C 73 18 117/48 L 99 Laboratory Results Laboratory Results - last 24 hr 03/12/20 03/12/20 03/13/20 16:30 20:24 06:42 WBC 8.53 RBC 3.02 L Hgb 10.3 L Hct 32.5 L MCV 107.6 H MCH 34.1 H MCHC 31.7 L RDW Std Deviation 54.2 H RDW Coeff of Desiree 13.8 Plt Count 170 MPV 10.5 H Immature Gran % (Auto) 0.4 Neut % (Auto) 80.2 Lymph % (Auto) 6.9 Lander % (Auto) 11.1 Eos % (Auto) 1.3 Baso % (Auto) 0.1 Neut # (Auto) 6.84 H Lymph # (Auto) 0.59 L Lander # (Auto) 0.95 H Eos # (Auto) 0.11 Baso # (Auto) 0.01 Immature Gran # (Auto) 0.03 H Sodium Potassium Chloride Carbon Dioxide Anion Gap BUN Creatinine Est Cr Clr Drug Dosing Est GFR ( Amer) Est GFR (Non-Af Amer) BUN/Creatinine Ratio Glucose POC Glucose 87 93 Calcium 03/13/20 03/13/20 03/13/20 06:42 07:47 11:23 WBC RBC Hgb Hct MCV MCH MCHC RDW Std Deviation RDW Coeff of Desiree Plt Count MPV Immature Gran % (Auto) Neut % (Auto) Lymph % (Auto) Lander % (Auto) Eos % (Auto) Baso % (Auto) Neut # (Auto) Lymph # (Auto) Lander # (Auto) Eos # (Auto) Baso # (Auto) Immature Gran # (Auto) Sodium 137 Potassium 4.4 Chloride 104 Carbon Dioxide 29 Anion Gap 4.0 BUN 28 H Creatinine 3.92 H D Est Cr Clr Drug Dosing 11.9 Est GFR ( Amer) 12.1 Est GFR (Non-Af Amer) 10.4 BUN/Creatinine Ratio 7.2 L Glucose 73 POC Glucose 82 133 H Calcium 8.3 L PG Care Time/CCT Total # of Minutes Spent Total Time Spent with Patient: Total time spent is greater than 50% in coordination of care (as documented) at patient's floor/unit and/or counseling patient: Coding Level of Care Code 39316 Subseq Hosp Care Lvl 3 Diagnoses Acute kidney injury N17.9 CKD (chronic kidney disease), stage IV N18.4 Acute on chronic heart failure with preserved ejection fraction I50.33 Aortic stenosis I35.0 Hypercapnia R06.89
[2020-03-13] MEDS: METOPROLOL SUCC 50MG EXT REL TAB PO SCH (16:06)
--- NOTE | 2020-03-13 18:29 | Hospitalist Progress Note ---
Date of Service March 13, 2020 Assessment & Plan (1) Hypercapnic respiratory failure: Sarah Wyatt is a 75-year-old female with severe and sqfhu-xz-ztwvlhr CKD who presented to ED with worsening dyspnea, weight gain, and leg swelling, subsequently found to have mixed acute hypoxic and hypercapnic respiratory failure, mdswd-ko-lglrrph HFpEF, and CKD IV + LATRICE requiring dialysis. She is hemodynamically stable. Acute respiratory failure - mixed both hypoxic and hypercapnic - Likely 2/2 tlvfc-eo-zqxxahc HFpEF exacerbation for the hypoxic component - Hypercapnic contribution is without clear etiology, but likely multifactorial: likely part FRANKLYN, and possibly: ?obesity hyperventilation syndrome, ?underlying COPD, ?generalized weakness - Continue working with patient/family in addressing needs for discharge, including CPAP - Nocturnal pulse oximetry (03/11) demonstrated ~30min total of desaturation events (between 70-80s on NC) - ABGs do demonstrate improvement of hypercapnia/acidosis with BiPAP (03/12) - Continue BiPAP HS/PRN - Patient says she doesn't like using BiPAP because of discomfort -- consider adding nasal pillows in outpatient setting if needed - Pulmonology consulted 03/05: BiPAP PRN, fluid management Tbhqt-rp-Kmfosdq HFpEF - Likely 2/2 severe aortic stenosis and CKD --> ESRD - GINA demonstrated progression of (from 07/28/15), severe concentric LVH, LVEF 60-65% - Fluid balance continues to be mildly net positive day-by-day -- likely d/t progression of CKD - Requiring dialysis with CKD + LATRICE, aiding with fluid management - Cardiology not planning intervention at this time - Continue I&Os, daily weights ESRD -- now requiring HD - Baseline creatinine usually around ~2.4 mg/dL -- CKD likely attributable to microvascular disease and h/o ATN - Progressive worsening in renal function likely attributable to cardiorenal syndrome, per nephrology -- failed medication-attempted management at this point - S/P permacath placement on 03/05 - Nephrology following, appreciate recs: - Continue HD schedule: M//F -- received 03/13 - Plan to continue HD at [facility] after d/c, vs. continue at [facility] - Will require renally-dosed medications (for GFR < 10) Goals of Care - 03/11: Spent significant time discussing patient's overall status and goals of care moving forward with daughter, Libertad: - Optimally, would like to see her Mom (patient) to be able to basic independent functions at home, like use the restroom, get into the shower, and move around house - even if it requires ambulatory assistance. - Understanding that goals depend on strength and general functional needs determined from patient's goals/desires, a medical perspective, a PT perspective, and an OT perspective - Limitations complicated by patient's poor vision - 03/12: Patient's family requested transfer to tertiary care facility -- [facility] [place] or [facility] [place]. Discussed patient's case with transfer providers at both locations and neither are able to accept at this time. - 03/13: Spoke with Libertad this evening. Exploring LTACH, provided updates regarding nutritional preferences, dialysis today. - Continue following with PT and OT to evaluate needs moving forward - Patient understanding of HD requirements in outpatient setting -- will require coordination with case management - Regular discussions with case management and patient's family for updates, needs planning, and goals of care * Avoid Ativan at the request of the family - patient reacts poorly and becomes very somnolent * Utilize melatonin PRN to aid with sleep - she responds well to this and is preferred per family Hypotension (Resolved) - Patient noted to have low DBPs throughout throughout/after dialysis (~100/30s; MAPs ~60s) on 03/12; BPs evening of 03/11 ~90/50s with lowest of 86/38; recovered into the following AM - Suspect HoTN is, in part, d/t preload dependence from severe , which is in part decreased by dialysis: can consider adjusting fluid removal goals PRN if this continues - Hold home Imdur moving forward for now Metabolic Encephalopathy - First noted on admission and intermittently throughout hospital course - Patient also experienced significant drowsiness and somnolence throughout 03/11 -- thankfully resolved s/p BiPAP throughout 03/12: resolved - Likely d/t respiratory acidosis/hypercapnia, possibly due to uremic component from CKD with LATRICE - Was found to have non-anion gap respiratory acidosis on ABGs with notable hypercarbia - SpO2 remained WNL throughout the day on 2L NC Macrocytic anemia - Continue B12, folate as scheduled - Likely has component from CKD IV, possibly now fitting more of an ESRD-like picture - Await SPEP results DM (diabetes mellitus) - HbA1C 5.5 on labs in August 2019 - Hold sitagliptin - unclear if needs this going forward - Will use NovoLog for correction factor only Paroxysmal atrial fibrillation - Rhythm control with amiodarone 200mg PO QAM - Anticoagulation with apixaban Hyperlipidemia - Continue home atorvastatin 40mg po daily Hypertension - Continue home metoprolol 200mg po daily, Imdur 60mg qAM TIA - Neurology consulted 03/04 after episode of focal weakness, slurred speech - CT did not demonstrate any acute intracranial findings - Continue vascular therapy -- HTN, HLD treatments as above - Recommended TIA work-up when stable: MRI, FLP -- consider PT/OT/ST Dispo: Med-surg with telemetry --> working with case management, potentially transferring to LTACH PPX: Eliquis 2.5mg PO b.i.d. F/E/N: RD following -- minced/moist diet until denture adhesive brought in // for now, heart healthy, DM2, low sodium, dialysis -- touch base w/ nephrology RE: stopping dialysis portion of diet with continued good K and Phos Code: FULL CODE (2) CKD (chronic kidney disease), stage IV: (3) Aortic stenosis: (4) CHF (congestive heart failure): Admission and Anticipated Discharge Date Admission Date: March 02, 2020 Supervising Physician Co-Signing Physician Notes Resident Physician Supervision Note: I independently interviewed and examined the patient and verified the brown history and physical, reviewed labs and image studies, discussed the case with the resident Dr. Rod and agree with the findings and care plan. Subjective NAEO. Patient reports feeling somewhat tired this morning with mild pain in the skin surrounding her buttocks, which nursing has been managing. She does report missing her children significantly and wanting to go home. She asked me to read her the cards that were delivered to her room from her friends. She denies pain elsewhere. No chest pressure or shortness of breath. No nausea or vomiting. Review of Systems Review of Systems: as per HPI Physical Exam Constitutional: Tired-appearing 75 year old female who is lying up in her hospital bed. She is interactive and engaged in our conversation, as well as fully alert and oriented. NAD. Respiratory: Mild increase in respiratory effort with symmetric expansion of the chest. Lungs are CTAB, perhaps with decreased lung sounds at the bases; no crackles or wheezes. Cardiovascular: NRRR. S1 and S2 are present with a grade III/ systolic ejection murmur best heard at the RUSB. Otherwise, no r/g. Skin: There is 1-2+ pitting edema in the lower extremities bilaterally. Mild TTP in both legs, perhaps just a little more on L < R. No erythema. Homens negative. Results & Data Results & Data ([facility]) Vital Signs (Past 12 Hours) Vital Signs Temp Pulse Pulse Pulse Resp BP BP 03/13/20 15:57 36.3 C L 80 20 164/52 H 03/13/20 15:42 37.5 C 81 142/79 H 03/13/20 15:20 78 138/54 L 03/13/20 15:00 79 135/42 L 03/13/20 14:40 76 134/41 L 03/13/20 14:20 78 140/69 03/13/20 14:00 78 132/69 03/13/20 13:40 78 135/49 L 03/13/20 13:20 63 102/55 L 03/13/20 13:00 78 144/63 H 03/13/20 12:40 75 150/100 H 03/13/20 12:27 78 153/48 H 03/13/20 12:20 37.0 C 75 03/13/20 11:41 36.4 C L 73 18 03/13/20 08:00 73 03/13/20 07:00 36.4 C L 71 20 133/70 BP Pulse Ox 03/13/20 15:57 98 03/13/20 15:42 03/13/20 15:20 03/13/20 15:00 03/13/20 14:40 03/13/20 14:20 03/13/20 14:00 03/13/20 13:40 03/13/20 13:20 03/13/20 13:00 03/13/20 12:40 03/13/20 12:27 03/13/20 12:20 03/13/20 11:41 131/50 L 98 03/13/20 08:00 03/13/20 07:00 99 Resident Activity Tracking Resident Involvement: Resident Care Provided Care Provided: Adult Hospital Medicine (1) CHF (congestive heart failure) Heart failure chronicity: acute on chronic Heart failure type: unspecified Qualified Code(s): I50.9 - Heart failure, unspecified
[2020-03-13] MEDS: LIDOCAINE 5% 1 PATCH TD SCH (20:26)
[2020-03-13] MEDS: ALBUT/IPRATROP 3MG/0.5MG NEB 3 ML VIAL NEB PRN (20:59)
[2020-03-14] MEDS: ALBUT/IPRATROP 3MG/0.5MG NEB 3 ML VIAL NEB PRN ×3 (05:36→19:22)
[2020-03-14 07:35] LABS: BUN Creatinine Ratio 5.8 (10-20); Creatinine Clr Calc Pharmacy 15.6 ml/min; Est GFR (African American) 16.8; Est GFR (Non-African American) 14.5; Potassium 4.3 mmol/L (3.5-5.1)
[2020-03-14] MEDS: AMIODARONE 200 MG TAB PO SCH (08:23)
[2020-03-14] MEDS: FERROUS SULFATE 325 MG TAB PO SCH ×2 (08:23→20:12)
[2020-03-14] MEDS: POLYETHYLENE (MIRALAX) 17 GM PACK PO SCH ×2 (08:23→20:13)
[2020-03-14] MEDS: APIXABAN 2.5 MG TAB PO SCH ×2 (08:23→20:11)
[2020-03-14] MEDS: ATORVASTATIN 40 MG TAB PO SCH (08:23)
[2020-03-14] MEDS: SEVELAMER HCL 800 MG TABLET PO SCH ×3 (08:23→16:58)
[2020-03-14] MEDS: CHOLECALCIFEROL 1,000 UNITS 25 MCG TAB PO SCH (08:24)
[2020-03-14] MEDS: CEROVITE ADV FORMULA TAB PO SCH (08:24)
[2020-03-14] MEDS: ACETAMINOPHEN 325 MG TAB PO PRN ×2 (09:56→23:24)
[2020-03-14] MEDS: NEPHROCAPS PO SCH (09:57)
[2020-03-14] MEDS: DICLOFENAC SOD 1% GEL 100 GM TUBE EXT SCH ×3 (09:58→20:13)
[2020-03-14] MEDS: METOPROLOL SUCC 50MG EXT REL TAB PO SCH (09:58)
[2020-03-14] MEDS: INSULIN ASPART 100 UNITS/ML 3 ML PEN SC SCH ×4 (11:02→20:42)
--- NOTE | 2020-03-14 13:40 | Nephrology Progress Note ---
Date of Service March 14, 2020 Assessment & Plan (1) Acute kidney injury: * LATRICE on CKD due to CRS/severe . Urine microscopy + for blood related to madrigal catheter. Urinalysis negative for protein. Renal US negative for obstruction but does demonstrate moderate bilateral cortical scarring and kidney stones * R IJ THC placement as well as 1st dialysis treatment completed on 03/05/2020 * Patient remains oligoanuric. Creatinine continues to rise in between HD treatments. No signs of renal recovery * Volume status and electrolyte balance are acceptable. No acute indication for HD today * Case management has been consulted to set up outpatient HD at [facility] following discharge from the hospital/LTACH (2) CKD (chronic kidney disease), stage IV: * CKD due to microvascular disease and impaired perfusion associated w/ severe . Baseline creatinine ~2.4 mg/dL (3) Acute on chronic heart failure with preserved ejection fraction: * Volume status now controlled with [employer] (4) Aortic stenosis: * Once stable on outpatient HD will consider follow up echocardiogram w/ AV area measurements * Question whether patient would benefit from evaluation at [facility] for TAVR (5) Hypercapnia: * Sedating medications have been stopped * Adherence w/ NIPPV encouraged * May require [facility]ACH placement ([facility] Admission and Anticipated Discharge Date Admission Date: March 02, 2020 Subjective Mrs. Sampson was seen & examined in her hospital room this morning. She c/o weakness and notes that she has had little to no UO Review of Systems Constitutional: no fever Eyes: no problem reported Ear, Nose, Mouth, Throat: no problem reported Respiratory: no dyspnea Cardiovascular: no chest pain Gastrointestinal: no abdominal pain and no diarrhea/loose stools Physical Exam Constitutional: chronically ill appearing Eyes: PERRL, conjunctivae normal, anicteric sclerae ENMT: external ear and nose normal, oropharynx normal Neck: trachea midline, no thyromegaly IJ THC w/ clean, dry dressing Respiratory: normal respiratory effort, lungs clear to auscultation Cardiovascular: Rate/Rhythm: regular rate and regular rhythm Heart Sounds: + murmur Extremities: no edema Gastrointestinal (Abdomen): normal bowel sounds, soft, nontender, no hepatosplenomegaly Skin: no rashes, warm and dry Neurologic: awake; not confused Results & Data ([facility]) Vital Signs (Past 12 Hours) Vital Signs Temp Pulse Pulse Resp BP Pulse Ox 03/14/20 12:02 66 18 99 03/14/20 11:16 36.7 C 71 20 124/60 96 03/14/20 08:00 72 03/14/20 07:21 36.4 C L 76 18 128/69 97 03/14/20 05:38 77 26 H 96 03/14/20 03:52 36.7 C 82 18 129/47 L 94 03/14/20 01:55 77 Laboratory Tests 03/13/20 03/14/20 06:42 06:46 WBC 8.53 Hgb 10.3 L Hct 32.5 L Plt Count 170 Sodium 137 Potassium 4.3 Chloride 103 Carbon Dioxide 30 BUN 17 Creatinine 2.98 H D Glucose 97 Calcium 8.0 L PG Care Time/CCT Total # of Minutes Spent Total Time Spent with Patient: Total time spent is greater than 50% in coordination of care (as documented) at patient's floor/unit and/or counseling patient: Coding Level of Care Code 68436 Subseq Hosp Care Lvl 3 Diagnoses Acute kidney injury N17.9 CKD (chronic kidney disease), stage IV N18.4 Acute on chronic heart failure with preserved ejection fraction I50.33 Aortic stenosis I35.0 Hypercapnia R06.89
--- NOTE | 2020-03-14 16:04 | Hospitalist Progress Note ---
Date of Service March 14, 2020 Assessment & Plan (1) Hypercapnic respiratory failure: Sarah Wyatt is a 75-year-old female with severe and qpdef-wz-bipeydh CKD who presented to ED with worsening dyspnea, weight gain, and leg swelling, subsequently found to have mixed acute hypoxic and hypercapnic respiratory failure, glckc-[id number] HFpEF, and CKD IV + LATRICE requiring dialysis. She is hemodynamically stable. Goals of Care - 03/11: Spent significant time discussing patient's overall status and goals of care moving forward with daughter, Libertad: - Optimally, would like to see her Mom (patient) to be able to basic independent functions at home, like use the restroom, get into the shower, and move around house - even if it requires ambulatory assistance. - Understanding that goals depend on strength and general functional needs determined from patient's goals/desires, a medical perspective, a PT perspective, and an OT perspective - Limitations complicated by patient's poor vision - 03/12: Patient's family requested transfer to tertiary care facility -- [facility] [place] [place] [facility] [place]. Discussed patient's case with transfer providers at both locations and neither are able to accept at this time. - 03/13: Spoke with Libertad this evening. Exploring LTACH, provided updates regarding nutritional preferences, dialysis today. - 03/14: Discussed LTACH option with patient, agreeable to discuss more with case management and daughters. Otherwise, no major updates. - Continue following with PT and OT to evaluate needs moving forward - Encourage transfer to chair as tolerated with nursing / PT assistance - Patient understanding of HD requirements in outpatient setting -- will require coordination with case management - Regular discussions with case management and patient's family for updates, needs planning, and goals of care * Avoid Ativan at the request of the family - patient reacts poorly and becomes very somnolent * Utilize melatonin PRN to aid with sleep - she responds well to this and is preferred per family Acute respiratory failure - mixed both hypoxic and hypercapnic - Likely 2/2 giayy-hm-cpjbkrj HFpEF exacerbation for the hypoxic component - Hypercapnic contribution is without clear etiology, but likely multifactorial: likely part FRANKLYN, and possibly: ?obesity hyperventilation syndrome, ?underlying COPD, ?generalized weakness - Continue working with patient/family in addressing needs for discharge, including CPAP - Nocturnal pulse oximetry (03/11) demonstrated ~30min total of desaturation events (between 70-80s on NC) - ABGs do demonstrate improvement of hypercapnia/acidosis with BiPAP (03/12) - Continue BiPAP HS/PRN - Intermittently tolerating some nights, not others -- counselled patient on importance and indications - Patient says she doesn't like using BiPAP because of discomfort -- consider adding nasal pillows in outpatient setting if needed - Pulmonology consulted 03/05: BiPAP PRN, fluid management Pjann-ro-Vjlyxyi HFpEF - Likely 2/2 severe aortic stenosis and CKD --> ESRD - GINA demonstrated progression of (from 07/28/15), severe concentric LVH, LVEF 60-65% - Fluid balance continues to be mildly net positive day-by-day -- likely d/t progression of CKD - Requiring dialysis with CKD + LATRICE, aiding with fluid management - Cardiology not planning intervention at this time - Continue I&Os, daily weights ESRD -- now requiring HD - Baseline creatinine usually around ~2.4 mg/dL -- CKD likely attributable to microvascular disease and h/o ATN - Progressive worsening in renal function likely attributable to cardiorenal syndrome, per nephrology -- failed medication-attempted management at this point - Patient has intermittent improvement of BUN/Cr following dialysis, with subsequent worsening in day after -- no signs of renal recovery at this time - S/P permacath placement on 03/05 - Nephrology following, appreciate recs: - Continue HD schedule: // -- received 03/13 - Plan to continue HD at [facility] after d/c, vs. continue at [facility] - Will require renally-dosed medications (for GFR < 10) Hypotension (Resolved) - Patient noted to have low DBPs throughout throughout/after dialysis (~100/30s; MAPs ~60s) on 03/12; BPs evening of 03/11 ~90/50s with lowest of 86/38; recovered into the following AM - Suspect HoTN is, in part, d/t preload dependence from severe , which is in part decreased by dialysis: can consider adjusting fluid removal goals PRN if this continues - Hold home Imdur moving forward for now Metabolic Encephalopathy (Resolved) - First noted on admission and intermittently throughout hospital course - Patient also experienced significant drowsiness and somnolence throughout 03/11 -- thankfully resolved s/p BiPAP throughout 03/12: resolved - Likely d/t respiratory acidosis/hypercapnia, possibly due to uremic component from CKD with LATRICE - Was found to have non-anion gap respiratory acidosis on ABGs with notable hypercarbia - SpO2 remained WNL throughout the day on 2L NC Macrocytic anemia - Continue B12, folate as scheduled - Likely has component from CKD IV, possibly now fitting more of an ESRD-like picture - Await SPEP results DM (diabetes mellitus) - HbA1C 5.5 on labs in August 2019 - Hold sitagliptin - unclear if needs this going forward - Will use NovoLog for correction factor only Paroxysmal atrial fibrillation - Rhythm control with amiodarone 200mg PO QAM - Anticoagulation with apixaban Hyperlipidemia - Continue home atorvastatin 40mg po daily Hypertension - Continue home metoprolol 200mg po daily, Imdur 60mg qAM TIA - Neurology consulted 03/04 after episode of focal weakness, slurred speech - CT did not demonstrate any acute intracranial findings - Continue vascular therapy -- HTN, HLD treatments as above - Recommended TIA work-up when stable: MRI, FLP -- consider PT/OT/ST Dispo: Med-surg with telemetry --> working with case management, potentially transferring to LTACH week of 03/16 PPX: Eliquis 2.5mg PO b.i.d. F/E/N: RD following -- minced/moist diet until denture adhesive brought in // for now, heart healthy, DM2, low sodium, dialysis diets Code: FULL CODE (2) CKD (chronic kidney disease), stage IV: (3) Aortic stenosis: (4) CHF (congestive heart failure): Admission and Anticipated Discharge Date Admission Date: March 02, 2020 Supervising Physician Co-Signing Physician Notes Resident Physician Supervision Note: I independently interviewed and examined the patient and verified the brown history and physical, reviewed labs and image studies, discussed the case with the resident Dr. Rod and agree with the findings and care plan. Subjective No acute events overnight. Reports dialysis went okay yesterday. Patient was able to tolerate approximately 4 hours of BiPAP. Does endorse some pain on her buttocks region, which nursing has continue to follow at wound care's recommendations. Otherwise denies pain elsewhere, no chest pressure, no shortness of breath. Was able to eat a little bit of her breakfast this morning. Endorses missing her daughters. Asking for help and eating her food while at the bedside. She was eager to talk about disposition plans. We discussed things that have been in the works, including long-term acute rehab facilities, as well as the conversations that have been ongoing between case management and the patient's daughters. Amenable to discussing more with case management and her daughters. We talked about moving to the chair to help relieve some of the pain in her buttocks region, which effort she was agreeable to. However when nursing tried to assist her with this, she preferred to stay in bed and refused transfer. Review of Systems Review of Systems: As per HPI. Physical Exam Constitutional: Tired and frail appearing 75-year-old female who is lying back in her hospital bed, intermittently dozing off prior to my arrival. Upon conversing with her, she is alert and oriented, asks questions, and is in no acute distress. Respiratory: Mild increase in respiratory effort. Good expansion of the chest, no use of accessory muscles. On examination, lungs do demonstrate somewhat decreased sounds bilaterally, but with no crackles or wheezes. Cardiovascular: Rhythm. S1 and S2 are present, there is an appreciable grade 3 out of 6 systolic ejection murmur best heard at the right upper sternal border, otherwise no rubs or gallops. Musculoskeletal: There continues to be 1-2+ pitting edema in the left upper extremity. It is not associated with any erythema or rashes. It is nontender to palpation. It is not associated with any nearby IV access site. Difficulty palpating radial pulse due to the swelling, but patient demonstrates good license distributor strength upon prompting. Results & Data Results & Data ([facility]) Vital Signs (Past 12 Hours) Vital Signs Temp Pulse Pulse Resp BP Pulse Ox 03/14/20 15:35 36.7 C 60 18 114/56 L 97 03/14/20 12:02 66 18 99 03/14/20 11:16 36.7 C 71 20 124/60 96 03/14/20 08:00 72 03/14/20 07:21 36.4 C L 76 18 128/69 97 03/14/20 05:38 77 26 H 96 03/14/20 03:52 36.7 C 82 18 129/47 L 94 Resident Activity Tracking Resident Involvement: Resident Care Provided Care Provided: Adult Hospital Medicine (1) CHF (congestive heart failure) Heart failure chronicity: acute on chronic Heart failure type: unspecified Qualified Code(s): I50.9 - Heart failure, unspecified
[2020-03-14] MEDS: LIDOCAINE 5% 1 PATCH TD SCH (20:12)
[2020-03-15] MEDS: ALBUT/IPRATROP 3MG/0.5MG NEB 3 ML VIAL NEB PRN (02:13)
[2020-03-15] MEDS: MELATONIN 3 MG TAB PO PRN ×2 (03:50→17:32)
[2020-03-15] MEDS ORDERED: EPOETIN ALFA 10,000 UNITS/ML VIAL IV ONE (07:00)
[2020-03-15] MEDS ORDERED: SODIUM CHLORIDE 0.9% 1000ML 1,000 ML IV PRN (07:00)
[2020-03-15 07:43] LABS: Basophils # (auto) 0.01 K/uL (0-0.2); Basophils % (auto) 0.1 %; Eosinophils # (auto) 0.13 K/uL (0-0.5); Eosinophils % (auto) 1.5 %; Hematocrit (blood only) 34.2 % (37-47); Hemoglobin 10.5 g/dL (12.0-16.0); Immature Granulocytes # (auto) 0.03 K/uL (0.00-0.02); Immature Granulocytes % (auto) 0.3 %; Lymphocytes # (auto) 0.63 K/uL (1.2-3.4); Lymphocytes % (auto) 7.1 %; Mean Corpuscular Hemoglobin 33.4 pg (25-34); Mean Corpuscular Hgb Conc 30.7 g/dL (32-36); Mean Corpuscular Volume 108.9 fL (80-100); Mean Platelet Volume 10.3 fL (7.4-10.4); Monocytes # (auto) 0.58 K/uL (0.11-0.59); Monocytes % (auto) 6.5 %; Neutrophils # (auto) 7.51 K/uL (1.4-6.5); Neutrophils % (auto) 84.5 %; Platelet Count 182 K/uL (130-400); RDW Standard Deviation 55.4 fL (36.4-46.3); Red Blood Count 3.14 M/uL (4.2-5.4); White Blood Count 8.89 K/uL (4.8-10.8)
[2020-03-15] MEDS: DICLOFENAC SOD 1% GEL 100 GM TUBE EXT SCH ×3 (07:43→21:31)
[2020-03-15] MEDS: POLYETHYLENE (MIRALAX) 17 GM PACK PO SCH ×2 (07:43→21:30)
[2020-03-15] MEDS: INSULIN ASPART 100 UNITS/ML 3 ML PEN SC SCH ×4 (07:58→21:31)
[2020-03-15] MEDS: SEVELAMER HCL 800 MG TABLET PO SCH ×3 (08:03→17:17)
[2020-03-15 08:18] LABS: BUN Creatinine Ratio 6.4 (10-20); Calcium 8.4 mg/dl (8.5-10.1); Creatinine Clr Calc Pharmacy 12.9 ml/min; Est GFR (African American) 13.3; Est GFR (Non-African American) 11.5; Potassium 4.8 mmol/L (3.5-5.1)
--- NOTE | 2020-03-15 10:58 | Nephrology Progress Note ---
Date of Service March 15, 2020 Assessment & Plan (1) ESRD (end stage renal disease): * CKD due to microvascular disease and impaired perfusion associated w/ severe . Baseline creatinine ~2.4 mg/dL * LATRICE on CKD due to CRS/severe . Urine microscopy + for blood related to madrigal catheter. Urinalysis negative for protein. Renal US negative for obstruction but does demonstrate moderate bilateral cortical scarring and kidney stones * R IJ THC placement as well as 1st dialysis treatment completed on 03/05/2020 * Patient remains oligoanuric. Creatinine continues to rise in between HD treatments. No signs of renal recovery * Will provide HD today due to the upcoming holiday. Orders have been placed in the EMR and HD RN notified * Case management has been consulted to set up outpatient HD at [facility] following discharge from the hospital/LTACH (2) Acute on chronic heart failure with preserved ejection fraction: * Volume status now controlled with [employer] (3) Aortic stenosis: * Once stable on outpatient HD will consider follow up echocardiogram w/ AV area measurements * Question whether patient would benefit from evaluation at [facility] for TAVR (4) Hypercapnia: * Sedating medications have been stopped * Adherence w/ NIPPV encouraged * May require [facility] placement ([facility] Admission and Anticipated Discharge Date Admission Date: March 02, 2020 Subjective Mrs. Sampson was seen & examined in her hospital room this morning. She c/o weakness but was agreeable to a dialysis treatment today Review of Systems Constitutional: no fever Eyes: no problem reported Ear, Nose, Mouth, Throat: no problem reported Respiratory: no dyspnea Cardiovascular: no chest pain Gastrointestinal: no abdominal pain and no diarrhea/loose stools Physical Exam Eyes: PERRL, conjunctivae normal, anicteric sclerae ENMT: external ear and nose normal, oropharynx normal Neck: trachea midline, no thyromegaly Respiratory: normal respiratory effort, lungs clear to auscultation Cardiovascular: Rate/Rhythm: regular rate and regular rhythm Heart Sounds: + murmur Extremities: no edema Gastrointestinal (Abdomen): normal bowel sounds, soft, nontender, no hepatosplenomegaly Skin: no rashes, warm and dry Neurologic: awake; not confused Results & Data ([facility]) Vital Signs (Past 12 Hours) Vital Signs Temp Pulse Resp BP BP Pulse Ox 03/15/20 07:20 36.5 C 59 L 18 121/73 100 12/20/20 03:00 36.6 C 60 19 126/76 99 03/15/20 02:14 66 20 74 L Laboratory Tests 03/15/20 03/15/20 06:34 06:34 WBC 8.89 Hgb 10.5 L Hct 34.2 L Plt Count 182 Sodium 137 Potassium 4.8 Chloride 105 Carbon Dioxide 29 BUN 23 H Creatinine 3.61 H D Glucose 81 PG Care Time/CCT Total # of Minutes Spent Total Time Spent with Patient: Total time spent is greater than 50% in coordination of care (as documented) at patient's floor/unit and/or counseling patient: Coding Level of Care Code 91546 Subseq Hosp Care Lvl 3 Diagnoses ESRD (end stage renal disease) N18.6 Acute on chronic heart failure with preserved ejection fraction I50.33 Aortic stenosis I35.0 Hypercapnia R06.89
--- NOTE | 2020-03-15 11:02 | Hospitalist Progress Note ---
Date of Service March 15, 2020 Assessment & Plan (1) Hypercapnic respiratory failure: Sarah Wyatt is a 75-year-old female with severe and wciej-lb-kriguho CKD who presented to ED with worsening dyspnea, weight gain, and leg swelling, subsequently found to have mixed acute hypoxic and hypercapnic respiratory failure, wnokv-wu-ociszrp HFpEF, and CKD IV + LATRICE requiring dialysis. She is hemodynamically stable. Goals of Care - 03/11: Spent significant time discussing patient's overall status and goals of care moving forward with daughter, Libertad: - Optimally, would like to see her Mom (patient) to be able to basic independent functions at home, like use the restroom, get into the shower, and move around house - even if it requires ambulatory assistance. - Understanding that goals depend on strength and general functional needs determined from patient's goals/desires, a medical perspective, a PT perspective, and an OT perspective - Limitations complicated by patient's poor vision - 03/12: Patient's family requested [place] tertiary [place] [facility] [place] [facility] [place] Discussed patient's case with transfer providers at both locations and neither are able to accept at this time. - 03/13: Spoke with Libertad this evening. Exploring LTACH, provided updates regarding nutritional preferences, dialysis today. - 03/14: Discussed LTACH option with patient, agreeable to discuss more with case management and daughters. Otherwise, no major updates. - Continue following with PT and OT to evaluate needs moving forward - Encourage transfer to chair as tolerated with nursing / PT assistance - Patient understanding of HD requirements in outpatient setting -- will require coordination with case management - Regular discussions with case management and patient's family for updates, needs planning, and goals of care * Avoid Ativan at the request of the family - patient reacts poorly and becomes very somnolent * Utilize melatonin PRN to aid with sleep - she responds well to this and is preferred per family Acute respiratory failure - mixed both hypoxic and hypercapnic - Likely 2/2 asmlq-bx-pvmqmjo HFpEF exacerbation for the hypoxic component - Hypercapnic contribution is without clear etiology, but likely multifactorial: likely part FRANKLYN, and possibly: ?obesity hyperventilation syndrome, ?underlying COPD, ?generalized weakness - Continue working with patient/family in addressing needs for discharge, including CPAP - Nocturnal pulse oximetry (03/11) demonstrated ~30min total of desaturation events (between 70-80s on NC) - ABGs do demonstrate improvement of hypercapnia/acidosis with BiPAP (03/12) - Continue BiPAP HS/PRN - Intermittently tolerating some nights, not others -- counselled patient on importance and indications - Patient says she doesn't like using BiPAP because of discomfort -- consider adding nasal pillows in outpatient setting if needed - Pulmonology consulted 03/05: BiPAP PRN, fluid management Kbvln-ha-Azfgwni HFpEF - Likely 2/2 severe aortic stenosis and CKD --> ESRD - GINA demonstrated progression of (from 07/28/15), severe concentric LVH, LVEF 60-65% - Fluid balance continues to be mildly net positive day-by-day -- likely d/t progression of CKD - Requiring dialysis with CKD + LATRICE, aiding with fluid management - Cardiology not planning intervention at this time - Continue I&Os, daily weights ESRD -- now requiring HD - Baseline creatinine usually around ~2.4 mg/dL -- CKD likely attributable to microvascular disease and h/o ATN - Progressive worsening in renal function likely attributable to cardiorenal syndrome, per nephrology -- failed medication-attempted management at this point - Patient has intermittent improvement of BUN/Cr following dialysis, with subsequent worsening in day after -- no signs of renal recovery at this time - S/P permacath placement on 03/05 - Nephrology following, appreciate recs: - HD scheduled altered due to upcoming holiday - received on 03/15 - Plan to continue HD at [facility] after d/c, vs. continue at [facility] - Will require renally-dosed medications (for GFR < 10) Hypotension (Resolved) - Patient noted to have low DBPs throughout throughout/after dialysis (~100/30s; MAPs ~60s) on 03/12; BPs evening of 03/11 ~90/50s with lowest of 86/38; recovered into the following AM - Suspect HoTN is, in part, d/t preload dependence from severe , which is in part decreased by dialysis: can consider adjusting fluid removal goals PRN if this continues - Hold home Imdur moving forward for now Metabolic Encephalopathy (Resolved) - First noted on admission and intermittently throughout hospital course - Patient also experienced significant drowsiness and somnolence throughout 03/11 -- thankfully resolved s/p BiPAP throughout 03/12: resolved - Likely d/t respiratory acidosis/hypercapnia, possibly due to uremic component from CKD with LATRICE - Was found to have non-anion gap respiratory acidosis on ABGs with notable hypercarbia - SpO2 remained WNL throughout the day on 2L NC Macrocytic anemia - Continue B12, folate as scheduled - Likely has component from CKD IV, possibly now fitting more of an ESRD-like picture - Await SPEP results DM (diabetes mellitus) - HbA1C 5.5 on labs in August 2019 - Hold sitagliptin - unclear if needs this going forward - Will use NovoLog for correction factor only Paroxysmal atrial fibrillation - Rhythm control with amiodarone 200mg PO QAM - Anticoagulation with apixaban Hyperlipidemia - Continue home atorvastatin 40mg po daily Hypertension - Continue home metoprolol 200mg po daily, Imdur 60mg qAM TIA - Neurology consulted 03/04 after episode of focal weakness, slurred speech - CT did not demonstrate any acute intracranial findings - Continue vascular therapy -- HTN, HLD treatments as above - Recommended TIA work-up when stable: MRI, FLP -- consider PT/OT/ST Dispo: Med-surg with telemetry --> working with case management, potentially transferring to LTACH week of 03/16 PPX: Eliquis 2.5mg PO b.i.d. F/E/N: RD following -- minced/moist diet until denture adhesive brought in // for now, heart healthy, DM2, low sodium, dialysis diets Code: FULL CODE (2) CKD (chronic kidney disease), stage IV: (3) Aortic stenosis: (4) CHF (congestive heart failure): Admission and Anticipated Discharge Date Admission Date: March 02, 2020 Supervising Physician Co-Signing Physician Notes Resident Physician Supervision Note: I independently interviewed and examined the patient and verified the brown history and physical, reviewed labs and image studies, discussed the case with the resident Dr. Hernandez and agree with the findings and care plan. Subjective No acute events overnight. Tolerating diet without N/V or abdominal pain. Denies fever/chills, chest pain, SOB, cough. Review of Systems Review of Systems: Pertinent positives and negatives mentioned in HPI Physical Exam Constitutional: WD/WN, vitals as above Respiratory: normal respiratory effort, lungs clear to auscultation Cardiovascular: Rate/Rhythm: regular rate and regular rhythm Heart Sounds: normal S1, normal S2 (not audible) and + murmur (2/6 systolic ejection murmur most audible in right upper sternal border) Gastrointestinal (Abdomen): normal bowel sounds, soft, nontender, no hepatosplenomegaly Skin: no rashes, warm and dry Psychiatric: alert and oriented Results & Data Results & Data ([facility]) Vital Signs (Past 12 Hours) Vital Signs Temp Pulse Resp BP BP Pulse Ox 03/15/20 07:20 36.5 C 59 L 18 121/73 100 03/15/20 03:00 36.6 C 60 19 126/76 99 03/15/20 02:14 66 20 74 L Resident Activity Tracking Resident Involvement: Resident Care Provided Care Provided: Adult Hospital Medicine (1) CHF (congestive heart failure) Heart failure chronicity: acute on chronic Heart failure type: unspecified Qualified Code(s): I50.9 - Heart failure, unspecified
[2020-03-15] MEDS: CEROVITE ADV FORMULA TAB PO SCH (13:08)
[2020-03-15] MEDS: NEPHROCAPS PO SCH (13:08)
[2020-03-15] MEDS: ATORVASTATIN 40 MG TAB PO SCH (13:08)
[2020-03-15] MEDS: CHOLECALCIFEROL 1,000 UNITS 25 MCG TAB PO SCH (13:08)
[2020-03-15] MEDS: METOPROLOL SUCC 50MG EXT REL TAB PO SCH (13:08)
[2020-03-15] MEDS: FERROUS SULFATE 325 MG TAB PO SCH ×2 (13:09→21:30)
[2020-03-15] MEDS: APIXABAN 2.5 MG TAB PO SCH ×2 (13:09→21:29)
[2020-03-15] MEDS: AMIODARONE 200 MG TAB PO SCH (13:09)
--- NOTE | 2020-03-15 19:00 | XRay Report ---
XR chest 1V portable HISTORY: 75 years-old Female Decreased O2 sats acute hypoxia COMPARISON: Chest radiograph 03/01/2020, chest CT 03/04/2020 TECHNIQUE: Portable AP view of the chest. FINDINGS: Cardiac silhouette is enlarged, unchanged. Moderate pleural effusions with midlung and progressive bi basilar consolidation. Progressively worsened pulmonary edema. Left subclavian pacer. Interval placem ent of a dual lead right IJ hemodialysis catheter, distal tip terminating in the expected location of the inferior SVC. No postprocedural pneumothorax identified. Degenerative changes of the shoulders a nd spine. IMPRESSION: 1. Cardiomegaly with progressively worsened pulmonary edema. 2. Moderate pleural effusions with progressively worsened bibasilar consolidation. 3. Right IJ dual-lumen hemodialysis catheter distal tip terminates in the expected location of the in ferior SVC. 4. No pneumothorax. ACT 112: Negative or not required by law. The above report was generated using voice recognition software. It may contain grammatical, syntax o r spelling errors. Electronically signed by: Akira Grant M.D. 03/15/2020 6:58 PM
[2020-03-15] MEDS: LIDOCAINE 5% 1 PATCH TD SCH (21:30)
[2020-03-16 06:36] LABS: Hematocrit (blood only) 37.1 % (37-47); Hemoglobin 11.4 g/dL (12.0-16.0); Mean Corpuscular Hemoglobin 33.9 pg (25-34); Mean Corpuscular Hgb Conc 30.7 g/dL (32-36); Mean Corpuscular Volume 110.4 fL (80-100); Mean Platelet Volume 10.4 fL (7.4-10.4); Platelet Count 206 K/uL (130-400); RDW Coefficient of Variation 14.1 % (11.5-14.5); RDW Standard Deviation 56.5 fL (36.4-46.3); Red Blood Count 3.36 M/uL (4.2-5.4); White Blood Count 11.36 K/uL (4.8-10.8)
[2020-03-16 07:05] LABS: BUN Creatinine Ratio 5.5 (10-20); Calcium 8.6 mg/dl (8.5-10.1); Creatinine Clr Calc Pharmacy 15.2 ml/min; Est GFR (African American) 16.3; Est GFR (Non-African American) 14.1; Potassium 4.6 mmol/L (3.5-5.1)
[2020-03-16] MEDS: INSULIN ASPART 100 UNITS/ML 3 ML PEN SC SCH ×4 (09:06→22:23)
[2020-03-16] MEDS: FERROUS SULFATE 325 MG TAB PO SCH ×2 (09:09→22:04)
[2020-03-16] MEDS: ATORVASTATIN 40 MG TAB PO SCH (09:09)
[2020-03-16] MEDS: APIXABAN 2.5 MG TAB PO SCH ×2 (09:09→22:05)
[2020-03-16] MEDS: AMIODARONE 200 MG TAB PO SCH (09:09)
[2020-03-16] MEDS: METOPROLOL SUCC 50MG EXT REL TAB PO SCH (09:10)
[2020-03-16] MEDS: NEPHROCAPS PO SCH (09:10)
[2020-03-16] MEDS: CEROVITE ADV FORMULA TAB PO SCH (09:10)
[2020-03-16] MEDS: CHOLECALCIFEROL 1,000 UNITS 25 MCG TAB PO SCH (09:11)
[2020-03-16] MEDS: DICLOFENAC SOD 1% GEL 100 GM TUBE EXT SCH ×3 (09:11→22:05)
[2020-03-16] MEDS: POLYETHYLENE (MIRALAX) 17 GM PACK PO SCH ×2 (09:15→22:03)
[2020-03-16] MEDS: SEVELAMER HCL 800 MG TABLET PO SCH ×3 (09:59→17:02)
[2020-03-16 12:04] LABS: Albumin Level 2.2 gm/dl (3.4-5.0); Bilirubin Direct 0.2 mg/dl (0-0.2); Bilirubin,Total 0.5 mg/dl (0.2-1); Prealbumin 10.9 mg/dl (20-40); Total Protein 6.1 gm/dl (6.4-8.2)
--- NOTE | 2020-03-16 12:42 | Nephrology Progress Note ---
Date of Service March 16, 2020 Assessment & Plan (1) ESRD (end stage renal disease): 75 y o F with ESRD, on HD started during this hospitalization on 03/05/2020 via [facility]. Admitted to hospital with progressive SOB and LE edema with h/o severe with severe left ventricular hypertrophy. Renal US does not demonstrate evidence of obstruction. UA/microscopy with no proteinuria but hematuria most likely related to catheter trauma. had dialysis yesterday with 2 L UF and blood pressure relatively low but continues to have pulmonary congestion and bilateral moderate pleural effusion. --hemodialysis tomorrow for 4 hours, will try UF as possible however has been difficult because Of low blood pressure. Waiting for discharge to [facility]. outpatient dialysis at [facility]. --continue on Renvela 800 mg t.i.d. with meal, nephro caps once a day. --strictly monitor I/O's will be strictly monitored. --left arm nephrology precaution --dose medication for GFR <10. --TETE for Hb <10 -- may need to consider pleural tap for bilateral moderate pleural effusion. Will follow. (2) Aortic stenosis: (3) Pleural effusion: (4) Anemia: Admission and Anticipated Discharge Date Admission Date: March 02, 2020 Subjective Sarah was seen and examined this am. She seems to be somewhat lethargic and less responsive but easily woke up and answered question. Had an episode of shortness of breath overnight, had chest x-ray showing pulmonary vascular congestion moderate pleural effusion. She had dialysis yesterday had 2 L UF. Electrolyte has been acceptable although creatinine continues to rise in between dialysis and urine output has been low. Review of Systems Review of Systems: All systems reviewed & are unremarkable except as noted in Subjective Physical Exam Constitutional: WD/WN, vitals as above + ill appearing and + lethargic; no acute distress Respiratory: normal respiratory effort; no respiratory distress Auscultation: + diminished lung sounds and + crackles Cardiovascular: RRR, no murmur, no edema Skin: no rashes, warm and dry Neurologic: Lethargy but easily arousable. Results & Data ([facility]) Vital Signs (Past 12 Hours) Vital Signs Temp Pulse Pulse Resp BP BP Pulse Ox 03/16/20 12:01 36.3 C L 60 20 94/43 L 100 03/16/20 11:27 59 L 03/16/20 07:48 36.5 C 60 18 113/57 L 100 03/16/20 03:02 36.6 C 60 18 104/61 100 PG Care Time/CCT Total # of Minutes Spent Total Time Spent with Patient: Total time spent is greater than 50% in coordination of care (as documented) at patient's floor/unit and/or counseling patient: Coding Level of Care Code 43617 Subseq Hosp Care Lvl 3 Diagnoses ESRD (end stage renal disease) N18.6 Aortic stenosis I35.0 Pleural effusion J90 Anemia D64.9
--- NOTE | 2020-03-16 18:41 | Hospitalist Progress Note ---
Date of Service March 16, 2020 Assessment & Plan (1) Hypercapnic respiratory failure: Sarah Wyatt is a 75-year-old female with severe and kadrw-xk-ezyfokf CKD who presented to ED with worsening dyspnea, weight gain, and leg swelling, subsequently found to have mixed acute hypoxic and hypercapnic respiratory failure, gopyn-xo-wuuvprl HFpEF, and CKD IV + LATRICE requiring dialysis. She is hemodynamically stable. Goals of Care - 03/11: Spent significant time discussing patient's overall status and goals of care moving forward with daughter, Libertad: - Optimally, would like to see her Mom (patient) to be able to basic independent functions at home, like use the restroom, get into the shower, and move around house - even if it requires ambulatory assistance. - Understanding that goals depend on strength and general functional needs determined from patient's goals/desires, a medical perspective, a PT perspective, and an OT perspective - Limitations complicated by patient's poor vision - 03/12: Patient's family requested transfer [place] tertiary care [place] [facility] [place] [facility] [place] Discussed patient's case with transfer providers at both locations and neither are able to accept at this time. - 03/13: Spoke with Libertad this evening. Exploring LTACH, provided updates regarding nutritional preferences, dialysis today. - 03/14: Discussed LTACH option with patient, agreeable to discuss more with case management and daughters. Otherwise, no major updates. - 03/16: Placement to LTACH was tentatively approved. Spoke with both daughters today regarding updates, goals of care. No change at present. Still interested in LTACH. - Continue following with PT and OT to evaluate needs moving forward - Encourage transfer to chair as tolerated with nursing / PT assistance - Patient understanding of HD requirements in outpatient setting -- will require coordination with case management - Regular discussions with case management and patient's family for updates, needs planning, and goals of care * Avoid Ativan at the request of the family - patient reacts poorly and becomes very somnolent * Utilize melatonin PRN to aid with sleep - she responds well to this and is preferred per family Acute respiratory failure - mixed both hypoxic and hypercapnic - Likely 2/2 zmtiy-yw-olgfwdh HFpEF exacerbation for the hypoxic component - Hypercapnic contribution is without clear etiology, but likely multifactorial: likely part FRANKLYN, and possibly: ?obesity hyperventilation syndrome, ?underlying COPD, ?generalized weakness - Continue working with patient/family in addressing needs for discharge, including CPAP - Nocturnal pulse oximetry (03/11) demonstrated ~30min total of desaturation events (between 70-80s on NC) - ABGs do demonstrate improvement of hypercapnia/acidosis with BiPAP (03/12) - Pulmonology consulted 03/05: BiPAP PRN, fluid management - Continue to encourage BiPAP HS/PRN - Intermittently tolerating some nights, not others -- counselled patient on importance and indications, regularly communicating this with family - Patient says she doesn't like using BiPAP because of discomfort -- added nasal bridge bandage today, consider adding nasal pillows in outpatient setting - CXR 03/15 demonstrated progressively worsened pulmonary edema with moderate pleural effusions: likely due to CHF and ESRD requiring HD -- continue HD as scheduled, BiPAP - ABG for AM 03/17 given increased somnolence throughout 03/16 -- attempt BiPAP overnight Zugbs-wp-Dkavepe HFpEF - Likely 2/2 severe aortic stenosis and CKD --> ESRD - GINA demonstrated progression of (from 07/28/15), severe concentric LVH, LVEF 60-65% - Fluid balance continues to be mildly net positive day-by-day -- likely d/t progression of CKD - Requiring dialysis with CKD + LATRICE, aiding with fluid management - Cardiology not planning intervention at this time - Continue I&Os, daily weights ESRD -- now requiring HD - Baseline creatinine usually around ~2.4 mg/dL -- CKD likely attributable to microvascular disease and h/o ATN - Progressive worsening in renal function likely attributable to cardiorenal syndrome, per nephrology -- failed medication-attempted management at this point - Patient has intermittent improvement of BUN/Cr following dialysis, with subsequent worsening in day after -- no signs of renal recovery at this time - S/P permacath placement on 03/05 - Nephrology following, appreciate recs: - HD scheduled altered due to upcoming holiday - received on 03/15 - Plan to continue HD at [facility] after d/c, vs. continue at LTACH - Will require renally-dosed medications (for GFR < 10) Metabolic Encephalopathy - First noted on admission and intermittently throughout hospital course - Patient also experienced significant drowsiness and somnolence throughout 03/11 -- thankfully resolved s/p BiPAP throughout 03/12: resolved - Somnolence and confusion noted throughout 03/16, likely d/t hypercapnia -- proceed with BiPAP overnight - Likely d/t respiratory acidosis/hypercapnia, possibly due to uremic component from CKD with LATRICE - In previous instances (e.g., 03/11), was found to have respiratory acidosis alongside hypercapnia on ABGs - SpO2 continues to remain >95% on 2L and BiPAP Hypotension (Resolved) - Patient noted to have low DBPs throughout throughout/after dialysis (~100/30s; MAPs ~60s) on 03/12; BPs evening of 03/11 ~90/50s with lowest of 86/38; recovered into the following AM - Suspect HoTN is, in part, d/t preload dependence from severe , which is in part decreased by dialysis: can consider adjusting fluid removal goals PRN if this continues - Hold home Imdur moving forward for now - If BP < 90 / 40, consider Albumin 12.5-25 (given hypoalbuminemia, malnutrition, and third spacing) Macrocytic anemia - Continue B12, folate as scheduled - Likely has component from CKD IV, possibly now fitting more of an ESRD-like picture - Await SPEP results DM (diabetes mellitus) - HbA1C 5.5 on labs in August 2019 - Hold sitagliptin - unclear if needs this going forward - Will use NovoLog for correction factor only Paroxysmal atrial fibrillation - Rhythm control with amiodarone 200mg PO QAM - Anticoagulation with apixaban Hyperlipidemia - Continue home atorvastatin 40mg po daily Hypertension - Continue home metoprolol 200mg po daily, Imdur 60mg qAM TIA - Neurology consulted 03/04 after episode of focal weakness, slurred speech - CT did not demonstrate any acute intracranial findings - Continue vascular therapy -- HTN, HLD treatments as above - Recommended TIA work-up when stable: MRI, FLP -- consider PT/OT/ST Dispo: Med-surg with telemetry --> working with case management, potentially transferring to LTACH week of 03/16 PPX: Eliquis 2.5mg PO b.i.d. F/E/N: RD following -- minced/moist diet until denture adhesive brought in // for now, heart healthy, DM2, low sodium, dialysis diets Code: FULL CODE (2) CKD (chronic kidney disease), stage IV: (3) Aortic stenosis: (4) CHF (congestive heart failure): Admission and Anticipated Discharge Date Admission Date: March 02, 2020 Supervising Physician Co-Signing Physician Notes Resident Physician Supervision Note: I independently interviewed and examined the patient and verified the brown hi story and physical, reviewed labs and image studies, discussed the case with the resident Dr. Rod and agree with the findings and care plan. Subjective No acute events overnight. At the bedside this morning, patient reports feeling okay. She denies any pain. Denies any shortness of breath. Compared to previous days, she is observably more somnolent, but is still oriented throughout our discussion. She her breakfast tray was still sitting in front of her prior to my arrival, untouched. Update: Upon my arrival to the room a few hours later, she was notably more somnolent and suddenly confused. Proceeded with BiPAP, which did continue for a couple hours until patient requested discontinuation due to discomfort. Review of Systems Review of Systems: As per HPI Physical Exam Constitutional: Somnolent appearing 75-year-old female who is lying upright in her hospital bed, sleeping and dozing off upon my arrival. Throughout her discussion she is alert and oriented, but does have increased latency between questioning / response. No acute distress. Respiratory: Mild to moderate respiratory effort with symmetric expansion of the chest. Lungs are notable for decreased breath sounds bilaterally, especially at the bases. Mild interstitial crackles throughout. No conversational dyspnea. Cardiovascular: Normal rate and regular rhythm. S1 and S2 are present, there is also a grade 3 out of 6 systolic ejection murmur best heard at the right upper sternal border. This is unchanged from prior exams. Gastrointestinal (Abdomen): Abdomen is soft, nontender, nondistended. Normoactive bowel sounds. Skin: There is appreciable 1-2+ pitting edema in the left upper extremity. It is nontender to palpation, and there is no associated erythema or rash. Results & Data Results & Data ([facility]) Vital Signs (Past 12 Hours) Vital Signs Temp Pulse Pulse Resp BP BP Pulse Ox 03/16/20 16:40 60 03/16/20 15:33 61 21 96 03/16/20 15:00 36.4 C L 62 12 99/49 L 96 03/16/20 12:44 60 20 97 03/16/20 12:01 36.3 C L 60 20 94/43 L 100 03/16/20 11:27 59 L 03/16/20 07:48 36.5 C 60 18 113/57 L 100 Resident Activity Tracking Resident Involvement: Resident Care Provided Care Provided: Adult Hospital Medicine (1) CHF (congestive heart failure) Heart failure chronicity: acute on chronic Heart failure type: unspecified Qualified Code(s): I50.9 - Heart failure, unspecified
[2020-03-16] MEDS ORDERED: ALBUMIN 5% 250 ML IV ONE (20:30)
[2020-03-16] MEDS: ALBUMIN 25% 12.5 GM/50 ML VIAL IV SCH ×4 (20:42→22:45)
[2020-03-16] MEDS ORDERED: SODIUM BICARB 8.4% INJ 50 MEQ/50 ML SYR IV STA (21:06)
[2020-03-16] MEDS ORDERED: ALBUT/IPRATROP 3MG/0.5MG NEB 3 ML VIAL NEB STA (21:24)
[2020-03-16 22:03] LABS: iSTAT Art Bld Gas pCO2 Correct 70 mmHg (35-46); iSTAT Art Bld Gas pH Corrected 7.223 (7.35-7.45); iSTAT Arterial Blood Gas HCO3 29 meg/L (19-24); iSTAT Arterial Blood Gas pCO2 70 mmHg (35-46); iSTAT Arterial Blood Gas pH 7.22 (7.35-7.45); iSTAT Arterial Blood Gas pO2 61 mmHg (80-95); iSTAT Arterial Blood Gas pO2 C 61; iSTAT Carbon Dioxide 31 mmol/L (24-31); iSTAT FiO2 30 %; iSTAT Hematocrit 30 % (37-47); iSTAT Hemoglobin 10.2 g/dl (12.0-16.0); iSTAT Potassium 4.5 mmol/L (3.3-5.0); iSTAT Site R Brachial; iSTAT Sodium 137 mmol/L (135-144)
[2020-03-16 22:03] LABS: iSTAT Allen Test Pass; iSTAT Art Bld Gas pCO2 Correct 75 mmHg (35-46); iSTAT Art Bld Gas pH Corrected 7.195 (7.35-7.45); iSTAT Arterial Blood Gas HCO3 29 meg/L (19-24); iSTAT Arterial Blood Gas pCO2 75 mmHg (35-46); iSTAT Arterial Blood Gas pO2 58 mmHg (80-95); iSTAT Arterial Blood Gas pO2 C 58; iSTAT Carbon Dioxide 31 mmol/L (24-31); iSTAT FiO2 30 %; iSTAT Hematocrit 32 % (37-47); iSTAT Hemoglobin 10.9 g/dl (12.0-16.0); iSTAT Potassium 4.6 mmol/L (3.3-5.0); iSTAT Site R Radial; iSTAT Sodium 137 mmol/L (135-144)
[2020-03-16] MEDS: LIDOCAINE 5% 1 PATCH TD SCH (22:04)
[2020-03-16 22:05] LABS: Basophils # (auto) 0.02 K/uL (0-0.2); Basophils % (auto) 0.2 %; Eosinophils # (auto) 0.06 K/uL (0-0.5); Eosinophils % (auto) 0.7 %; Hematocrit (blood only) 31.3 % (37-47); Hemoglobin 9.8 g/dL (12.0-16.0); Immature Granulocytes # (auto) 0.05 K/uL (0.00-0.02); Immature Granulocytes % (auto) 0.6 %; Lymphocytes # (auto) 0.81 K/uL (1.2-3.4); Lymphocytes % (auto) 8.9 %; Mean Corpuscular Hemoglobin 33.9 pg (25-34); Mean Corpuscular Volume 108.3 fL (80-100); Mean Platelet Volume 10.3 fL (7.4-10.4); Monocytes % (auto) 4.4 %; Neutrophils # (auto) 7.75 K/uL (1.4-6.5); Neutrophils % (auto) 85.2 %; Platelet Count 180 K/uL (130-400); RDW Coefficient of Variation 14.1 % (11.5-14.5); RDW Standard Deviation 55.9 fL (36.4-46.3); Red Blood Count 2.89 M/uL (4.2-5.4); White Blood Count 9.09 K/uL (4.8-10.8)
[2020-03-16 22:16] LABS: Mean Corpuscular Hgb Conc 31.3 g/dL (32-36)
[2020-03-16 22:22] LABS: Albumin Level 2.7 gm/dl (3.4-5.0); BUN Creatinine Ratio 6.2 (10-20); Bilirubin Direct 0.3 mg/dl (0-0.2); Calcium 8.1 mg/dl (8.5-10.1); Creatinine Clr Calc Pharmacy 13.5 ml/min; Est GFR (African American) 14.1; Est GFR (Non-African American) 12.2; Magnesium 2.4 mg/dl (1.8-2.4); Potassium 4.5 mmol/L (3.5-5.1)
[2020-03-16] MEDS: DEXTROSE 50% 50 ML SYRINGE IV PRN (22:25)
--- NOTE | 2020-03-16 22:25 | Critical Care Consultation ---
Date of Consultation March 16, 2020 Assessment & Plan (1) Acute on chronic heart failure with preserved ejection fraction: Impression: 75-year-old female with complicated hospital course including acute renal failure now requiring hemodialysis, ongoing hypercapnic hypoxic respiratory failure, metabolic encephalopathy, and severe aortic stenosis who became hypotensive and obtunded overnight for which a code purple was called and patient was transferred to the ICU. Neuro - Encephalopathy: Suspect this is mainly due to elevation in CO2, and patient has been more arousable after administration of BiPAP. She was also found to be somewhat hypoglycemic and improved with dextrose. She does not appear to have had Haldol or any narcotics for quite some time. BUN is within normal limits. LFTs are unremarkable however she did have a mildly elevated ammonia of 52, she may benefit from lactulose. She underwent head CT on 03/03 without acute intracranial findings. We will hold off on further imaging for the time being as patient has shown improvement. Will straight cath for UA to rule out UTI. Cardiac - Severe aortic stenosis/diastolic heart failure/hypotensionper my conversation with the patient's daughter, there were tentative plans to transfer patient to LTAC and have her evaluated for TAVR once more stable. It is unlikely she would be candidate in her current state. Patient's hypotension did improve following 500 mL bolus of crystalloid along with albumin transfusion. As this is improved there currently no indications for vasopressors at this time and will hold on central line and arterial line insertion for now. Currently little suspicion for septic shock we will follow up blood cultures and urine culture and lactate within normal limits. H&H is stable. Mild elevation of troponin likely attributed to renal failure. She have an echo on this admission that read demonstrated worsening of aortic stenosis. She is currently in a paced rhythm on the monitor. I did hold metoprolol for now as she has been hypotensive, will continue amiodarone for history of ventricular tachycardia. Patient is on Eliquis for long-term anticoagulation for proximal A. fib. Cardiology following and will follow up recommendations. Continued monitoring on telemetry in ICU for now. Respiratory - Acute hypoxic hypercapnic respiratory failurechest x-ray consistent with pulmonary edema and bilateral pleural effusions, this appears to have been ongoing since admission -Patient was previously followed by pulmonology recommended BiPAP at bedtime for which the patient has been noncompliant per conversation with the patient's nurse -Suspect that aortic stenosis and renal failure are both contributing to the patient's pulmonary edema. ABG has improved since administration of BiPAP and will wear continuously for the time being. -Did receive DuoNeb x1 following code purple, no wheezing on exam and unsure if this is due to a component of restrictive disease as she has no history of COPD or tobacco abuse -Continuous monitoring on pulse ox GI - N.p.o. RENAL/LYTES - ESRD with hemodialysispatient presented to the hospital with acute on chronic renal failure, followed by nephrology and thought to be related to ATN -Undergoing dialysis with last session yesterday with 2 L removed -BUN and creatinine and electrolytes appear to be stable on BMP, trending -Blood pressure did improve the 500 mL bolus and albumin, will be careful with IV fluid resuscitation given renal failure - Oliguric, straight cathed with 150 mL of urine on arrival to the ICU. Follow-up UA ENDO - DM type IIsliding scale, ICU hyperglycemic protocol -Patient was mildly hypoglycemic and did receive dextrose push per hypoglycemia protocol. Per report, p.o. intake has been significantly reduced over the past few days. Will monitor closely and add dextrose infusion if pe rsists HEME - Macrocytic anemiaH&H currently stable without indication for transfusion at this time, will monitor routine CBCs -Continue ferrous sulfate once able to take p.o. ID - Do not feel that there is indication for antibiotics at this time as patient is afebrile without leukocytosis or lactic acidosis. Renal failure may be attributing to the mild elevation of procalcitonin. Blood cultures and UA pending. LINES/IV ACCESS - Peripheral IVs DVT PROPHYLAXIS - SCDs, on Eliquis I have personally spent 40 minutes of critical care time in the direct management of this patient. This is a life/limb threatening event. This includes time spent evaluating patient, direct bedside care, chart review, placing orders, interpretation of diagnostic studies, discussion with consultants, patient, and family members, as well as other required patient management activities. This time is exclusive of all separately billable procedures, and teaching time and separate from and in addition to any other critical care service time. Thank you for allowing us to participate in the care of this patient. Please refer to my attending physician's documentation for any further recommendations. (2) CHF (congestive heart failure): (3) Acute respiratory failure with hypoxemia: (4) ESRD (end stage renal disease): (5) Aortic stenosis: (6) Macrocytic anemia: (7) Paroxysmal atrial fibrillation: (8) PAD (peripheral artery disease): (9) Hypotension: (10) Metabolic encephalopathy: History of Present Illness Attending Physician: Savannah Sprague MD History of Present Illness Patient is a 75-year-old female with PMH including CAD, diastolic CHF, severe aortic stenosis, A. fib, V. tach, SVT, pacemaker, DM type II, who has a complicated hospital course and was initially admitted to the hospital since 03/02 with complaints of exertional dyspnea and weight gain. Patient is now in ESRD and requiring hemodialysis which was started about 10 days ago, ongoing acute hypoxic and hypercapnic respiratory failure and has been intermittently requiring BiPAP at bedtime, and metabolic encephalopathy. She has had consults with nephrology, cardiology, pulmonology, neurology, and palliative care. There were tentative plans to transfer patient to LTAC at [place]. This evening I responded to code purple in the patient's room in which the patient was found to be hypotensive with SBP in the 60s and obtunded. Patient was placed on BiPAP and was given fluid bolus of 500 mL along with albumin. Per report patient underwent dialysis yesterday with 2 L removed, she has continued to have encephalopathy on and off throughout her hospital course which has improved in the past with BiPAP however she tends to remove and refused the BiPAP once her mental state has improved. ABG was obtained and shows hypercapnic respiratory failure with respiratory acidosis. Chest x-ray c onsistent with pulmonary edema. She was transferred to the ICU for further care. On arrival repeat blood gas indicates moderate improvement and pH and CO2 and the patient's mental status appears to be somewhat improving as she is more arousable with stimulation and able to answer simple questions. She appears to be protecting her airway. Blood pressure also significantly improved after fluid bolus and albumin and suspect patient may be rather hypovolemic in the setting of . I did talk to the patient's daughter concerning CODE STATUS and plans of care. At this time she is to remain full code. I informed her that as her respiratory status is now showing some improvements along with her mentation, we will hold off on intubation for the time being. If patient does not improve will intubate and insert central line, will continue to manage in ICU for the time being. Allergies Allergy/AdvReac Type Severity Reaction Status Date / Time lorazepam [From Ativan] Allergy Severe Not to be Verified 03/11/20 15:20 given per fam, See Comment heparin Allergy Unknown BLOOD Verified 03/02/20 15:50 DISORDER mexiletine Allergy Unknown SEVERE Verified 02/28/20 10:34 TREMORS Sulfa (Sulfonamide Allergy Unknown UNKNOWN Verified 03/02/20 15:50 Antibiotics) REACTION TO SULFA DRUGS Home Medications Medication Instructions Recorded Confirmed Type PreserVision AREDS 1 cap PO BID 04/22/18 03/02/20 History cholecalciferol (vitamin D3) 1,000 units PO QAM 04/22/18 03/02/20 History [Vitamin D3] fluticasone propionate 1 spray INTRANASAL DAILY PRN 04/22/18 03/02/20 History acetaminophen 500 mg PO Q6H PRN 01/14/19 03/02/20 History amiodarone 200 mg tablet 200 mg PO QAM #90 tab 07/12/19 03/02/20 Rx ferrous sulfate 325 mg (65 mg 325 mg PO BID tab 11/08/19 03/02/20 History iron) tablet isosorbide mononitrate 60 mg 60 mg PO QAM #30 tab 12/20/19 03/02/20 Rx tablet,extended release 24 hr apixaban 2.5 mg tablet 2.5 mg PO BID #60 tab 12/26/19 03/02/20 Rx atorvastatin 40 mg PO DAILY 03/02/20 03/02/20 History bumetanide 2 mg PO .QAFTERNOON 03/02/20 03/02/20 History bumetanide 2.5 mg PO QAM 03/02/20 03/02/20 History metoprolol succinate 200 mg PO DAILY 03/02/20 03/02/20 History ccmmybqjrnvv-Rn-enel-minerals 1 tab PO DAILY 03/02/20 03/02/20 History [Multiple Vitamin, Womens] sitagliptin [Januvia] 25 mg PO DAILY 03/02/20 03/02/20 History Patient History Medical History Anemia Chronic anticoagulation DM (diabetes mellitus) HTN (hypertension) Hyperthyroidism Lumbar radiculopathy Mitral stenosis NSAID long-term use Obesity Pacemaker PAD (peripheral artery disease) Paroxysmal atrial fibrillation RVOT ventricular tachycardia Skin cancer of arm Spinal stenosis Spinal stenosis of lumbar region Stenosis, cervical spine SVT (supraventricular tachycardia) Vitamin D deficiency Surgical History H/O brain surgery Previous section Family History Father Myocardial infarction Stroke Other Family history non-contributory Social History Smoking Status: Former smoker Tobacco Type: Cigarettes Second Hand Exposure: No; Do You Dip or Chew Tobacco: No; Tobacco Cessation Education Requested by Patient: No Hx Alcohol Use: No Hx Substance Use: No Preferred Language: Ukrainian Communication Ability: Effective Visual Impairment: Limited Hearing Ability: Normal General Lot Attendant Required: No Beliefs That Will Affect Care: None marital status: Current Living Situation: Alone current occupational status: retired How many Children do You have: 2 Other Information That Helps Us Care for You: No Feels Safe at Home: Yes Safety Concerns: Feels Safe At This Time Childhood Exposure to Second-Hand Smoke: No Assistive Devices: Oxygen - Continuous Review of Systems Review of Systems: Unobtainable due to cognitive status Physical Exam Constitutional: + frail appearing Obtunded Eyes: PERRL, conjunctivae normal, anicteric sclerae ENMT: external ear and nose normal, oropharynx normal Neck: trachea midline, no thyromegaly Respiratory: Lungs clear to auscultation diminished bilaterally, no wheezes, no crackles or stridor auscultated. Symmetrical chest wall movement. Cardiovascular: Paced rhythm of 60 on monitor. No JVD. No edema. Palpable radial and pedal pulses bilaterally. No murmur. Gastrointestinal (Abdomen): normal bowel sounds, soft, nontender, no hepatosplenomegaly Musculoskeletal: Exam limited due to patient's inability to cooperate at this time Skin: Skin is thin and frail with multiple scabs and eschar in stages of healing. Neurologic: PERRLA, no facial droop, opens eyes to physical stimulation. Moving all extremities with stimuli. Cough gag corneal intact. exam limited due to patient's inability to participate if she is currently obtunded Psychiatric: Orientation: + not alert and + not oriented x 3 Results & Data Results & Data ([facility]) Vital Signs (Past 12 Hours) Vital Signs Temp Pulse Pulse Resp BP BP BP 03/16/20 22:08 61 15 100/33 L 03/16/20 22:01 60 17 03/16/20 22:00 60 19 100/50 L 03/16/20 21:50 104 H 104 H 21 03/16/20 21:45 60 19 03/16/20 21:35 77 30 H 102/86 03/16/20 21:30 60 12 03/16/20 21:23 62 20 92/40 L 03/16/20 21:17 63 22 03/16/20 20:50 03/16/20 20:46 03/16/20 20:38 62/28 L 03/16/20 20:16 60 23 03/16/20 20:15 60 14 80/50 L 03/16/20 19:56 36.8 C 16 75/32 L 03/16/20 16:40 60 03/16/20 15:33 61 21 03/16/20 15:00 36.4 C L 62 12 99/49 L 03/16/20 12:44 60 20 03/16/20 12:01 36.3 C L 60 20 03/16/20 11:27 59 L BP Pulse Ox 03/16/20 22:08 03/16/20 22:01 100 03/16/20 22:00 98 03/16/20 21:50 94 03/16/20 21:45 97 03/16/20 21:35 95 03/16/20 21:30 95 03/16/20 21:23 95 03/16/20 21:17 99 03/16/20 20:50 63/29 L 03/16/20 20:46 56/27 L 03/16/20 20:38 03/16/20 20:16 96 03/16/20 20:15 100 03/16/20 19:56 100 03/16/20 16:40 03/16/20 15:33 96 03/16/20 15:00 96 03/16/20 12:44 97 03/16/20 12:01 94/43 L 100 03/16/20 11:27 Coding Level of Care Code Critical Care ea addt'l 30 min Diagnoses Acute on chronic heart failure with preserved ejection fraction I50.33 CHF (congestive heart failure) I50.9 Heart failure chronicity: acute on chronic Heart failure type: unspecified Acute respiratory failure with hypoxemia J96.01 ESRD (end stage renal disease) N18.6 Aortic stenosis I35.0 Macrocytic anemia D53.9 Paroxysmal atrial fibrillation I48.0 PAD (peripheral artery disease) I73.9 Hypotension I95.9 Metabolic encephalopathy G93.41 (1) CHF (congestive heart failure) Heart failure chronicity: acute on chronic Heart failure type: unspecified Qualified Code(s): I50.9 - Heart failure, unspecified
[2020-03-16 22:30] LABS: INR 1.7 (0.9-1.1); Partial Thromboplastin Ratio 1.3; Partial Thromboplastin Time 37.6 Seconds (21.0-31.0); Prothrombin Time 17.2 Seconds (9.0-12.0)
[2020-03-16 22:33] LABS: Bilirubin,Total 0.5 mg/dl (0.2-1); Globulin 2.8 gm/dl (2.5-4.0); Phosphorus 2.7 mg/dl (2.5-4.9); Total Protein 5.5 gm/dl (6.4-8.2); Troponin I 0.047 ng/ml (0-0.045)
[2020-03-17 01:00] LABS: Appearance Urine Slightly Cloudy (Clear); Color Urine Brown
[2020-03-17 01:01] LABS: Sulfosalicylic Acid Urine Negative (Negative)
[2020-03-17 01:02] LABS: Protein Urine Negative (Negative); Specific Gravity Urine 1.022 (1.000-1.030)
[2020-03-17 01:04] LABS: Amorphous Sediment Urine Present (None Prsent); Bacteria Urine Negative (Negative); Epithelial Cell Urine 0-5 /lpf (0-5); RBC Urine 0-4 /hpf (0-4); WBC Urine 0-5 /hpf (0-5)
[2020-03-17] MEDS ORDERED: ALBUMIN 5% 250 ML IV ONE (01:37)
[2020-03-17 05:33] LABS: Base Excess ABG -0.9 mEq/L (-9-1.8); HCO3 ABG 26 mmol/L (19-24); PCO2 ABG 55 mmHg (35-46); PO2 ABG 78 mmHg (80-95); pH ABG 7.29 (7.35-7.45)
[2020-03-17 05:34] LABS: Basophils # (auto) 0.01 K/uL (0-0.2); Basophils % (auto) 0.1 %; Eosinophils # (auto) 0.08 K/uL (0-0.5); Eosinophils % (auto) 0.8 %; Hemoglobin 9.9 g/dL (12.0-16.0); Immature Granulocytes # (auto) 0.06 K/uL (0.00-0.02); Immature Granulocytes % (auto) 0.6 %; Lymphocytes # (auto) 0.68 K/uL (1.2-3.4); Mean Corpuscular Hemoglobin 33.7 pg (25-34); Mean Corpuscular Hgb Conc 30.9 g/dL (32-36); Mean Corpuscular Volume 108.8 fL (80-100); Mean Platelet Volume 10.4 fL (7.4-10.4); Monocytes # (auto) 0.85 K/uL (0.11-0.59); Monocytes % (auto) 8.8 %; Neutrophils # (auto) 8.02 K/uL (1.4-6.5); Neutrophils % (auto) 82.7 %; Platelet Count 179 K/uL (130-400); RDW Coefficient of Variation 14.2 % (11.5-14.5); RDW Standard Deviation 55.9 fL (36.4-46.3); Red Blood Count 2.94 M/uL (4.2-5.4)
[2020-03-17 05:38] LABS: Allen Test Pos (Pos)
[2020-03-17 06:05] LABS: Calcium 8.4 mg/dl (8.5-10.1); Creatinine Clr Calc Pharmacy 12.5 ml/min; Est GFR (African American) 12.9; Est GFR (Non-African American) 11.1
[2020-03-17 06:08] LABS: Phosphorus 2.3 mg/dl (2.5-4.9); Troponin I 0.05 ng/ml (0-0.045)
[2020-03-17 06:22] LABS: Potassium 4.5 mmol/L (3.5-5.1)
[2020-03-17 06:24] LABS: Magnesium 2.6 mg/dl (1.8-2.4)
--- NOTE | 2020-03-17 06:44 | Hospitalist Progress Note ---
Date of Service March 17, 2020 Assessment & Plan (1) Hypercapnic respiratory failure: Sarah Wyatt is a 75-year-old female with severe and mtugp-qe-xgjicqv CKD who presented to ED with worsening dyspnea, weight gain, and leg swelling, subsequently found to have mixed acute hypoxic and hypercapnic respiratory failure, zfghf-rd-pwvrjjz HFpEF, and CKD IV + LATRICE requiring dialysis. In the evening of 03/16, she was found to be minimally responsive to pain and speech, then found to be profoundly hypotensive and ABGs suggestive of acidemia alongside hypercapnia. She was subsequently transferred to ICU, where she is now hemodynamically stable. Acute respiratory failure - mixed both hypoxic and hypercapnic - Likely 2/2 ghvez-ug-yhnajcx HFpEF exacerbation for the hypoxic component - Hypercapnic contribution is without clear etiology, but likely multifactorial: likely part CHF and FRANKLYN, and possibly: ?underlying COPD, ?restrictive lung disease, ?obesity hyperventilation syndrome, ?generalized weakness - Nocturnal pulse oximetry (03/11) demonstrated ~30min total of desaturation events (between 70-80s on NC) - ABGs do demonstrate improvement of hypercapnia/acidosis with BiPAP (03/12, 03/17) - Pulmonology consulted 03/05: BiPAP PRN, fluid management - Continue to encourage BiPAP HS/PRN - Intermittently tolerating some nights, but not others -- counselled patient on importance and indications, regularly communicating this with family - Patient says she doesn't like using BiPAP because of discomfort -- added nasal bridge bandage today, consider adding nasal pillows in outpatient setting - CXR 03/15 demonstrated progressively worsened pulmonary edema with moderate pleural effusions: likely due to CHF and ESRD - Repeat CXR demonstrates persistence and perhaps worsening of pulmonary edema within the right lung isabel Tjasb-ob-Bosdyzz HFpEF (EF = 65%) - Likely 2/2 severe aortic stenosis and CKD --> ESRD - GINA demonstrated progression of (from 07/28/15), severe concentric L VH, LVEF 60-65% - Fluid balance continues to be mildly net positive day-by-day -- likely d/t progression of CKD - Requiring dialysis with CKD + LATRICE, aiding with fluid management - CXR as above (03/15, 03/16): worsened pulmonary edema with bilateral pleural effusions - Continue ESRD management, as below - Cardiology not planning intervention at this time - Continue I&Os, daily weights ESRD -- now requiring HD - Baseline creatinine usually around ~2.4 mg/dL -- CKD likely attributable to microvascular disease and h/o ATN - Progressive worsening in renal function likely attributable to cardiorenal syndrome, per nephrology -- failed medication-attempted management at this point - Patient has intermittent improvement of BUN/Cr following dialysis, with subsequent worsening in day after -- no signs of renal recovery at this time - S/P permacath placement on 03/05 - Nephrology following, appreciate recs: - HD scheduled altered due to upcoming holiday - anticipate dialysis 03/17 or 03/18 - Attempting UF as possible, but difficult d/t HoTN -- had 2L UF on 03/15 - Originally planned for outpatient HD at [facility], however -- given HoTN, hypercapnia, lethargy on 03/17 -- continue to clarify dispositional plans - Will require renally-dosed medications (for GFR < 10) Metabolic Encephalopathy - First noted on admission and intermittently throughout hospital course - Patient experienced significant drowsiness and somnolence throughout 03/11, resolved 03/12 s/p BiPAP; again on 03/16, still improving into AM of 03/17 in ICU - Likely d/t respiratory acidosis/hypercapnia, possibly due to uremic component from CKD with LATRICE - In previous instances (e.g., 03/11, 03/16), was found to have respiratory acidosis alongside hypercapnia on ABGs which improved after night of BiPAP - SpO2 continues to remain >95% on BiPAP Hypotension - Patient noted to have low DBPs throughout throughout/after dialysis (~100/30s; MAPs ~60s) on 03/12; BPs evening of 03/11 ~90/50s with lowest of 86/38; recovered into the following AM - Similarly, profound HoTN on 03/16 PM down to 56/27 at lowest, requiring Albumin and crystalloid infusion for pressure support, alongside BiPAP -- did show improvement throughout night in ICU - Suspect HoTN is d/t preload dependence from severe , which is decreased by dialysis: nephrology aware and following - Hold home Imdur moving forward for now - If BP < 90 / 40, consider Albumin 12.5-25 (given hypoalbuminemia, malnutrition, and third spacing), then/and 500cc crystalloid bolus (responded well on 03/16, patient does have EF 65%) Goals of Care - 03/11: Spent significant time discussing patient's overall status and goals of care moving forward with daughterLibertad: - Optimally, would like to see her Mom (patient) to be able to basic independent functions at home, like use the restroom, get into the shower, and move around house - even if it requires ambulatory assistance. - Understanding that goals depend on strength and general functional needs determined from patient's goals/desires, a medical perspective, a PT perspective, and an OT perspective - Limitations complicated by patient's poor vision - 03/12: Patient's family requested transfer to tertiary care facility -- [facility] [place] or [facility] [place]. Discussed patient's case with transfer providers at both locations and neither are able to accept at this time. - 03/13 - 03/16: Explored LTACH option with case management and family. Tentatively approved 03/16 by insurance. - 03/17: Given profound HoTN, somnolence, and hypercapnia yesterday evening, will need to revisit dispositional planning moving forward and ensure medical needs are stabilized prior to transfer. Currently in ICU. Case management aware and following. - Continue following with PT and OT to evaluate needs moving forward - Encourage transfer to chair as tolerated with nursing / PT assistance - Patient understanding of HD requirements in outpatient setting -- will require coordination with case management - Regular discussions with case management and patient's family for updates, needs planning, and goals of care * Avoid Ativan at the request of the family - patient reacts poorly and becomes very somnolent * Utilize melatonin PRN to aid with sleep - she responds well to this and is preferred per family Macrocytic anemia - Continue B12, folate as scheduled - Likely has component from CKD IV, possibly now fitting more of an ESRD-like picture - SPEP results: negative - When tolerated, iron PO DM (diabetes mellitus) - HbA1C 5.5 on labs in August 2019 - Hold sitagliptin - unclear if needs this going forward - Will use NovoLog for correction factor only Paroxysmal atrial fibrillation - Rhythm control with amiodarone 200mg PO QAM - Anticoagulation with apixaban Hyperlipidemia - Continue home atorvastatin 40mg po daily Hypertension - Continue home metoprolol 200mg po daily, Imdur 60mg qAM TIA - Neurology consulted 03/04 after episode of focal weakness, slurred speech - CT did not demonstrate any acute intracranial findings - Continue vascular therapy -- HTN, HLD treatments as above - Recommended TIA work-up when stable: MRI, FLP -- consider PT/OT/ST Dispo: ICU for BP, respiratory, and mental status monitoring given HoTN requiring code kayla last night. PPX: Eliquis 2.5mg PO b.i.d. F/E/N: RD following -- minced/moist diet until denture adhesive brought in // for now, heart healthy, DM2, low sodium, dialysis diets Code: FULL CODE (2) CKD (chronic kidney disease), stage IV: (3) Aortic stenosis: (4) CHF (congestive heart failure): Admission and Anticipated Discharge Date Admission Date: March 02, 2020 Supervising Physician Co-Signing Physician Notes Resident Physician Supervision Note: I independently interviewed and examined the patient and verified the brown history and physical, reviewed labs and image studies, discussed the case with the resident Dr. Rod and agree with the findings and care plan. Subjective Recap: "Update: Patient seen at the bedside last night at approximately ~2020- 2030hr. At that time, was found to be lethargic, minimally responsive to my attempts at arousal (including pain), and quite hypotensive -- down to 57/29. On BiPAP on arrival. Darian garza called with subsequent arrival of critical care team. POC ABC performed revealing of pH down to 7.19 and quite hypercapnic to 75, alongside hypoxemia to 81%. Mildly hypoglycemic to 69. Received 25g of Albumin alongside +500cc NSS bolus with some increase in pressures before being transferred to ICU for further hemodynamic management" (addendum from previous note). In ICU, patient underwent CXR which does show worsening of R-sided pulmonary edema. Labs did demonstrate troponin of 0.047-->0.050 in setting of HoTN, and hyperammonemia at 52. Lactate and procalcitonin negative, without white count, no temperature, UA relatively unremarkable. On BiPAP @ FiO2 30 and with fluids / DuoNebs x 1, patient did demonstrate steady improvements in acidemia as well as hypercapnia and hypoxemia on ABGs. Patient subjectively demonstrated mental status improvements following these interventions. At the bedside this morning, patient is more alert compared to last night's examination. She does open her eyes when asked, responds to her name, and is able to say a few words in response to basic questioning. She denies any pain right now denies any shortness of breath. Denies any chest pressure. Talked with the patient for several minutes about her reasoning for transfer and importance of BiPAP at this time. She did shake her head in understanding. Review of Systems Review of Systems: as per HPI Physical Exam Constitutional: Tired and frail appearing 75-year-old female who does appear pale and is lying in her ICU hospital bed with BiPAP currently on. Upon my arrival to the room, she was sleeping. She does intermittently respond to my questions and opens her eyes on command and in response to her name. This is an improvement from last night. No acute distress at this time. Respiratory: Respiratory status assisted with BiPAP. Generally, mild to moderate respiratory effort with symmetric expansion of the chest. Lungs demonstrate decreased breath sounds throughout, but without notable crackles or wheezes. Cardiovascular: Normal rate and regular rhythm. S1 and S2 are present with appreciable 3 out of 6 systolic ejection murmur best heard at the right upper sternal border, unchanged. Gastrointestinal (Abdomen): Abdomen is soft, nontender, nondistended. Normoactive bowel sounds. Results & Data Results & Data ([facility]) Vital Signs (Past 12 Hours) Vital Signs Temp Pulse Pulse Resp BP BP BP 03/17/20 06:01 60 20 126/44 L 03/17/20 05:31 60 16 129/39 L 03/17/20 05:28 60 22 03/17/20 04:32 36.6 C 60 15 117/29 L 03/17/20 04:01 60 18 111/40 L 03/17/20 03:30 60 17 111/35 L 03/17/20 03:01 60 19 97/35 L 03/17/20 02:30 60 19 03/17/20 02:11 60 16 108/43 L 03/17/20 01:56 61 26 H 110/48 L 03/17/20 01:41 60 18 102/36 L 03/17/20 01:35 62 27 H 81/57 L 03/17/20 00:38 62 15 94/35 L 03/17/20 00:24 61 18 126/39 L 03/17/20 00:10 61 22 120/41 L 03/16/20 23:53 60 23 101/34 L 03/16/20 23:38 60 15 89/33 L 03/16/20 23:23 60 25 H 111/37 L 03/16/20 23:20 61 03/16/20 23:17 36.5 C 60 22 82/58 L 03/16/20 23:00 60 27 H 03/16/20 22:55 36.5 C 60 21 106/26 L 03/16/20 22:50 61 31 H 03/16/20 22:08 61 15 100/33 L 03/16/20 22:01 60 17 03/16/20 22:00 60 19 100/50 L 03/16/20 21:50 104 H 104 H 21 03/16/20 21:45 60 19 03/16/20 21:35 77 30 H 102/86 03/16/20 21:30 60 12 03/16/20 21:23 62 20 92/40 L 03/16/20 21:17 63 22 03/16/20 20:50 03/16/20 20:46 03/16/20 20:38 62/28 L 03/16/20 20:16 60 23 03/16/20 20:15 60 14 80/50 L 03/16/20 19:56 36.8 C 16 75/32 L BP Pulse Ox 03/17/20 06:01 100 03/17/20 05:31 100 03/17/20 05:28 100 03/17/20 04:32 100 03/17/20 04:01 100 03/17/20 03:30 100 03/17/20 03:01 100 03/17/20 02:30 99 03/17/20 02:11 100 03/17/20 01:56 100 03/17/20 01:41 100 03/17/20 01:35 99 03/17/20 00:38 100 03/17/20 00:24 99 03/17/20 00:10 99 03/16/20 23:53 91 03/16/20 23:38 100 03/16/20 23:23 100 03/16/20 23:20 03/16/20 23:17 100 03/16/20 23:00 100 03/16/20 22:55 100 03/16/20 22:50 100 03/16/20 22:08 03/16/20 22:01 100 03/16/20 22:00 98 03/16/20 21:50 94 03/16/20 21:45 97 03/16/20 21:35 95 03/16/20 21:30 95 03/16/20 21:23 95 03/16/20 21:17 99 03/16/20 20:50 63/29 L 03/16/20 20:46 56/27 L 03/16/20 20:38 03/16/20 20:16 96 03/16/20 20:15 100 03/16/20 19:56 100 Resident Activity Tracking Resident Involvement: Resident Care Provided Care Provided: Adult Hospital Medicine (1) CHF (congestive heart failure) Heart failure chronicity: acute on chronic Heart failure type: unspecified Qualified Code(s): I50.9 - Heart failure, unspecified
[2020-03-17] MEDS: INSULIN ASPART 100 UNITS/ML 3 ML PEN SC SCH ×4 (07:43→21:43)
--- NOTE | 2020-03-17 08:01 | XRay Report ---
XR chest 1V portable CLINICAL HISTORY: Respiratory failure COMPARISON STUDY: 03/15/2020 FINDINGS: There is a left subclavian dual-chamber central venous pacemaker present. There is a dual-l umen right-sided central venous catheter. The heart remains enlarged. There are bilateral pleural eff usions.[There are bilateral pulmonary airspace opacities likely representing pulmonary edema. More fo danny basilar opacities while nonspecific may represent compressive atelectatic change. IMPRESSION: Persistent pulmonary edema pattern with bilateral pleural effusions. ACT 112: Negative or not required by law. Electronically signed by: Adrian Escoto M.D. 03/17/2020 8:00 AM
--- NOTE | 2020-03-17 08:35 | XRay Report ---
XR chest 1V portable CLINICAL HISTORY: increased breathing effort, pulmonary congestion COMPARISON STUDY: Chest CT March 14, 2020. Chest radiograph March 16, 2020 FINDINGS: Dual lumen right internal jugular central venous catheter and dual-lead left subclavian pac emaker remain in place. There is no pneumothorax. There are persistent bilateral pleural effusions wi th associated bibasilar opacities. Pulmonary edema is again noted. There is cardiomegaly and extensiv e mitral annular calcification. Previous distal left clavicular resection is incidentally noted. Calc ified right paratracheal lymph node is noted. IMPRESSION: Persistent bilateral pleural effusions, associated bibasilar opacities and pulmonary howard a. ACT 112: Negative or not required by law. Electronically signed by: Aftab Ramos M.D. 03/17/2020 8:34 AM
[2020-03-17] MEDS: NEPHROCAPS PO SCH ×2 (09:35→09:59)
[2020-03-17] MEDS: APIXABAN 2.5 MG TAB PO SCH ×3 (09:36→21:42)
[2020-03-17] MEDS: CEROVITE ADV FORMULA TAB PO SCH (09:36)
[2020-03-17] MEDS: FERROUS SULFATE 325 MG TAB PO SCH ×3 (09:36→21:42)
[2020-03-17] MEDS: DICLOFENAC SOD 1% GEL 100 GM TUBE EXT SCH ×4 (09:36→20:49)
[2020-03-17] MEDS: CHOLECALCIFEROL 1,000 UNITS 25 MCG TAB PO SCH (09:36)
[2020-03-17] MEDS: SEVELAMER HCL 800 MG TABLET PO SCH ×4 (09:36→16:46)
[2020-03-17] MEDS: ATORVASTATIN 40 MG TAB PO SCH ×2 (09:36→09:59)
[2020-03-17] MEDS: LACTULOSE SYRUP 30 GM/45 ML UDP PO SCH ×3 (09:37→21:42)
[2020-03-17] MEDS: POLYETHYLENE (MIRALAX) 17 GM PACK PO SCH ×2 (09:37→21:43)
[2020-03-17] MEDS: AMIODARONE 200 MG TAB PO SCH (09:58)
--- NOTE | 2020-03-17 10:34 | Nephrology Progress Note ---
Date of Service March 17, 2020 Assessment & Plan (1) ESRD (end stage renal disease): 75 y o F with ESRD, on HD started during this hospitalization on 03/05/2020 via [facility]. Admitted to hospital with progressive SOB and LE edema with h/o severe with severe left ventricular hypertrophy. Renal US does not demonstrate evidence of obstruction. UA/microscopy with no proteinuria but hematuria most likely related to catheter trauma. Transferred to ICU on the evening of 03/16/2024 after code kayla was called for hypotension with less responsiveness and hypercarbic respiratory failure. --hemodialysis today for 4 hours, will try 2 lL UF if possible however has been difficult because of low blood pressure. However, if respiratory status remains poor, may need to consider pleural tap for bilateral moderate pleural effusion as HD may not improve the pleural effusion. Waiting for discharge to LTACH. outpatient dialysis at [facility]. --continue on Renvela 800 mg t.i.d. with meal, nephro caps once a day. --strictly monitor I/O's will be strictly monitored. --left arm nephrology precaution --dose medication for GFR <10. --TETE for Hb <10 Will follow. Admission and Anticipated Discharge Date Admission Date: March 02, 2020 Ananda Smith was seen and examined in ICU. Overnight she was transferred to ICU after she was found to be critically hypotensive and less responsive with hypercarbic respiratory failure. X-ray shows bilateral pleural effusion and worsening pulmonary edema. She is overall feeling slightly better, much more awake and alert. blood pressure still relatively low but much improved from yesterday. Electrolyte has been acceptable although creatinine continues to rise in between dialysis and urine output has been low. Review of Systems Review of Systems: All systems reviewed & are unremarkable except as noted in Subjective Physical Exam Constitutional: WD/WN, vitals as above + ill appearing; no acute distress Respiratory: normal respiratory effort, lungs clear to auscultation normal respiratory effort; no respiratory distress Auscultation: + diminished lung sounds Cardiovascular: RRR, no murmur, no edema Rate/Rhythm: regular rate and regular rhythm Heart Sounds: normal S1, normal S2 and + murmur Extremities: + edema (trace b/l LE edema) Skin: no rashes, warm and dry Neurologic: awake; no focal motor deficits and not confused Psychiatric: A+Ox3, euthymic affect Results & Data ([facility]) Vital Signs (Past 12 Hours) Vital Signs Temp Pulse Pulse Resp BP BP Pulse Ox 03/17/20 10:00 62 22 101/38 L 99 03/17/20 08:00 36.6 C 60 60 11 L 105/33 L 93 03/17/20 06:01 60 20 126/44 L 100 03/17/20 05:31 60 16 129/39 L 100 03/17/20 05:28 60 22 100 03/17/20 04:32 36.6 C 60 15 117/29 L 100 03/17/20 04:01 60 18 111/40 L 100 03/17/20 03:30 60 17 111/35 L 100 03/17/20 03:01 60 19 97/35 L 100 03/17/20 02:30 60 19 99 03/17/20 02:11 60 16 108/43 L 100 03/17/20 01:56 61 26 H 110/48 L 100 03/17/20 01:41 60 18 102/36 L 100 03/17/20 01:35 62 27 H 81/57 L 99 03/17/20 00:38 62 15 94/35 L 100 03/17/20 00:24 61 18 126/39 L 99 03/17/20 00:10 61 22 120/41 L 99 03/16/20 23:53 60 23 101/34 L 91 03/16/20 23:38 60 15 89/33 L 100 03/16/20 23:23 60 25 H 111/37 L 100 03/16/20 23:20 61 03/16/20 23:17 36.5 C 60 22 82/58 L 100 03/16/20 23:00 60 27 H 100 03/16/20 22:55 36.5 C 60 21 106/26 L 100 03/16/20 22:50 61 31 H 100 PG Care Time/CCT Total # of Minutes Spent Total Time Spent with Patient: Total time spent is greater than 50% in coord ination of care (as documented) at patient's floor/unit and/or counseling patient: Coding Level of Care Code 26384 Subseq Hosp Care Lvl 3 Diagnoses ESRD (end stage renal disease) N18.6
[2020-03-17] MEDS ORDERED: GLUCAGON IV STA (12:38)
[2020-03-17] MEDS ORDERED: DEXTROSE 5% IV STA (12:38)
--- NOTE | 2020-03-17 12:38 | Critical Care Progress Note ---
Date of Service March 17, 2020 Assessment & Plan (1) Acute on chronic heart failure with preserved ejection fraction: --Metabolic encephalopathy Likely secondary to hypercapnia Continue with BiPAP nightly and as needed for shortness of breath Maintain SPO2 88-92% It is improved after the patient came to the ICU and use BiPAP Was hypoglycemic around that time to with POC being only 62. That might also be playing a role in her altered status Patient's ammonia level was little bit elevated at 52. It is very nonspecific. Patient has been given lactulose. TSH is within normal limit --Transient hypotension on the floor side No clear source of infection. Procalcitonin is 0.7 in ESRD patient not significantly elevated. Patient has been on metoprolol last dose being 03/16/2020 in a.m. Patient's lactic acid was within normal limits 0.6 Responded to fluids Hold blood pressure medication --Acute on chronic hypercapnic respiratory failure Likely secondary to FRANKLYN/OHS Patient has been noncompliant with BiPAP Importance of compliance explained to the patient Use BiPAP nightly and as needed shortness of breath --Bilateral pleural effusion Most likely from end-stage renal disease and volume overload Patient is saturating on room air, not in any acute distress Needs optimization with dialysis No acute indication for thoracentesis currently, if the patient get symptomatic in future it could be thought of --Diabetes type 2 Continue with ICU hyperglycemia protocol Maintain sugar between 120-180 --A. fib On apixaban --Severe aortic stenosis with diastolic CHF Cardiology on board --Prophylaxis VTE: Apixaban GI: None Lines: Peripheral, right-sided permacath Diet: Cardiorenal Plan: In/out: -35, urine output 150 on straight cath Chest x-ray still shows bilateral pleural effusion with volume overload. There is improvement in aeration compared to before. There is improvement in the mental status after coming to the ICU. It is because of the PCO2 going down. Patient also likely had a component of hypoglycemia at the time. I will order cortisol level to make sure it is not one of the reason of patient's hypotension. Hold blood pressure medications. If the blood pressure still low will consider giving glucagon IV to counter beta juan jose effect. Overall prognosis of the patient is guarded given significant severe aortic stenosis, diastolic CHF, end-stage renal disease. I think palliative care approach should be thought of. Plan is to transfer the patient to LTAC when bed available. I have personally spent 35 minutes of critical care time in the direct management of this patient. This is a life/limb threatening event. This includes time spent evaluating patient, direct bedside care, chart review, placing orders, interpretation of diagnostic studies, discussion with consultants, patient, and family members, as well as other required patient management activities. This time is exclusive of all separately billable procedures, and teaching time and separate from and in addition to any other critical care service time. Please note the above document was generated using voice recognition software. It may contain grammatical, syntax or spelling errors. (2) CHF (congestive heart failure): (3) Acute respiratory failure with hypoxemia: (4) ESRD (end stage renal disease): (5) Aortic stenosis: (6) Macrocytic anemia: (7) Paroxysmal atrial fibrillation: (8) PAD (peripheral artery disease): (9) Hypotension: (10) Metabolic encephalopathy: Admission and Anticipated Discharge Date Admission Date: March 02, 2020 Subjective Patient seen and examined at bedside. No distress, no adverse events overnight after coming to the ICU. Patient was on BiPAP at the time of examination. Getting good tidal volume saturating well. She was awake alert oriented to self. Denied any chest pain. No headache, no nausea or vomiting. Has been afebrile. Review of Systems Review of Systems: All systems reviewed & are unremarkable except as noted in Subjective Physical Exam Physical Exam: Constitutional: No acute distress HEENT: EOMI, PERRLA Respiratory system: Decreased air entry bilaterally, positive crackles bilateral lower lobes, no wheeze, no rhonchi CVS: S1-S2 positive, positive 3 out of 6 systolic murmur best appreciated at the aorta, right-sided permacath Abdomen: Soft, nontender, nondistended, positive bowel sounds x4 Extremities: +2 pulses bilaterally radialis/ dorsalis pedis, no cyanosis, +1 edema bilateral lower extremity as well as left upper extremity Neuro: Awake alert oriented to self Psych: Normal mood and affect G/U: No Dinero Results & Data Results & Data ([facility]) Vital Signs (Past 12 Hours) Vital Signs Temp Pulse Pulse Resp BP BP Pulse Ox 03/17/20 10:00 62 22 101/38 L 99 03/17/20 08:00 36.6 C 60 60 11 L 105/33 L 93 03/17/20 06:01 60 20 126/44 L 100 03/17/20 05:31 60 16 129/39 L 100 03/17/20 05:28 60 22 100 03/17/20 04:32 36.6 C 60 15 117/29 L 100 03/17/20 04:01 60 18 111/40 L 100 03/17/20 03:30 60 17 111/35 L 100 03/17/20 03:01 60 19 97/35 L 100 03/17/20 02:30 60 19 99 03/17/20 02:11 60 16 108/43 L 100 03/17/20 01:56 61 26 H 110/48 L 100 03/17/20 01:41 60 18 102/36 L 100 03/17/20 01:35 62 27 H 81/57 L 99 03/17/20 00:38 62 15 94/35 L 100 03/17/20 00:24 61 18 126/39 L 99 03/17/20 05:08 03/17/20 05:15 Coding Level of Care Code Critical Care 1st 30-74 mins Diagnoses Acute on chronic heart failure with preserved ejection fraction I50.33 CHF (congestive heart failure) I50.9 Heart failure chronicity: acute on chronic Heart failure type: unspecified Acute respiratory failure with hypoxemia J96.01 ESRD (end stage renal disease) N18.6 Aortic stenosis I35.0 Macrocytic anemia D53.9 Paroxysmal atrial fibrillation I48.0 PAD (peripheral artery disease) I73.9 Hypotension I95.9 Metabolic encephalopathy G93.41 Time Spent (min) 35 (1) CHF (congestive heart failure) Heart failure chronicity: acute on chronic Heart failure type: unspecified Qualified Code(s): I50.9 - Heart failure, unspecified
--- NOTE | 2020-03-17 16:07 | Electrocardiogram Report ---
Test Reason : Blood Pressure : / mmHG Vent. Rate : 066 BPM Atrial Rate : 059 BPM P-R Int : 298 ms QRS Dur : 164 ms QT Int : 478 ms P-R-T Axes : 000 264 007 degrees QTc Int : 501 ms Atrial-paced rhythm with prolonged AV conduction Right bundle branch block Abnormal ECG When compared with ECG of 02-MAR-2020 15:25, No significant change Confirmed by Francisco Bass ([id number]) on 03/17/2020 4:07:13 PM Referred By: REFERRED SELF Confirmed By:Francisco Bass
[2020-03-17] MEDS: LIDOCAINE 5% 1 PATCH TD SCH (21:43)
[2020-03-18 05:29] LABS: Basophils # (auto) 0.03 K/uL (0-0.2); Basophils % (auto) 0.3 %; Eosinophils % (auto) 1.1 %; Hematocrit (blood only) 30.9 % (37-47); Hemoglobin 9.5 g/dL (12.0-16.0); Immature Granulocytes # (auto) 0.04 K/uL (0.00-0.02); Immature Granulocytes % (auto) 0.5 %; Lymphocytes # (auto) 0.84 K/uL (1.2-3.4); Lymphocytes % (auto) 9.5 %; Mean Corpuscular Hemoglobin 33.1 pg (25-34); Mean Corpuscular Hgb Conc 30.7 g/dL (32-36); Mean Corpuscular Volume 107.7 fL (80-100); Mean Platelet Volume 10.6 fL (7.4-10.4); Monocytes # (auto) 0.65 K/uL (0.11-0.59); Monocytes % (auto) 7.3 %; Neutrophils # (auto) 7.19 K/uL (1.4-6.5); Neutrophils % (auto) 81.3 %; Platelet Count 150 K/uL (130-400); RDW Coefficient of Variation 14.4 % (11.5-14.5); RDW Standard Deviation 56.2 fL (36.4-46.3); Red Blood Count 2.87 M/uL (4.2-5.4); White Blood Count 8.85 K/uL (4.8-10.8)
[2020-03-18 05:52] LABS: BUN Creatinine Ratio 5.3 (10-20); Calcium 7.7 mg/dl (8.5-10.1); Creatinine Clr Calc Pharmacy 19.5 ml/min; Est GFR (African American) 22.5; Est GFR (Non-African American) 19.4; Phosphorus 1.6 mg/dl (2.5-4.9)
[2020-03-18 06:54] LABS: Magnesium 2.1 mg/dl (1.8-2.4)
[2020-03-18 07:16] LABS: Potassium 3.6 mmol/L (3.5-5.1)
[2020-03-18] MEDS: INSULIN ASPART 100 UNITS/ML 3 ML PEN SC SCH (08:14)
[2020-03-18] MEDS: AMIODARONE 200 MG TAB PO SCH (08:15)
[2020-03-18] MEDS: APIXABAN 2.5 MG TAB PO SCH ×2 (08:15→21:00)
[2020-03-18] MEDS: CHOLECALCIFEROL 1,000 UNITS 25 MCG TAB PO SCH (08:16)
[2020-03-18] MEDS: FERROUS SULFATE 325 MG TAB PO SCH ×2 (08:16→21:00)
[2020-03-18] MEDS: CEROVITE ADV FORMULA TAB PO SCH (08:16)
[2020-03-18] MEDS: DICLOFENAC SOD 1% GEL 100 GM TUBE EXT SCH ×3 (08:16→21:01)
[2020-03-18] MEDS: NEPHROCAPS PO SCH (08:16)
[2020-03-18] MEDS: ATORVASTATIN 40 MG TAB PO SCH (08:16)
[2020-03-18] MEDS: POLYETHYLENE (MIRALAX) 17 GM PACK PO SCH ×2 (08:18→21:01)
[2020-03-18] MEDS: LACTULOSE SYRUP 30 GM/45 ML UDP PO SCH ×2 (08:18→21:00)
[2020-03-18] MEDS: SEVELAMER HCL 800 MG TABLET PO SCH ×3 (08:18→17:36)
[2020-03-18] MEDS: D5W AND 1/2NSS 1,000 ML IV SCH (10:29)
--- NOTE | 2020-03-18 10:45 | Critical Care Progress Note ---
Date of Service March 18, 2020 Assessment & Plan (1) Admitted to intensive care unit: Reason Critically Ill: 75-year-old female with complicated hospital course including acute renal failure now requiring hemodialysis, ongoing hypercapnic hypoxic respiratory failure, metabolic encephalopathy, and severe aortic stenosis who became hypotensive and obtunded overnight for which a code kayla was called and patient was transferred to the ICU. Hypotension improved with administration of IV boluses. Over the past 24 hours patient's mentation has improved with the use of BiPAP. When Bipap is removed, patient becomes increasingly lethargic. Patient did undergo hemodialysis yesterday, 2.5 liters of fluid removed. She continues to maintain goal MAPs. Overall prognosis remains poor, recommend consideration of palliative care consultation. Awaiting placement at LTAC. Stable for ICU down grade. Speech consulted for swallow study. PT/OT ordered Neuro: CAM ICU: Positive * Metabolic Encephalopathy - improving - Likely secondary to hypercapnia, as mentation improved with the use of BiPAP - hypoglycemia may have also been contributory, as POC BG was at 62 - ammonia level mildly elevated at 52. Lactulose ordered BID - Electrolytes WNL. TSH WNL. WBC normal, UA neg. Procal 0.7 (not elevated in ESRD patient). no concern for active infection. - Head CT from 03/03/20 showed no acute changes (anatomic etiology unlikely) - Continue with BiPAP nightly and as needed for shortness of breath - Maintain SPO2 88-92% Cardiac: * Transient hypotension: resolved - noticed while on the floor --> prompted ICU transfer --> improved with IVF - never required vasopressor support - last metoprolol dose was morning of 03/16; continue to hold - as for etiology: sepsis unlikely (WBC normal, UA neg, CXR without evidence of focal consolidation, Procalcitonin is 0.7 in ESRD patient not significantly elevated, lactic acid normal at 0.6); AM cortisol at 30, unlikely to be secondary to adrenal insufficiency. Although patient is volume overloaded (bilateral pleural effusions), suspect intravascular depletion (albumin is low at 2.7). * Severe aortic stenosis - murmur appreciated on exam - patient not a candidate for TAVR - contributory to diastolic CHR * Acute on chronic CHF with preserved ejection fraction - likely secondary to severe aortic stenosis and ESRD - HOLD home metoprolol (due to hypotension) - low Na diet - Cardiology on board * A. fib - anticoagulated on apixaban - rate controlled on metoprolol (currently on hold due to hypotension) - continue home amiodarone Respiratory: * Acute on chronic hypercapnic respiratory failure - Likely secondary to FRANKLYN/OHS - Patient has been noncompliant with BiPAP due to tolerability issues - Importance of compliance explained to the patient - Use BiPAP nightly and as needed shortness of breath * Bilateral pleural effusion - Most likely from end-stage renal disease and volume overload - Patient is saturating at goal on 1L NC, in any acute distress - dialysis scheduled per nephrology - No acute indication for thoracentesis currently; will continue to consider - CXR from 03/17/20 showing persistent pleural effusions + bibasilar opacities but with improved aeration GI: - reduced PO intake - swallow study ordered as above RENAL/LYTES: * ESRD - currently on hemodialysis (, Mon schedule) - permacath placed on 03/05 - continue on Renvela 800 mg t.i.d. with meal, nephro caps once a day. - renally dose meds for GFR < 10 - nephrology following * Hypokalemia - potassium level 3.4; replacement ordered - Mag normal * Hypophosphatemia - level at 1.6 today - patient has had little PO intake - patient is on sevelamer as above - sodium phosphate ordered for replacement : - UA neg on 03/17. - no issues at this time ENDO: * Diabetes type 2: well controlled - HbA1c 6.2 on admission - Continue with ICU hyperglycemia protocol - Maintain sugar between 120-180 - continue atorvastatin - home sitagliptin likely will not need to be restarted as A1c at goal for age HEME: * Macrocytic anemia - Hgb 9.5, MCV 107 - Hgb has ranged from 11.9 to 9.5 during admission - Vitamin B12 and folate normal on admission - iron level normal, ferritin elevated on admission - ESRD likely contributory - SPEP negative - continue home ferrous sulfate supplement ID: - WBC normal. Blood cultures showing no growth through 24 hours. Procal not elevated for ESRD. UA neg. CXR without consolidation concerning for PNA. MRSA nares neg. - no concern for active infection at this time LINES/IV ACCESS: Permacath (dialysis), PIV CODE STATUS: Full DVT PROPHYLAXIS: on apixaban, bilateral SCDs Diet: Cardiorenal Thank you for allowing us to participate in the care of this patient. Please refer to my attending physician's documentation for any further recommendations. Admission and Anticipated Discharge Date Admission Date: March 02, 2020 Supervising Physician Co-Signing Physician Notes Ragini Lovell was the resident-physician during care of patient. I separately evaluated patient for brown portions of the history and the exam. I was present during the critical portion of medical decision making, and I discussed the case with the resident. I generally agree with the findings and plan except for any additions/exceptions noted. Patient seen and examined at bedside. No acute distress, no adverse events overnight. Patient seen to be lethargic later in the morning today. She did not use the BiPAP overnight. Patient was put on BiPAP. Her saturation, blood pressure as well as respiratory rate well controlled. Patient got dialyzed 3 L yesterday without any significant issues with blood pre ssure. Patient does have vasculopathy and blood pressure measurements are not good when it comes to her upper extremities. Patient's lactate was within normal limit when she had hypotensive episode on the floor prior to coming to the ICU. Which goes against to hypertension. Patient has episodes of hypoglycemia likely because patient is not taking good intake. Importance of eating food explained to the patient. We will start the patient on low-dose D5 half NS to have continuous carbohydrate supplementation. Patient does have pleural effusion appreciated bilaterally more on the right side, the etiology of this effusion is diastolic CHF and aortic stenosis on top of CKD. Not active indication to do thoracentesis. Would recommend continue with adequate hemodialysis. The pleural fluid is going to come back again because of underlying etiology which is diastolic CHF and severe aortic stenosis. Overall prognosis of the patient is guarded given end-stage renal disease, diastolic CHF, severe aortic stenosis with no plan from cardiology standpoint. Patient is hemodynamically stable to be sent out to the ICU. It is very important for the patient to use BiPAP whenever she is asleep. Her hypercapnic respiratory failure is multifactorial likely FRANKLYN/OHS is playing a role. This time is exclusive of all separately billable procedures, and teaching time and separate from and in addition to any other critical care service time. Subjective Patient reports she feels terrible "all over." She says she feels depressed - she wants to be able to see her children. She feels as though all the interventions she has received are not helping. She says, "I am going to " repeatedly. At times refusing to take pills Review of Systems Constitutional: + malaise Physical Exam Constitutional: WD/WN, vitals as above + ill appearing Eyes: + anicteric sclerae ENMT: external ear and nose normal, oropharynx normal Neck: normal visual inspection and trachea midline Respiratory: normal respiratory effort; no respiratory distress Auscultation: + diminished lung sounds (bilateral lung bases ) nasal cannula in place Cardiovascular: Rate/Rhythm: regular rate and regular rhythm Heart Sounds: normal S1, normal S2 and + murmur (systolic ejection mumur, radiates to neck ) Extremities: no pedal edema Chest (Breasts): Chest: + vascular access device or port (dialysis catheter) Gastrointestinal (Abdomen): normal bowel sounds, soft, nontender, no hepatosplenomegaly Skin: no rashes, warm and dry Psychiatric: Orientation: alert, oriented to person and oriented to place; + not oriented to time (knows month not year) Results & Data Results & Data ([facility]) Vital Signs (Past 12 Hours) Vital Signs Temp Pulse Resp BP Pulse Ox 03/18/20 10:22 66 22 105/68 92 03/18/20 10:00 23 95 03/18/20 09:30 61 20 94 03/18/20 09:22 66 22 123/28 L 96 03/18/20 09:00 61 20 95 03/18/20 08:30 67 22 95 03/18/20 08:21 62 23 113/45 L 94 03/18/20 08:00 62 29 H 96 03/18/20 07:30 66 28 H 94 03/18/20 07:24 63 20 85 L 03/18/20 07:21 64 21 85 L 03/18/20 07:00 64 19 88 L 03/18/20 06:30 63 20 100 03/18/20 06:23 62 28 H 108/38 L 98 03/18/20 06:00 60 19 105/39 L 98 03/18/20 05:30 60 19 98 03/18/20 05:00 67 20 112/65 98 03/18/20 04:30 60 16 98 03/18/20 04:00 36.8 C 62 20 110/55 L 97 03/18/20 03:30 61 18 95 03/18/20 03:16 90 18 98 03/18/20 03:00 63 19 94/39 L 99 03/18/20 02:30 60 21 98 03/18/20 02:00 60 17 125/36 L 99 03/18/20 01:30 60 19 98 03/18/20 01:00 61 18 106/47 L 99 03/18/20 00:30 60 20 98 03/18/20 00:00 36.7 C 62 24 134/46 L 96 03/17/20 23:30 60 16 97 03/17/20 23:00 61 19 104/41 L 92 Resident Activity Tracking Resident Involvement: Resident Care Provided Care Provided: Adult Hospital Medicine
--- NOTE | 2020-03-18 10:59 | Nephrology Progress Note ---
Date of Service March 18, 2020 Assessment & Plan (1) ESRD (end stage renal disease): 75 y o F with ESRD, on HD started during this hospitalization on 03/05/2020 via [facility]. Admitted to hospital with progressive SOB and LE edema with h/o severe with severe left ventricular hypertrophy. Renal US does not demonstrate evidence of obstruction. UA/microscopy with no proteinuria but hematuria most likely related to catheter trauma. Transferred to ICU on the evening of 03/16/2024 after code kayla was called for hypotension with less responsiveness and hypercarbic respiratory failure. Had hemodialysis yesterday for 4 hours and tolerated 3 L UF. Overall not much clinical improvement and prognosis remains poor --hemodialysis tomorrow. Waiting for discharge to LTACH. outpatient dialysis at [facility]. --continue on Renvela 800 mg t.i.d. with meal, nephro caps once a day. --strictly monitor I/O's will be strictly monitored. --left arm nephrology precaution --dose medication for GFR <10. --TETE for Hb <10 Will follow. Admission and Anticipated Discharge Date Admission Date: March 02, 2020 Ananda Smith was seen this morning. She remained critically ill, continues to feel poorly and reports feeling short of breath easily and specially when she lies flat. She had dialysis yesterday and had 3 L UF, tolerated well and blood pressure has been relatively stable. Review of Systems Review of Systems: All systems reviewed & are unremarkable except as noted in Subjective Physical Exam Constitutional: WD/WN, vitals as above + ill appearing; no acute distress Respiratory: normal respiratory effort, lungs clear to auscultation normal respiratory effort; no respiratory distress Auscultation: + diminished lung sounds Cardiovascular: RRR, no murmur, no edema Rate/Rhythm: regular rate and regular rhythm Heart Sounds: normal S1, normal S2 and + murmur Extremities: + edema (trace b/l LE edema) Skin: no rashes, warm and dry Neurologic: awake; no focal motor deficits and not confused Psychiatric: A+Ox3, euthymic affect Results & Data ([facility]) Vital Signs (Past 12 Hours) Vital Signs Temp Pulse Resp BP Pulse Ox 03/18/20 10:22 66 22 105/68 92 03/18/20 10:00 23 95 03/18/20 09:30 61 20 94 03/18/20 09:22 66 22 123/28 L 96 03/18/20 09:00 61 20 95 03/18/20 08:30 67 22 95 03/18/20 08:21 62 23 113/45 L 94 03/18/20 08:00 62 29 H 96 03/18/20 07:30 66 28 H 94 03/18/20 07:24 63 20 85 L 03/18/20 07:21 64 21 85 L 03/18/20 07:00 64 19 88 L 03/18/20 06:30 63 20 100 03/18/20 06:23 62 28 H 108/38 L 98 03/18/20 06:00 60 19 105/39 L 98 03/18/20 05:30 60 19 98 03/18/20 05:00 67 20 112/65 98 03/18/20 04:30 60 16 98 03/18/20 04:00 36.8 C 62 20 110/55 L 97 03/18/20 03:30 61 18 95 03/18/20 03:16 90 18 98 03/18/20 03:00 63 19 94/39 L 99 03/18/20 02:30 60 21 98 03/18/20 02:00 60 17 125/36 L 99 03/18/20 01:30 60 19 98 03/18/20 01:00 61 18 106/47 L 99 03/18/20 00:30 60 20 98 03/18/20 00:00 36.7 C 62 24 134/46 L 96 03/17/20 23:30 60 16 97 03/17/20 23:00 61 19 104/41 L 92 PG Care Time/CCT Total # of Minutes Spent Total Time Spent with Patient: Total time spent is greater than 50% in coordination of care (as documented) at patient's floor/unit and/or counseling patient: Coding Level of Care Code 70967 Subseq Hosp Care Lvl 3 Diagnoses ESRD (end stage renal disease) N18.6
[2020-03-18] MEDS ORDERED: POTASSIUM PHOSPHATE 15 MMOL in SODIUM CHLORIDE 0.9% 250 ML IV ONE (11:30)
--- NOTE | 2020-03-18 12:22 | Billing Data ---
Date of Service March 18, 2020 Coding Level of Care Code 57615 Subseq Hosp Care Lvl 3
--- NOTE | 2020-03-18 15:56 | Palliative Care Progress Note ---
Date of Service March 18, 2020 Assessment & Plan (1) Palliative care encounter: Meeting at Sarah's bedside with her daughters and Dr. Cullen present. Dr. Cullen reviewed her current status. Daughters understand that prognosis is poor. They report that Sarah has been a fighter. We talked about her having explored all options for care to "fight". Unfortunately, despite best efforts, she continues to decline. At this point they are in agreement that focus of care shifts to fighting for comfort. Sarah still struggles with withdrawl of care and at this point indicates that she would want to continue dialysis if tolerated. Her goal is to return home, to her daughter's home where she can be close to family. She can be followed by home palliative care through her home care agency for support and assistance in making transition to hospice when appropriate. Bipap can be continued at home as tolerated. (2) Dyspnea: Hypercapnic respiratory failure improves with bipap (3) Hypotension: Balance with dialysis if tolerated Admission and Anticipated Discharge Date Admission Date: March 02, 2020 Subjective Asked to see Sarah who has been moved to ICU after code purple last night for hypotension and hypercapnia. Her mental status has improved somewhat with bipap but she remains lethargic. She does interact at times during conversation and then dozes off. Her daughters are at bedside. Review of Systems Review of Systems: Unobtainable due to cognitive status Eastman Symptom Assessment Scale Pain0/3 Dyspnea 0/3 Drowsiness 2/3 Palliative Performance Score 30% Physical Exam Constitutional: + frail appearing and + lethargic Respiratory: normal respiratory effort; no labored breathing Cardiovascular: Extremities: + edema Results & Data ([facility]) Vital Signs (Past 12 Hours) Vital Signs Temp Pulse Resp BP Pulse Ox 03/18/20 12:22 61 15 128/42 L 97 03/18/20 12:00 60 19 97 03/18/20 11:30 61 16 97 03/18/20 11:22 60 25 H 131/50 L 97 03/18/20 11:00 61 23 96 03/18/20 10:30 73 18 93 03/18/20 10:23 64 21 92 03/18/20 10:22 66 22 105/68 92 03/18/20 10:00 23 95 03/18/20 09:30 61 20 94 03/18/20 09:22 66 22 123/28 L 96 03/18/20 09:00 61 20 95 03/18/20 08:30 67 22 95 03/18/20 08:21 62 23 113/45 L 94 03/18/20 08:00 62 29 H 96 03/18/20 07:30 66 28 H 94 03/18/20 07:24 63 20 85 L 03/18/20 07:21 64 21 85 L 03/18/20 07:00 64 19 88 L 03/18/20 06:30 63 20 100 03/18/20 06:23 62 28 H 108/38 L 98 03/18/20 06:00 60 19 105/39 L 98 03/18/20 05:30 60 19 98 03/18/20 05:00 67 20 112/65 98 03/18/20 04:30 60 16 98 03/18/20 04:00 98.2 F 62 20 110/55 L 97 PG Care Time/CCT Total # of Minutes Spent Total Time Spent with Patient: Total time spent is greater than 50% in coordination of care (as documented) at patient's floor/unit and/or counseling patient: 65 minutes with more than 50% of time spent on discussing prognosis, hospice and goals of care. Coding Level of Care Code 11676 Subseq Hosp Care Lvl 3 Diagnoses Palliative care encounter Z51.5 Dyspnea R06.00 Hypotension I95.9 Time Spent (min) 65
--- NOTE | 2020-03-18 18:07 | Hospitalist Progress Note ---
Date of Service March 18, 2020 Assessment & Plan (1) Hypercapnic respiratory failure: Saarh Wyatt is a 75-year-old female with severe and yzcpp-ds-cafqpcz CKD who presented to ED with worsening dyspnea, weight gain, and leg swelling, subsequently found to have mixed acute hypoxic and hypercapnic respiratory failure, edejt-ea-bwbqqvl HFpEF, and CKD IV + LATRICE requiring dialysis. Her clinical prognosis at this point is poor. Palliative care now following. Goals of Care - 03/11: Spent significant time discussing patient's overall status and goals of care moving forward with daughterLibertad: - Optimally, would like to see her Mom (patient) to be able to basic independent functions at home, like use the restroom, get into the shower, and move around house - even if it requires ambulatory assistance. - Understanding that goals depend on strength and general functional needs determined from patient's goals/desires, a medical perspective, a PT perspective, and an OT perspective - Limitations complicated by patient's poor vision - 03/12: Patient's family requested transfer to tertiary care facility -- [facility] [place] [facility] [place] Discussed patient's case with transfer providers at both locations and neither are able to accept at this time. - 03/13 - 03/16: Explored LTACH option with case management and family. Tentatively approved 03/16 by insurance. - 03/17: Given profound HoTN, somnolence, and hypercapnia yesterday evening, will need to revisit dispositional planning moving forward and ensure medical needs are stabilized prior to transfer. Currently in ICU. Case management aware and following. - 03/18: Patient's daughters were approved to visit with their Mother today in order to aid with medical decision making, which also included a goals of care discussion. - Palliative care consulted, appreciate recommendations: - (03/18): Patient and her daughters seem to have an understanding of her current prognosis. Goals of care discussion held with family, hospitalist service, Dr. Ontiveros, and patient together in room. Kinjal would like to continue with HD after transitioning home, where she will plan to utilize BiPAP as tolerated. Agreeable to DNR/DNI. Case management closely following. Can consider agency that would help manage both medical needs, alongside potentially aid family in transitioning to hospice when appropriate. Please see attending physician's addendum for further notes / comments. - Continue following with PT and OT to evaluate needs moving forward - Encourage transfer to chair as tolerated with nursing / PT assistance - Patient understanding of HD requirements in outpatient setting -- will require coordination with case management - Regular discussions with case management and patient's family for updates, needs planning, and goals of care * Avoid Ativan at the request of the family - patient reacts poorly and becomes very somnolent * Utilize melatonin PRN to aid with sleep - she responds well to this and is preferred per family Acute respiratory failure - mixed both hypoxic and hypercapnic: Currently Stable - Likely 2/2 gpamq-dq-fgleklr HFpEF exacerbation for the hypoxic component - Hypercapnic contribution is without clear etiology, but likely multifactorial: likely part CHF and FRANKLYN, and possibly: ?underlying COPD, ?restrictive lung disease, ?obesity hyperventilation syndrome, ?generalized weakness - Nocturnal pulse oximetry (03/11) demonstrated ~30min total of desaturation events (between 70-80s on NC) - ABGs do demonstrate improvement of hypercapnia/acidosis with BiPAP (03/12, 03/17) - Pulmonology consulted 03/05: BiPAP PRN, fluid management - Continue to encourage BiPAP HS/PRN -- based on cmleg-am-fkpj discussion on 03/18, patient will require BiPAP to be utilized at night, and throughout the day as tolerated - Intermittently tolerating some nights, but not others -- counselled patient on importance and indications, regularly communicating this with family - Patient says she doesn't like using BiPAP because of discomfort -- added nasal bridge bandage today, consider adding nasal pillows in outpatient setting - CXR 03/15 demonstrated progressively worsened pulmonary edema with moderate pleural effusions: likely due to CHF and ESRD - Repeat CXR demonstrates persistence and perhaps worsening of pulmonary edema within the right lung isabel Kqfou-rx-Kynoahw HFpEF (EF = 65%) - Likely 2/2 severe aortic stenosis and CKD --> ESRD - GINA demonstrated progression of (from 07/28/15), severe concentric LVH, LVEF 60-65% - Fluid balance continues to be mildly net positive day-by-day -- likely d/t progression of CKD - Requiring dialysis with CKD + LATRICE, aiding with fluid management - CXR as above (03/15, 03/16): worsened pulmonary edema with bilateral pleural effusions - If indicated due to respiratory compromise, consider thoracentesis - Continue ESRD management, as below - Cardiology not planning intervention at this time - Continue I&Os, daily weights ESRD -- now requiring HD - Baseline creatinine usually around ~2.4 mg/dL -- CKD likely attributable to microvascular disease and h/o ATN - Progressive worsening in renal function likely attributable to cardiorenal syndrome, per nephrology -- failed medication-attempted management at this point - Patient has intermittent improvement of BUN/Cr following dialysis, with subsequent worsening in day after -- no signs of renal recovery at this time - S/P permacath placement on 03/05 - Nephrology following, appreciate recs: - HD scheduled altered due to upcoming holiday - anticipate dialysis 03/17 or 03/18 - Attempting UF as possible, but difficult d/t HoTN - Originally planned for outpatient HD at [facility]. - Given goals of care discussion on 03/18, patient would like to attempt HD as outpatient after transitioning home - Will require renally-dosed medications (for GFR < 10) Metabolic Encephalopathy - First noted on admission and intermittently throughout hospital course - Patient experienced significant drowsiness and somnolence throughout 03/11, resolved 03/12 s/p BiPAP; again on 03/16, still improving into AM of 03/17 in ICU - Likely d/t respiratory acidosis/hypercapnia, possibly due to uremic component from CKD with LATRICE - In previous instances (e.g., 03/11, 03/16), was found to have respiratory acidosis alongside hypercapnia on ABGs which improved after night of BiPAP - SpO2 continues to remain >95% on BiPAP - Please note: Current baseline mentation does appear to fluctuate between mild somnolence with intermittent periods of confusion, alongside A+Ox2-4 depending on time of day. Hypotension (Resolved at Present) - Patient noted to have low DBPs throughout throughout/after dialysis (~100/30s; MAPs ~60s) on 03/12; BPs evening of 03/11 ~90/50s with lowest of 86/38; recovered into the following AM - Similarly, profound HoTN on 03/16 PM down to 56/27 at lowest, requiring Albumin and crystalloid infusion for pressure support, alongside BiPAP -- improved and managed throughout ICU stay - Suspect HoTN is d/t preload dependence from severe , which is decreased by dialysis: nephrology aware and following - Hold home Imdur moving forward for now; metoprolol held upon admission to ICU - If BP < 90 / 40, consider Albumin 12.5-25 (given hypoalbuminemia, malnutrition, and third spacing), then/and 500cc crystalloid bolus (responded well on 03/16, patient does have EF 65%) Macrocytic anemia - Continue B12, folate as scheduled - Likely has component from CKD IV, possibly now fitting more of an ESRD-like picture - SPEP results: negative - When tolerated, iron PO DM (diabetes mellitus) - HbA1C 5.5 on labs in August 2019 - ICU managing and following, giving dextrose as needed d/t poor PO intake Paroxysmal atrial fibrillation - Rhythm control with amiodarone 200mg PO QAM - Anticoagulation with apixaban Hyperlipidemia - Continue home atorvastatin 40mg po daily Hypertension - Continue home metoprolol 200mg po daily, Imdur 60mg qAM TIA - Neurology consulted 03/04 after episode of focal weakness, slurred speech - CT did not demonstrate any acute intracranial findings - Continue vascular therapy -- HTN, HLD treatments as above - Recommended TIA work-up when stable: MRI, FLP -- consider PT/OT/ST Dispo: ICU -- Anticipate d/c home in alignment with palliative approach; will require outpatient HD and BiPAP at home. Case management closely following. See goals of care section above. PPX: Eliquis 2.5mg PO b.i.d. F/E/N: RD following -- minced/moist diet until denture adhesive brought in // for now, heart healthy, DM2, low sodium, dialysis diets Code: DNR/DNI (2) CKD (chronic kidney disease), stage IV: (3) Aortic stenosis: (4) CHF (congestive heart failure): Admission and Anticipated Discharge Date Admission Date: March 02, 2020 Supervising Physician Co-Signing Physician Notes I personally examined the patient and verified all brown points of history and exam, discussed case, and agree with decision making with Dr Marcel tolbert at bedside. extensive discussion outlining breadth and depth of their mother's illness, current treatment, and likely poor prognosis despite treatment ongoing. discussed options from ongoing acute care to home/hospice. they asked many good questions and gained good insight into mother's severity. pt herself had an understanding of what we were talking about but did not seem to have the ability to really grasp the situation or have good capacity to entirely understand. after ~45mins of discussions, addition 15-20mins discussions in conjunction w dr ontiveros at bedside w pt/dtrs comorbid multifactorial illnesses - for home/palliative approach. at this point will continue HD but understands that she can stop if it makes her too miserable. for now will work on bipap for home. will be living w dtr. updated case management as well otherwise as above time in room ~115p, time out ~215p Subjective No acute events overnight. Per nursing, patient tolerated BiPAP well last night without any difficulties. At the bedside, patient is frustrated with her current state requiring BiPAP and dialysis, wishing there was something more that could be done. We spent significant amount of time (approximately 30 minutes) discussing her reason for being in the ICU, as well as the hospital, her current bodily function status, as well as her goals as a person, for her family, and moving forward. When asked what she wants, patient did say "I want to ", but it is unclear if this is due to frustration, or the change in her desires. Her insight into her illness seems okay, but is difficult to assess due to intermittent periods of confusion and somnolence. She states that she wants to see her daughters. She denies any chest pain, palpitations, shortness of breath, abdominal pain. She was able to eat a little bit of her breakfast during my presence, and reported that her mouth was dry. Nursing does report though that she has been difficult to feed and only eats a little bit. No nausea or vomiting. At approximately 11:15 AM this morning, I engaged in a 30-minute conversation with daughter, Libertad, over the phone regarding my visit with her mom this morning. During this time, we clarified her current medical needs, the various schools that she mentionsincluding seeing her childrenand her comment of "wanting to ." We also discussed prognosis. Engaged in reflective listening with Libertad, who expressed that she would like to continue managing her mother's goals, but at the same time avoid any suffering and maximize quality of life. In concert with Alyse Montenegro, and KASEY Albarado, we were able to work with ICU staff in establishing a 30 to 60-minute visiting window in which Libertad and Lorenza could visit their mother in person. Please refer to the attending physicians addendum for further information regarding this conversation. Review of Systems Review of Systems: As per HPI Physical Exam Constitutional: Tired and frail appearing 75-year-old female who is lying back in her hospital bed, slightly propped up, finishing her breakfast with assistance of nursing upon my arrival. She is somewhat frustrated and agitated this morning. She is freely conversive and oriented throughout our interaction, however. She is alert and oriented to person, place, event, but not timethinking is the afternoon at 8 AM. Respiratory: Nasal cannula in place. Mild to moderate respiratory effort with symmetric expansion of the chest. Lungs demonstrate decreased breath sounds bilaterally without appreciable crackles or wheezes. Cardiovascular: Normal rate and regular rhythm. S1 and S2 are present with a grade 3 out of 6 systolic ejection murmur best heard at the right upper sternal border. Gastrointestinal (Abdomen): Abdomen is soft, nondistended, and nontender to palpation. Results & Data Results & Data ([facility]) Vital Signs (Past 12 Hours) Vital Signs Pulse Resp BP Pulse Ox 03/18/20 16:00 75 03/18/20 15:32 70 24 109/88 97 03/18/20 15:30 67 22 99 03/18/20 15:00 63 19 100 03/18/20 14:30 66 18 85 L 03/18/20 14:23 64 20 118/46 L 85 L 03/18/20 14:00 61 19 84 L 03/18/20 13:30 63 21 87 L 03/18/20 13:23 64 25 H 137/76 85 L 03/18/20 13:00 63 23 94 03/18/20 12:30 61 25 H 98 03/18/20 12:23 61 14 99 03/18/20 12:22 61 15 128/42 L 97 03/18/20 12:00 60 19 97 03/18/20 11:30 61 16 97 03/18/20 11:22 60 25 H 131/50 L 97 03/18/20 11:00 61 23 96 03/18/20 10:30 73 18 93 03/18/20 10:23 64 21 92 03/18/20 10:22 66 22 105/68 92 03/18/20 10:00 23 95 03/18/20 09:30 61 20 94 03/18/20 09:22 66 22 123/28 L 96 03/18/20 09:00 61 20 95 03/18/20 08:30 67 22 95 03/18/20 08:21 62 23 113/45 L 94 03/18/20 08:00 62 29 H 96 03/18/20 07:30 66 28 H 94 03/18/20 07:24 63 20 85 L 03/18/20 07:21 64 21 85 L 03/18/20 07:00 64 19 88 L 03/18/20 06:30 63 20 100 03/18/20 06:23 62 28 H 108/38 L 98 Resident Activity Tracking Resident Involvement: Resident Care Provided Care Provided: Adult Hospital Medicine (1) CHF (congestive heart failure) Heart failure chronicity: acute on chronic Heart failure type: unspecified Qualified Code(s): I50.9 - Heart failure, unspecified
--- NOTE | 2020-03-18 18:48 | Billing Data ---
Date of Service March 18, 2020 Coding Level of Care Code 40673 Subseq Hosp Care Lvl 3
--- NOTE | 2020-03-18 18:48 | Billing Data ---
Date of Service March 18, 2020 Coding Level of Care Code 14897 Prolonged Care (int'l)
[2020-03-18] MEDS: LIDOCAINE 5% 1 PATCH TD SCH (21:00)
[2020-03-19 05:12] LABS: Basophils # (auto) 0.02 K/uL (0-0.2); Basophils % (auto) 0.2 %; Eosinophils # (auto) 0.17 K/uL (0-0.5); Eosinophils % (auto) 1.8 %; Hematocrit (blood only) 32.9 % (37-47); Hemoglobin 10.1 g/dL (12.0-16.0); Immature Granulocytes # (auto) 0.05 K/uL (0.00-0.02); Immature Granulocytes % (auto) 0.5 %; Lymphocytes # (auto) 0.77 K/uL (1.2-3.4); Lymphocytes % (auto) 8.3 %; Mean Corpuscular Hemoglobin 33.2 pg (25-34); Mean Corpuscular Hgb Conc 30.7 g/dL (32-36); Mean Corpuscular Volume 108.2 fL (80-100); Monocytes # (auto) 0.66 K/uL (0.11-0.59); Monocytes % (auto) 7.1 %; Neutrophils # (auto) 7.65 K/uL (1.4-6.5); Neutrophils % (auto) 82.1 %; Nucleated RBC # (auto) 0.02 K/uL (0-0); Nucleated RBC % (auto) 0.2 %; Platelet Count 184 K/uL (130-400); RDW Coefficient of Variation 14.6 % (11.5-14.5); Red Blood Count 3.04 M/uL (4.2-5.4); White Blood Count 9.32 K/uL (4.8-10.8)
[2020-03-19 05:38] LABS: BUN Creatinine Ratio 5.6 (10-20); Calcium 7.8 mg/dl (8.5-10.1); Creatinine Clr Calc Pharmacy 14.5 ml/min; Est GFR (African American) 15.5; Est GFR (Non-African American) 13.4; Magnesium 2.3 mg/dl (1.8-2.4); Potassium 3.6 mmol/L (3.5-5.1)
[2020-03-19 05:42] LABS: Phosphorus 2.6 mg/dl (2.5-4.9)
[2020-03-19 05:57] LABS: Base Excess ABG 0.8 mEq/L (-9-1.8); HCO3 ABG 28 mmol/L (19-24); Oxygen Saturation ABG 88.4 % (90-95); PCO2 ABG 59 mmHg (35-46); PO2 ABG 53 mmHg (80-95)
[2020-03-19 05:58] LABS: Allen Test Pos (Pos)
[2020-03-19] MEDS ORDERED: Nursing to Pharmacy Communication SCH (08:45)
[2020-03-19] MEDS: CHOLECALCIFEROL 1,000 UNITS 25 MCG TAB PO SCH (08:54)
[2020-03-19] MEDS: APIXABAN 2.5 MG TAB PO SCH ×2 (08:54→20:29)
[2020-03-19] MEDS: AMIODARONE 200 MG TAB PO SCH (08:55)
[2020-03-19] MEDS: LACTULOSE SYRUP 30 GM/45 ML UDP PO SCH ×2 (08:56→20:33)
[2020-03-19] MEDS: FERROUS SULFATE 325 MG TAB PO SCH ×2 (08:56→20:30)
[2020-03-19] MEDS: ATORVASTATIN 40 MG TAB PO SCH (08:56)
[2020-03-19] MEDS: LIDOCAINE 5% 1 PATCH TD SCH (08:56)
[2020-03-19] MEDS: SEVELAMER HCL 800 MG TABLET PO SCH ×3 (08:56→15:31)
[2020-03-19] MEDS: POLYETHYLENE (MIRALAX) 17 GM PACK PO SCH ×2 (08:57→20:37)
[2020-03-19] MEDS: NEPHROCAPS PO SCH (08:57)
[2020-03-19] MEDS: DICLOFENAC SOD 1% GEL 100 GM TUBE EXT SCH ×3 (08:57→20:37)
[2020-03-19] MEDS: CEROVITE ADV FORMULA TAB PO SCH (08:57)
--- NOTE | 2020-03-19 11:07 | Hospitalist Progress Note ---
Date of Service March 19, 2020 Assessment & Plan (1) Hypercapnic respiratory failure: Sarah Wyatt is a 75-year-old female with severe and [id number] CKD who presented to ED with worsening dyspnea, weight gain, and leg swelling, subsequently found to have mixed acute hypoxic and hypercapnic respiratory failure, fahft-[id number] HFpEF, and CKD IV + LATRICE requiring dialysis. Her clinical prognosis at this point is poor. Palliative care now following. Goals of Care - 03/11-03/18: Regularly engaged in reflective listening with daughters, discussing goals of care / functional status of their Mom. Patient's family requested transfer to tertiary care facility. [facility] without availability. CM then assisted daughters into looking into LTACH, which was approved. 03/16 - profound HoTN with hypercarbic respiratory failure and lethargy, transferred to ICU. On 03/18, daughters visited mother in ICU (approved by staff) to aid with medical decision making, including goals of care discussion. Patient and family understanding of poor prognosis. - Palliative care consulted, appreciate recommendations: - (03/18): Goals of care discussion held with family, hospitalist service, Dr. Ontiveros, and patient together in room. Kinjal would like to transition home rather than LTACH and continue HD as tolerated. Understanding of need for BiPAP. Agreeable to DNR/DNI. CM following and updated. Consider agencies that would help manage both medical needs, alongside potentially aid family in transitioning to hospice when appropriate. - 03/19: Anticipate transition home on Monday. Arrange home needs: home O2 + NC, BiPAP, nasal pillows for BiPAP, HD in area, home nursing initially, potentially hospice later. Continue working with CM - Continue following with PT and OT - Encourage transfer to chair as tolerated with nursing / PT assistance - Patient understanding of HD requirements in outpatient setting -- will require coordination with case management - Regular discussions with case management and patient's family for updates, needs planning, and goals of care * Avoid Ativan at the request of the family - patient reacts poorly and becomes very somnolent * Utilize melatonin PRN to aid with sleep - she responds well to this and is preferred per family Acute respiratory failure - mixed both hypoxic and hypercapnic: Currently Stable - Likely 2/2 gfsma-ln-epfybda HFpEF exacerbation for the hypoxic component - Hypercapnic contribution is without clear etiology, but likely multifactorial: likely part CHF and FRANKLYN, and possibly: ?underlying COPD, ?restrictive lung disease, ?obesity hyperventilation syndrome, ?generalized weakness - Nocturnal pulse oximetry (03/11) demonstrated ~30min total of desaturation events (between 70-80s on NC) - ABGs do demonstrate improvement of hypercapnia/acidosis with BiPAP (03/12, 03/17) - Pulmonology consulted 03/05: BiPAP PRN, fluid management - Continue to encourage BiPAP HS/PRN -- patient will require BiPAP to be utilized at night, and throughout the day as tolerated both here and in outpatient setting - Intermittently tolerating some nights, but not others -- counselled patient on importance and indications, regularly communicating this with family - Patient says she doesn't like using BiPAP because of discomfort -- added nasal bridge bandage, consider adding nasal pillows in outpatient setting - CXR 03/15 demonstrated progressively worsened pulmonary edema with moderate pleural effusions: likely due to CHF and ESRD - Repeat CXR demonstrates persistence and perhaps worsening of pulmonary edema within the right lung isabel [id number] HFpEF (EF = 65%) - Likely 2/2 severe aortic stenosis and CKD --> ESRD - GINA demonstrated progression of (from 07/28/15), severe concentric LVH, LVEF 60-65% - Fluid balance continues to be mildly net positive day-by-day -- likely d/t progression of CKD - Requiring dialysis with CKD + LATRICE, aiding with fluid management - CXR as above (03/15, 03/16): worsened pulmonary edema with bilateral pleural effusions - If indicated due to respiratory compromise, consider thoracentesis - Continue ESRD management, as below - Cardiology not planning intervention at this time - Continue I&Os, daily weights ESRD -- now requiring HD - Baseline creatinine usually around ~2.4 mg/dL -- CKD likely attributable to microvascular disease and h/o ATN - Progressive worsening in renal function likely attributable to cardiorenal syndrome, per nephrology -- failed medication-attempted management at this point - Patient has intermittent improvement of BUN/Cr following dialysis, with subsequent worsening in day after -- no signs of renal recovery at this time - S/P permacath placement on 03/05 - Nephrology following, appreciate recs: - HD scheduled altered due to upcoming holiday, usually three times weekly M/W/ - Attempting UF as possible, but difficult d/t HoTN - Originally planned for outpatient HD at [facility]. - Given goals of care discussion on 03/18, patient would like to attempt HD as outpatient after transitioning home - Will require renally-dosed medications (for GFR < 10) Metabolic Encephalopathy - First noted on admission and intermittently throughout hospital course - Patient experienced significant drowsiness and somnolence throughout 03/11, resolved 03/12 s/p BiPAP; again on 03/16, still improving into AM of 03/17 in ICU - Likely d/t respiratory acidosis/hypercapnia, possibly due to uremic component from CKD with LATRICE - In previous instances (e.g., 03/11, 03/16), was found to have respiratory acidosis alongside hypercapnia on ABGs which improved after night of BiPAP - SpO2 continues to remain >95% on BiPAP - Please note: Current baseline mentation does appear to fluctuate between mild somnolence with intermittent periods of confusion, alongside A+Ox2-4 depending on time of day. Hypotension (Resolved at Present) - Suspect HoTN is d/t preload dependence from severe , which is decreased by dialysis, alongside poor PO intake: nephrology aware and following - Profound HoTN on 03/16 PM down to 56/27 at lowest, requiring Albumin and crystalloid infusion for pressure support, alongside BiPAP -- improved and managed throughout ICU stay - Hold home Imdur and metoprolol moving forward for circulatory support - Continue D5W with 1/2 NSS @ 40cc/hr for now - If BP < 90 / 40, consider Albumin 12.5-25 (given hypoalbuminemia, malnutrition, and third spacing), then/and 500cc crystalloid bolus (responded well on 03/16, patient does have EF 65%) Macrocytic anemia - Continue B12, folate as scheduled - Likely has component from CKD IV, possibly now fitting more of an ESRD-like picture - SPEP results: negative - When tolerated, iron PO DM (diabetes mellitus) - HbA1C 5.5 on labs in August 2019 - Overall, poor PO intake --> lower than normal BGs throughout last several days - Continue D5W with 1/2 NSS @ 40cc/hr for now - ICU managing and following, giving dextrose as needed d/t poor PO intake Paroxysmal atrial fibrillation - Rhythm control with amiodarone 200mg PO QAM - Anticoagulation with apixaban Hyperlipidemia - Continue home atorvastatin 40mg po daily Hypertension - Stopped home metoprolol 200mg po daily, Imdur 60mg qAM as above d/t HoTN TIA - Neurology consulted 03/04 after episode of focal weakness, slurred speech - CT did not demonstrate any acute intracranial findings - Continue vascular therapy -- HTN, HLD treatments as above - Recommended TIA work-up when stable: MRI, FLP -- consider PT/OT/ST Dispo: ICU -- Anticipate d/c home on Monday in alignment with palliative approach; will require outpatient HD and BiPAP at home. Case management closely following. See goals of care section above. PPX: Eliquis 2.5mg PO b.i.d. F/E/N: RD following -- minced/moist diet until denture adhesive brought in // for now, heart healthy, DM2, low sodium, dialysis diets Code: DNR/DNI (2) CKD (chronic kidney disease), stage IV: (3) Aortic stenosis: (4) CHF (congestive heart failure): Admission and Anticipated Discharge Date Admission Date: March 02, 2020 Supervising Physician Co-Signing Physician Notes I personally examined the patient and verified all brown points of history and exam, discussed case, and agree with decision making with Dr Rod doesn't want to be repositioned. otherwise no new complaints. d/w case management vitals noted fatigued but nad heent nc at mmm breathing unlabored no accessory muscles good effort acute on chronic diastolic chf, hypercapnic respiratory failure, esrd -- ongoing med management, now working towards home w hospice - prbably early next week until everything can be arranged and family can be ready otherwise as above Subjective Patient seen at the bedside this morning. Much more alert than previous days. She inquires about when she can leave the hospital to go to her daughter's house, as discussed yesterday. She continues to endorse some mild discomfort in her buttock region secondary to the sore, which is being managed by nursing. Says that her mouth continues to feel dry and that she wants ice cream. Otherwise no other concerns or questions. She says that her breathing is well this morning, but that she continues to have difficulty tolerating the BiPAP"because I cannot breathe". No chest pain, palpitations. No coughing. Denies any abdominal pain, nausea, or vomiting. Review of Systems Review of Systems: As per HPI Physical Exam Constitutional: Frail-appearing 75-year-old female who is sitting up in her hospital bed upon my arrival. She is much more alert and oriented than in previous days, and has questions throughout our discussions. She maintains good eye contact. Some mild agitation, but no acute distress. Eyes: No scleral icterus or conjunctival injection. Respiratory: Very mildly increased respiratory effort with symmetric expansion of the chest. Lung sounds are decreased across all lung isabel, but do sound clear to auscultation today. No conversational dyspnea. Nasal cannula in place. Cardiovascular: Normal rate and regular rhythm. S1 and S2 are present with grade 3 out of 6 systolic ejection murmur best heard at the right upper sternal border. Gastrointestinal (Abdomen): Normal active bowel sounds. Abdomen is soft, nontender, nondistended to palpation. Skin: Left upper extremity still has about 1+ pitting edema. No associated erythema or rashes. No tenderness to palpation. Unchanged since previous exam. Results & Data Results & Data ([facility]) Vital Signs (Past 12 Hours) Vital Signs Temp Pulse Resp BP Pulse Ox 03/19/20 09:43 68 25 H 142/44 H 92 03/19/20 09:00 70 24 93 03/19/20 08:00 70 25 H 91 03/19/20 07:43 69 28 H 150/56 H 90 03/19/20 07:00 69 19 92 03/19/20 06:00 71 22 147/89 H 91 03/19/20 05:00 66 24 95 03/19/20 04:00 36.8 C 65 20 143/68 H 93 03/19/20 03:25 64 22 96 03/19/20 03:00 61 17 97 03/19/20 02:00 61 20 134/47 L 98 03/19/20 01:00 60 14 96 03/19/20 00:00 36.6 C 58 L 15 113/43 L 98 03/18/20 23:30 66 20 96 03/18/20 23:00 64 25 H 96 Resident Activity Tracking Resident Involvement: Resident Care Provided Care Provided: Adult Hospital Medicine (1) CHF (congestive heart failure) Heart failure chronicity: acute on chronic Heart failure type: unspecified Qualified Code(s): I50.9 - Heart failure, unspecified
--- NOTE | 2020-03-19 12:11 | Nephrology Progress Note ---
Date of Service March 19, 2020 Assessment & Plan (1) ESRD (end stage renal disease): 75 y o F with ESRD, on HD started during this hospitalization on 03/05/2020 via [facility]. Admitted to hospital with progressive SOB and LE edema with h/o severe with severe left ventricular hypertrophy. Renal US does not demonstrate evidence of obstruction. UA/microscopy with no proteinuria but hematuria most likely related to catheter trauma. Transferred to ICU on the evening of 03/16/2024 after sanket kayla was called for hypotension with less responsiveness and hypercarbic respiratory failure. Electrolyte acceptable, blood pressure relatively low but clinically looking better today. --Hemodialysis today for 4 hours, UF as tolerated. --continue on Renvela 800 mg t.i.d. with meal, nephro caps once a day. --strictly monitor I/O's will be strictly monitored. --left arm nephrology precaution --dose medication for GFR <10. --TETE for Hb <10 Will follow. Admission and Anticipated Discharge Date Admission Date: March 02, 2020 Ananda Smith was seen in her room this morning. Overall she is looking and feeling much better compared to yesterday. Denies any respiratory distress. Blood pressure relatively low, electrolyte acceptable. Review of Systems Review of Systems: All systems reviewed & are unremarkable except as noted in Subjective Physical Exam Constitutional: WD/WN, vitals as above + ill appearing; no acute distress Respiratory: normal respiratory effort, lungs clear to auscultation normal respiratory effort; no respiratory distress Auscultation: + diminished lung sounds Cardiovascular: RRR, no murmur, no edema Rate/Rhythm: regular rate and regular rhythm Heart Sounds: normal S1, normal S2 and + murmur Extremities: + edema (trace b/l LE edema) Skin: no rashes, warm and dry Neurologic: awake; no focal motor deficits and not confused Psychiatric: A+Ox3, euthymic affect Results & Data ([facility]) Vital Signs (Past 12 Hours) Vital Signs Temp Pulse Resp BP Pulse Ox 03/19/20 12:04 36.7 C 03/19/20 12:01 67 30 H 93 03/19/20 11:44 69 21 97/60 L 95 03/19/20 11:00 71 22 94 03/19/20 10:00 69 24 89 L 03/19/20 09:44 67 27 H 91 03/19/20 09:43 68 25 H 142/44 H 92 03/19/20 09:00 70 24 93 03/19/20 08:00 70 25 H 91 03/19/20 07:43 69 28 H 150/56 H 90 03/19/20 07:00 69 19 92 03/19/20 06:00 71 22 147/89 H 91 03/19/20 05:00 66 24 95 03/19/20 04:00 36.8 C 65 20 143/68 H 93 03/19/20 03:25 64 22 96 03/19/20 03:00 61 17 97 03/19/20 02:00 61 20 134/47 L 98 03/19/20 01:00 60 14 96 PG Care Time/CCT Total # of Minutes Spent Total Time Spent with Patient: Total time spent is greater than 50% in coordination of care (as documented) at patient's floor/unit and/or counseling patient: Coding Level of Care Code 82121 Subseq Hosp Care Lvl 3 Diagnoses ESRD (end stage renal disease) N18.6
[2020-03-19] MEDS: D5W AND 1/2NSS 1,000 ML IV SCH (13:43)
--- NOTE | 2020-03-19 14:12 | Billing Data ---
Date of Service March 19, 2020 Coding Level of Care Code 00629 Subseq Hosp Care Lvl 3
--- NOTE | 2020-03-20 06:34 | Hospitalist Progress Note ---
Date of Service March 20, 2020 Assessment & Plan (1) Hypercapnic respiratory failure: Sarah Wyatt is a 75-year-old female with severe and [id number] CKD who presented to ED with worsening dyspnea, weight gain, and leg swelling, subsequently found to have mixed acute hypoxic and hypercapnic respiratory failure, [id number] HFpEF, and CKD IV + LATRICE requiring dialysis. Her clinical prognosis at this point is poor. Palliative care now following. Goals of Care - 03/11-03/18: Regularly engaged in reflective listening with daughters, discussing goals of care / functional status of their Mom. Patient's family requested transfer to tertiary care facility. [facility] without availability. CM then assisted daughters into looking into LTACH, which was approved. 03/16 - profound HoTN with hypercarbic respiratory failure and lethargy, transferred to ICU. On 03/18, daughters visited mother in ICU (approved by staff) to aid with medical decision making, including goals of care discussion. Patient and family understanding of poor prognosis. - Palliative care consulted, appreciate recommendations: - (03/18): Goals of care discussion held with family, hospitalist service, Dr. Ontiveros, and patient together in room. Kinjal would like to transition home rather than LTACH and continue HD as tolerated. Understanding of need for BiPAP. Agreeable to DNR/DNI. CM following and updated. Consider agencies that would help manage both medical needs, alongside potentially aid family in transitioning to hospice when appropriate. - 03/19-: Anticipate transition home on Monday. Arrange home needs: home O2 + NC, BiPAP, nasal pillows for BiPAP, HD in area, home nursing initially, potentially hospice later. Continue working with CM - Continue following with PT and OT - Encourage transfer to chair as tolerated with nursing / PT assistance - Patient understanding of HD requirements in outpatient setting -- will require coordination with case management - Regular discussions with case management and patient's family for updates, needs planning, and goals of care * Avoid Ativan at the request of the family - patient reacts poorly and becomes very somnolent * Utilize melatonin PRN to aid with sleep - she responds well to this and is preferred per family Acute respiratory failure - mixed both hypoxic and hypercapnic: Currently Stable - Likely 2/2 [id number] HFpEF exacerbation for the hypoxic component - Hypercapnic contribution is without clear etiology, but likely multifactorial: likely part CHF and FRANKLYN, and possibly: obesity hyperventilation syndrome, ?generalized weakness, ?underlying COPD, ?restrictive lung disease, - Nocturnal pulse oximetry (03/11) demonstrated ~30min total of desaturation events (between 70-80s on NC) - ABGs do demonstrate improvement of hypercapnia/acidosis with BiPAP (03/12, 03/17) - Pulmonology consulted 03/05: BiPAP PRN, fluid management - Continue to encourage BiPAP HS/PRN -- patient will require BiPAP to be utilized at night, and throughout the day as tolerated both here and in outpatient setting - Intermittently tolerating some nights, but not others -- counselled patient on importance and indications, regularly communicating this with family - Patient says she doesn't like using BiPAP because of discomfort -- added nasal bridge bandage, consider adding nasal pillows in outpatient setting - CXR 03/15 demonstrated progressively worsened pulmonary edema with moderate pleural effusions: likely due to CHF and ESRD - Repeat CXR demonstrates persistence and perhaps worsening of pulmonary edema within the right lung isabel - Bedside spirometry (PFTs) demonstrate severe obstructive pattern on 03/20 (see scanned PFTs) -- continue management as above Vrmjf-xe-Eommqmz HFpEF (EF = 65%) - Likely 2/2 severe aortic stenosis and CKD --> ESRD - GINA demonstrated progression of (from 07/28/15), severe concentric LVH, LVEF 60-65% - Fluid balance continues to be mildly net positive day-by-day -- likely d/t progression of CKD - Requiring dialysis with CKD + LATRICE, aiding with fluid management - CXR as above (03/15, 03/16): worsened pulmonary edema with bilateral pleural effusions - If indicated due to respiratory compromise, consider thoracentesis - Maintain bed elevation >35deg to promote drainage - Continue ESRD management, as below - Cardiology not planning intervention at this time - Continue I&Os, daily weights ESRD -- now requiring HD - Baseline creatinine usually around ~2.4 mg/dL -- CKD likely attributable to microvascular disease and h/o ATN - Progressive worsening in renal function likely attributable to cardiorenal syndrome, per nephrology -- failed medication-attempted management at this point - Patient has intermittent improvement of BUN/Cr following dialysis, with subsequent worsening in day after -- no signs of renal recovery at this time - S/P permacath placement on 03/05 - Nephrology following, appreciate recs: - HD scheduled altered due to upcoming holiday, usually three times weekly // -- received 03/19 - Attempting UF as possible, but difficult d/t HoTN ; nephrology closely monitoring - [facility] planned [facility] at [facility]. - Given goals of care discussion on 03/18, patient would like to attempt HD as outpatient after transitioning home - Will require renally-dosed medications (for GFR < 10) Metabolic Encephalopathy - First noted on admission and intermittently throughout hospital course - Patient experienced significant drowsiness and somnolence throughout 03/11, resolved 03/12 s/p BiPAP; again on 03/16, still improving into AM of 03/17 in ICU - Likely d/t respiratory acidosis/hypercapnia, possibly due to uremic component from CKD with LATRICE - In previous instances (e.g., 03/11, 03/16), was found to have respiratory acidosis alongside hypercapnia on ABGs which improved after night of BiPAP - SpO2 continues to remain >95% on BiPAP - Please note: Current baseline mentation does appear to fluctuate between mild somnolence with intermittent periods of confusion, alongside A+Ox2-4 depending on time of day. Hypotension (Resolved at Present) - Suspect HoTN is d/t preload dependence from severe , which is decreased by dialysis, alongside poor PO intake: nephrology aware and following - Profound HoTN on 03/16 PM down to 56/27 at lowest, requiring Albumin and crystalloid infusion for pressure support, alongside BiPAP -- improved and managed throughout ICU stay - Hold home Imdur and metoprolol moving forward for circulatory support - Continue D5W with 1/2 NSS @ 40cc/hr for now - If BP < 90 / 40, consider Albumin 12.5-25 (given hypoalbuminemia, malnutrition, and third spacing), then/and 500cc crystalloid bolus (responded well on 03/16, patient does have EF 65%) Macrocytic anemia - Continue B12, folate as scheduled - Likely has component from CKD IV, possibly now fitting more of an ESRD-like picture - SPEP results: negative - When tolerated, iron PO DM (diabetes mellitus) - HbA1C 5.5 on labs in August 2019 - Overall, poor PO intake --> lower than normal BGs throughout last several days - Continue D5W with 1/2 NSS @ 40cc/hr for now - ICU managing and following, giving dextrose as needed d/t poor PO intake Paroxysmal atrial fibrillation - Rhythm control with amiodarone 200mg PO QAM - Anticoagulation with apixaban Hyperlipidemia - Continue home atorvastatin 40mg po daily Hypertension - Stopped home metoprolol 200mg po daily, Imdur 60mg qAM as above d/t HoTN TIA - Neurology consulted 03/04 after episode of focal weakness, slurred speech - CT did not demonstrate any acute intracranial findings - Continue vascular therapy -- HTN, HLD treatments as above - Recommended TIA work-up when stable: MRI, FLP -- consider PT/OT/ST Sacral Ulcer - Wound care previously consulted and following - Nursing providing regular dressing and OptiFoam and stoma powder and Aloe [place] as suggested by wound care - Waffle cushion as tolerated -- since patient is not getting OOB much anymore can attempt to utilize in bed - Given palliative approach moving forward, can consider lidocaine cream for 1 hour followed by drying the area : helping somewhat - Consider wound care consult again as indicated Dispo: ICU -- Anticipate d/c home on Monday in alignment with palliative approach; will require outpatient HD and BiPAP at home. Case management closely following. See goals of care section above. PPX: Eliquis 2.5mg PO b.i.d. F/E/N: RD following -- minced/moist diet until denture adhesive brought in // f or now, heart healthy, DM2, low sodium, dialysis diets Code: DNR/DNI (2) CKD (chronic kidney disease), stage IV: (3) Aortic stenosis: (4) CHF (congestive heart failure): Admission and Anticipated Discharge Date Admission Date: March 02, 2020 Supervising Physician Co-Signing Physician Notes I personally examined the patient and verified all brown points of history and exam, discussed case, and agree with decision making with Dr Rod lidocaine topical seems to be helping a little w ulcer pain vitals noted fatigued but nad heent nc at mmm breathing unlabored no accessory muscles good effort acute on chronic diastolic chf, hypercapnic respiratory failure, esrd -- ongoing med management, now working towards home w hospice - probably early next week until everything can be arranged and family can be ready; buttocks ulcer -- repositioning as possible, but since she is moving to a palliative mode and this is one of her more painful problems at this time - gave lidocaine topical which at least provided some benefit. for her hypercapnea, as noted in initial pulmonary consult, pt has a diagnosis of obesity hyopventilation syndrome. her bedside spirometry today actually measures for severe obstruction - although i wonder if it is largely due to weakness as well. with her CHF, patient should keep head of bed elevated to 35 degrees or greater to alleviate CHF related dyspnea. otherwise as above Subjective No acute events overnight. Spoke with patient's daughter last night, who recapped some of the conversation that she, her sister, the patient, her hospital team, and the palliative care team had a few days ago. She reported having an understanding of the plan moving forward, as well as the different equipment and preparation that would be required to bring her mother home. Plan currently is to bring the patient to daughter's house, who will stay in the living room. Daughter is working on getting a bed. Outpatient dialysis will have to be arranged. Durable medical equipment, including BiPAP, nasal cannula, and home O2, is in the process of being arranged. Questions and concerns were addressed. This morning, patient does report significant pain in her buttock region. She says that this is making it really hard for her to get comfortable. She continues to have regular wound checks and care from the nursing staff, but the current therapies do not seem to be eating with the pain. She is looking forward to going home and expresses desire to transition out of the hospital. She says that her breathing is going fine. She denies shortness of breath. She denies chest pain or palpitations. Denies nausea or vomiting. No other concerns this morning. Nursing did reach out to me this afternoon informing me that they attempted to take off her bandage on her buttock area, the area that is been hurting her, and unfortunately the superficial layer of skin did come off with bandage removal. They will attempt lidocaine cream today to see if that helps. Review of Systems Review of Systems: As per HPI Physical Exam Constitutional: Tired appearing 75-year-old female who is lying up in her hospital bed at upon my arrival to the room. She is engaged in her interaction, making infrequent eye contact. She does occasionally close her eyes. Mild distress secondary to pain in HPI. Respiratory: Mildly increased respiratory effort with symmetric expansion of the chest. Nasal cannula is in place. No use of accessory muscles. Lungs demonstrate diminished breath sounds bilaterally without crackles or wheezes. Cardiovascular: Normal rate and regular rhythm. S1 and S2 are present with an appreciable grade 3 out of 6 systolic ejection murmur best heard up in the right sternal border. Gastrointestinal (Abdomen): Normoactive bowel sounds. Abdomen is soft, nontender, nondistended to palpation. Results & Data Results & Data ([facility]) Vital Signs (Past 12 Hours) Vital Signs Temp Pulse Pulse Resp BP BP Pulse Ox 03/20/20 04:02 36.6 C 69 18 116/49 L 96 03/19/20 23:52 36.9 C 72 23 98/45 L 99 03/19/20 21:00 66 21 95 03/19/20 19:32 37 C 67 18 107/46 L 98 Resident Activity Tracking Resident Involvement: Resident Care Provided Care Provided: Adult Hospital Medicine (1) CHF (congestive heart failure) Heart failure chronicity: acute on chronic Heart failure type: unspecified Qualified Code(s): I50.9 - Heart failure, unspecified
[2020-03-20] MEDS: AMIODARONE 200 MG TAB PO SCH (07:59)
[2020-03-20] MEDS: APIXABAN 2.5 MG TAB PO SCH ×2 (07:59→21:17)
[2020-03-20] MEDS: ATORVASTATIN 40 MG TAB PO SCH (08:00)
[2020-03-20] MEDS: POLYETHYLENE (MIRALAX) 17 GM PACK PO SCH ×2 (08:00→19:51)
[2020-03-20] MEDS: LACTULOSE SYRUP 30 GM/45 ML UDP PO SCH ×2 (08:01→19:36)
[2020-03-20 08:02] LABS: Basophils # (auto) 0.02 K/uL (0-0.2); Basophils % (auto) 0.2 %; Eosinophils # (auto) 0.15 K/uL (0-0.5); Eosinophils % (auto) 1.4 %; Hematocrit (blood only) 33.6 % (37-47); Hemoglobin 10.4 g/dL (12.0-16.0); Immature Granulocytes # (auto) 0.03 K/uL (0.00-0.02); Immature Granulocytes % (auto) 0.3 %; Lymphocytes # (auto) 0.79 K/uL (1.2-3.4); Lymphocytes % (auto) 7.3 %; Mean Corpuscular Hemoglobin 33.7 pg (25-34); Mean Corpuscular Volume 108.7 fL (80-100); Mean Platelet Volume 9.9 fL (7.4-10.4); Monocytes # (auto) 0.66 K/uL (0.11-0.59); Monocytes % (auto) 6.1 %; Neutrophils # (auto) 9.15 K/uL (1.4-6.5); Neutrophils % (auto) 84.7 %; Platelet Count 181 K/uL (130-400); RDW Coefficient of Variation 14.7 % (11.5-14.5); RDW Standard Deviation 57.7 fL (36.4-46.3); Red Blood Count 3.09 M/uL (4.2-5.4)
[2020-03-20] MEDS: ACETAMINOPHEN 325 MG TAB PO PRN (08:04)
[2020-03-20] MEDS: FERROUS SULFATE 325 MG TAB PO SCH ×2 (08:08→21:17)
[2020-03-20] MEDS: NEPHROCAPS PO SCH (08:08)
[2020-03-20] MEDS: CEROVITE ADV FORMULA TAB PO SCH (08:08)
[2020-03-20] MEDS: SEVELAMER HCL 800 MG TABLET PO SCH ×3 (08:08→16:26)
[2020-03-20] MEDS: CHOLECALCIFEROL 1,000 UNITS 25 MCG TAB PO SCH (08:09)
[2020-03-20] MEDS: DICLOFENAC SOD 1% GEL 100 GM TUBE EXT SCH ×3 (08:10→21:02)
[2020-03-20] MEDS: LIDOCAINE 5% 1 PATCH TD SCH (08:10)
[2020-03-20 08:34] LABS: BUN Creatinine Ratio 4.1 (10-20); Calcium 7.7 mg/dl (8.5-10.1); Creatinine Clr Calc Pharmacy 19.3 ml/min; Est GFR (African American) 21.8; Est GFR (Non-African American) 18.8; Phosphorus 1.7 mg/dl (2.5-4.9); Potassium 3.2 mmol/L (3.5-5.1)
--- NOTE | 2020-03-20 11:12 | Nephrology Progress Note ---
Date of Service March 20, 2020 Assessment & Plan (1) ESRD (end stage renal disease): 75 y o F with ESRD, on HD started during this hospitalization on 03/05/2020 via [facility]. Admitted to hospital with progressive SOB and LE edema with h/o severe with severe left ventricular hypertrophy. Renal US does not demonstrate evidence of obstruction. UA/microscopy with no proteinuria but hematuria most likely related to catheter trauma. Transferred to ICU on the evening of 03/16/2024 after code kayla was called for hypotension with less responsiveness and hypercarbic respiratory failure. Electrolyte acceptable, blood pressure relatively low. Had Hemodialysis yesterday. Overall no significant clinical improvement. Prognosis remains poor, planning to go home and continue on HD. --continue IHD 3 times weekly --continue on Renvela 800 mg t.i.d. with meal, nephro caps once a day. --strictly monitor I/O's will be strictly monitored. --left arm nephrology precaution --dose medication for GFR <10. --TETE for Hb <10 Will follow. Admission and Anticipated Discharge Date Admission Date: March 02, 2020 Subjective Sarah was seen in her room this morning. Looks tired and lethargic. Denies any respiratory distress. Blood pressure stable, electrolyte acceptable. Review of Systems Review of Systems: All systems reviewed & are unremarkable except as noted in Subjective Physical Exam Constitutional: WD/WN, vitals as above + ill appearing; no acute distress Respiratory: normal respiratory effort, lungs clear to auscultation normal respiratory effort; no respiratory distress Auscultation: + diminished lung sounds Cardiovascular: RRR, no murmur, no edema Rate/Rhythm: regular rate and regular rhythm Heart Sounds: normal S1, normal S2 and + murmur Extremities: + edema (trace b/l LE edema) Skin: no rashes, warm and dry Neurologic: awake; no focal motor deficits and not confused Psychiatric: A+Ox3, euthymic affect Results & Data ([facility]) Vital Signs (Past 12 Hours) Vital Signs Temp Pulse Pulse Resp BP BP Pulse Ox 03/20/20 09:51 69 03/20/20 09:00 90 03/20/20 07:28 37.1 C 76 22 113/71 88 L 03/20/20 04:02 36.6 C 69 18 116/49 L 96 03/19/20 23:52 36.9 C 72 23 98/45 L 99 PG Care Time/CCT Total # of Minutes Spent Total Time Spent with Patient: Total time spent is greater than 50% in coordination of care (as documented) at patient's floor/unit and/or counseling patient: Coding Level of Care Code 69829 Subseq Hosp Care Lvl 3 Diagnoses ESRD (end stage renal disease) N18.6
[2020-03-20] MEDS ORDERED: LIDOCAINE/PRILOCAINE 2.5% EA CRM EXT ONE (11:19)
--- NOTE | 2020-03-20 14:34 | Billing Data ---
Date of Service March 20, 2020 Coding Level of Care Code 27014 Subseq Hosp Care Lvl 3
[2020-03-20] MEDS: D5W AND 1/2NSS 1,000 ML IV SCH (16:23)
[2020-03-20] MEDS: MELATONIN 3 MG TAB PO PRN (21:17)
[2020-03-21] MEDS: LACTULOSE SYRUP 30 GM/45 ML UDP PO SCH ×2 (08:42→20:15)
[2020-03-21] MEDS: DICLOFENAC SOD 1% GEL 100 GM TUBE EXT SCH ×3 (08:43→20:27)
[2020-03-21 09:38] LABS: Creatinine Clr Calc Pharmacy 14.6 ml/min; Est GFR (African American) 15.7; Est GFR (Non-African American) 13.5; Potassium 3.6 mmol/L (3.5-5.1)
--- NOTE | 2020-03-21 10:10 | Hospitalist Progress Note ---
Date of Service March 21, 2020 Assessment & Plan (1) Hypercapnic respiratory failure: Sarah Wyatt is a 75-year-old female with severe and [id number] CKD who presented to ED with worsening dyspnea, weight gain, and leg swelling, subsequently found to have mixed acute hypoxic and hypercapnic respiratory failure, [id number] HFpEF, and CKD IV + LATRICE requiring dialysis. Her clinical prognosis at this point is poor. Palliative care now following. Goals of Care - 03/11-03/18: Regularly engaged in reflective listening with daughters, discussing goals of care / functional status of their Mom. Patient's family requested transfer to tertiary care facility. [facility] without availability. CM then assisted daughters into looking into LTACH, which was approved. 03/16 - profound HoTN with hypercarbic respiratory failure and lethargy, transferred to ICU. On 03/18, daughters visited mother in ICU (approved by staff) to aid with medical decision making, including goals of care discussion. Patient and family understanding of poor prognosis. - Palliative care consulted, appreciate recommendations: - (03/18): Goals of care discussion held with family, hospitalist service, Dr. Ontiveros, and patient together in room. Kinjal would like to transition home rather than LTACH and continue HD as tolerated. Understanding of need for BiPAP. Agreeable to DNR/DNI. CM following and updated. Consider agencies that would help manage both medical needs, alongside potentially aid family in transitioning to hospice when appropriate. - 03/19-: Anticipate transition home on Monday. Arrange home needs: home O2 + NC, BiPAP, nasal pillows for BiPAP, HD in area, home nursing initially, potentially hospice later. Continue working with CM -- Dialysis approved, family working to obtain BiPAP 03/21 - Continue following with PT and OT - Encourage transfer to chair as tolerated with nursing / PT assistance - Patient understanding of HD requirements in outpatient setting -- will require coordination with case management - Regular discussions with case management and patient's family for updates, needs planning, and goals of care * Avoid Ativan at the request of the family - patient reacts poorly and becomes very somnolent * Utilize melatonin PRN to aid with sleep - she responds well to this and is preferred per family Acute respiratory failure - mixed both hypoxic and hypercapnic: Currently Stable - Likely 2/2 [id number] HFpEF exacerbation for the hypoxic component - Hypercapnic contribution is without clear etiology, but likely multifactorial: likely part CHF and FRANKLYN, and possibly: obesity hyperventilation syndrome, ?generalized weakness, ?underlying COPD, ?restrictive lung disease, - Nocturnal pulse oximetry (03/11) demonstrated ~30min total of desaturation events (between 70-80s on NC) - ABGs do demonstrate improvement of hypercapnia/acidosis with BiPAP (03/12, 03/17) - Pulmonology consulted 03/05: BiPAP PRN, fluid management - Bedside spirometry (PFTs) demonstrate severe obstructive pattern on 03/20 (see scanned PFTs), possibly with restrictive disease as well: etiology unclear at this time, DDX similar to above (OHS, FRANKLYN, COPD, weakness, etc.) - Continue to encourage BiPAP HS/PRN -- patient will require BiPAP to be utilized at night, and throughout the day as tolerated both here and in outpatient setting - Intermittently tolerating some nights, but not others -- counselled patient on importance and indications, regularly communicating this with family - Patient says she doesn't like using BiPAP because of discomfort -- added nasal bridge bandage, consider adding nasal pillows in outpatient setting - CXR 03/15 demonstrated progressively worsened pulmonary edema with moderate pleural effusions: likely due to CHF and ESRD - Repeat CXR demonstrates persistence and perhaps worsening of pulmonary edema within the right lung isabel - Consider repeat CXR if worsening respiratory status - Anoro Ellipta daily beginning 03/21 given spirometry findings above Sbdqu-[id number] HFpEF (EF = 65%) - Likely 2/2 severe aortic stenosis and CKD --> ESRD - GINA demonstrated progression of (from 07/28/15), severe concentric LVH, LVEF 60-65% - Fluid balance continues to be mildly net positive day-by-day -- likely d/t progression of CKD - Requiring dialysis with CKD + LATRICE, aiding with fluid management - CXR as above (03/15, 03/16): worsened pulmonary edema with bilateral pleural effusions - If indicated due to respiratory compromise, consider thoracentesis - Maintain bed elevation >35deg to promote drainage - Continue ESRD management, as below - Cardiology not planning intervention at this time - Continue I&Os, daily weights ESRD -- now requiring HD - Baseline creatinine usually around ~2.4 mg/dL -- CKD likely attributable to microvascular disease and h/o ATN - Progressive worsening in renal function likely attributable to cardiorenal syndrome, per nephrology -- failed medication-attempted management at this point - Patient has intermittent improvement of BUN/Cr following dialysis, with subsequent worsening in day after -- no signs of renal recovery at this time - S/P permacath placement on 03/05 - Nephrology following, appreciate recs: - HD scheduled altered due to upcoming holiday, usually three times weekly // -- received 03/19, due again 03/22 - Attempting UF as possible, but difficult d/t HoTN ; nephrology closely monitoring - Originally planned for outpatient HD at [facility]. - Given goals of care discussion on 03/18, patient would like to attempt HD as outpatient after transitioning home - Will require renally-dosed medications (for GFR < 10) Metabolic Encephalopathy - First noted on admission and intermittently throughout hospital course - Patient experienced significant drowsiness and somnolence throughout 03/11, resolved 03/12 s/p BiPAP; again on 03/16, still improving into AM of 03/17 in ICU - Likely d/t respiratory acidosis/hypercapnia, possibly due to uremic component from CKD with LATRICE - In previous instances (e.g., 03/11, 03/16), was found to have respiratory acidosis alongside hypercapnia on ABGs which improved after night of BiPAP - SpO2 continues to remain >95% on BiPAP - Please note: Current baseline mentation does appear to fluctuate between mild somnolence with intermittent periods of confusion, alongside A+Ox2-4 depending on time of day and use of BiPAP Sacral Ulcer - Wound care previously consulted: Nursing providing regular dressing and OptiFoam and stoma powder and Aloe Buckley - Waffle cushion as tolerated -- since patient is not getting OOB much anymore can attempt to utilize in bed - Given palliative approach moving forward, can consider lidocaine cream for 1 hour followed by drying the area : helping somewhat - Consider wound care consult again as indicated / if pain increases despite lidocaine cream above Hypotension (Resolved at Present) - Suspect HoTN is d/t preload dependence from severe , which is decreased by dialysis, alongside poor PO intake: nephrology aware and following - Profound HoTN on 03/16 PM down to / at lowest, requiring Albumin and crystalloid infusion for pressure support, alongside BiPAP -- improved and managed throughout ICU stay - Hold home Imdur and metoprolol moving forward for circulatory support - If BP < 90 / 40, consider Albumin 12.5-25 (given hypoalbuminemia, malnutrition, and third spacing), then/and 500cc crystalloid bolus (responded well on 03/16, patient does have EF 65%) Macrocytic anemia - Continue B12, folate as scheduled - Likely has component from CKD IV, possibly now fitting more of an ESRD-like picture - SPEP results: negative - When tolerated, consider iron PO DM (diabetes mellitus) - HbA1C 5.5 on labs in August 2019 - Overall, poor PO intake --> lower than normal BGs throughout last several days - Consider D5W with 1/2 NSS @ 40cc/hr PRN while watching fluid status Paroxysmal atrial fibrillation - Rhythm control with amiodarone 200mg PO QAM - Anticoagulation with apixaban Hyperlipidemia - Continue home atorvastatin 40mg po daily Essential HTN (see HoTN above) - Stopped home metoprolol 200mg po daily, Imdur 60mg qAM as above d/t HoTN - Mostly normotensive since discontinuation of these medications -- continuing to monitor Possible TIA - Neurology consulted 03/04 after episode of focal weakness, slurred speech - CT did not demonstrate any acute intracranial findings - Continue vascular therapy -- HTN, HLD treatments as above / tolerated (given HoTN) - Consider TIA work-up as indicated given approach for transitioning home: MRI, FLP Dispo: PCU - Anticipate d/c home on Monday in alignment with palliative approach; will require outpatient HD and BiPAP at home. Case management closely following. See goals of care section above. PPX: Eliquis 2.5mg PO b.i.d. F/E/N: RD following -- minced/moist diet until denture adhesive brought in // for now, heart healthy, DM2, low sodium, dialysis diets Code: DNR/DNI (2) CKD (chronic kidney disease), stage IV: (3) Aortic stenosis: (4) CHF (congestive heart failure): Admission and Anticipated Discharge Date Admission Date: March 02, 2020 Supervising Physician Co-Signing Physician Notes Attending Attestation: Pt seen/examined, chart reviewed, care plan d/w PGY Dr Rahul [place]. I agree w/ the brown components of his documentation. During bedside rounds patient very lethargic. Oddly she said "I feel fine." Knew she was in the hospital at [facility]. Denied cough. stat VBG ordered - significant hypercarbia and resp acidosis - BiPAP reapplied. COVID retested - negative. VSS no fever gen - lethargic, no increased wob neck - no JVD mouth - MMM heart - RRR lungs - very poor air movement, no rales or wheeze abd - soft ext - no edema neuro - mild proximal muscle weakness of shoulders; handgrip 5/5 b/l; mild hip flexion weakness; ankle dorsiflexion/plantarflexion 5/5 skin - HD catheter c/d/i labs reviewed including stat VBG COVID negative cxr - CHF +/- pneumonic infiltrates A/P: 1. acute/chronic hypercarbic/hypoxic resp failure; acute components - etiology ??? Spirometry reviewed - severe obstruction. underlying COPD? neuromuscular disease? OHS? combo? other?? appears HCO3 on BMPs has been chronically elevated suggesting chronic CO2 retention. very poor air movement - will treat like "COPD exacerbation" - add IV steroids, duonebs, and inhalers consider IV antibiotics if procal, crp, sed rate elevated 2. metabolic encephalopathy - 2nd to hypercarbia 3. development of ESRD - on HD, appreciate nephrology consultation. 4. failure to thrive - remeron reasonable but watch for excess sedation. Very poor prognosis Dakotah Lucas MD Subjective Per nursing, patient tolerated about ~5 hours of BiPAP overnight without difficulty before switching back to NC. At the bedside this morning, she is more somnolent -- still answering my questions, but with increased latency compared to yesterday. On initial questioning, she denied shortness of breath this AM - however, after pointing out to her that her work of breathing seemed more to me than prior, she said "maybe a little." She was amenable to attempting to the BiPAP again after this observation. She denies pain anywhere at present. Says the lidocaine ointment aided her yesterday. Denies abdominal pain or nausea. No chest pain. Review of Systems Review of Systems: as per HPI Physical Exam Constitutional: Patient does appear more somnolent this morning compared to previous mornings. Upon my arrival into the room, she was sleeping in her bed. Upon trying to get her attention, she does awake spontaneously, but does intermittently close her eyes while responding to questions. She is alert and oriented only to person and place, not to time. No acute distress. Respiratory: Mild to moderate respiratory effort with symmetric expansion of the chest. Lungs do demonstrate decreased breath sounds bilaterally without crackles or wheezes. Mild conversational dyspnea Cardiovascular: Normal rate and regular rhythm. S1 and S2 are present with an appreciable grade 3/6 systolic ejection murmur best heard over the right sternal border Psychiatric: Alert and oriented only to person and place. Not to time. Results & Data Results & Data ([facility]) Vital Signs (Past 12 Hours) Vital Signs Temp Pulse Pulse Resp BP BP Pulse Ox 03/21/20 07:54 36.5 C 70 20 123/79 98 03/21/20 07:14 69 03/21/20 04:37 36.8 C 72 22 137/78 93 03/21/20 02:57 66 16 93 03/21/20 00:51 75 18 93 03/20/20 22:35 36.3 C L 71 20 157/69 H 96 (1) CHF (congestive heart failure) Heart failure chronicity: acute on chronic Heart failure type: unspecified Qualified Code(s): I50.9 - Heart failure, unspecified
[2020-03-21] MEDS: FERROUS SULFATE 325 MG TAB PO SCH ×2 (10:13→20:19)
[2020-03-21] MEDS: POLYETHYLENE (MIRALAX) 17 GM PACK PO SCH ×2 (10:13→20:15)
[2020-03-21] MEDS: CEROVITE ADV FORMULA TAB PO SCH (10:13)
[2020-03-21] MEDS: SEVELAMER HCL 800 MG TABLET PO SCH ×3 (10:13→17:11)
[2020-03-21] MEDS: CHOLECALCIFEROL 1,000 UNITS 25 MCG TAB PO SCH (10:14)
[2020-03-21] MEDS: NEPHROCAPS PO SCH (10:14)
[2020-03-21] MEDS: D5W AND 1/2NSS 1,000 ML IV SCH (11:31)
--- NOTE | 2020-03-21 11:55 | Nephrology Progress Note ---
Date of Service March 21, 2020 Assessment & Plan (1) ESRD (end stage renal disease): 75 y o F with ESRD, on HD started during this hospitalization on 03/05/2020 via [facility]. Admitted to hospital with progressive SOB and LE edema with h/o severe with severe left ventricular hypertrophy. Renal US does not demonstrate evidence of obstruction. UA/microscopy with no proteinuria but hematuria most likely related to catheter trauma. Transferred to ICU on the evening of 03/16/2024 after code kayla was called for hypotension with less responsiveness and hypercarbic respiratory failure. Transferred out of ICU on 03/19/20 Electrolyte acceptable, blood pressure stable. Overall no significant clinical improvement. Prognosis remains poor, planning to go home and continue on HD. --continue IHD 3 times weekly, HD tomorrow --continue on Renvela 800 mg t.i.d. with meal, nephro caps once a day. --dose medication for GFR <10. --TETE for Hb <10 Will follow. Admission and Anticipated Discharge Date Admission Date: March 02, 2020 Subjective Sarah was seen in her room this morning. She was on BiPAP, continues to be somnolent and lethargic but able to open eyes and respond appropriately. Blood pressure stable, electrolyte acceptable. Review of Systems Review of Systems: Other Physical Exam Constitutional: WD/WN, vitals as above + ill appearing; no acute distress Respiratory: normal respiratory effort, lungs clear to auscultation normal respiratory effort; no respiratory distress Auscultation: + diminished lung sounds Cardiovascular: RRR, no murmur, no edema Rate/Rhythm: regular rate and regular rhythm Heart Sounds: normal S1, normal S2 and + murmur Skin: no rashes, warm and dry Neurologic: awake; no focal motor deficits and not confused Psychiatric: A+Ox3, euthymic affect Results & Data ([facility]) Vital Signs (Past 12 Hours) Vital Signs Temp Pulse Pulse Resp BP BP Pulse Ox 03/21/20 07:54 36.5 C 70 20 123/79 98 03/21/20 07:14 69 03/21/20 04:37 36.8 C 72 22 137/78 93 03/21/20 02:57 66 16 93 03/21/20 00:51 75 18 93 PG Care Time/CCT Total # of Minutes Spent Total Time Spent with Patient: Total time spent is greater than 50% in coordination of care (as documented) at patient's floor/unit and/or counseling patient: Coding Level of Care Code 25011 Subseq Hosp Care Lvl 2 Diagnoses ESRD (end stage renal disease) N18.6
[2020-03-21] MEDS: UMECLIDINIUM/VILANTEROL 62.5/25MCG 7 PUFFS/INHALER INH SCH (13:50)
[2020-03-21] MEDS: AMIODARONE 200 MG TAB PO SCH (13:50)
[2020-03-21] MEDS: APIXABAN 2.5 MG TAB PO SCH ×2 (13:51→20:23)
[2020-03-21] MEDS: LIDOCAINE 5% 1 PATCH TD SCH (13:53)
[2020-03-21] MEDS: ATORVASTATIN 40 MG TAB PO SCH (13:53)
[2020-03-21 16:53] LABS: Base Excess VBG 0.6 mEq/L; Oxygen Saturation VBG 88.9 %; pH VBG 7.16 (7.36-7.41)
[2020-03-21] MEDS: ALBUT/IPRATROP 3MG/0.5MG NEB 3 ML VIAL NEB SCH ×2 (17:17→20:07)
--- NOTE | 2020-03-21 20:04 | XRay Report ---
XR chest 1V portable CLINICAL HISTORY: dyspnea COMPARISON STUDY: Chest CT March 14, 2020. Chest radiograph March 17, 2020. FINDINGS: Dual lumen right internal jugular central venous catheter is in place. There is a left subc lavian pacemaker. Cardiomegaly is noted with mitral annular calcification. Lucency projecting over th e right upper hemithorax is likely artifactual. There is no definite pneumothorax. There are persiste nt moderate bilateral pleural effusions with perihilar and bibasilar opacities. Pulmonary edema persi sts. IMPRESSION: 1. No significant change in pulmonary edema, bilateral pleural effusions and associated perihilar and bibasilar opacities. 2. Lucency which projects over the right upper hemithorax. This is likely artifactual. A pneumothorax is considered less likely however short-term radiographic follow-up is recommended. ACT 112: Negative or not required by law. Electronically signed by: Aftab Ramos M.D. 03/21/2020 8:03 PM
[2020-03-21] MEDS: methylPREDNISolone 40 MG in SYRINGE 0 ML IV SCH (20:15)
--- NOTE | 2020-03-21 20:41 | Billing Data ---
Date of Service March 21, 2020 Coding Level of Care Code 28838 Subseq Hosp Care Lvl 3
[2020-03-21] MEDS ORDERED: MIRTAZAPINE TAB 15 MG TAB PO SCH (21:00)
[2020-03-22] MEDS: ALBUT/IPRATROP 3MG/0.5MG NEB 3 ML VIAL NEB SCH ×4 (06:56→19:09)
[2020-03-22 07:41] LABS: Hematocrit (blood only) 35.6 % (37-47); Hemoglobin 11.2 g/dL (12.0-16.0); Immature Granulocytes # (auto) 0.04 K/uL (0.00-0.02); Immature Granulocytes % (auto) 0.4 %; Lymphocytes # (auto) 0.26 K/uL (1.2-3.4); Lymphocytes % (auto) 2.4 %; Mean Corpuscular Hemoglobin 34.1 pg (25-34); Mean Corpuscular Hgb Conc 31.5 g/dL (32-36); Mean Corpuscular Volume 108.5 fL (80-100); Mean Platelet Volume 9.9 fL (7.4-10.4); Monocytes # (auto) 0.09 K/uL (0.11-0.59); Monocytes % (auto) 0.8 %; Neutrophils # (auto) 10.34 K/uL (1.4-6.5); Neutrophils % (auto) 96.4 %; Platelet Count 190 K/uL (130-400); RDW Coefficient of Variation 14.7 % (11.5-14.5); RDW Standard Deviation 57.5 fL (36.4-46.3); Red Blood Count 3.28 M/uL (4.2-5.4); White Blood Count 10.73 K/uL (4.8-10.8)
[2020-03-22 08:01] LABS: BUN Creatinine Ratio 5.3 (10-20); C Reactive Protein 2.66 mg/dl (0-0.29); Calcium 8.3 mg/dl (8.5-10.1); Creatinine Clr Calc Pharmacy 12.3 ml/min; Est GFR (African American) 12.9; Est GFR (Non-African American) 11.1; Potassium 4.1 mmol/L (3.5-5.1)
[2020-03-22] MEDS: APIXABAN 2.5 MG TAB PO SCH ×2 (09:42→20:58)
[2020-03-22] MEDS: methylPREDNISolone 40 MG in SYRINGE 0 ML IV SCH ×2 (09:42→20:58)
[2020-03-22] MEDS: AMIODARONE 200 MG TAB PO SCH (09:43)
[2020-03-22] MEDS: LIDOCAINE 5% 1 PATCH TD SCH (09:54)
[2020-03-22] MEDS: LACTULOSE SYRUP 30 GM/45 ML UDP PO SCH ×2 (09:54→21:10)
[2020-03-22] MEDS: UMECLIDINIUM/VILANTEROL 62.5/25MCG 7 PUFFS/INHALER INH SCH (09:54)
[2020-03-22] MEDS: SEVELAMER HCL 800 MG TABLET PO SCH (09:54)
[2020-03-22] MEDS: FERROUS SULFATE 325 MG TAB PO SCH ×2 (09:54→20:58)
[2020-03-22] MEDS: CHOLECALCIFEROL 1,000 UNITS 25 MCG TAB PO SCH (09:55)
[2020-03-22] MEDS: DICLOFENAC SOD 1% GEL 100 GM TUBE EXT SCH ×3 (09:55→20:58)
[2020-03-22] MEDS: POLYETHYLENE (MIRALAX) 17 GM PACK PO SCH ×2 (09:55→20:59)
[2020-03-22] MEDS: ATORVASTATIN 40 MG TAB PO SCH (09:55)
[2020-03-22] MEDS: CEROVITE ADV FORMULA TAB PO SCH (09:55)
[2020-03-22] MEDS: NEPHROCAPS PO SCH (09:55)
--- NOTE | 2020-03-22 11:41 | Nephrology Progress Note ---
Date of Service March 22, 2020 Assessment & Plan (1) ESRD (end stage renal disease): 75 y o F with ESRD, on HD started during this hospitalization on 03/05/2020 via [facility]. Admitted to hospital with progressive SOB and LE edema with h/o severe with severe left ventricular hypertrophy. Renal US does not demonstrate evidence of obstruction. UA/microscopy with no proteinuria but hematuria most likely related to catheter trauma. Transferred to ICU on the evening of 03/16/2024 after code kayla was called for hypotension with less responsiveness and hypercarbic respiratory failure. Transferred out of ICU on 03/19/20. Continue to lethargy somnolence most of the time. Overall no significant clinical improvement. Prognosis remains poor, planning to go home and continue on HD. Electrolyte acceptable, blood pressure relatively low but stable. Hb 11.2 --continue IHD 3 times weekly, plan for HD today --continue nephro caps once a day, hold phos binder. --dose medication for GFR <10. --TETE for Hb <10 --waiting for possible DC home with hospice although family still considering to continue HD for now. Will follow. Admission and Anticipated Discharge Date Admission Date: March 02, 2020 Ananda Smith was seen in her room this morning. She was on BiPAP, somnolent and lethargic. PO intake remained poor, phos low. Blood pressure stable, electrol yte acceptable. Review of Systems Review of Systems: Other Physical Exam Constitutional: WD/WN, vitals as above + ill appearing; no acute distress Respiratory: normal respiratory effort, lungs clear to auscultation normal respiratory effort; no respiratory distress Auscultation: + diminished lung sounds Cardiovascular: RRR, no murmur, no edema Rate/Rhythm: regular rate and regular rhythm Heart Sounds: normal S1, normal S2 and + murmur Extremities: + edema (trace b/l LE edema) Skin: no rashes, warm and dry Neurologic: awake; no focal motor deficits and not confused Psychiatric: A+Ox3, euthymic affect Results & Data ([place]) Vital Signs (Past 12 Hours) Vital Signs Temp Pulse Pulse Pulse Resp BP Pulse Ox 03/22/20 10:49 71 22 93 03/22/20 10:47 71 22 93 03/22/20 08:04 36.4 C L 80 24 118/49 L 98 03/22/20 08:00 77 12/27/20 06:58 84 20 94 03/22/20 04:05 36.7 C 80 16 120/46 L 96 PG Care Time/CCT Total # of Minutes Spent Total Time Spent with Patient: Total time spent is greater than 50% in coordination of care (as documented) at patient's floor/unit and/or counseling patient: Coding Level of Care Code 49643 Subseq Hosp Care Lvl 3 Diagnoses ESRD (end stage renal disease) N18.6
--- NOTE | 2020-03-22 14:30 | Hospitalist Progress Note ---
Date of Service March 22, 2020 Assessment & Plan (1) Hypercapnic respiratory failure: Sarah Wyatt is a 75-year-old female with severe and exere-tl-kqifnrd CKD who presented to ED with worsening dyspnea, weight gain, and leg swelling, subsequently found to have mixed acute hypoxic and hypercapnic respiratory failure, gbamw-[id number]-gbsmdiq HFpEF, and CKD IV + LATRICE requiring dialysis. Her clinical prognosis at this point is poor. Palliative care now following. Goals of Care - 03/11-03/18: Regularly engaged in reflective listening with daughters, discussing goals of care / functional status of their Mom. Patient's family requested transfer to tertiary care facility. [facility] without availability. CM then assisted daughters into looking into LTACH, which was approved. 03/16 - profound HoTN with hypercarbic respiratory failure and lethargy, transferred to ICU. On 03/18, daughters visited mother in ICU (approved by staff) to aid with medical decision making, including goals of care discussion. Patient and family understanding of poor prognosis. - Palliative care consulted, appreciate recommendations: - (03/18): Goals of care discussion held with family, hospitalist service, Dr. Ontiveros, and patient together in room. Kinjal would like to transition home rather than LTACH and continue HD as tolerated. Understanding of need for BiPAP. Agreeable to DNR/DNI. CM following and updated. Consider agencies that would help manage both medical needs, alongside potentially aid family in transitioning to hospice when appropriate. - 03/19-: Anticipate transition home on Monday. Arrange home needs: home O2 + NC, BiPAP, nasal pillows for BiPAP, HD in area, home nursing initially, potentially hospice later. Continue working with CM -- Dialysis approved, family working to obtain BiPAP 03/21 - 03/22: patient refused all treatments/medications/BiPAP while hospitalized. Her daughters will try to call her later today/tonight to see if she would like to reconsider. For now, plan for BiPAP and HD after discharge, and will try to administer BiPAP/medications in the hospital if patient allows. - Continue following with PT and OT - Encourage transfer to chair as tolerated with nursing / PT assistance - Patient understanding of HD requirements in outpatient setting -- will require coordination with case management - Regular discussions with case management and patient's family for updates, needs planning, and goals of care * Avoid Ativan at the request of the family - patient reacts poorly and becomes very somnolent * Utilize melatonin PRN to aid with sleep - she responds well to this and is preferred per family Acute respiratory failure - mixed both hypoxic and hypercapnic: Currently Stable - Likely 2/2 ffdfh-zo-[id number] HFpEF exacerbation for the hypoxic component - Hypercapnic contribution is without clear etiology, but likely multifactorial: likely part CHF and FRANKLYN, and possibly: interstitial lung disease, obesity hyperventilation syndrome, ?generalized weakness, ?underlying COPD, ?restrictive lung disease, - ABG 03/21: pH 7.16, pCO2 86, HCO3 30 - 03/22: CRP 2.66, Procalcitonin 0.71 (0.70 on 03/17) - Bedside spirometry (PFTs) demonstrate severe obstructive pattern on 03/20 (see scanned PFTs), possibly with restrictive disease as well: etiology unclear at this time, DDX similar to above (ILD, OHS, FRANKLYN, COPD, weakness, etc.) - Anoro Ellipta daily beginning 03/21 given spirometry findings above - Pulm re-consulted on 03/22 - Continue to encourage BiPAP HS/PRN -- patient will require BiPAP to be utilized at night, and throughout the day as tolerated both here and in outpatient setting - Intermittently tolerating some nights, but not others -- counselled patient on importance and indications, regularly communicating this with family - Patient says she doesn't like using BiPAP because of discomfort -- added nasal bridge bandage, consider adding nasal pillows in outpatient setting - Continue Solu-Medrol 40mg IV BID - Consider repeat CXR if worsening respiratory status Xllxb-tn-Sldagdb HFpEF (EF = 65%) - Likely 2/2 severe aortic stenosis and CKD --> ESRD - GINA demonstrated progression of (from 07/28/15), severe concentric LVH, LVEF 60-65% - Fluid balance continues to be mildly net positive day-by-day -- likely d/t progression of CKD - Requiring dialysis with CKD + LATRICE, aiding with fluid management - CXR as above (03/15, 03/16): worsened pulmonary edema with bilateral pleural effusions - If indicated due to respiratory compromise, consider thoracentesis - Maintain bed elevation >35deg to promote drainage - Continue ESRD management, as below - Cardiology not planning intervention at this time - Continue I&Os, daily weights ESRD -- now requiring HD - Baseline creatinine usually around ~2.4 mg/dL -- CKD likely attributable to microvascular disease and h/o ATN - Progressive worsening in renal function likely attributable to cardiorenal syndrome, per nephrology -- failed medication-attempted management at this point - Patient has intermittent improvement of BUN/Cr following dialysis, with subsequent worsening in day after -- no signs of renal recovery at this time - S/P permacath placement on 03/05 - Nephrology following, appreciate recs: - HD scheduled altered due to upcoming holiday, usually three times weekly // -- received 03/19, due again 03/22 - Attempting UF as possible, but difficult d/t HoTN ; nephrology closely monitoring - Originally planned [facility] outpatient HD at [facility]. - Given goals of care discussion on 03/18, patient would like to attempt HD as outpatient after transitioning home - Will require renally-dosed medications (for GFR < 10) Metabolic Encephalopathy - First noted on admission and intermittently throughout hospital course - Patient experienced significant drowsiness and somnolence throughout 03/11, resolved 03/12 s/p BiPAP; again on 03/16, still improving into AM of 03/17 in ICU - Likely d/t respiratory acidosis/hypercapnia, possibly due to uremic component from CKD with LATRICE - In previous instances (e.g., 03/11, 03/16), was found to have respiratory acidosis alongside hypercapnia on ABGs which improved after night of BiPAP - SpO2 continues to remain >95% on BiPAP - Please note: Current baseline mentation does appear to fluctuate between mild somnolence with intermittent periods of confusion, alongside A+Ox2-4 depending on time of day and use of BiPAP Sacral Ulcer - Wound care previously consulted: Nursing providing regular dressing and OptiFoam and stoma powder and [place] - Waffle cushion as tolerated -- since patient is not getting OOB much anymore can attempt to utilize in bed - Given palliative approach moving forward, can consider lidocaine cream for 1 hour followed by drying the area : helping somewhat - Consider wound care consult again as indicated / if pain increases despite lidocaine cream above Hypotension (Resolved at Present) - Suspect HoTN is d/t preload dependence from severe , which is decreased by dialysis, alongside poor PO intake: nephrology aware and following - Profound HoTN on 03/16 PM down to 56/27 at lowest, requiring Albumin and crystalloid infusion for pressure support, alongside BiPAP -- improved and managed throughout ICU stay - Hold home Imdur and metoprolol moving forward for circulatory support - If BP < 90 / 40, consider Albumin 12.5-25 (given hypoalbuminemia, malnutrition, and third spacing), then/and 500cc crystalloid bolus (responded well on 03/16, patient does have EF 65%) Macrocytic anemia - Continue B12, folate as scheduled - Likely has component from CKD IV, possibly now fitting more of an ESRD-like picture - SPEP results: negative - When tolerated, consider iron PO DM (diabetes mellitus) - HbA1C 5.5 on labs in August 2019 - Overall, poor PO intake --> lower than normal BGs throughout last several days - Consider D5W with 1/2 NSS @ 40cc/hr PRN while watching fluid status Paroxysmal atrial fibrillation - Rhythm control with amiodarone 200mg PO QAM - Anticoagulation with apixaban Hyperlipidemia - Continue home atorvastatin 40mg po daily Essential HTN (see HoTN above) - Stopped home metoprolol 200mg po daily, Imdur 60mg qAM as above d/t HoTN - Mostly normotensive since discontinuation of these medications -- continuing to monitor Possible TIA - Neurology consulted 03/04 after episode of focal weakness, slurred speech - CT did not demonstrate any acute intracranial findings - Continue vascular therapy -- HTN, HLD treatments as above / tolerated (given HoTN) - Consider TIA work-up as indicated given approach for transitioning home: MRI, FLP Dispo: PCU with tele - will require outpatient HD and BiPAP at home. Case management closely following PPX: Eliquis 2.5mg PO b.i.d. F/E/N: RD following -- minced/moist diet until denture adhesive brought in // for now, heart healthy, DM2, low sodium, dialysis diets Code: DNR/DNI (2) CKD (chronic kidney disease), stage IV: (3) Aortic stenosis: (4) CHF (congestive heart failure): Admission and Anticipated Discharge Date Admission Date: March 02, 2020 Supervising Physician Co-Signing Physician Notes Attending Attestation: Pt seen & examined, chart reviewed, care plan d/w PGY1 Dr Malick Hernandez. I agree w/ the brown components of his documentation. Saw the patient in the HD unit while getting her dialysis. She was initially very lethargic but did wake up enough to engage in some conversation. Because she told Dr Hernandez this am that she was ready to stop HD, stop all care, and simply wanting to go home I asked her again if indeed these are her wishes. She wasn't sure, stating to me "if it's cool I'll do it." I was uncertain what she meant, but ultimately she was talking about the BIPAP. The conversation then transitioned to talking about BIPAP and I told her that without it she could not survive. I discussed her ongoing issues with CO2 retention and that she becomes lethargic with rising CO2. I also discussed with her that with cessation of HD she would not survive. I offered to try and arrange a Facetime Visit with her 2 daughters and she said "she would like that." She c/o dyspnea but no pain in the chest or abdomen. Exam: gen - lethargic, ill-appearing mouth - MMM neck - JVD heart - RRR, s1 s2, 2/6 systolic RUSB lungs - decreased BS bases, expiratory phase decreased, air movement generally poor abd - soft NT ext - edema A/P: 1. acute hypercarbic/hypoxic resp failure - recurrent episodes of CO2 retention due to poor compliance with BIPAP. Recent intubation for episode of severe hypercarbia. 2. ESRD on HD 3. failure to thrive 4. - mod-severe 5. ongoing volume overload and pleural effusions 2nd to #2 6. CAD 7. metabolic encephalopathy 2nd to hypercarbia 8. ?COPD 9. ?pneumonia very lengthy conversation held with pt's daughter, Lorenza, today. spent 40 minutes on phone going over all problems at this time including difficulties with lethargy/altered MS in setting of recurrent hypercarbia. Explained to Lorenza that her mother is noncompliant with BIPAP as she dislikes the BIPAP and finds it very challenging to wear. In addition to refractory hypercarbia we continue to struggle with FTT, volume overload, etc.f I discussed with Lorenza that I reviewed pt's care with Dr Rubio and Dr John. Pulmonary does not feel that trying to tap her pleural effusions will offer clinical benefit; also, we would have to wait 2 days because of eliquis use. Lorenza aware that her mother is voicing to care team that she may be ready to stop routine care and transition to palliative care/hospice. Offered support to Lorenza. Offered to Lorenza to try and arrange facetime call with her mother and her sister. Accepted offer. Prognosis is very, very poor. Total time today - 70 minutes including the phone call w/ Lorenza, bedside visit, discussion with PGY 1 Dr Hernandez, and managing all aspects of care. Dakotah Lucas MD Subjective Patient was intermittently delirious overnight, and she started to refuse all medications, BiPAP and treatments this morning. On attempt at interview this morning, the patient reports that she would like to go home without any treatm ents because she "just wants to be home". At that time the patient was A+Ox4. On repeat interview with the patient in the early afternoon, she was more circumferential in her speech and said that she may want HD and would want the BiPAP if the "mask could be more comfortable". Reports mild shortness of breath. Denies fever/chills, chest pain/palpitations, N/V. Review of Systems Review of Systems: Pertinent positives and negatives mentioned in HPI Physical Exam Constitutional: + malnourished; no acute distress Respiratory: no labored breathing and no cough Auscultation: + diminished lung sounds (bilaterally) Cardiovascular: Rate/Rhythm: regular rate and regular rhythm Heart Sounds: + murmur (systolic ejection murmur in right upper sternal border) Gastrointestinal (Abdomen): normal bowel sounds, soft, nontender, no hepatosp lenomegaly Psychiatric: A+Ox3, euthymic affect Results & Data Results & Data ([facility]) Vital Signs (Past 12 Hours) Vital Signs Temp Pulse Pulse Pulse Resp BP Pulse Ox 03/22/20 10:49 71 22 93 03/22/20 10:47 71 22 93 03/22/20 08:04 36.4 C L 80 24 118/49 L 98 03/22/20 08:00 77 03/22/20 06:58 84 20 94 03/22/20 04:05 36.7 C 80 16 120/46 L 96 Critical Care Time Prolonged Care Time Prolonged Care Time: Yes Total Prolonged Care Time: 70 Resident Activity Tracking Resident Involvement: Resident Care Provided Care Provided: Adult Hospital Medicine (1) CHF (congestive heart failure) Heart failure chronicity: acute on chronic Heart failure type: unspecified Qualified Code(s): I50.9 - Heart failure, unspecified
[2020-03-22 19:59] LABS: Base Excess VBG 2.3 mEq/L; Oxygen Saturation VBG 76.1 %; pH VBG 7.26 (7.36-7.41)
[2020-03-22] MEDS: CEFEPIME 2,000 MG in SYRINGE 0 ML IV SCH (20:14)
[2020-03-22] MEDS: DOXYCYCLINE HYCLATE 100 MG in DEXTROSE 5% 100 ML IV SCH (20:15)
[2020-03-22] MEDS: MELATONIN 3 MG TAB PO PRN (21:02)
[2020-03-23] MEDS: DOXYCYCLINE HYCLATE 100 MG in DEXTROSE 5% 100 ML IV SCH ×2 (06:29→18:43)
[2020-03-23 06:52] LABS: Hematocrit (blood only) 32.7 % (37-47); Hemoglobin 10.2 g/dL (12.0-16.0); Immature Granulocytes # (auto) 0.03 K/uL (0.00-0.02); Immature Granulocytes % (auto) 0.3 %; Lymphocytes # (auto) 0.19 K/uL (1.2-3.4); Lymphocytes % (auto) 1.8 %; Mean Corpuscular Hemoglobin 33.9 pg (25-34); Mean Corpuscular Hgb Conc 31.2 g/dL (32-36); Mean Corpuscular Volume 108.6 fL (80-100); Mean Platelet Volume 9.9 fL (7.4-10.4); Monocytes # (auto) 0.16 K/uL (0.11-0.59); Monocytes % (auto) 1.5 %; Neutrophils # (auto) 10.47 K/uL (1.4-6.5); Neutrophils % (auto) 96.4 %; Platelet Count 181 K/uL (130-400); RDW Coefficient of Variation 14.9 % (11.5-14.5); Red Blood Count 3.01 M/uL (4.2-5.4); White Blood Count 10.85 K/uL (4.8-10.8)
[2020-03-23 07:23] LABS: Albumin Level 2.3 gm/dl (3.4-5.0); BUN Creatinine Ratio 6.5 (10-20); Calcium 8.1 mg/dl (8.5-10.1); Est GFR (African American) 21.6; Est GFR (Non-African American) 18.7; Phosphorus 2.6 mg/dl (2.5-4.9); Potassium 3.9 mmol/L (3.5-5.1)
[2020-03-23] MEDS: ALBUT/IPRATROP 3MG/0.5MG NEB 3 ML VIAL NEB SCH ×3 (07:24→15:35)
[2020-03-23] MEDS: FERROUS SULFATE 325 MG TAB PO SCH ×2 (09:32→21:08)
[2020-03-23] MEDS: CHOLECALCIFEROL 1,000 UNITS 25 MCG TAB PO SCH (09:32)
[2020-03-23] MEDS: ATORVASTATIN 40 MG TAB PO SCH (09:32)
[2020-03-23] MEDS: AMIODARONE 200 MG TAB PO SCH (09:32)
[2020-03-23] MEDS: NEPHROCAPS PO SCH (09:32)
[2020-03-23] MEDS: methylPREDNISolone 40 MG in SYRINGE 0 ML IV SCH ×2 (09:32→21:06)
[2020-03-23] MEDS: APIXABAN 2.5 MG TAB PO SCH ×2 (09:32→21:08)
[2020-03-23] MEDS: DICLOFENAC SOD 1% GEL 100 GM TUBE EXT SCH ×3 (09:33→21:08)
[2020-03-23] MEDS: POLYETHYLENE (MIRALAX) 17 GM PACK PO SCH ×2 (09:33→21:11)
[2020-03-23] MEDS: LIDOCAINE 5% 1 PATCH TD SCH (09:33)
[2020-03-23] MEDS: LACTULOSE SYRUP 30 GM/45 ML UDP PO SCH ×2 (09:33→21:05)
[2020-03-23] MEDS: UMECLIDINIUM/VILANTEROL 62.5/25MCG 7 PUFFS/INHALER INH SCH (09:34)
[2020-03-23] MEDS: CEROVITE ADV FORMULA TAB PO SCH (09:50)
--- NOTE | 2020-03-23 10:55 | Nephrology Progress Note ---
Date of Service March 23, 2020 Assessment & Plan (1) ESRD (end stage renal disease): * CKD due to microvascular disease and impaired perfusion associated w/ severe . Baseline creatinine ~2.4 mg/dL * LATRICE on CKD due to CRS/severe . Urine microscopy + for blood related to madrigal catheter. Urinalysis negative for protein. Renal US negative for obstruction but does demonstrate moderate bilateral cortical scarring and kidney stones * R IJ THC placement as well as 1st dialysis treatment completed on 03/05/2020 * Patient remains oligoanuric. Creatinine continues to rise in between HD treatments. No signs of renal recovery * No acute indication for HD today. Will reassess in am (2) Acute on chronic heart failure with preserved ejection fraction: * Volume status now controlled with [employer] (3) Aortic stenosis: * If medical condition stabilizes, consider follow up echocardiogram w/ AV area measurements (4) Hypercapnia: * Sedating medications have been stopped * Adherence w/ NIPPV encouraged (5) Unfavorable prognosis: * Clinical condition appears to be deteriorating. Patient is poorly responsive this am * In order to provide outpatient HD, patient will need to be alert, follow commands and actively participate in transfer from wheelchair to dialysis treatment chair. Discussed w/ Case Management this am * Recommend reassessment by Palliative Care and review goals of care w/ family Admission and Anticipated Discharge Date Admission Date: March 02, 2020 Subjective Ms. Sampson was seen & evaluated in her hospital room this morning. She opens her eyes to sternal rub but does not vocalize or follow commands Review of Systems Review of Systems: Unobtainable due to cognitive status Physical Exam Eyes: PERRL, conjunctivae normal, anicteric sclerae Neck: trachea midline, no thyromegaly Respiratory: normal respiratory effort, lungs clear to auscultation Cardiovascular: Rate/Rhythm: regular rate and regular rhythm Heart Sounds: + murmur Extremities: no edema Gastrointestinal (Abdomen): normal bowel sounds, soft, nontender, no hepatosplenomegaly Skin: no rashes, warm and dry Neurologic: + obtunded Results & Data ([facility]) Vital Signs (Past 12 Hours) Vital Signs Temp Pulse Pulse Resp BP BP Pulse Ox 03/23/20 07:45 36.5 C 78 18 125/74 100 03/23/20 07:24 77 20 96 03/23/20 03:34 37.1 C 83 16 115/52 L 97 03/23/20 00:23 37 C 82 18 114/63 100 Laboratory Tests 03/23/20 03/23/20 06:00 06:00 WBC 10.85 H Hgb 10.2 L Hct 32.7 L Plt Count 181 Sodium 138 Potassium 3.9 Chloride 102 Carbon Dioxide 31 BUN 16 Creatinine 2.42 H D Glucose 140 H PG Care Time/CCT Total # of Minutes Spent Total Time Spent with Patient: Total time spent is greater than 50% in coordination of care (as documented) at patient's floor/unit and/or counseling patient: Coding Level of Care Code 13832 Subseq Hosp Care Lvl 3 Diagnoses ESRD (end stage renal disease) N18.6 Acute on chronic heart failure with preserved ejection fraction I50.33 Aortic stenosis I35.0 Hypercapnia R06.89 Unfavorable prognosis
--- NOTE | 2020-03-23 11:23 | Hospitalist Progress Note ---
Date of Service March 23, 2020 Assessment & Plan (1) Hypercapnic respiratory failure: Sarah Wyatt is a 75-year-old female with severe and ncgyf-ic-jcyztln CKD who presented to ED with worsening dyspnea, weight gain, and leg swelling, subsequently found to have mixed acute hypoxic and hypercapnic respiratory failure, bfdxw-qs-azsrcmt HFpEF, and CKD IV + LATRICE requiring dialysis. Her clinical prognosis at this point is poor. Palliative care now following. Goals of Care - 03/11-03/18: Regularly engaged in reflective listening with daughters, discussing goals of care / functional status of their Mom. Patient's family requested transfer to tertiary care facility. [facility] without availability. CM then assisted daughters into looking into LTACH, which was approved. 03/16 - profound HoTN with hypercarbic respiratory failure and lethargy, transferred to ICU. On 03/18, daughters visited mother in ICU (approved by staff) to aid with medical decision making, including goals of care discussion. Patient and family understanding of poor prognosis. - Palliative care consulted, appreciate recommendations: - (03/18): Goals of care discussion held with family, hospitalist service, Dr. Ontiveros, and patient together in room. Kinjal would like to transition home rather than LTACH and continue HD as tolerated. Understanding of need for BiPAP. Agreeable to DNR/DNI. CM following and updated. Consider agencies that would help manage both medical needs, alongside potentially aid family in transitioning to hospice when appropriate. - 03/19-: Anticipate transition home on Monday. Arrange home needs: home O2 + NC, BiPAP, nasal pillows for BiPAP, HD in area, home nursing initially, potentially hospice later. Continue working with CM -- Dialysis approved, family working to obtain BiPAP 03/21 - 03/22: patient refused all treatments/medications/BiPAP while hospitalized. Her daughters will try to call her later today/tondavy to see if she would like to reconsider. For now, plan for BiPAP and HD after discharge, and will try to administer BiPAP/medications in the hospital if patient allows. - 03/23, information per case management note: palliative care spoke with patient's daughters and discussed goals of care; they have decided to stop HD and BiPAP and get patient home tomorrow with hospice services. Patient will be going to one of her daughters' houses ([facility]) and will be using [facility] hospice services. - Continue following with PT and OT - Encourage transfer to chair as tolerated with nursing / PT assistance - Patient understanding of HD requirements in outpatient setting -- will require coordination with case management - Regular discussions with case management and patient's family for updates, needs planning, and goals of care * Avoid Ativan at the request of the family - patient reacts poorly and becomes very somnolent * Utilize melatonin PRN to aid with sleep - she responds well to this and is preferred per family Acute respiratory failure - mixed both hypoxic and hypercapnic: Currently Stable - Likely 2/2 floot-wx-ezzmbsy HFpEF exacerbation for the hypoxic component - Hypercapnic contribution is without clear etiology, but likely multifactorial: likely part CHF and FRANKLYN, and possibly: interstitial lung disease, obesity hyperventilation syndrome, ?generalized weakness, ?underlying COPD, ?restrictive lung disease, - ABG 03/21: pH 7.16, pCO2 86, HCO3 30 - 03/22: CRP 2.66, Procalcitonin 0.71 (0.70 on 03/17) - Bedside spirometry (PFTs) demonstrate severe obstructive pattern on 03/20 (see scanned PFTs), possibly with restrictive disease as well: etiology unclear at this time, DDX similar to above (ILD, OHS, FRANKLYN, COPD, weakness, etc.) - Anoro Ellipta daily beginning 03/21 given spirometry findings above - Pulm re-consulted on 03/22 - Continue to encourage BiPAP HS/PRN -- patient will require BiPAP to be utilized at night, and throughout the day as tolerated both here and in outpatient setting - Intermittently tolerating some nights, but not others -- counselled patient on importance and indications, regularly communicating this with family - Patient says she doesn't like using BiPAP because of discomfort -- added nasal bridge bandage, consider adding nasal pillows in outpatient setting - update from 03/23: patient's family have decided to withdraw BiPAP as part of their hospice plan as detailed above. - Continue Solu-Medrol 40mg IV BID - Consider repeat CXR if worsening respiratory status Vuozp-os-Dumabwh HFpEF (EF = 65%) - Likely 2/2 severe aortic stenosis and CKD --> ESRD - GINA demonstrated progression of (from 07/28/15), severe concentric LVH, LVEF 60-65% - Fluid balance continues to be mildly net positive day-by-day -- likely d/t progression of CKD - Requiring dialysis with CKD + LATRICE, aiding with fluid management - CXR as above (03/15, 03/16): worsened pulmonary edema with bilateral pleural effusions - If indicated due to respiratory compromise, consider thoracentesis - Maintain bed elevation >35deg to promote drainage - Continue ESRD management, as below - Cardiology not planning intervention at this time - Continue I&Os, daily weights ESRD -- now requiring HD - Baseline creatinine usually around ~2.4 mg/dL -- CKD likely attributable to microvascular disease and h/o ATN - Progressive worsening in renal function likely attributable to cardiorenal syndrome, per nephrology -- failed medication-attempted management at this point - Patient has intermittent improvement of BUN/Cr following dialysis, with subsequent worsening in day after -- no signs of renal recovery at this time - S/P permacath placement on 03/05 - plan changed on 03/23 which no longer includes HD, as discussed above Metabolic Encephalopathy - First noted on admission and intermittently throughout hospital course - Patient experienced significant drowsiness and somnolence throughout 03/11, resolved 03/12 s/p BiPAP; again on 03/16, still improving into AM of 03/17 in ICU - Likely d/t respiratory acidosis/hypercapnia, possibly due to uremic component from CKD with LATRICE - In previous instances (e.g., 03/11, 03/16), was found to have respiratory acidosis alongside hypercapnia on ABGs which improved after night of BiPAP - SpO2 continues to remain >95% on BiPAP - Please note: Current baseline mentation does appear to fluctuate between mild somnolence with intermittent periods of confusion, alongside A+Ox2-4 depending on time of day and use of BiPAP Sacral Ulcer - Wound care previously consulted: Nursing providing regular dressing and OptiFoam and stoma powder and Aloe Tarpley - Waffle cushion as tolerated -- since patient is not getting OOB much anymore can attempt to utilize in bed - Given palliative approach moving forward, can consider lidocaine cream for 1 hour followed by drying the area : helping somewhat - Consider wound care consult again as indicated / if pain increases despite lidocaine cream above Hypotension (Resolved at Present) - Suspect HoTN is d/t preload dependence from severe , which is decreased by dialysis, alongside poor PO intake: nephrology aware and following - Profound HoTN on 03/16 PM down to 56/27 at lowest, requiring Albumin and crystalloid infusion for pressure support, alongside BiPAP -- improved and managed throughout ICU stay - Hold home Imdur and metoprolol moving forward for circulatory support - If BP < 90 / 40, consider Albumin 12.5-25 (given hypoalbuminemia, malnutrition, and third spacing), then/and 500cc crystalloid bolus (responded well on 03/16, patient does have EF 65%) Macrocytic anemia - Continue B12, folate as scheduled - Likely has component from CKD IV, possibly now fitting more of an ESRD-like picture - SPEP results: negative - When tolerated, consider iron PO DM (diabetes mellitus) - HbA1C 5.5 on labs in August 2019 - Overall, poor PO intake --> lower than normal BGs throughout last several days Paroxysmal atrial fibrillation - Rhythm control with amiodarone 200mg PO QAM - Anticoagulation with apixaban Hyperlipidemia - Continue home atorvastatin 40mg po daily Essential HTN (see HoTN above) - Stopped home metoprolol 200mg po daily, Imdur 60mg qAM as above d/t HoTN - Mostly normotensive since discontinuation of these medications -- continuing to monitor Possible TIA - Neurology consulted 03/04 after episode of focal weakness, slurred speech - CT did not demonstrate any acute intracranial findings - Continue vascular therapy -- HTN, HLD treatments as above / tolerated (given HoTN) - Consider TIA work-up as indicated given approach for transitioning home: MRI, FLP Dispo: PCU with tele PPX: Eliquis 2.5mg PO b.i.d. F/E/N: RD following -- minced/moist diet until denture adhesive brought in // for now, heart healthy, DM2, low sodium, dialysis diets Code: DNR/DNI (2) CKD (chronic kidney disease), stage IV: (3) Aortic stenosis: (4) CHF (congestive heart failure): Admission and Anticipated Discharge Date Admission Date: March 02, 2020 Supervising Physician Co-Signing Physician Notes I also saw the patient and confirmed brown portions of the history and physical examination. I agree with the impression and plan as noted in the resident documentation. Also discussed the case in detail with the palliative foster care social worker. Patient lethargic but awake; her speech is slowed she needs to catch her breath; she is understandable for the most part although with prolonged sentences, the words begin to become more incomprehensible. She does voice awareness of her terminal conditions. We discussed hospice and if she elects hospice and goes home she would not be able to have outpatient hemodialysis (not because hospice would not allow hemodialysis but rather she is too weak at this point to be a candidate for outpatient hemodialysis)/ Vital signs stable. She appears weak; speech is slowed due to conversational dyspnea. Decreased lung sounds in all isabel Impression Acute on chronic hypercapnic/hypoxic respiratory failure Obstructive lung disease, suspect obesity hypoventilation syndrome Little improvement with added IV steroids, duo nebs and inhalers Metabolic encephalopathy secondary to hypercarbia End-stage renal disease As noted above, she would not be a candidate for outpatient hemodialysis due to her weakness Overall prognosis is poor. She is an appropriate candidate for hospice services, as given the natural progression of her disease, she would have a life expectancy less than six months. Without HD, suspect it will be much less, likely days to weeks. Palliative care has spoken to daughters who are understanding and supportive of home hospice. Palliative team to discuss with CM. Subjective Patient seen at the bedside this morning. She was very somnolent and she was unable to provide answers to any of my questions. I returned to her room in the afternoon and found patient awake. She was mildly confused but able to voice that she did not know what the plan was for her going forward. She had no acute complaints. We let her know we would discuss next steps with her daughters. Palliative care was able to have a conference call with the daughters; see palliative care documentation for details. Review of Systems Review of Systems: Unobtainable due to cognitive status Physical Exam Constitutional: no acute distress responsive tactile stimuli - stirs but then falls back asleep Respiratory: normal respiratory effort, lungs clear to auscultation Cardiovascular: Rate/Rhythm: regular rate and regular rhythm grade 3/6 systolic ejection murmur appreciated Gastrointestinal (Abdomen): normal bowel sounds, soft, nontender, no hepatosplenomegaly Psychiatric: Affect: + anxious affect Results & Data Results & Data ([facility]) Vital Signs (Past 12 Hours) Vital Signs Temp Pulse Pulse Resp BP BP Pulse Ox 03/23/20 07:45 36.5 C 78 18 125/74 100 03/23/20 07:24 77 20 96 03/23/20 03:34 37.1 C 83 16 115/52 L 97 03/23/20 00:23 37 C 82 18 114/63 100 Resident Activity Tracking Resident Involvement: Resident Care Provided Care Provided: Adult Hospital Medicine (1) CHF (congestive heart failure) Heart failure chronicity: acute on chronic Heart failure type: unspecified Qualified Code(s): I50.9 - Heart failure, unspecified
--- NOTE | 2020-03-23 14:51 | Palliative Care Progress Note ---
Date of Service March 23, 2020 Assessment & Plan (1) Palliative care encounter: I evaluated the patient today. Apparently, she has shown overall decline and is now refusing to wear her BiPAP. Nephrology did evaluate the patient today and also has concerns regarding her ability to tolerate hemodialysis. She has progressively been getting weaker and weaker. I spoke with [facility] and Jeri on the phone at the same time. Both daughters are feeling hopeless. patient was to return home with home health, but was unable as the bipap machine was unavailable. I talked with them about her overall decline and deconditioned state. I discussed Hospice with them and what it entails, stressing that they would have to stop hemodialysis and the bipap, but would be able to spend time with their mother. Currently, the patient is stable for transfer, but set expectation that we could lose our stability window of opportunity at any moment. After discussion with case management, patient has been refered to [facility]. Equipment will be delivered tomorrow and hopefully she will be discharged tomorrow. Life expectancy likely a few days to a week. Palliative care will follow as necessary. Thanks for allowing us to be involved with her care. (2) Dyspnea: Hypercapnic respiratory failure improves with bipap (3) Hypotension: Balance with dialysis if tolerated Admission and Anticipated Discharge Date Admission Date: March 02, 2020 Subjective Pt evaluated today at the bedside. Pt was sitting upright in her bed, refused BiPAP and was very weak with her speaking. See A/P for further details. Review of Systems Review of Systems: [place] Symptom Assessment Scale Pain0/3 Dyspnea 1/3 Drowsiness 2/3 Palliative Performance Score 20% Physical Exam Constitutional: + ill appearing, + frail appearing, + lethargic and + edematous Respiratory: normal respiratory effort and + uses accessory muscles (with conversation); no labored breathing Cardiovascular: Extremities: + edema Neurologic: awake; no focal motor deficits Psychiatric: Orientation: alert and oriented x 3 Results & Data ([facility]) Vital Signs (Past 12 Hours) Vital Signs Temp Pulse Pulse Resp BP BP Pulse Ox 03/23/20 11:44 36.6 C 83 18 101/47 L 100 03/23/20 07:45 36.5 C 78 18 125/74 100 03/23/20 07:24 77 20 96 03/23/20 03:34 37.1 C 83 16 115/52 L 97 PG Care Time/CCT Total # of Minutes Spent Total Time Spent with Patient: Total time spent is greater than 50% in coordination of care (as documented) at patient's floor/unit and/or counseling patient: 45 Coding Level of Care Code 30751 Subseq Hosp Care Lvl 3 Diagnoses Palliative care encounter Z51.5 Dyspnea R06.00 Hypotension I95.9 Time Spent (min) 45 Time Spent Midlevel Total time spent 45 minutes with > 50% of that time spent assessing the patient, discussing goals of care and collaborating with IDT
[2020-03-23] MEDS: CEFEPIME 2,000 MG in SYRINGE 0 ML IV SCH (18:43)
[2020-03-24] MEDS: DOXYCYCLINE HYCLATE 100 MG in DEXTROSE 5% 100 ML IV SCH (06:00)
[2020-03-24 08:29] LABS: Hematocrit (blood only) 32.3 % (37-47); Hemoglobin 9.9 g/dL (12.0-16.0); Immature Granulocytes # (auto) 0.04 K/uL (0.00-0.02); Immature Granulocytes % (auto) 0.3 %; Lymphocytes # (auto) 0.26 K/uL (1.2-3.4); Lymphocytes % (auto) 2.1 %; Mean Corpuscular Hemoglobin 33.8 pg (25-34); Mean Corpuscular Hgb Conc 30.7 g/dL (32-36); Mean Corpuscular Volume 110.2 fL (80-100); Mean Platelet Volume 9.8 fL (7.4-10.4); Monocytes # (auto) 0.36 K/uL (0.11-0.59); Monocytes % (auto) 2.9 %; Neutrophils # (auto) 11.69 K/uL (1.4-6.5); Neutrophils % (auto) 94.7 %; Nucleated RBC # (auto) 0.02 K/uL (0-0); Nucleated RBC % (auto) 0.1 %; Platelet Count 162 K/uL (130-400); RDW Standard Deviation 58.9 fL (36.4-46.3); Red Blood Count 2.93 M/uL (4.2-5.4); White Blood Count 12.35 K/uL (4.8-10.8)
[2020-03-24 08:51] LABS: Macrocytosis Present
[2020-03-24 09:00] LABS: BUN Creatinine Ratio 9.3 (10-20); Calcium 8.6 mg/dl (8.5-10.1); Est GFR (African American) 14.9; Est GFR (Non-African American) 12.9; Potassium 4.1 mmol/L (3.5-5.1)
--- NOTE | 2020-03-24 09:49 | Nephrology Progress Note ---
Date of Service March 24, 2020 Assessment & Plan (1) ESRD (end stage renal disease): * CKD due to microvascular disease and impaired perfusion associated w/ severe . Baseline creatinine ~2.4 mg/dL * LATRICE on CKD due to CRS/severe . Urine microscopy + for blood related to madrigal catheter. Urinalysis negative for protein. Renal US negative for obstruction but does demonstrate moderate bilateral cortical scarring and kidney stones * R IJ THC placement as well as 1st dialysis treatment completed on 03/05/2020 * Patient remains oligoanuric. Creatinine continues to rise in between HD treatments. No signs of renal recovery * No acute indication for HD today. Volume status and electrolyte balance remain acceptable. Family considering transition to comfort measures/hospice care (2) Acute on chronic heart failure with preserved ejection fraction: * Volume status now controlled with YARDING ENGINEER (3) Aortic stenosis: * If medical condition improves, consider follow up echocardiogram w/ AV area measurements (4) Hypercapnia: * Sedating medications have been stopped * NIPPV therapy encouraged (5) Unfavorable prognosis: * Clinical condition has deteriorated. Patient remains poorly responsive this am * In order to provide outpatient HD, patient will need to be alert, follow commands and actively participate in transfer from wheelchair to dialysis treatment chair * Palliative Care note reviewed. Family considering transition to comfort measures/hospice care Admission and Anticipated Discharge Date Admission Date: March 02, 2020 Subjective Ms. Sampson awakens to tactile stimuli and will speak her name. She is not oriented to place or time. She will not follow other commands. ROS not possible due to altered mental status Review of Systems Review of Systems: Unobtainable due to cognitive status Physical Exam Eyes: PERRL, conjunctivae normal, anicteric sclerae ENMT: external ear and nose normal, oropharynx normal Neck: trachea midline, no thyromegaly Respiratory: normal respiratory effort, lungs clear to auscultation Cardiovascular: Rate/Rhythm: regular rate and regular rhythm Heart Sounds: + murmur Extremities: no edema Gastrointestinal (Abdomen): normal bowel sounds, soft, nontender, no hepatosplenomegaly Skin: no rashes, warm and dry Neurologic: + confused (lethargic) Results & Data ([facility]) Vital Signs (Past 12 Hours) Vital Signs Temp Pulse Resp BP Pulse Ox 03/24/20 03:18 37.3 C 80 18 117/67 94 03/23/20 23:46 36.4 C L 83 22 108/43 L 94 Laboratory Results Laboratory Tests 03/24/20 03/24/20 07:46 07:46 WBC 12.35 H Hgb 9.9 L Hct 32.3 L Plt Count 162 Sodium 136 Potassium 4.1 Chloride 101 Carbon Dioxide 31 BUN 31 H D Creatinine 3.29 H D Glucose 158 H Calcium 8.6 PG Care Time/CCT Total # of Minutes Spent Total Time Spent with Patient: Total time spent is greater than 50% in coordination of care (as documented) at patient's floor/unit and/or counseling patient: Coding Level of Care Code 38597 Subseq Hosp Care Lvl 3 Diagnoses ESRD (end stage renal disease) N18.6 Acute on chronic heart failure with preserved ejection fraction I50.33 Aortic stenosis I35.0 Hypercapnia R06.89 Unfavorable prognosis
[2020-03-24] MEDS: methylPREDNISolone 40 MG in SYRINGE 0 ML IV SCH (09:57)
[2020-03-24] MEDS: ATORVASTATIN 40 MG TAB PO SCH (09:58)
[2020-03-24] MEDS: CHOLECALCIFEROL 1,000 UNITS 25 MCG TAB PO SCH (09:58)
[2020-03-24] MEDS: POLYETHYLENE (MIRALAX) 17 GM PACK PO SCH (09:58)
[2020-03-24] MEDS: NEPHROCAPS PO SCH (09:58)
[2020-03-24] MEDS: CEROVITE ADV FORMULA TAB PO SCH (09:58)
[2020-03-24] MEDS: LIDOCAINE 5% 1 PATCH TD SCH (09:59)
[2020-03-24] MEDS: LACTULOSE SYRUP 30 GM/45 ML UDP PO SCH (09:59)
[2020-03-24] MEDS: DICLOFENAC SOD 1% GEL 100 GM TUBE EXT SCH (09:59)
[2020-03-24] MEDS: APIXABAN 2.5 MG TAB PO SCH (09:59)
[2020-03-24] MEDS: UMECLIDINIUM/VILANTEROL 62.5/25MCG 7 PUFFS/INHALER INH SCH (09:59)
[2020-03-24] MEDS: AMIODARONE 200 MG TAB PO SCH (09:59)
[2020-03-24] MEDS: FERROUS SULFATE 325 MG TAB PO SCH (09:59)
--- NOTE | 2020-03-24 10:23 | Hospitalist Progress Note ---
Date of Service March 24, 2020 Assessment & Plan (1) Hypercapnic respiratory failure: Sarah Wyatt is a 75-year-old female with severe and oljcs-ba-siqjwmk CKD who presented to ED with worsening dyspnea, weight gain, and leg swelling, subsequently found to have mixed acute hypoxic and hypercapnic respiratory failure, yukrj-cx-nerxght HFpEF, and CKD IV + LATRICE requiring dialysis. Her clinical prognosis at this point is poor. Her breathing has become more labored over the past 24 hours. Palliative care on board during her stay. Goals of Care -03/23, information per case management note: palliative care spoke with patient's daughters and discussed goals of care; they have decided to stop HD and BiPAP and aim to get patient home today (03/24) with hospice services. Patient will be going to one of her daughters' houses ([place]) and will be using [facility] hospice services. -continue following with PT and OT -patient understanding of HD requirements in outpatient setting -- will require coordination with case management -update 03/23: per nephrology, patient is likely too weak to participate in outpatient HD; HD is to be withdrawn as part of a transition to home with hospice services. -regular discussions with case management and patient's family for updates, needs planning, and goals of care. -avoided ativan at the request of the family - patient reacted poorly and becomes very somnolent Acute mixed respiratory failure -likely 2/2 aafbp-hy-ijdbvtl HFpEF exacerbation for the hypoxic component; hypercapnic contribution is without clear etiology, but likely multifactorial: likely part CHF and FR[place]N, and possibly: interstitial lung disease, obesity hyperventilation syndrome, underlying COPD, restrictive lung disease. -continue solumedrol 40mg IV bid -continue anoro-ellipta qd -continue to encourage BiPAP at night and as needed, though patient has not tolerated this; patient's family is aware and says nasal cannula is acceptable if patient does not tolerate BiPAP after gentle encouragement. Qtryk-in-Mjmmiee HFpEF (EF=65%) -likely 2/2 severe aortic stenosis and CKD --> ESRD -GINA demonstrated progression of (from 07/28/15), severe concentric LVH, LVEF 60-65% -CXR (03/16): worsened pulmonary edema with bilateral pleural effusions -maintain bed elevation >35deg to promote drainage -continue ESRD management, as below -cardiology not planning intervention at this time -continue I&Os, daily weights ESRD -naseline creatinine usually around ~2.4 mg/dL -- CKD likely attributable to microvascular disease and h/o ATN -progressive worsening in renal function likely attributable to cardiorenal syndrome, per nephrology -- failed medication-attempted management at this point -nephrology following: no signs of renal recovery as of 03/24 -per nephrology, patient has no acute indication for dialysis at this time. Metabolic Encephalopathy -first noted on admission and intermittently throughout hospital course -likely d/t respiratory acidosis/hypercapnia, possibly due to uremic component from CKD with LATRICE Sacral Ulcer -wound care previously consulted: nursing providing regular dressing and OptiFoam and stoma powder and [place] -waffle cushion as tolerated -- since patient is not getting OOB much anymore can attempt to utilize in bed -given palliative approach moving forward, can consider lidocaine cream for 1 hour followed by drying the area: helping somewhat -consider wound care consult again as indicated / if pain increases despite lidocaine cream above Hypotension (currently resolved) -suspect HoTN is d/t preload dependence from severe , which is decreased by dialysis, alongside poor PO intake: nephrology aware and following -profound HoTN on 03/16 PM down to 56/27 at lowest, requiring Albumin and crystalloid infusion for pressure support, alongside BiPAP -- improved and managed throughout ICU stay -holding home imdur and metoprolol -if BP < 90 / 40, consider Albumin 12.5-25 (given hypoalbuminemia, malnutrition, and third spacing), then/and 500cc crystalloid bolus (responded well on 03/16, patient does have EF 65%) Macrocytic anemia -continue B12, folate as scheduled -continue iron PO DM2 -HbA1C 5.5 on labs in August 2019 -Overall, poor PO intake --> lower than normal BGs throughout last several days Paroxysmal atrial fibrillation -rhythm control with amiodarone 200mg PO QAM -anticoagulation with apixaban 2.5mg PO bid Hyperlipidemia -continue home atorvastatin 40mg po daily Essential HTN -holding home imdur and metoprolol as described above -largely normotensive since discontinuation of these medications; continuing to monitor Possible TIA -neurology consulted 03/04 after episode of focal weakness, slurred speech -CT negative for acute intracranial findings -continue vascular therapy (HTN, HLD treatments) as indicated/tolerated, as described above Dispo: PCU with tele DVT ppx: eliquis 2.5mg PO bid FENGI: RD following -- minced/moist diet until denture adhesive brought in // for now, heart healthy, DM2, low sodium, dialysis diets Code status: DNR/DNI (2) CKD (chronic kidney disease), stage IV: (3) Aortic stenosis: (4) CHF (congestive heart failure): Admission and Anticipated Discharge Date Admission Date: March 02, 2020 Supervising Physician Co-Signing Physician Notes Please see my attestation in the discharge summary of the same date. Subjective Patient was seen at the bedside this morning. She was asleep in bed with labored breathing but did not appear to be in pain. She responds to tactile stimuli and stirs when I say her name but was unable to provide answers to my questioning. Unable to obtain ROS. Per nursing notes, overnight patient was unable to tolerate BiPAP and repeatedly removed the BiPAP mask. A nasal cannula was placed instead and she was able to t olerate this. Review of Systems Review of Systems: Unobtainable due to cognitive status Physical Exam Constitutional: + ill appearing, + altered mental status and + frail appearing; no acute distress Respiratory: + labored breathing and + uses accessory muscles Auscultation: + crackles; no wheezes Cardiovascular: Rate/Rhythm: regular rate and regular rhythm harsh, grade 5/6 systolic crescendo-decrescendo murmur heard best over the left sternal border Gastrointestinal (Abdomen): Percussion/Palpation: abdomen soft; abdomen nontender Results & Data Results & Data ([facility]) Vital Signs (Past 12 Hours) Vital Signs Temp Pulse Resp BP Pulse Ox 03/24/20 03:18 37.3 C 80 18 117/67 94 03/23/20 23:46 36.4 C L 83 22 108/43 L 94 (1) CHF (congestive heart failure) Heart failure chronicity: acute on chronic Heart failure type: unspecified Qualified Code(s): I50.9 - Heart failure, unspecified
--- NOTE | 2020-03-24 16:07 | Discharge Summary ---
Date of Service March 24, 2020 Admission HPI Per Admitting Provider Sarah Wyatt is a 75 year old female with severe aortic stenosis and CKD who presents to the ER with worsening shortness of breath, weight gain and leg swelling. She reports this has been slowly progressive for the last few months with associated leg swelling. She was recently seen by her wine steward Dr Rubio on February 27 and bumex was increased although she has not noticed any improvement with this. She denies any chest pain, palpitations, claudication. Shortness of breath is mainly on exertion however she also notes orthopnea. She denies any fevers, chills, cough, loss of taste or smell, diarrhea, abdominal pain, COVID-19 exposure. In the ER chest x-ray, history, BNP and exam was concerning for hypervolemic state since she was given a total of 1.5 mg Bumex IV. She was referred to medicine for CHF, CKD/LATRICE, hypoxia for admission and ongoing management. Admission Exam Per Admitting Provider Constitutional: well developed; + not well nourished and no acute distress Eyes: + anicteric sclerae; normal pupil size ENMT: external ear and nose normal, oropharynx normal Mouth: oral mucous membranes not dry Neck: trachea midline Respiratory: normal respiratory effort and able to speak in complete sentences; no labored breathing, no retractions and does not use accessory muscles Auscultation: + diminished lung sounds (Bibasal); no crackles and no wheezes Cardiovascular: Rate/Rhythm: regular rate and regular rhythm Heart Sounds: normal S1, normal S2 and + murmur (Systolic) Vessels: + JVD Extremities: normal capillary refill, + calf tenderness (Bilateral) and + pedal edema (3+ taut skin up to abdomen bilaterally equal) Gastrointestinal (Abdomen): Inspection/Auscultation: normal bowel sounds Percu ssion/Palpation: abdomen soft; abdomen nontender, no guarding and abdomen not rigid Musculoskeletal: no cyanosis or clubbing, extremities motor strength 5/5 Skin: no rashes, warm and dry (Towards on bilateral lower extremities) Neurologic: moves all extremities and awake; no focal motor deficits and not confused Psychiatric: A+Ox3, euthymic affect Genitourinary: no CVA tenderess Principal Diagnosis Acute mixed respiratory failure, zmgff-vd-zdqpiab diastolic heart failure, severe aortic stenosis, ESRD, pleural effusion Discharge Exam Constitutional + frail appearing; no acute distress Respiratory + labored breathing and + uses accessory muscles Auscultation: + diminished lung sounds and + crackles; no wheezes Cardiovascular Vessels: no JVD On my exam, rate was regular, rhythm sounded regular - history of afib noted. Harsh grade 5/6 systolic crescendo-decrescendo murmur noted, heard best over LSB, without palpable thrill. Gastrointestinal (Abdomen) normal bowel sounds, soft, nontender, no hepatosplenomegaly Neurologic Patient responsive to tactile stimuli and minimally responsive to her name being called but does not awaken Discharge Data Allergies Allergy/AdvReac Type Severity Reaction Status Date / Time lorazepam [From Ativan] Allergy Severe Not to be Verified 03/11/20 15:20 given per fam, See Comment heparin Allergy Unknown BLOOD Verified 03/02/20 15:50 DISORDER mexiletine Allergy Unknown SEVERE Verified 02/28/20 10:34 TREMORS Sulfa (Sulfonamide Allergy Unknown UNKNOWN Verified 03/02/20 15:50 Antibiotics) REACTION TO SULFA DRUGS Consultations 03/02/20 17:13 ED Decision to Admit Stat 03/02/20 21:19 Consult Cardiology Routine Consult Nephrology Routine 03/04/20 10:46 Consult Pulmonology Routine 03/06/20 12:24 Consult Case Management - Discharge Planning Routine 03/18/20 11:50 Consult Palliative Care Routine Procedures Performed Operation Date: 03/05/20 08:20 Actual Procedures p Insertion of Perm Cath, Right Jugular Approach, Ultrasound Localization of Right Jugular Vein, Fluoscopy for positioning - Hector Chanel MD Ordered Studies 03/02/20 19:11 US renal/blad retro comp Stat 03/03/20 11:01 CT head/brain wo con Stat 03/04/20 09:23 CT chest wo con Stat 03/05/20 13:25 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 Her clinical prognosis at this point is poor. Her breathing has become more labored over the past 24 hours. Palliative care on board during her stay. Dyspnea, respiratory failure, cpawu-cx-vhhfcaj HFpEF, ESRD, Patient presented to the ED on 03/02/2020 with worsening dyspnea, weight gain, and leg swelling that had been slowly progressive over the course of a few weeks to months, and was admitted with acute hypoxic, hypercapnic respiratory failure despite optimal medical management on an outpatient basis. Diuresis was largely unsuccessful, as patient was found to be in anuric renal failure with a GFR of less than 10. A permanent port was placed on 03/05 and patient underwent her first HD that day. She developed hypotension to the 80s/40s after 1L fluid was dialyzed, and was given fluids to treat this. Her fluid balance status remained difficult to manage, as HD frequently led to episodes of hypotension, likely secondary due to her severe being preload-dependent. Patient developed bilateral pleural effusions and interstitial edema as a consequence of fluid overload. Pulmonary was consulted and recommended nightly BiPAP. When patient tolerated BiPAP, it led to an improvement in patient's respiratory acidosis, but unfortunately, patient only intermittently tolerated wearing the BiPAP mask. Patient continued to decline and developed mixed hypoxic, hypercapnic respiratory failure. On 03/16, patient became obtunded and hypotensive, and was transferred to the ICU. Patient improved with BiPAP and HD, and became stable enough to be downgraded back to the medical floor. Patient's clinical picture worsened further as BiPAP continued to be intolerable to the patient. Patient developed increased inflammatory markers which, in combination with her worsening clinical picture, were thought to be due to hospital-acquired pneumonia, which was treated with IV antibiotics starting on 03/22. Patient's clinical picture continued to worsen, and it became increasingly unlikely that patient would be able to transfer herself from her chair to a dialysis bed, as would be required to be a candidate for outpatient HD. Patient was discharged on 03/24 to her daughter's home with hospice services. (2) Metabolic encephalopathy: (3) ESRD (end stage renal disease): (4) Pleural effusion: (5) Aortic stenosis: (6) CHF (congestive heart failure): (7) Acute on chronic heart failure with preserved ejection fraction: (8) PAD (peripheral artery disease): (9) Paroxysmal atrial fibrillation: (10) Chronic anticoagulation: (11) LVH (left ventricular hypertrophy): (12) DM (diabetes mellitus): (13) HTN (hypertension): (14) Aortic stenosis, severe: Total Time Total Time Spent Total Time Spent (In Minutes): 20 mins Total Time Includes: Examination of the Patient, Discharge Planning and Communication With Other Providers Discharge Plan Discharge Items Patient Disposition: Home - Self-Care Reason For Visit: ACUTE CHF, LATRICE Discharge Diagnosis: Acute hypoxic respiratory failure Condition on Discharge: Serious Activity: Per Instructions section Non-emergency contact: Primary Care Provider Call non-emergency contact if: you have any medication questions and you have a fever Follow-up/Referrals: Kwabena Pierson [Primary Care Provider] - 03/30/20 12:15 pm Diet: Dialysis Renal Diet Texture: Dental soft (bite-sized) Addtl Attending Provider Instructions: You were admitted to the hospital for respiratory failure. You and your family decided to continue your care at home with home hospice services. You will be seen by home hospice today. Thank you for allowing us to participate in your care. Pending Studies at Discharge: No Stand-Alone Forms: My [facility] Medications and DC Order Prescriptions: New Anoro Ellipta 62.5-25 mcg/actuation Blister With Device 1 ea inhalation DAILY Qty: 14 RF: 0 polyethylene glycol 3350 [Miralax] 17 gram Powder In Packet 17 g PO BID Qty: 30 RF: 0 melatonin 3 mg Tablet 3 mg PO HS PRN (Reason: sleep) Qty: 30 RF: 0 lidocaine 5 % Adhesive Patch,Medicated 1 patch transdermal QAM 30 Days Qty: 1 RF: 0 diclofenac sodium [Voltaren] 1 % Gel 4 g EXT TID 30 Days Qty: 1 RF: 0 Continued amiodarone 200 mg tablet 200 mg PO QAM Qty: 90 RF: 3 isosorbide mononitrate 60 mg tablet extended release 24 hr 60 mg PO QAM Qty: 30 RF: 5 apixaban 2.5 mg tablet 2.5 mg PO BID Qty: 60 RF: 11 acetaminophen 500 mg Tablet 500 mg PO Q6H PRN (Reason: Pain) RF: 0 Multiple Vitamin, Womens Tablet 1 tab PO DAILY RF: 0 atorvastatin 40 mg tablet 40 mg PO DAILY RF: 0 fluticasone propionate 50 mcg/actuation spray,suspension 1 spray Intranasal DAILY PRN (Reason: Allergy Symptoms) RF: 0 cholecalciferol (vitamin D3) [Vitamin D3] 1,000 unit Capsule 1,000 units PO QAM RF: 0 ferrous sulfate 325 mg (65 mg iron) tablet 325 mg PO BID RF: 0 Discontinued metoprolol succinate 200 mg tablet extended release 24 hr 200 mg PO DAILY RF: 0 Januvia 25 mg tablet 25 mg PO DAILY RF: 0 bumetanide 2 mg tablet 2 mg PO .QAFTERNOON RF: 0 bumetanide 2 mg tablet 2.5 mg PO QAM RF: 0 PreserVision AREDS [id number] zkew-sb-oyyc Capsule 1 cap PO BID RF: 0 Discharge Orders: Discharge Order (Routine); Ordered 03/24/20 Ordered By: Scout Marshall/Other Patient Handouts: Managing Type 2 Diabetes Admission Data Admit Date/Time: 03/02/20 19:10 Attending Provider: Choco Kimball Admit Provider: Dakotah Edwards Primary Care Provider: Kwabena Pierson Other Providers: Rahul Cullen ; Sydni, ; [facility] [place] ; Savannah Sprague ; [facility] ; Dakotah Edwards ; Tashi Rubio ; Laila Ibarra ; Irving Rueda ; Rylie Ontiveros Other Interventions: Discharge Summary Assessment (RN) Last Done: 03/24/20 14:30 Supervising Physician Co-Signing Physician Notes I also saw the patient and confirmed brown portions of the history and physical examination. I agree with the impression and plan as noted in the resident documentation. Also discussed the case in detail with the palliative career technical education instructor. Upon examination today, the patient is sleeping soundly and I am unable to arouse her. Respirations are slow, 12 to 14/min, but nonlabored. Vital signs are otherwise stable; she is afebrile. Impression Acute on chronic hypercapnic/hypoxic respiratory failure Obstructive lung disease, suspect obesity hypoventilation syndrome Metabolic encephalopathy secondary to hypercarbia End-stage renal disease Patient is scheduled to go home with hospice services this afternoon. Arrangements have been made for the hospital bed and BiPAP machine at her home. Resident Activity Tracking Resident Involvement: Resident Care Provided Care Provided: Adult Hospital Medicine
--- NOTE | 2020-03-26 08:52 | Billing Data ---
Date of Service March 22, 2020 Coding Level of Care Code 09392 Prolonged Care (int'l) (25 - SIGNIFICANT, SEPARATELY IDENTIFIABLE ) Time Spent (min) 70
== END 2020-03-24 18:34 | disposition hospice, home (50) | DRG 291 ==
LOC: ED 13:31 → 2W 19:10 → SUATTDRO 19:10 → 2W 20:46 → 1E 03-16 21:06 → 2S 03-19 18:28